=== PATIENT | male | born 1945 | race Caucasian/White ===

== ENCOUNTER 2021-03-04 11:53 | Observation (INO) | payer MEDICARE, SELFPAY ==
[2021-03-04 12:36] VITALS: BP 164/78; PULSE 101; RESP 18; TEMP 36.7; O2SAT 98; BMI 24.8
[2021-03-04 15:24] LABS: Basophils # 0.1 10^3/uL (0.0-0.1); Basophils % 0.7 %; Eosinophils % 0.3 %; Hematocrit 27.5 % (42.0-52.0); Hemoglobin 8.5 g/dL (11.7-16.6); Lymphocytes % 13.2 %; Mean Corpuscular HGB Conc 30.9 g/dL (30.0-36.0); Mean Corpuscular Hemoglobin 36.2 pg (28.0-34.0); Mean Platelet Volume 10.3 fL (7.4-10.4); Monocytes # 0.4 10^3/uL (0.2-0.9); Monocytes % 5.8 %; Neutrophils # 6.04 10^3/uL (1.8-7.7); Neutrophils % 79.5 %; Nucleated Red Blood Cells % 0 %; Platelet Count 168 10^3/cmm (130-400); Red Blood Count 2.35 10^6/uL (4.1-5.3); Red Cell Distribution Width 18.5 % (12.1-15.1); White Blood Count 7.6 10^3/uL (4.0-10.0)
[2021-03-04 15:39] LABS: INR 1.08 (0.8-1.2)
[2021-03-04 15:40] LABS: Partial Thromboplastin Time 33.9 SECONDS (23.9-36.7)
[2021-03-04 15:56] LABS: Troponin T (5th) Once 93 ng/L (0-15)
[2021-03-04 16:00] LABS: Alanine Aminotransferase 14 U/L (0-41); Albumin Level 3.2 g/dL (3.5-5.2); Alkaline Phosphatase 271 IU/L (40-130); Aspartate Amino Transferase 90 U/L (0-40); Blood Urea Nitrogen 17 mg/dL (8-23); Calcium 7.9 mg/dL (8.5-10.5); Carbon Dioxide 20 mmol/L (22-29); Chloride 103 mmol/L (98-107); Globulin 2.8 g/dL (1.3-4.6); Glucose 78 mg/dL (65-115); NT Pro B Type Natriuretic Pept 2152 pg/mL (0-125); Osmolality Calculated 298 mOsm/kg (285-295); Sodium 144 mmol/L (136-145); Total Bilirubin 0.6 mg/dL (0.15-1.2)
--- NOTE | 2021-03-04 18:09 | ECG_ITS ---
[facility] ED Test Date: 2021-03-04 Pat Name: Kyler Boyce Department: Room: Gender: Male Process Specialist: : 1945 Requested By: Manuel Bansal Order Number: [id number] Laguerre MD: Jasmina Holley M.D. Measurements Intervals [place] Rate: 101 P: 63 [place]: 152 QRS: 8 QRSD: 137 T: 26 QT: 420 QTc: 546 Interpretive Statements SINUS TACHYCARDIA INDETERMINATE AXIS RIGHT BUNDLE BRANCH BLOCK [120+ ms QRS DURATION, UPRIGHT V1, 40+ ms S IN I/aVL/V4/V5/V6] Compared to ECG 05/17/2019 21:31:57 Indeterminate axis now present Sinus rhythm no longer present Electronically Signed On 03-11-2021 0:36:13 CDT by Jasmina Holley M.D. [id number]
[2021-03-04 18:18] VITALS: BP 202/81; PULSE 92; RESP 16; O2SAT 93
--- NOTE | 2021-03-04 18:23 | ED_ITS ---
HPI - Weakness General: Chief complaint: ER Hold Stated complaint: WEAKNESS Time Seen by Provider: 03/04/21 17:53 History of Present Illness: HPI Narrative: 75-year-old male brought to the ER by EMS. His main complaint is generalized weakness last 4 to 5 weeks. His blood pressure is elevated. He denies any chest pain no vomiting or diarrhea no shortness of breath he does a history of COPD. MD Complaint: generalized weakness Onset (ago): hour(s) Duration: constant Location: generalized Migration: none Severity: mild Quality: tingling Exacerbating factors: none Associated symptoms: Denies chest pain, chills, melena, dysuria, fever(s), nausea or vomiting Review of Systems Const: Denies: fever(s), chills, body aches, change in appetite, fatigue or malaise ENMT: Denies: throat pain, ear or mastoid pain, nasal discharge or nasal congestion Card: Denies: chest pain, edema, dyspnea on exertion or orthopnea Resp: Denies: dyspnea, productive cough or non-productive cough GI: Denies: abdominal pain, nausea, vomiting, hematemesis, coffee ground emesis, diarrhea, constipation, bloating, hematochezia or melena : Denies: flank pain, dysuria, urinary frequency or urinary urgency Skin/Breast: Denies: rash or pruritus PFSH ED PFSH: Medical History CAD (coronary artery disease) COPD (chronic obstructive pulmonary disease) Heart failure Hypertension Nicotine dependence Physical Exam Const: COMMON NORMALS: no acute distress GENERAL APPEARANCE: cooperative an d comfortable ORIENTATION/CONSCIOUSNESS: Yes awake, Yes oriented to person, Yes oriented to place and Yes oriented to time HENMT: COMMON NORMALS: normocephalic, atraumatic and hearing grossly normal bilaterally HEAD & SCALP: normocephalic and atraumatic Eye: COMMON NORMALS: Equal, round and reactive pupils present, EOMs intact bilaterally, conjunctivae normal and no scleral icterus CONJUNCTIVA: Yes conjunctivae normal PUPIL: Yes Equal, round and reactive pupils present Neck/C-Spine: COMMON NORMALS: no JVD Resp: COMMON NORMALS: normal respiratory effort, No retractions, No use of accessory muscles and clear to auscultation bilaterally AUSCULTATION: clear to auscultation bilaterally Cardio: COMMON NORMALS: no JVD, regular rate, regular rhythm and No murmurs present (Cardio) RATE: regular rate RHYTHM: regular rhythm GI: COMMON NORMALS: Soft to palpation and No hepatosplenomegaly present AUSCULTATION: Yes normoactive bowel sounds PALPATION: Yes Soft to palpation, No Tenderness to palpation present (GI), No Guarding due to palpation present (GI) and Yes No hepatosplenomegaly present Extremity: COMMON NORMALS: normal to inspection, capillary refill normal, no clubbing, cyanosis or edema, no calf tenderness and no pedal edema Neuro: SENSORIUM/ORIENTATION: Yes oriented to person, Yes oriented to place and Yes oriented to time OTHER: Normal neurologic exam with no focal neurologic deficits noted. Skin: COMMON NORMALS: no rashes or lesions noted GENERAL SKIN EXAM: no rashes or lesions noted Course Vital Signs: Vital signs: Vital Signs Temperature 97.7 F 03/09/21 11:45 Pulse Rate 62 03/09/21 11:45 Respiratory Rate 16 03/09/21 11:45 Blood Pressure 119/63 03/09/21 11:45 Pulse Oximetry 97 03/09/21 11:45 MDM - Weakness MDM Narrative: Medical decision making narrative: Anemia, uncontrolled hypertension and generalized weakness. Patient is able to unable to manage daily activities of living. His accelerated hypertension is difficult to control. We will place him in observation for further evaluation. As well as adjustment of Lab Data: Labs: Lab Results 03/04/21 03/04/21 03/04/21 Range/Units 15:14 15:14 15:14 WBC 7.6 (4.0-10.0) 10^3/ uL RBC 2.35 L (4.1-5.3) 10^6/u L Hgb 8.5 L (11.7-16.6) g/dL Hct 27.5 L (42.0-52.0) % MCV 117.0 H (80-94) fL MCH 36.2 H (28.0-34.0) pg MCHC 30.9 (30.0-36.0) g/dL RDW 18.5 H (12.1-15.1) % Plt Count 168 (130-400) 10^3/c mm MPV 10.3 (7.4-10.4) fL Neut % (Auto) 79.5 % Lymph % (Auto) 13.2 % [place] % (Auto) 5.8 % Eos % (Auto) 0.3 % Baso % (Auto) 0.7 % Neut # (Auto) 6.04 (1.8-7.7) 10^3/u L Lymph # (Auto) 1.0 (0.8-4.8) 10^3/u L [place] # (Auto) 0.4 (0.2-0.9) 10^3/u L Eos # (Auto) 0.0 (0.0-0.8) 10^3/u L Baso # (Auto) 0.1 (0.0-0.1) 10^3/u L Nucleated RBC % (a uto) 0 % Nucleated RBCs # 0.0 /100WBC PT 14.30 (12.1-14.9) SECO NDS INR 1.08 (0.8-1.2) APTT 33.9 (23.9-36.7) SECO NDS Sodium 144 (136-145) mmol/L Potassium 4.0 (3.5-5.1) mmol/L Chloride 103 (98-107) mmol/L Carbon Dioxide 20 L (22-29) mmol/L Anion Gap 25.0 H (5-19) BUN 17 (8-23) mg/dL Creatinine 1.0 (0.7-1.2) mg/dL GFR Calculation Not Reportable Glucose 78 (65-115) mg/dL Calculated Osmolal ity 298 H (285-295) mOsm/k g Calcium 7.9 L (8.5-10.5) mg/dL Total Bilirubin 0.6 (0.15-1.2) mg/dL AST 90 H (0-40) U/L ALT 14 (0-41) U/L Alkaline Phosphata se 271 H (40-130) IU/L Troponin T Gen 5 n g/L (0-15) ng/L Troponin T Baselin e (0-15) ng/L Troponin T 120 Min picayune (0-15) ng/L Delta Troponin T (0-10) ABS# Troponin T Hi Sens 6Hr (0-15) ng/L Troponin T Hi Sens 6Hr Delta (0-12) ng/L NT-Pro-B Natriuret Pep 2152 H (0-125) pg/mL Total Protein 6.0 L (6.6-8.7) g/dL Albumin 3.2 L (3.5-5.2) g/dL Globulin 2.8 (1.3-4.6) g/dL Urine Color (Yellow) Urine Appearance (CLEAR) Urine pH (5-7) Ur Specific Gravit y (1.005-1.030) Urine Protein (Negative) Urine Glucose (UA) (Normal) Urine Ketones (Negative) Urine Blood (Negative) Urine Nitrate (Negative) Urine Bilirubin (Negative) Urine Urobilinogen (Negative) mg/dL Ur Leukocyte Brielle ase (Negative) Urine RBC (0-2) /hpf Urine WBC (0-5) /hpf Ur Squamous Epith Cells (0-5) /hpf Amorphous Sediment Urine Bacteria (NONE) /hpf Hyaline Casts /lpf Fine Granular Cast s /lpf Coarse Granular Ca sts /lpf Urine Mucus /hpf Urine Opiates Scre en (Negative) ng/mL Ur Barbiturates Sc reen (Negative) ng/mL Ur Phencyclidine S crn (Negative) ng/mL Ur Amphetamines Sc reen (Negative) ng/mL U Benzodiazepines Scrn (Negative) ng/mL Urine Cocaine Scre en (Negative) ng/mL U Marijuana (THC) Screen (Negative) ng/mL Nasal/Oral COVID-1 9 PCR 03/04/21 03/04/21 03/04/21 Range/Units 15:14 18:30 18:30 WBC (4.0-10.0) 10^3/ uL RBC (4.1-5.3) 10^6/u L Hgb (11.7-16.6) g/dL Hct (42.0-52.0) % MCV (80-94) fL MCH (28.0-34.0) pg MCHC (30.0-36.0) g/dL RDW (12.1-15.1) % Plt Count (130-400) 10^3/c mm MPV (7.4-10.4) fL Neut % (Auto) % Lymph % (Auto) % [place] % (Auto) % Eos % (Auto) % Baso % (Auto) % Neut # (Auto) (1.8-7.7) 10^3/u L Lymph # (Auto) (0.8-4.8) 10^3/u L [place] # (Auto) (0.2-0.9) 10^3/u L Eos # (Auto) (0.0-0.8) 10^3/u L Baso # (Auto) (0.0-0.1) 10^3/u L Nucleated RBC % (a uto) % Nucleated RBCs # /100WBC PT (12.1-14.9) SECO NDS INR (0.8-1.2) APTT (23.9-36.7) SECO NDS Sodium (136-145) mmol/L Potassium (3.5-5.1) mmol/L Chloride (98-107) mmol/L Carbon Dioxide (22-29) mmol/L Anion Gap (5-19) BUN (8-23) mg/dL Creatinine (0.7-1.2) mg/dL GFR Calculation Glucose (65-115) mg/dL Calculated Osmolal ity (285-295) mOsm/k g Calcium (8.5-10.5) mg/dL Total Bilirubin (0.15-1.2) mg/dL AST (0-40) U/L ALT (0-41) U/L Alkaline Phosphata se (40-130) IU/L Troponin T Gen 5 n g/L 93 H (0-15) ng/L Troponin T Baselin e (0-15) ng/L Troponin T 120 Min picayune (0-15) ng/L Delta Troponin T (0-10) ABS# Troponin T Hi Sens 6Hr (0-15) ng/L Troponin T Hi Sens 6Hr Delta (0-12) ng/L NT-Pro-B Natriuret Pep (0-125) pg/mL Total Protein (6.6-8.7) g/dL Albumin (3.5-5.2) g/dL Globulin (1.3-4.6) g/dL Urine Color [place] (Yellow) Urine Appearance Clear (CLEAR) Urine pH 5 (5-7) Ur Specific Gravit y 1.020 (1.005-1.030) Urine Protein 3+ H (Negative) Urine Glucose (UA) Norm (Normal) Urine Ketones 1+ H (Negative) Urine Blood Neg (Negative) Urine Nitrate Negative (Negative) Urine Bilirubin 1+ H (Negative) Urine Urobilinogen 4 H (Negative) mg/dL Ur Leukocyte Brielle ase Negative (Negative) Urine RBC None (0-2) /hpf Urine WBC Rare (0-5) /hpf Ur Squamous Epith Cells None (0-5) /hpf Amorphous Sediment Not Reportable Urine Bacteria Trace (NONE) /hpf Hyaline Casts 15-25 H /lpf Fine Granular Cast s 0-4 H /lpf Coarse Granular Ca sts 0-4 H /lpf Urine Mucus 1+ /hpf Urine Opiates Scre en Negative (Negative) ng/mL Ur Barbiturates Sc reen Negative (Negative) ng/mL Ur Phencyclidine S crn Negative (Negative) ng/mL Ur Amphetamines Sc reen Negative (Negative) ng/mL U Benzodiazepines Scrn Negative (Negative) ng/mL Urine Cocaine Scre en Negative (Negative) ng/mL U Marijuana (THC) Screen Negative (Negative) ng/mL Nasal/Oral COVID-1 9 PCR 03/04/21 03/04/21 03/05/21 Range/Units 19:29 21:50 00:08 WBC (4.0-10.0) 10^3/ uL RBC (4.1-5.3) 10^6/u L Hgb (11.7-16.6) g/dL Hct (42.0-52.0) % MCV (80-94) fL MCH (28.0-34.0) pg MCHC (30.0-36.0) g/dL RDW (12.1-15.1) % Plt Count (130-400) 10^3/c mm MPV (7.4-10.4) fL Neut % (Auto) % Lymph % (Auto) % [place] % (Auto) % Eos % (Auto) % Baso % (Auto) % Neut # (Auto) (1.8-7.7) 10^3/u L Lymph # (Auto) (0.8-4.8) 10^3/u L [place] # (Auto) (0.2-0.9) 10^3/u L Eos # (Auto) (0.0-0.8) 10^3/u L Baso # (Auto) (0.0-0.1) 10^3/u L Nucleated RBC % (a uto) % Nucleated RBCs # /100WBC PT (12.1-14.9) SECO NDS INR (0.8-1.2) APTT (23.9-36.7) SECO NDS Sodium (136-145) mmol/L Potassium (3.5-5.1) mmol/L Chloride (98-107) mmol/L Carbon Dioxide (22-29) mmol/L Anion Gap (5-19) BUN (8-23) mg/dL Creatinine (0.7-1.2) mg/dL GFR Calculation Glucose (65-115) mg/dL Calculated Osmolal ity (285-295) mOsm/k g Calcium (8.5-10.5) mg/dL Total Bilirubin (0.15-1.2) mg/dL AST (0-40) U/L ALT (0-41) U/L Alkaline Phosphata se (40-130) IU/L Troponin T Gen 5 n g/L (0-15) ng/L Troponin T Baselin e 84 H (0-15) ng/L Troponin T 120 Min picayune 89.11 H (0-15) ng/L Delta Troponin T 5.11 (0-10) ABS# Troponin T Hi Sens 6Hr (0-15) ng/L Troponin T Hi Sens 6Hr Delta (0-12) ng/L NT-Pro-B Natriuret Pep (0-125) pg/mL Total Protein (6.6-8.7) g/dL Albumin (3.5-5.2) g/dL Globulin (1.3-4.6) g/dL Urine Color (Yellow) Urine Appearance (CLEAR) Urine pH (5-7) Ur Specific Gravit y (1.005-1.030) Urine Protein (Negative) Urine Glucose (UA) (Normal) Urine Ketones (Negative) Urine Blood (Negative) Urine Nitrate (Negative) Urine Bilirubin (Negative) Urine Urobilinogen (Negative) mg/dL Ur Leukocyte Brielle ase (Negative) Urine RBC (0-2) /hpf Urine WBC (0-5) /hpf Ur Squamous Epith Cells (0-5) /hpf Amorphous Sediment Urine Bacteria (NONE) /hpf Hyaline Casts /lpf Fine Granular Cast s /lpf Coarse Granular Ca sts /lpf Urine Mucus /hpf Urine Opiates Scre en (Negative) ng/mL Ur Barbiturates Sc reen (Negative) ng/mL Ur Phencyclidine S crn (Negative) ng/mL Ur Amphetamines Sc reen (Negative) ng/mL U Benzodiazepines Scrn (Negative) ng/mL Urine Cocaine Scre en (Negative) ng/mL U Marijuana (THC) Screen (Negative) ng/mL Nasal/Oral COVID-1 9 PCR Not detected 03/05/21 Range/Units 01:16 WBC (4.0-10.0) 10^3/ uL RBC (4.1-5.3) 10^6/u L Hgb (11.7-16.6) g/dL Hct (42.0-52.0) % MCV (80-94) fL MCH (28.0-34.0) pg MCHC (30.0-36.0) g/dL RDW (12.1-15.1) % Plt Count (130-400) 10^3/c mm MPV (7.4-10.4) fL Neut % (Auto) % Lymph % (Auto) % [place] % (Auto) % Eos % (Auto) % Baso % (Auto) % Neut # (Auto) (1.8-7.7) 10^3/u L Lymph # (Auto) (0.8-4.8) 10^3/u L [place] # (Auto) (0.2-0.9) 10^3/u L Eos # (Auto) (0.0-0.8) 10^3/u L Baso # (Auto) (0.0-0.1) 10^3/u L Nucleated RBC % (a uto) % Nucleated RBCs # /100WBC PT (12.1-14.9) SECO NDS INR (0.8-1.2) APTT (23.9-36.7) SECO NDS Sodium (136-145) mmol/L Potassium (3.5-5.1) mmol/L Chloride (98-107) mmol/L Carbon Dioxide (22-29) mmol/L Anion Gap (5-19) BUN (8-23) mg/dL Creatinine (0.7-1.2) mg/dL GFR Calculation Glucose (65-115) mg/dL Calculated Osmolal ity (285-295) mOsm/k g Calcium (8.5-10.5) mg/dL Total Bilirubin (0.15-1.2) mg/dL AST (0-40) U/L ALT (0-41) U/L Alkaline Phosphata se (40-130) IU/L Troponin T Gen 5 n g/L (0-15) ng/L Troponin T Baselin e (0-15) ng/L Troponin T 120 Min picayune (0-15) ng/L Delta Troponin T (0-10) ABS# Troponin T Hi Sens 6Hr 88.71 H (0-15) ng/L Troponin T Hi Sens 6Hr Delta 4.71 (0-12) ng/L NT-Pro-B Natriuret Pep (0-125) pg/mL Total Protein (6.6-8.7) g/dL Albumin (3.5-5.2) g/dL Globulin (1.3-4.6) g/dL Urine Color (Yellow) Urine Appearance (CLEAR) Urine pH (5-7) Ur Specific Gravit y (1.005-1.030) Urine Protein (Negative) Urine Glucose (UA) (Normal) Urine Ketones (Negative) Urine Blood (Negative) Urine Nitrate (Negative) Urine Bilirubin (Negative) Urine Urobilinogen (Negative) mg/dL Ur Leukocyte Brielle ase (Negative) Urine RBC (0-2) /hpf Urine WBC (0-5) /hpf Ur Squamous Epith Cells (0-5) /hpf Amorphous Sediment Urine Bacteria (NONE) /hpf Hyaline Casts /lpf Fine Granular Cast s /lpf Coarse Granular Ca sts /lpf Urine Mucus /hpf Urine Opiates Scre en (Negative) ng/mL Ur Barbiturates Sc reen (Negative) ng/mL Ur Phencyclidine S crn (Negative) ng/mL Ur Amphetamines Sc reen (Negative) ng/mL U Benzodiazepines Scrn (Negative) ng/mL Urine Cocaine Scre en (Negative) ng/mL U Marijuana (THC) Screen (Negative) ng/mL Nasal/Oral COVID-1 9 PCR Discharge Plan Discharge Patient Disposition: Placed in Observation Admit Provider: Lakisha Carty Clinical Impression: Hypertension, uncontrolled, CAD (coronary artery disease), Anemia, COPD (chronic obstructive pulmonary disease) Coding Level of Care Code ED Frame Sample And Pattern Supervisor for Chg Fwd
[2021-03-04] MEDS: sodium chloride 0.9% 1,000 ML 999 ML IV (18:36)
--- NOTE | 2021-03-04 19:07 | XRR_ITS ---
PROCEDURE INFORMATION: Exam: XR Chest Exam date and time: 03/04/2021 7:07 PM Age: 75 years old Clinical indication: Cough and dyspnea; Additional info: Dyspnea/cough TECHNIQUE: Imaging protocol: XR of the chest. Views: 1 view. COMPARISON: CR Chest 1 [place] [id number] 05/17/2019 4:30 PM FINDINGS: Lungs: Unremarkable. No consolidation. Pleural spaces: Unremarkable. No pleural effusion. No pneumothorax. Heart/Mediastinum: Unremarkable. No cardiomegaly. Bones/joints: Rightward thoracic curvature. XR/XR chest 1V portable [id number] IMPRESSION: No acute findings.
[2021-03-04 19:13] LABS: Add Urine Microscopic? YES; Amphetamines Screen Urine Negative (Negative); Bacteria Urine TRACE /hpf; Barbiturates Screen Urine Negative (Negative); Benzodiazepines Screen Urine Negative (Negative); Bilirubin Urine 1+ (Negative); Blood Urine Neg (Negative); Cocaine Screen Urine Negative (Negative); Glucose Urine UA Norm (Normal); Ketones Urine 1+ (Negative); Leukocyte Esterase Urine Negative (Negative); Mucus Urine 1+ /hpf; Nitrate Urine Negative (Negative); Opiate Screen Urine Negative (Negative); PCP Screen Urine Negative (Negative); Protein Urine 3+ (Negative); THC Screen Urine Negative (Negative); Urine Appearance Clear (CLEAR); Urine Color Amber (Yellow); Urobilinogen Urine 4 mg/dL (Negative); WBC Urine RARE /hpf (0-5); pH Urine 5 (5-7)
[2021-03-04 19:14] LABS: Add Urine Culture? No; Coarse Granular Casts Urine 0-4 /lpf; Fine Granular Casts Urine 0-4 /lpf; Hyaline Casts Urine 15-25 /lpf
[2021-03-04 20:00] VITALS: BP 209/97; PULSE 67; RESP 16; O2SAT 95
[2021-03-04 20:04] LABS: Troponin(5th) Baseline 84 ng/L (0-15)
--- NOTE | 2021-03-04 20:09 | ECG_ITS ---
[facility] ED Test Date: 2021-03-04 Pat Name: Kyler Boyce Department: Room: Gender: Male Tier And Detonator: : 1945 Requested By: Manuel Bansal Order Number: [id number] Laguerre MD: Jasmina Holley M.D. Measurements Intervals [place] Rate: 106 P: 39 MN: 156 QRS: 23 QRSD: 138 T: 50 QT: 388 QTc: 516 Interpretive Statements SINUS TACHYCARDIA WITH OCCASIONAL SUPRAVENTRICULAR PREMATURE COMPLEXES RIGHT BUNDLE BRANCH BLOCK [120+ ms QRS DURATION, UPRIGHT V1, 40+ ms S IN I/aVL/V4/V5/V6] Compared to ECG 03/04/2021 19:20:30 Indeterminate axis no longer present Electronically Signed On 03-21-2021 10:13:07 CDT by Jasmina Holley M.D. [id number]
[2021-03-04 20:30] VITALS: BP 225/109; RESP 15; O2SAT 96
[2021-03-04] MEDS: hyDRALAzine 20 mg/mL INJ 1 mL 10 MG IVP ×2 (20:35→23:29)
[2021-03-04 22:12] LABS: Troponin 5 2HR 89.11 ng/L (0-15); Troponin 5 2HR Delta 5.11 ABS# (0-10)
--- NOTE | 2021-03-04 23:15 | PC.NURSE ---
Patient unable to sit up or ambulate.
[2021-03-04] MEDS: amlodipine 10 mg Tablet PO (23:27)
[2021-03-04 23:28] VITALS: BP 203/115
[2021-03-04] MEDS: cloNIDine 0.1 mg Tablet PO (23:28)
[2021-03-04] MEDS: isosorbide mononitrate ER 30 mg Tablet PO (23:29)
--- NOTE | 2021-03-04 23:33 | PC.NURSE ---
pt had 300 ml output
[2021-03-05] VITALS (13 sets, daily range): BP systolic 129–175; BP diastolic 66–93; PULSE 77–122; RESP 15–20; TEMP 36.4–37; O2SAT 96–98
--- NOTE | 2021-03-05 00:09 | ECG_ITS ---
[facility] ED Test Date: 2021-03-05 Pat Name: Kyler Boyce Department: Room: Gender: Male Shipping And Receiving: : 1945 Requested By: Manuel Bansal Order Number: [id number] Shade MD: Jasmina Holley M.D. Measurements Intervals [place] Rate: 106 P: 57 LA: 187 QRS: 32 QRSD: 138 T: -26 QT: 388 QTc: 515 Interpretive Statements SINUS TACHYCARDIA WITH OCCASIONAL SUPRAVENTRICULAR PREMATURE COMPLEXES INDETERMINATE AXIS RIGHT BUNDLE BRANCH BLOCK [120+ ms QRS DURATION, UPRIGHT V1, 40+ ms S IN I/aVL/V4/V5/V6] MODERATE T-WAVE ABNORMALITY, CONSIDER INFERIOR ISCHEMIA [-0.1+ mV T WAVE IN II/aVF] Compared to ECG 03/04/2021 22:31:27 Indeterminate axis now present T-wave abnormality now present Possible ischemia now present Electronically Signed On 03-21-2021 10:13:03 CDT by Jasmina Holley M.D. [id number]
[2021-03-05 01:40] LABS: Troponin 5 6HR 88.71 ng/L (0-15); Troponin 5 6HR Delta 4.71 ng/L (0-12)
[2021-03-05 04:00] LABS: Basophils # 0.1 10^3/uL (0.0-0.1); Basophils % 0.6 %; Hematocrit 26.2 % (42.0-52.0); Hemoglobin 7.2 g/dL (11.7-16.6); Lymphocytes # 0.4 10^3/uL (0.8-4.8); Mean Corpuscular HGB Conc 27.5 g/dL (30.0-36.0); Mean Corpuscular Hemoglobin 36.5 pg (28.0-34.0); Mean Platelet Volume 10.8 fL (7.4-10.4); Monocytes # 0.5 10^3/uL (0.2-0.9); Monocytes % 6.8 %; Neutrophils # 6.79 10^3/uL (1.8-7.7); Neutrophils % 87.3 %; Nucleated Red Blood Cells % 0 %; Platelet Count 129 10^3/cmm (130-400); Red Blood Count 1.97 10^6/uL (4.1-5.3); Red Cell Distribution Width 18.6 % (12.1-15.1); White Blood Count 7.8 10^3/uL (4.0-10.0)
[2021-03-05 04:17] LABS: Anion Gap 25.9 (5-19); Blood Urea Nitrogen 16 mg/dL (8-23); Calcium 7.6 mg/dL (8.5-10.5); Carbon Dioxide 16 mmol/L (22-29); Chloride 101 mmol/L (98-107); Glucose 94 mg/dL (65-115); Osmolality Calculated 289 mOsm/kg (285-295); Potassium 3.9 mmol/L (3.5-5.1); Sodium 139 mmol/L (136-145)
[2021-03-05 05:55] LABS: Ferritin 245 ng/mL (30-400); Iron 96 ug/dL (59-158); Vitamin B12 489 pg/mL (232-1245)
--- NOTE | 2021-03-05 06:23 | PM.HP ---
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 Patient states he has been falling more at home, feels fatigued, has had poor appetite and weight loss. Upon presentation to the ER he was found to be in hypertensive urgency with blood pressure 225/109. He has thus far received Norvasc 10 mg, clonidine 0.1 mg, hydralazine 10 mg IV pushes x2, Imdur 30 mg, at time of my assessment his blood pressure was 157/85. No neurological symptoms. Denies weakness in any extremity that is new. With correction of blood pressure he was initially planned to be discharged from the ER, however on attempting to walk patient felt his legs giving in, he was unable to support his weight. Denies any urinary or bowel incontinence. No saddle anethesia. Other diagnostics in the ER notable for anemia of 7.2, primarily macrocytic, hypoproteinemia, normal renal and liver functions.Denies any recent trauma. Review of Systems General: Reports: 10 or more systems reviewed and unremarkable except in HPI and below Const: Reports: fever(s), chills and body aches Eyes: Denies: change in vision, blurry vision or photophobia ENMT: Reports: hoarseness; Denies: throat pain, enlarged tonsils, odynophagia or nasal congestion Card: Denies: chest pain, palpitations, irregular heart rhythm, edema, swelling of feet/ankles, lightheadedness, pre-syncope, dyspnea on exertion or orthopnea Resp: Denies: dyspnea, productive cough, non-productive cough, wheezing, stridor, pain on inspiration, change in phlegm color, hemoptysis or chest congestion GI: Denies: abdominal pain, nausea, vomiting, hematemesis, coffee ground emesis, dysphagia, heartburn, diarrhea, constipation, GI cramping, change in stool character, hematochezia or melena : Denies: flank pain, dysuria, urinary frequency, urinary urgency, urinary hesitancy or hematuria Musc: Denies: neck pain, back pain, extremity pain, joint swelling, joint warmth or deformity Neuro: Denies: headache(s), numbness in extremities, weakness in extremities, sensory changes, difficulty walking, frequent falls, dizziness, vertigo, behavioral changes, Slurred speech present or seizure-like activity Psych: Denies: anxiety, depression, suicidal ideation or homicidal ideation Endo: Denies: polyuria, polydipsia, tired all the time, cold intolerance or hot flashes Feliz/Lymph: Denies: easy bruising or easy bleeding Medications/Allergies Home Medications Medication Instructions Recorded Confirmed Last Taken Type aspirin 81 mg PO DAILY 03/04/21 03/04/21 03/04/21 History atorvastatin [Lipitor] 40 mg PO DAILY 03/04/21 03/04/21 03/03/21 History gabapentin 100 mg PO BEDTIME 03/04/21 03/04/21 03/03/21 History isosorbide mononitrate 30 mg PO DAILY 03/04/21 03/04/21 03/04/21 History lisinopril 40 mg PO DAILY 03/04/21 03/04/21 03/04/21 History metoprolol tartrate 100 mg PO BID 03/04/21 03/04/21 03/04/21 History sod phos di, mono-K phos mono 1 tab PO BID 03/04/21 03/04/21 03/04/21 History [Virt-Phos 250 Neutral] tamsulosin 0.4 mg PO BEDTIME 03/04/21 03/04/21 03/03/21 History Allergies Allergy/AdvReac Type Severity Reaction Status Date / Time No Known Allergies Allergy Unverified 03/04/21 18:17 PFSH Acute PFSH: Medical History CAD (coronary artery disease) COPD (chronic obstructive pulmonary disease) Heart failure Hypertension Nicotine dependence Vitals/I&O/Wt Last Vital Signs Temp 98.1 F 03/04/21 12:36 Pulse 108 H 03/05/21 05:49 Resp 19 H 03/05/21 05:49 BP 157/85 03/05/21 05:49 Pulse Ox 96 03/05/21 05:49 03/04/21 03/04/21 03/05/21 14:59 22:59 06:59 Intake Total 1000 / 1000 Output Total 250 / 250 Balance 1000 / 1000 -250 / 750 Weight last 48 hrs Weight 83.007 kg Physical Exam Narrative: EXAM NARRATIVE: General: No acute distress, AO x3 HEENT: PERRLA, pupils bilaterally equal and reactive, pallors not present Chest: Normal vesicular breath sounds, no added sounds, equal good air entry bilaterally CVS: S1-S2 regular, no murmurs, no tachycardia, no gallops, no rubs Abdomen: Soft, nontender, no organomegaly, bowel sounds present Neuro: No focal deficits, no facial deformity, AO x3, power 5/5 in all limbs Data : 03/05/21 03:55 03/05/21 03:55 Micro: Microbiology 03/05/21 03:23 Occult Blood (FIT) - Final Stool Routine Collection Attestation for Other Data: I personally reviewed and interpreted the following: Other data: Laboratory Results WBC 7.8 10^3/uL (4.0-10.0) 03/05/21 03:55 RBC 1.97 10^6/uL (4.1-5.3) L 03/05/21 03:55 Hgb 7.2 g/dL (11.7-16.6) L 03/05/21 03:55 Hct 26.2 % (42.0-52.0) L 03/05/21 03:55 MCV 133.0 fL (80-94) H D 03/05/21 03:55 MCH 36.5 pg (28.0-34.0) H 03/05/21 03:55 MCHC 27.5 g/dL (30.0-36.0) L D 03/05/21 03:55 RDW 18.6 % (12.1-15.1) H 03/05/21 03:55 Plt Count 129 10^3/cmm (130-400) L 03/05/21 03:55 MPV 10.8 fL (7.4-10.4) H 03/05/21 03:55 Neut % (Auto) 87.3 % 03/05/21 03:55 Lymph % (Auto) 5.0 % 03/05/21 03:55 [place] % (Auto) 6.8 % 03/05/21 03:55 Eos % (Auto) 0.0 % 03/05/21 03:55 Baso % (Auto) 0.6 % 03/05/21 03:55 Neut # (Auto) 6.79 10^3/uL (1.8-7.7) 03/05/21 03:55 Lymph # (Auto) 0.4 10^3/uL (0.8-4.8) L 03/05/21 03:55 [place] # (Auto) 0.5 10^3/uL (0.2-0.9) 03/05/21 03:55 Eos # (Auto) 0.0 10^3/uL (0.0-0.8) 03/05/21 03:55 Baso # (Auto) 0.1 10^3/uL (0.0-0.1) 03/05/21 03:55 Nucleated RBC % (auto) 0 % 03/05/21 03:55 Nucleated RBCs # 0.0 /100WBC 03/05/21 03:55 PT 14.30 SECONDS (12.1-14.9) 03/04/21 15:14 INR 1.08 (0.8-1.2) 03/04/21 15:14 APTT 33.9 SECONDS (23.9-36.7) 03/04/21 15:14 Sodium 139 mmol/L (136-145) 03/05/21 03:55 Potassium 3.9 mmol/L (3.5-5.1) 03/05/21 03:55 Chloride 101 mmol/L (98-107) 03/05/21 03:55 Carbon Dioxide 16 mmol/L (22-29) L 03/05/21 03:55 Anion Gap 25.9 (5-19) H 03/05/21 03:55 BUN 16 mg/dL (8-23) 03/05/21 03:55 Creatinine 1.0 mg/dL (0.7-1.2) 03/05/21 03:55 GFR Calculation Not Reportable 03/05/21 03:55 Glucose 94 mg/dL (65-115) 03/05/21 03:55 Calculated Osmolality 289 mOsm/kg (285-295) 03/05/21 03:55 Calcium 7.6 mg/dL (8.5-10.5) L 03/05/21 03:55 Iron 96 ug/dL (59-158) 03/05/21 03:55 Ferritin 245 ng/mL (30-400) 03/05/21 03:55 Total Bilirubin 0.6 mg/dL (0.15-1.2) 03/04/21 15:14 AST 90 U/L (0-40) H 03/04/21 15:14 ALT 14 U/L (0-41) 03/04/21 15:14 Alkaline Phosphatase 271 IU/L (40-130) H 03/04/21 15:14 Troponin T Gen 5 ng/L 93 ng/L (0-15) H 03/04/21 15:14 Troponin T Baseline 84 ng/L (0-15) H 03/04/21 19:29 Troponin T 120 Minute 89.11 ng/L (0-15) H 03/04/21 21:50 Delta Troponin T 5.11 ABS# (0-10) 03/04/21 21:50 Troponin T Hi Sens 6Hr 88.71 ng/L (0-15) H 03/05/21 01:16 Troponin T Hi Sens 6Hr Delta 4.71 ng/L (0-12) 03/05/21 01:16 NT-Pro-B Natriuret Pep 2152 pg/mL (0-125) H 03/04/21 15:14 Total Protein 6.0 g/dL (6.6-8.7) L 03/04/21 15:14 Albumin 3.2 g/dL (3.5-5.2) L 03/04/21 15:14 Globulin 2.8 g/dL (1.3-4.6) 03/04/21 15:14 Vitamin B12 489 pg/mL (232-1245) 03/05/21 03:55 TSH 2.10 uIU/mL (0.27-4.20) 03/05/21 03:55 Urine Color [place] (Yellow) 03/04/21 18:30 Urine Appearance Clear (CLEAR) 03/04/21 18:30 Urine pH 5 (5-7) 03/04/21 18:30 Ur Specific [place] 1.020 (1.005-1.030) 03/04/21 18:30 Urine Protein 3+ (Negative) H 03/04/21 18:30 Urine Glucose (UA) Norm (Normal) 03/04/21 18:30 Urine Ketones 1+ (Negative) H 03/04/21 18:30 Urine Blood Neg (Negative) 03/04/21 18:30 Urine Nitrate Negative (Negative) 03/04/21 18:30 Urine Bilirubin 1+ (Negative) H 03/04/21 18:30 Urine Urobilinogen 4 mg/dL (Negative) H 03/04/21 18:30 Ur Leukocyte Esterase Negative (Negative) 03/04/21 18:30 Urine RBC None /hpf (0-2) 03/04/21 18:30 Urine WBC Rare /hpf (0-5) 03/04/21 18:30 Ur Squamous Epith Cells None /hpf (0-5) 03/04/21 18:30 Amorphous Sediment Not Reportable 03/04/21 18:30 Urine Bacteria Trace /hpf (NONE) 03/04/21 18:30 Hyaline Casts 15-25 /lpf H 03/04/21 18:30 Fine Granular Casts 0-4 /lpf H 03/04/21 18:30 Coarse Granular Casts 0-4 /lpf H 03/04/21 18:30 Urine Mucus 1+ /hpf 03/04/21 18:30 Urine Opiates Screen Negative ng/mL (Negative) 03/04/21 18:30 Ur Barbiturates Screen Negative ng/mL (Negative) 03/04/21 18:30 Ur Phencyclidine Scrn Negative ng/mL (Negative) 03/04/21 18:30 Ur Amphetamines Screen Negative ng/mL (Negative) 03/04/21 18:30 U Benzodiazepines Scrn Negative ng/mL (Negative) 03/04/21 18:30 Urine Cocaine Screen Negative ng/mL (Negative) 03/04/21 18:30 U Marijuana (THC) Screen Negative ng/mL (Negative) 03/04/21 18:30 Impressions Chest X-Ray 03/04/21 19:07 IMPRESSION: No acute findings. A&P Assessment and plan (1) Hypertensive urgency: Currently BP better controlled Uncertain regarding compliance at home with medications, lives alone , significant deconditioning Resume hoem meds incl lisinopril and metoprolol Add amlodipine if needed Status: Acute (2) COPD (chronic obstructive pulmonary disease): not currently exacerbated duonebs q4h prn Status: Acute (3) Anemia: check b12, folate, fe, ferritin level check TSH FOBT Status: Acute (4) CAD (coronary artery disease): continue ASA, statin, B tiff, imdur No c/o chest pain Troponin series without significant delta Gr 1 diastolic dysfunction on echo from 2017, preserved EF Status: Acute Additional A&P Information DVT ppx: [employer] student services representative consult for safe disposition planning as currently unable to care for self - HH services vs rehab PT/OT assessment Full code Attestations Medical Necessity Statement*: observation stay for above defined care Coding Level of Care Code Acute Window Machine Operator for Chg Fwd Diagnoses Hypertensive urgency I16.0 COPD (chronic obstructive pulmonary disease) J44.9 Anemia D64.9 CAD (coronary artery disease) I25.10
--- NOTE | 2021-03-05 06:28 | XR_ITS ---
WS: [id number] XR pelvis 1-2V* [id number] REASON FOR EXAM: inability to walk x 1 month FINDINGS: The joint spaces are relatively well preserved with minimal subchondral sclerosis and osteophytic spu rring of the acetabulum and femoral neck. No diffuse or focal bony abnormality is identified. Degenerative spondylosis in the lower lumbar spine. XR/XR pelvis 1-2V* [id number] IMPRESSION: Mild degenerative changes with no other significant abnormality.
[2021-03-05 08:02] LABS: Folate Level < 2.0 ng/mL (4.5-32.2)
[2021-03-05] MEDS: enoxaparin 40 mg/0.4 mL Syringe SUBCUT (09:33)
[2021-03-05] MEDS: aspirin 81 mg Chew Tablet PO (09:33)
[2021-03-05] MEDS: metoprolol tartrate 50 mg Tablet 100 MG PO ×2 (09:34→17:04)
[2021-03-05] MEDS: isosorbide mononitrate ER 30 mg Tablet PO (09:34)
[2021-03-05] MEDS: pantoprazole DR 40 mg Tablet PO (09:34)
[2021-03-05] MEDS: lisinopril 20 mg Tablet 40 MG PO (11:18)
[2021-03-05] MEDS: atorvastatin 40 mg Tablet PO (11:18)
[2021-03-05 14:26] LABS: Coronavirus Test Green County Not Detected
[2021-03-05 16:01] LABS: Hematocrit 21.7 % (42.0-52.0); Hemoglobin 6.9 g/dL (11.7-16.6)
--- NOTE | 2021-03-05 18:49 | PM.PN ---
Subjective Subjective: Interval history: Kyler reports he is very weak. He believes he could benefit from being in a nursing facility. He denies seeing any blood in his stool or having any active bleeding. Medications: Reviewed: Yes Vitals/I&O/Wt Last Vital Signs Temp 98.1 F 03/05/21 16:00 Pulse 85 03/05/21 16:00 Resp 16 03/05/21 16:00 BP 137/68 03/05/21 16:00 Pulse Ox 96 03/05/21 16:00 03/05/21 03/05/21 03/05/21 06:59 14:59 22:59 Output Total 250 / 250 100 / 100 Balance -250 / 750 -100 / -100 Weight last 48 hrs Weight 83.007 kg Physical Exam Narrative: EXAM NARRATIVE: General exam is a pale-appearing male in no apparent distress Neck is supple no lymphadenopathy or thyromegaly Cardiovascular regular rate and rhythm without murmur, no S3 or S4 Lungs clear Abdomen is soft with positive bowel sounds Extremities no cyanosis clubbing or edema Data : 03/05/21 15:30 03/05/21 03:55 Micro: Microbiology 03/05/21 03:23 Occult Blood (FIT) - Final Stool Routine Collection A&P Assessment and plan (1) Hypertensive urgency: Blood pressure shows improved control with current regimen of metoprolol, lisinopril, amlodipine Status: Acute (2) COPD (chronic obstructive pulmonary disease): No evidence of current exacerbation Continue pulmonary toilet as needed Status: Acute (3) Anemia: Occult blood negative Folate level low. Initiate treatment folic acid Hemoglobin 6.9 and patient with some dizziness with standing. Transfuse 1 unit. TSH checked and normal Protonix daily Status: Acute (4) CAD (coronary artery disease): continue ASA, statin, B tiff, imdur Troponin with no significant delta 1/4 diastolic dysfunction on echo from 2017, preserved EF Status: Acute Additional A&P Information History of significant alcohol intake. Add thiamine. No evidence of withdrawal. DVT ppx: SCD secondary to severe anemia Discharge planning for possible placement Repeat urinalysis. Significant proteinuria and for sample. Check for lab error. Attestations Medical Necessity Statement*: Possible discharge tomorrow following transfusion is safe placement can be obtained. Coding Level of Care Code Acute Security Solutions Architect for g Fwd Diagnoses Hypertensive urgency I16.0 COPD (chronic obstructive pulmonary disease) J44.9 Anemia D64.9 CAD (coronary artery disease) I25.10
[2021-03-05] MEDS: tamsulosin 0.4 mg Capsule PO (20:57)
[2021-03-05] MEDS: gabapentin 100 mg Capsule PO (20:57)
[2021-03-05] MEDS: folic acid 1 mg Tablet PO (20:57)
[2021-03-06] VITALS (9 sets, daily range): BP systolic 134–164; BP diastolic 63–84; PULSE 18–91; RESP 16–18; TEMP 36.3–37.3; O2SAT 95–98
[2021-03-06] MEDS: sodium chloride 0.9% (100 ml) 100 ML (03:46)
[2021-03-06 07:12] LABS: Basophils % 0.3 %; Eosinophils % 0.6 %; Hematocrit 25.1 % (42.0-52.0); Lymphocytes # 1.1 10^3/uL (0.8-4.8); Lymphocytes % 15.8 %; Mean Corpuscular HGB Conc 31.9 g/dL (30.0-36.0); Mean Corpuscular Hemoglobin 35.4 pg (28.0-34.0); Mean Corpuscular Volume 111.1 fL (80-94); Monocytes # 0.5 10^3/uL (0.2-0.9); Monocytes % 7.5 %; Neutrophils # 5.07 10^3/uL (1.8-7.7); Neutrophils % 75.1 %; Nucleated Red Blood Cells % 0 %; Platelet Count 107 10^3/cmm (130-400); Red Blood Count 2.26 10^6/uL (4.1-5.3); Red Cell Distribution Width 19.8 % (12.1-15.1); White Blood Count 6.8 10^3/uL (4.0-10.0)
[2021-03-06] MEDS: folic acid 1 mg Tablet PO (07:42)
[2021-03-06] MEDS: atorvastatin 40 mg Tablet PO (07:42)
[2021-03-06] MEDS: lisinopril 20 mg Tablet 40 MG PO (07:42)
[2021-03-06] MEDS: aspirin 81 mg Chew Tablet PO (07:42)
[2021-03-06] MEDS: metoprolol tartrate 50 mg Tablet 100 MG PO ×2 (07:42→17:32)
[2021-03-06] MEDS: thiamine 100 mg Tablet PO (07:42)
[2021-03-06] MEDS: pantoprazole DR 40 mg Tablet PO (07:43)
[2021-03-06] MEDS: isosorbide mononitrate ER 30 mg Tablet PO (07:43)
[2021-03-06 08:17] LABS: Alanine Aminotransferase 11 U/L (0-41); Albumin Level 2.6 g/dL (3.5-5.2); Alkaline Phosphatase 207 IU/L (40-130); Anion Gap 14.6 (5-19); Aspartate Amino Transferase 56 U/L (0-40); Blood Urea Nitrogen 17 mg/dL (8-23); Calcium 7.5 mg/dL (8.5-10.5); Carbon Dioxide 25 mmol/L (22-29); Chloride 102 mmol/L (98-107); Globulin 2.5 g/dL (1.3-4.6); Glucose 98 mg/dL (65-115); Osmolality Calculated 288 mOsm/kg (285-295); Potassium 3.6 mmol/L (3.5-5.1); Sodium 138 mmol/L (136-145); Total Bilirubin 1.1 mg/dL (0.15-1.2); Total Protein 5.1 g/dL (6.6-8.7)
--- NOTE | 2021-03-06 09:48 | PC.CHAP ---
Pastoral Care Encounter/Spiritual Assessment Type of Contact [] Declined research greenhouse supervisor visit [] Patient/Family/Request visit [] Outpatient visit [] Follow-up visit [] Physician referral [] Code/Alert [x] Routine visit [] Staff referral [] Actively dying [] Patient sleeping [] Family support [] [] Out of room [] Palliative care [] [] Receiving care in room [] Pre-surgical visit [] Trauma [] Long length of stay [] ICU visit [] Other: Relational/Emotional Strength []x Patient feels connected with others/family/visitors/staff [] Distress [] Loneliness/isolation [] Abandonment Spirituality of Patient [x] Person of Rita [] Attends Sabianist of their Rita [x] Believes in Prayer [] Reads Bible or Orthodoxy materials [] There are Spiritual issues to be addressed Ceramic Plater Interventions [x] Prayer [x] Active listening [x] Non-anxious presence [] Spiritual/emotional support [] Crisis/trauma care [] Spiritual counseling [] Bereavement support [] Provided bereavement packet [] Provided Bible/devotional materials [] Provided toy/stuffed animal, coloring book to patient or family member [] Provided Communion [] Anointing/[place] [] Salvation [x] Completed spiritual assessment [] Other: Impact on Illness or Injury [] Angry [] Fearful [] Anxious [] Often cries [] Exhaustion [] Unable to work [] Unable to attend latter day [] Unable to walk/stand [] Unable to read [] Unable to drive [] Unable to eat/drink [] Unable to sleep [] Unable to be with family [] Patient intubated [] Other: Summary Time spent with patient 10 min
[2021-03-06 10:52] LABS: Urine Appearance Clear (CLEAR); Urine Color Yellow (Yellow)
[2021-03-06 10:53] LABS: pH Urine 8 (5-7)
[2021-03-06 10:54] LABS: Bilirubin Urine 1+ (Negative); Blood Urine 3+ (Negative); Glucose Urine UA Norm (Normal); Ketones Urine Negative (Negative); Leukocyte Esterase Urine Negative (Negative); Nitrate Urine Negative (Negative); Protein Urine 1+ (Negative); Urobilinogen Urine 8 mg/dL (Negative)
[2021-03-06 10:55] LABS: Add Urine Culture? No; Bacteria Urine TRACE /hpf; Squamous Epithelial Cell Urine 0-4 /hpf (0-5); Sulfosalicylic Acid Urine Negative (Negative); WBC Urine 0-4 /hpf (0-5)
--- NOTE | 2021-03-06 13:35 | P.PN_ITS ---
Subjective Subjective: Interval history: Patient reports no concerns. He is still very weak. He would like longterm placement. He did receive 1 unit of packed red blood cells last night secondary to my order. He denies any blood in stool overnight. Medications: Reviewed: Yes Vitals/I&O/Wt Last Vital Signs Temp 98.7 F 03/06/21 13:02 Pulse 65 03/06/21 13:02 Resp 18 03/06/21 13:02 BP 135/74 03/06/21 13:02 Pulse Ox 95 03/06/21 13:02 03/05/21 03/06/21 03/06/21 22:59 06:59 14:59 Intake Total 350 / 350 595 / 595 Output Total 250 / 350 150 / 150 Balance -250 / -350 350 / 0 445 / 445 Physical Exam Narrative: EXAM NARRATIVE: General exam is a pale-appearing male in no apparent distress Neck is supple no lymphadenopathy or thyromegaly Cardiovascular regular rate and rhythm without murmur, no S3 or S4 Lungs clear Abdomen is soft with positive bowel sounds Extremities no cyanosis clubbing or edema Data : 03/06/21 05:58 03/06/21 05:58 A&P Assessment and plan (1) Hypertensive urgency: Blood pressure shows improved control with current regimen of metoprolol, lisinopril, amlodipine Status: Acute (2) COPD (chronic obstructive pulmonary disease): No evidence of current exacerbation Continue pulmonary toilet as needed Status: Acute (3) Anemia: Occult blood negative Folate level low. Initiate treatment folic acid Hemoglobin 6.9 and patient with some dizziness with standing. Transfused 1 unit 03/05 and hemoglobin 8.0 today, appropriate increase. TSH checked and normal Protonix daily Status: Acute (4) CAD (coronary artery disease): continue ASA, statin, B tiff, imdur Troponin with no significant delta 1/4 diastolic dysfunction on echo from 2017, preserved EF Status: Acute Additional A&P Information History of significant alcohol intake. Add thiamine. No evidence of withdrawal. DVT ppx: SCD secondary to severe anemia Discharge planning for possible placement Repeat urinalysis. Significant proteinuria and for sample. Check for lab error. This was rechecked and only had 1+ protein. Attestations Medical Necessity Statement*: Needs continued hospitalization for significant anemia and weakness, pending placement. Unsafe for discharge home. Increased risk for decompensation, fall and fracture. Coding Level of Care Code Acute Building Trades Instructor for Chg Fwd Diagnoses Hypertensive urgency I16.0 COPD (chronic obstructive pulmonary disease) J44.9 Anemia D64.9 CAD (coronary artery disease) I25.10
[2021-03-06] MEDS: potassium chloride ER 20 mEq Tablet 40 MEQ PO (15:23)
--- NOTE | 2021-03-06 18:15 | PC.NURSE ---
SHIFT SUMMARY PATIENT HAS DONE WELL TODAY. STILL QUITE WEAK. ENCOURAGING PO INTAKE. NO COMPLAINTS OF PAIN. CURRENTLY RESTING IN BED EATING SUPPER.
[2021-03-06] MEDS: tamsulosin 0.4 mg Capsule PO (21:18)
[2021-03-06] MEDS: gabapentin 100 mg Capsule PO (21:18)
[2021-03-07] VITALS (7 sets, daily range): BP systolic 109–159; BP diastolic 61–78; PULSE 71–87; RESP 17–18; TEMP 36.4–36.9; O2SAT 95–98
--- NOTE | 2021-03-07 05:42 | PC.NURSE ---
shift summary Patient was restless off and on throughout this shift. Patient denied any complaint of pain. Patient currently resting comfortably in bed watching television.
[2021-03-07 05:51] LABS: Basophils % 0.4 %; Eosinophils # 0.1 10^3/uL (0.0-0.8); Hematocrit 23.8 % (42.0-52.0); Hemoglobin 7.5 g/dL (11.7-16.6); Lymphocytes # 0.8 10^3/uL (0.8-4.8); Lymphocytes % 15.6 %; Mean Corpuscular HGB Conc 31.5 g/dL (30.0-36.0); Mean Corpuscular Volume 111.2 fL (80-94); Mean Platelet Volume 10.9 fL (7.4-10.4); Monocytes # 0.4 10^3/uL (0.2-0.9); Monocytes % 7.7 %; Neutrophils # 3.78 10^3/uL (1.8-7.7); Neutrophils % 74.5 %; Nucleated Red Blood Cells % 0 %; Platelet Count 107 10^3/cmm (130-400); Red Blood Count 2.14 10^6/uL (4.1-5.3); Red Cell Distribution Width 21.4 % (12.1-15.1); White Blood Count 5.1 10^3/uL (4.0-10.0)
[2021-03-07 06:10] LABS: Alanine Aminotransferase 11 U/L (0-41); Albumin Level 2.4 g/dL (3.5-5.2); Alkaline Phosphatase 186 IU/L (40-130); Anion Gap 12.7 (5-19); Aspartate Amino Transferase 64 U/L (0-40); Blood Urea Nitrogen 17 mg/dL (8-23); Calcium 7.3 mg/dL (8.5-10.5); Carbon Dioxide 26 mmol/L (22-29); Chloride 103 mmol/L (98-107); Globulin 2.4 g/dL (1.3-4.6); Glucose 94 mg/dL (65-115); Osmolality Calculated 287 mOsm/kg (285-295); Potassium 3.7 mmol/L (3.5-5.1); Sodium 138 mmol/L (136-145); Total Bilirubin 0.8 mg/dL (0.15-1.2); Total Protein 4.8 g/dL (6.6-8.7)
[2021-03-07] MEDS: lisinopril 20 mg Tablet 40 MG PO (08:56)
[2021-03-07] MEDS: aspirin 81 mg Chew Tablet PO (08:56)
[2021-03-07] MEDS: pantoprazole DR 40 mg Tablet PO ×2 (08:56→17:20)
[2021-03-07] MEDS: folic acid 1 mg Tablet PO (08:57)
[2021-03-07] MEDS: metoprolol tartrate 50 mg Tablet 100 MG PO ×2 (08:57→17:20)
[2021-03-07] MEDS: thiamine 100 mg Tablet PO (08:57)
[2021-03-07] MEDS: atorvastatin 40 mg Tablet PO (08:57)
[2021-03-07] MEDS: isosorbide mononitrate ER 30 mg Tablet PO (08:57)
[2021-03-07 10:26] LABS: Ferritin 241 ng/mL (30-400); Iron 34 ug/dL (59-158); Percent Saturation 20.4 % (20-50); Total Iron Binding Capacity 166 mcg/dl; Unsaturated Iron Binding 132 ug/dL (112-347)
--- NOTE | 2021-03-07 14:15 | P.PN_ITS ---
Subjective Subjective: Interval history: Kyler reports he is doing okay. Still weak. Medications: Reviewed: Yes Vitals/I&O/Wt Last Vital Signs Temp 98.0 F 03/07/21 11:11 Pulse 71 03/07/21 11:11 Resp 17 03/07/21 11:11 BP 117/64 03/07/21 11:11 Pulse Ox 98 03/07/21 11:11 03/06/21 03/07/21 03/07/21 22:59 06:59 14:59 Intake Total 240 / 835 240 / 1075 600 / 600 Output Total 200 / 350 200 / 550 150 / 150 Balance 40 / 485 40 / 525 450 / 450 Physical Exam Narrative: EXAM NARRATIVE: General exam no distress Neck is supple no lymphadenopathy or thyromegaly Cardiovascular regular rate and rhythm without murmur, no S3 or S4 Lungs clear Abdomen is soft with positive bowel sounds Extremities no cyanosis clubbing or edema Data : 03/07/21 04:56 03/07/21 04:56 A&P Assessment and plan (1) Hypertensive urgency: Blood pressure shows improved control with current regimen of metoprolol, lisinopril, amlodipine Status: Acute (2) COPD (chronic obstructive pulmonary disease): No evidence of current exacerbation Continue pulmonary toilet as needed Status: Acute (3) Anemia: Occult blood negative Folate level low. Initiate treatment folic acid Hemoglobin 6.9 and patient with some dizziness with standing. Transfused 1 unit 03/05 and hemoglobin 8.0 today 03/06. 7.5 today. No evidence of active bleeding. Will repeat tomorrow. Still awaiting placement. TSH checked and normal Protonix daily Status: Acute (4) CAD (coronary artery disease): continue ASA, statin, B tiff, imdur Troponin with no significant delta 1/4 diastolic dysfunction on echo from 2017, preserved EF Status: Acute Additional A&P Information History of significant alcohol intake. Add thiamine. No evidence of withdrawal. DVT ppx: SCD secondary to severe anemia Discharge planning for possible placement Repeat urinalysis. Significant proteinuria and for sample. Check for lab error. This was rechecked and only had 1+ protein. Attestations Medical Necessity Statement*: Needs continued hospitalization secondary to weakness pending placement. Coding Level of Care Code Acute Technical Recruiter for [facility] Diagnoses Hypertensive urgency I16.0 COPD (chronic obstructive pulmonary disease) J44.9 Anemia D64.9 CAD (coronary artery disease) I25.10
[2021-03-07] MEDS: tamsulosin 0.4 mg Capsule PO (22:15)
[2021-03-07] MEDS: gabapentin 100 mg Capsule PO (22:15)
[2021-03-08] VITALS (7 sets, daily range): BP systolic 128–164; BP diastolic 72–84; PULSE 69–77; RESP 16–20; TEMP 36.6–37.1; O2SAT 93–98
[2021-03-08 03:34] LABS: Basophils % 0.6 %; Eosinophils # 0.1 10^3/uL (0.0-0.8); Eosinophils % 1.1 %; Hemoglobin 7.8 g/dL (11.7-16.6); Lymphocytes # 0.7 10^3/uL (0.8-4.8); Lymphocytes % 13.5 %; Mean Corpuscular HGB Conc 31.2 g/dL (30.0-36.0); Mean Corpuscular Hemoglobin 35.6 pg (28.0-34.0); Mean Corpuscular Volume 114.2 fL (80-94); Monocytes # 0.4 10^3/uL (0.2-0.9); Monocytes % 8.2 %; Neutrophils # 3.99 10^3/uL (1.8-7.7); Neutrophils % 75.8 %; Nucleated Red Blood Cells % 0 %; Platelet Count 101 10^3/cmm (130-400); Red Blood Count 2.19 10^6/uL (4.1-5.3); Red Cell Distribution Width 20.7 % (12.1-15.1); White Blood Count 5.3 10^3/uL (4.0-10.0)
[2021-03-08 03:55] LABS: Alanine Aminotransferase 13 U/L (0-41); Albumin Level 2.4 g/dL (3.5-5.2); Alkaline Phosphatase 205 IU/L (40-130); Anion Gap 12.9 (5-19); Aspartate Amino Transferase 83 U/L (0-40); Blood Urea Nitrogen 18 mg/dL (8-23); Calcium 7.3 mg/dL (8.5-10.5); Carbon Dioxide 22 mmol/L (22-29); Chloride 104 mmol/L (98-107); Globulin 2.4 g/dL (1.3-4.6); Glucose 105 mg/dL (65-115); Osmolality Calculated 282 mOsm/kg (285-295); Potassium 3.9 mmol/L (3.5-5.1); Sodium 135 mmol/L (136-145); Total Bilirubin 0.6 mg/dL (0.15-1.2); Total Protein 4.8 g/dL (6.6-8.7)
[2021-03-08] MEDS: atorvastatin 40 mg Tablet PO (09:04)
[2021-03-08] MEDS: lisinopril 20 mg Tablet 40 MG PO (09:04)
[2021-03-08] MEDS: isosorbide mononitrate ER 30 mg Tablet PO (09:04)
[2021-03-08] MEDS: metoprolol tartrate 50 mg Tablet 100 MG PO ×2 (09:04→17:30)
[2021-03-08] MEDS: pantoprazole DR 40 mg Tablet PO ×2 (09:04→17:30)
[2021-03-08] MEDS: folic acid 1 mg Tablet PO (09:04)
[2021-03-08] MEDS: aspirin 81 mg Chew Tablet PO (09:05)
[2021-03-08] MEDS: thiamine 100 mg Tablet PO (09:05)
--- NOTE | 2021-03-08 14:28 | PM.PN ---
Subjective Subjective: Interval history: No new concerns. Denies any difficulties. Still feels weak. Medications: Reviewed: Yes Vitals/I&O/Wt Last Vital Signs Temp 97.8 F 03/08/21 12:00 Pulse 77 03/08/21 12:00 Resp 20 H 03/08/21 12:00 BP 131/74 03/08/21 12:00 Pulse Ox 98 03/08/21 12:00 03/07/21 03/08/21 03/08/21 22:59 06:59 14:59 Intake Total 480 / 1080 650 / 650 Output Total 625 / 625 Balance 480 / 930 Physical Exam Narrative: EXAM NARRATIVE: General exam no distress Neck is supple no lymphadenopathy or thyromegaly Cardiovascular regular rate and rhythm without murmur, no S3 or S4 Lungs clear Abdomen is soft with positive bowel sounds Extremities no cyanosis clubbing or edema Data : 03/08/21 03:00 03/08/21 03:00 A&P Assessment and plan (1) Hypertensive urgency: Blood pressure shows improved control with current regimen of metoprolol, lisinopril, amlodipine Status: Acute (2) COPD (chronic obstructive pulmonary disease): No evidence of current exacerbation Continue pulmonary toilet as needed Status: Acute (3) Anemia: Occult blood negative Folate level low. Initiate treatment folic acid Hemoglobin 6.9 and patient with some dizziness with standing. Transfused 1 unit 03/05 Hemoglobin 7.8 today. No evidence of active bleeding. TSH checked and normal Protonix daily Status: Acute (4) CAD (coronary artery disease): continue ASA, statin, B tiff, imdur Troponin with no significant delta 1/4 diastolic dysfunction on echo from 2017, preserved EF Status: Acute Additional A&P Information History of significant alcohol intake. Add thiamine. No evidence of withdrawal. DVT ppx: SCD secondary to severe anemia Awaiting placement Repeat urinalysis. Significant proteinuria and for sample. Check for lab error. This was rechecked and only had 1+ protein. Attestations Medical Necessity Statement*: Needs continued hospitalization pending placement. Coding Level of Care Code Acute Staff Antisubmarine Officer for g Fwd Diagnoses Hypertensive urgency I16.0 COPD (chronic obstructive pulmonary disease) J44.9 Anemia D64.9 CAD (coronary artery disease) I25.10
[2021-03-08] MEDS: gabapentin 100 mg Capsule PO (21:12)
[2021-03-08] MEDS: tamsulosin 0.4 mg Capsule PO (21:12)
[2021-03-09 00:10] VITALS: BP 158/85; PULSE 70; RESP 18; TEMP 37.1; O2SAT 97
[2021-03-09 03:40] VITALS: BP 166/80; PULSE 69; RESP 18; TEMP 36.6; O2SAT 98
[2021-03-09 07:33] VITALS: BP 158/80; PULSE 67; RESP 18; TEMP 36.5; O2SAT 98
[2021-03-09] MEDS: isosorbide mononitrate ER 30 mg Tablet PO (08:17)
[2021-03-09] MEDS: folic acid 1 mg Tablet PO (08:17)
[2021-03-09] MEDS: thiamine 100 mg Tablet PO (08:17)
[2021-03-09] MEDS: pantoprazole DR 40 mg Tablet PO ×2 (08:17→18:07)
[2021-03-09] MEDS: lisinopril 20 mg Tablet 40 MG PO (08:17)
[2021-03-09] MEDS: metoprolol tartrate 50 mg Tablet 100 MG PO ×2 (08:17→18:07)
[2021-03-09] MEDS: aspirin 81 mg Chew Tablet PO (08:17)
[2021-03-09] MEDS: atorvastatin 40 mg Tablet PO (08:17)
--- NOTE | 2021-03-09 09:25 | PM.PN ---
Subjective Subjective: Interval history: no acute interim events , hemodynamic stable, no new complaints Medications: Reviewed: Yes Vitals/I&O/Wt Last Vital Signs Temp 97.7 F 03/09/21 07:33 Pulse 67 03/09/21 07:33 Resp 18 03/09/21 07:33 BP 158/80 03/09/21 07:33 Pulse Ox 98 03/09/21 07:33 03/08/21 03/09/21 03/09/21 22:59 06:59 14:59 Intake Total 250 / 900 360 / 1260 Output Total 120 / 745 225 / 970 Balance 130 / 155 135 / 290 Physical Exam Narrative: EXAM NARRATIVE: General: No acute distress, AO x3 HEENT: PERRLA, pupils bilaterally equal and reactive, pallors not present Chest: Normal vesicular breath sounds, no added sounds, equal good air entry bilaterally CVS: S1-S2 regular, no murmurs, no tachycardia, no gallops, no rubs Abdomen: Soft, nontender, no organomegaly, bowel sounds present Neuro: No focal deficits, no facial deformity, AO x3, power 5/5 in all limbs Data : 03/08/21 03:00 03/08/21 03:00 A&P Assessment and plan (1) Hypertensive urgency: Currently BP better controlled Uncertain regarding compliance at home with medications, lives alone , significant deconditioning continue lisinopril and metoprolol + amlodipine Status: Acute (2) COPD (chronic obstructive pulmonary disease): not currently exacerbated duonebs q4h prn Status: Acute (3) Anemia: Occult blood negative Folate level low. initiated replacement Transfused 1 unit 03/05 No evidence of active bleeding. TSH checked and normal Protonix daily Status: Acute (4) CAD (coronary artery disease): continue ASA, statin, B tiff, imdur No c/o chest pain Troponin series without significant delta Gr 1 diastolic dysfunction on echo from 2017, preserved EF Status: Acute Additional A&P Information DVT ppx: lovenox Disposition: awaiting placement as unable to care for self at home Attestations Medical Necessity Statement*: Needs continued hospitalization pending placement. Coding Level of Care Code Acute Asl Interpreter for [facility] Fwd Diagnoses Hypertensive urgency I16.0 COPD (chronic obstructive pulmonary disease) J44.9 Anemia D64.9 CAD (coronary artery disease) I25.10
[2021-03-09 11:45] VITALS: BP 119/63; PULSE 62; RESP 16; TEMP 36.5; O2SAT 97
[2021-03-09 15:50] VITALS: BP 149/77; PULSE 73; RESP 16; TEMP 36.8; O2SAT 96
[2021-03-09 20:00] VITALS: BP 150/79; PULSE 75; RESP 16; TEMP 36.8; O2SAT 97
[2021-03-09] MEDS: tamsulosin 0.4 mg Capsule PO (20:32)
[2021-03-09] MEDS: gabapentin 100 mg Capsule PO (20:32)
[2021-03-10] VITALS (7 sets, daily range): BP systolic 131–177; BP diastolic 62–86; PULSE 65–80; RESP 14–17; TEMP 36.4–36.9; O2SAT 95–97
[2021-03-10] MEDS: pantoprazole DR 40 mg Tablet PO ×2 (08:06→17:01)
[2021-03-10] MEDS: aspirin 81 mg Chew Tablet PO (08:06)
[2021-03-10] MEDS: atorvastatin 40 mg Tablet PO (08:06)
[2021-03-10] MEDS: lisinopril 20 mg Tablet 40 MG PO (08:06)
[2021-03-10] MEDS: folic acid 1 mg Tablet PO (08:06)
[2021-03-10] MEDS: metoprolol tartrate 50 mg Tablet 100 MG PO ×2 (08:06→17:00)
[2021-03-10] MEDS: isosorbide mononitrate ER 30 mg Tablet PO (08:06)
[2021-03-10] MEDS: thiamine 100 mg Tablet PO (08:06)
--- NOTE | 2021-03-10 10:25 | PC.SOCIAL ---
Pg 2 IMM Explained to pt Pg 2 IMM. No questions voiced. Provided pt a copy. Initialed, dated, & timed a copy & placed in chart.
[2021-03-10] MEDS: amlodipine 10 mg Tablet PO (12:49)
[2021-03-10] MEDS: predniSONE 20 mg Tablet 40 MG PO (12:49)
[2021-03-10] MEDS: doxycycline 100 mg Tablet PO ×2 (12:50→17:00)
--- NOTE | 2021-03-10 16:30 | PM.PN ---
Subjective Subjective: Interval history: Patient was seen this morning, is ambulating the hallways with physical therapy, he is only complaint is he continues to have some weakness, and overnight he had some cough, some chest congestion, has some shortness of breath with exertion, admits to smoking, last smoke was over 3 weeks ago Vitals/I&O/Wt Last Vital Signs Temp 98.4 F 03/10/21 12:00 Pulse 65 03/10/21 12:00 Resp 16 03/10/21 12:00 BP 131/75 03/10/21 12:00 Pulse Ox 96 03/10/21 12:00 03/10/21 03/10/21 03/10/21 06:59 14:59 22:59 Intake Total 200 / 1160 480 / 480 Output Total 470 / 470 Balance 200 / 885 Physical Exam Const: COMMON NORMALS: no acute distress and patient oriented x3 HENMT: COMMON NORMALS: normocephalic HEAD & SCALP: normocephalic Resp: COMMON NORMALS: normal respiratory effort, No retractions, No use of accessory muscles and clear to auscultation bilaterally AUSCULTATION: clear to auscultation bilaterally OTHER: Mild and expiratory wheezing Cardio: COMMON NORMALS: regular rate, regular rhythm, S1 normal heart sound present and S2 normal heart sound present RATE: regular rate RHYTHM: regular rhythm HEART SOUNDS: S1 normal heart sound present and S2 normal heart sound present GI: COMMON NORMALS: Normal to inspection, nondistended, normoactive bowel sounds present, Soft to palpation, non-tender, No hepatosplenomegaly present and no masses PALPATION: Yes Soft to palpation and Yes No hepatosplenomegaly present Extremity: COMMON NORMALS: no pedal edema Neuro: COMMON NORMALS: patient oriented x3 Psych: COMMON NORMALS: mental status grossly normal Data : 03/08/21 03:00 03/08/21 03:00 A&P Assessment and plan (1) Hypertensive urgency: Currently BP better controlled Uncertain regarding compliance at home with medications, lives alone , significant deconditioning continue lisinopril and metoprolol and amlodipine Status: Acute (2) COPD (chronic obstructive pulmonary disease): Slight COPD exacerbation, start prednisone 40 mg daily doxycycline duonebs q4h prn Status: Acute (3) Anemia: Occult blood negative Macrocytosis Folate level low. initiated replacement History of alcohol consumption We will obtain a peripheral smear, will need to follow-up with hematology as outpatient for consideration of bone marrow biopsy Transfused 1 unit 03/05 No evidence of active bleeding. TSH checked and normal Protonix daily Status: Acute (4) CAD (coronary artery disease): continue ASA, statin, B tiff, imdur No c/o chest pain Troponin series without significant delta Gr 1 diastolic dysfunction on echo from 2017, preserved EF Status: Acute Additional A&P Information CVA, with residual left-sided numbness and weakness Alcohol consumption, currently out of withdrawal window, on thiamine Diastolic CHF DVT ppx: SCDs due to anemia Disposition: awaiting placement as unable to care for self at home Attestations Medical Necessity Statement*: Patient requires hospitalization for hypertensive urgency, anemia, Coding Level of Care Code 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
[2021-03-10 18:12] LABS: LAB Peripheral Smear Sent for Review
[2021-03-10] MEDS: gabapentin 100 mg Capsule PO (21:27)
[2021-03-10] MEDS: tamsulosin 0.4 mg Capsule PO (21:27)
[2021-03-11] VITALS: BP 157/73; PULSE 73; RESP 17; TEMP 36.3; O2SAT 98
[2021-03-11 04:00] VITALS: BP 166/77; PULSE 66; RESP 17; TEMP 36.6; O2SAT 99
[2021-03-11 05:37] LABS: Basophils % 0.2 %; Hematocrit 25.8 % (42.0-52.0); Hemoglobin 8.2 g/dL (11.7-16.6); Lymphocytes # 0.6 10^3/uL (0.8-4.8); Lymphocytes % 10.6 %; Mean Corpuscular HGB Conc 31.8 g/dL (30.0-36.0); Mean Corpuscular Hemoglobin 35.3 pg (28.0-34.0); Mean Corpuscular Volume 111.2 fL (80-94); Mean Platelet Volume 11.6 fL (7.4-10.4); Monocytes # 0.6 10^3/uL (0.2-0.9); Monocytes % 9.9 %; Neutrophils # 4.56 10^3/uL (1.8-7.7); Neutrophils % 78.8 %; Nucleated Red Blood Cells % 0 %; Platelet Count 132 10^3/cmm (130-400); Red Blood Count 2.32 10^6/uL (4.1-5.3); Red Cell Distribution Width 18.1 % (12.1-15.1); White Blood Count 5.8 10^3/uL (4.0-10.0)
[2021-03-11 06:03] LABS: Alanine Aminotransferase 17 U/L (0-41); Albumin Level 2.6 g/dL (3.5-5.2); Alkaline Phosphatase 179 IU/L (40-130); Aspartate Amino Transferase 68 U/L (0-40); Blood Urea Nitrogen 27 mg/dL (8-23); Calcium 7.6 mg/dL (8.5-10.5); Carbon Dioxide 21 mmol/L (22-29); Chloride 104 mmol/L (98-107); Globulin 2.6 g/dL (1.3-4.6); Glucose 151 mg/dL (65-115); Osmolality Calculated 286 mOsm/kg (285-295); Sodium 134 mmol/L (136-145); Total Bilirubin 0.4 mg/dL (0.15-1.2); Total Protein 5.2 g/dL (6.6-8.7)
[2021-03-11 08:00] VITALS: BP 162/55; PULSE 66; RESP 18; TEMP 36.7; O2SAT 94
[2021-03-11] MEDS: metoprolol tartrate 50 mg Tablet 100 MG PO (08:46)
[2021-03-11] MEDS: thiamine 100 mg Tablet PO (08:46)
[2021-03-11] MEDS: folic acid 1 mg Tablet PO (08:46)
[2021-03-11] MEDS: amlodipine 10 mg Tablet PO (08:46)
[2021-03-11] MEDS: aspirin 81 mg Chew Tablet PO (08:46)
[2021-03-11] MEDS: pantoprazole DR 40 mg Tablet PO (08:46)
[2021-03-11] MEDS: doxycycline 100 mg Tablet PO (08:46)
[2021-03-11] MEDS: predniSONE 20 mg Tablet 40 MG PO (08:46)
[2021-03-11] MEDS: isosorbide mononitrate ER 30 mg Tablet PO (08:46)
[2021-03-11] MEDS: atorvastatin 40 mg Tablet PO (08:47)
[2021-03-11] MEDS: lisinopril 20 mg Tablet 40 MG PO (08:47)
[2021-03-11] MEDS: benzonatate 100 mg Capsule PO (10:09)
--- NOTE | 2021-03-11 11:17 | P.DS_ITS ---
Discharge Providers Date of Admission: 03/05/21 03:34 Date of Discharge: March 11, 2021 Attending Provider at Admission: Lakisha Carty MD Attending Provider at Discharge: Ovidio Kimbrough MD Primary Care Provider: Tri Robles MD Diagnoses at Discharge Discharge Diagnosis (1) Hypertensive urgency: Status: Acute (2) COPD (chronic obstructive pulmonary disease): Status: Acute (3) Anemia: Status: Acute (4) CAD (coronary artery disease): Status: Acute Reason for Visit Reason for Visit: WEAKNESS Hospital Course Hospital Course This is a 75-year-old male with a past medical history of COPD, CVA with left- sided residual numbness and weakness, CAD, hypertension, current smoker, history of alcohol abuse, diastolic dysfunction who presents to [facility] due to progressive weakness Patient was admitted to [facility] for hypertensive urgency, treated with inpatient blood pressure medications, discharged on Norvasc 10 mg daily, lisinopril 40 mg daily, metoprolol 100 mg twice daily, Imdur 30 mg daily, follow-up with primary care provider in 1 week Patient was also found to be anemic during his hospitalization, Hemoccult was negative, no hemodynamic compromise, macrocytic anemia, with low folate acid levels, likely related to alcohol abuse, discharged on folic acid therapy, B12, thiamine. However multiple myeloma, and other bone marrow disorders are a possibility, he will follow-up with hematology oncology in 1 week for consideration of bone marrow biopsy. His peripheral smear and immunofixation are pending on discharge, he will follow-up with hematology oncology in 1 week Patient also developed a slight COPD exacerbation during his hospitalization, discharged on prednisone, doxycycline, Tessalon Perles For his generalized weakness, likely related to alcohol consumption, deconditioning, prior CVA, he will be discharged [facility]. Physical Exam Const: COMMON NORMALS: no acute distress and patient oriented x3 Resp: COMMON NORMALS: normal respiratory effort, No retractions, No use of accessory muscles and clear to auscultation bilaterally AUSCULTATION: clear to auscultation bilaterally Cardio: COMMON NORMALS: regular rate, regular rhythm, S1 normal heart sound present, S2 normal heart sound present, No gallops present (Cardio), No clicks present (Cardio) and No murmurs present (Cardio) RATE: regular rate RHYTHM: regular rhythm HEART SOUNDS: S1 normal heart sound present and S2 normal heart sound present GI: COMMON NORMALS: Normal to inspection, nondistended, normoactive bowel sounds present and Soft to palpation PALPATION: Yes Soft to palpation Extremity: COMMON NORMALS: no pedal edema Neuro: COMMON NORMALS: patient oriented x3 Discharge Data Data Completed and Pending: Completed Studies During Hospitalization Category Date Time Status XR chest 1V sonia ble [id number] Stat Exams 03/04/21 19:07 Completed XR pelvis 1-2V* 7 2170 Routine Exams 03/05/21 06:28 Completed Pending at discharge Category Date Time Status Complete Blood Co unt w/Auto AM LABS Lab 03/12/21 04:00 Ordered Complete Blood Co unt w/Auto AM LABS Lab 03/13/21 04:00 Ordered Comprehensive Met abolic Panel AM LA BS Lab 03/12/21 04:00 Ordered Comprehensive Met abolic Panel AM LA BS Lab 03/13/21 04:00 Ordered Immunofixation Se rum Stat Lab 03/10/21 17:05 Received Labs from last 24 hours 03/11/21 03/11/21 03/10/21 05:04 05:04 17:05 WBC 5.8 RBC 2.32 L Hgb 8.2 L Hct 25.8 L MCV 111.2 H MCH 35.3 H MCHC 31.8 RDW 18.1 H Plt Count 132 MPV 11.6 H Neut % (Auto) 78.8 Lymph % (Auto) 10.6 [place] % (Auto) 9.9 Eos % (Auto) 0.0 Baso % (Auto) 0.2 Neut # (Auto) 4.56 Lymph # (Auto) 0.6 L [place] # (Auto) 0.6 Eos # (Auto) 0.0 Baso # (Auto) 0.0 Nucleated RBC % (a uto) 0 Nucleated RBCs # 0.0 Sodium 134 L Potassium 4.0 Chloride 104 Carbon Dioxide 21 L Anion Gap 13.0 BUN 27 H Creatinine 1.1 GFR Calculation Not Reportable Glucose 151 H Calculated Osmolal ity 286 Calcium 7.6 L Total Bilirubin 0.4 AST 68 H ALT 17 Alkaline Phosphata se 179 H Total Protein 5.2 L Albumin 2.6 L Globulin 2.6 Serum Immunofixati on Pending Vitals: Last Vital Signs Temp 98.0 F 03/11/21 08:00 Pulse 66 03/11/21 08:00 Resp 18 03/11/21 08:00 BP 162/55 03/11/21 08:00 Pulse Ox 94 03/11/21 08:00 Discharge Plan Discharge Patient Disposition: Xfer SNF Condition: Stable Prescriptions: New amlodipine 10 mg Tablet 10 mg PO DAILY 30 Days Qty: 30 RF: 0 benzonatate 100 mg Capsule 100 mg PO TID PRN (Reason: Cough) 15 Days Qty: 45 RF: 0 doxycycline monohydrate 100 mg Tablet 100 mg PO BID 6 Days Qty: 12 RF: 0 folic acid 1 mg Tablet 1 mg PO DAILY 30 Days Qty: 30 RF: 0 prednisone 20 mg Tablet 40 mg PO DAILY 4 Days Qty: 8 RF: 0 pantoprazole 40 mg Tablet,Delayed Release (Dr/Ec) 40 mg PO BID 30 Days Qty: 60 RF: 0 Vitamin B-1 (mononitrate) 100 mg Tablet 100 mg PO DAILY 30 Days Qty: 30 RF: 0 cyanocobalamin (vitamin B-12) 1,000 mcg capsule 1,000 mcg PO DAILY 30 Days Qty: 30 RF: 0 Continued Lipitor 40 mg Tablet 40 mg PO DAILY RF: 0 metoprolol tartrate 100 mg Tablet 100 mg PO BID RF: 0 isosorbide mononitrate 30 mg Tablet Extended Release 24 Hr 30 mg PO DAILY RF: 0 tamsulosin 0.4 mg capsule 0.4 mg PO BEDTIME RF: 0 aspirin 81 mg Tablet,Chewable 81 mg PO DAILY RF: 0 Virt-Phos 250 Neutral 250 mg Tablet 1 tab PO BID RF: 0 gabapentin 100 mg capsule 100 mg PO BEDTIME RF: 0 lisinopril 40 mg Tablet 40 mg PO DAILY RF: 0 Discharge Orders: Discharge Order (Routine); Ordered 03/11/21 Ordered By: Ovidio Kimbrough Referrals: Tri oRbles MD [Primary Care Provider] - 1 week Kana Marsh MD [Physician] - 1 month (egd for anemia) Aaron Aguilera MD [Hospitalist] - 7-10 days (anemia) Discharge Diet: Cardiac Discharge Activity: Resume usual activity Patient Instructions: Opioid Safety Activity Restrictions/Additional Instructions: -Recheck hemoglobin in 1 week -If you develop bloody or black stools please go to the emergency room -Follow-up with hematology in 1 week Discharge Attestations Time Spent in Discharge Care*: less than 30 min Quality Metrics Clinical Quality Measures During this hospital stay, did patient experience: None Coding Level of Care Code Acute [facility] [place] note Diagnoses Hypertensive urgency I16.0 COPD (chronic obstructive pulmonary disease) J44.9 Anemia D64.9 CAD (coronary artery disease) I25.10
[2021-03-11 11:45] VITALS: BP 141/72; PULSE 67; RESP 17; TEMP 36.6; O2SAT 97
--- NOTE | 2021-03-11 12:02 | PC.NURSE ---
Called report to [facility].
[2021-03-11 13:13] VITALS: BP 141/72; PULSE 67; RESP 17; TEMP 36.6; O2SAT 97
[2021-03-25 10:29] LABS: Miscellaneous Test See Scanned Lab Rpt
== END 2021-03-11 13:14 | disposition skilled nursing facility (03) ==
LOC: ER 18:22 → ER IP 03-05 06:25 → MEDSURG 03-05 12:39
PROVIDERS: Emergency Medicine; Family Medicine; Internal Medicine; Admitting Provider Student in an Organized Health Care Education/Training Program; Emergency Provider Family Medicine; PCP Family Medicine; Visit Provider Family Medicine
DX: I16.0 Hypertensive urgency (principal); J44.9 Chronic obstructive pulmonary disease, unspecified; D64.9 Anemia, unspecified; I25.10 Atherosclerotic heart disease of native coronary artery without angina pectoris; I69.852 Hemiplegia and hemiparesis following other cerebrovascular disease affecting left dominant side; I50.9 Heart failure, unspecified
CPT/HCPCS: 36415; 36430; 71045; 72170; 80048; 80053; 80306; 80500; 81001; 82274; 82607; 82728; 82746; 83540; 83550; 83880; 84260; 84443; 84484; 85014; 85018; 85025; 85610; 85730; 86850; 86900; 86920; 87635; 88184; 88185; 93005; 96361; 96372; 96374; 96376; 97110; 97116; 97162; 97167; 97530; 97535; 99291; G0378; J0360; J1650; J7030; J7512; P9040

== ENCOUNTER 2021-03-18 12:01 | Emergency (ER) | payer MEDICARE, SELFPAY ==
--- NOTE | 2021-03-18 12:04 | ECG_ITS ---
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 Measurements Intervals [place] Rate: 75 P: 81 ME: 178 QRS: -28 QRSD: 142 T: 21 QT: 456 QTc: 513 Interpretive Statements SINUS RHYTHM WITH FREQUENT SUPRAVENTRICULAR PREMATURE COMPLEXES INTRAVENTRICULAR CONDUCTION DELAY [130+ ms QRS DURATION] INFERIOR MYOCARDIAL INFARCTION [40+ ms Q WAVE AND/OR ST/T ABNORMALITY IN II/aVF], PROBABLY OLD Compared to ECG 03/05/2021 00:21:08 Intraventricular conduction delay now present Myocardial infarct finding now present Sinus tachycardia no longer present Indeterminate axis no longer present Right bundle-branch block no longer present T-wave abnormality no longer present Possible ischemia no longer present Electronically Signed On 03-18-2021 17:26:49 CDT by Chris Marin M.D. [email or web address]
[2021-03-18 12:29] VITALS: BP 119/45; PULSE 73; RESP 18; TEMP 37.8; O2SAT 94; BMI 25.0
[2021-03-18 12:54] LABS: Basophils % 0.3 %; Hematocrit 25.6 % (42.0-52.0); Hemoglobin 8.1 g/dL (11.7-16.6); Lymphocytes # 0.5 10^3/uL (0.8-4.8); Lymphocytes % 8.9 %; Mean Corpuscular HGB Conc 31.6 g/dL (30.0-36.0); Mean Corpuscular Hemoglobin 34.3 pg (28.0-34.0); Mean Corpuscular Volume 108.5 fL (80-94); Mean Platelet Volume 12.6 fL (7.4-10.4); Monocytes # 0.5 10^3/uL (0.2-0.9); Monocytes % 8.9 %; Neutrophils # 4.66 10^3/uL (1.8-7.7); Neutrophils % 81.4 %; Nucleated Red Blood Cells % 0 %; Platelet Count 131 10^3/cmm (130-400); Red Blood Count 2.36 10^6/uL (4.1-5.3); Red Cell Distribution Width 17.6 % (12.1-15.1); White Blood Count 5.7 10^3/uL (4.0-10.0)
--- NOTE | 2021-03-18 13:00 | ED_ITS ---
HPI - Fever General: Chief Complaint: Fever Stated Complaint: PALE/ FEVER/ DIAPHORETIC Time Seen by Provider: 03/18/21 12:59 History of Present Illness: HPI Narrative: Mr. Boyce is a 75-year-old gentleman with a significant past medical history of hypertension, previous stroke, COPD, known anemia who presents to the emergency department with a chief complaint of fever. Symptom onset was approximately 3 days and described as sudden in onset. The patient reports associated generalized malaise but cannot identify any other specific focal infectious symptoms. They rate the intensity of their symptoms as moderate and recurrent and describe the character as drenching sweats. Overall the course of symptoms has been persisted. The patient has not had similar episodes in the past but was recently hospitalized with hypertensive emergency. The patient has tried Tylenol at home which has provided mild relief. There are no other specific exacerbating or alleviating factors reported. Review of Systems General: Reports: 10 or more systems reviewed and unremarkable except in HPI and below Narrative: CONSTITUTIONAL: Fevers and sweats as well as malaise as identified in HPI EYES - denies pain, denies loss of vision EARS - denies ear issues. NOSE - denies congestion or rhinorrhea. THROAT - denies sore throat or difficulty swallowing. CARDIOVASCULAR - denies chest pain and palpitations RESPIRATORY - denies shortness of breath and cough GASTROINTESTINAL - denies abdominal pain, no nausea vomiting, no changes in bowel habits GENITOURINARY - denies dysuria or urinary frequency MUSCULOSKELETAL- denies deformity or pain SKIN - denies rashes or new changed skin lesions NEUROLOGIC - denies focal weakness or sensory changes HEMATOLOGIC/LYMPHATIC - denies easy bruising or lymphadenopathy. [facility] ED PFSH: Medical History CAD (coronary artery disease) COPD (chronic obstructive pulmonary disease) Heart failure Hypertension Nicotine dependence Physical Exam Narrative: EXAM NARRATIVE: GENERAL/CONSTITUTIONAL -mildly ill-appearing. No acute distress. Eyes - PERRL, no conjunctival injection ENMT - Atraumatic external nose and ears. Moist mucous membranes NECK - supple. trachea midline CARDIOVASCULAR - regular rate and rhythm. RESPIRATORY - coarse breath sounds throughout.. No retractions or accessory muscle use. ABDOMEN/GI - Nontender/Nondistended. No tenderness to percussion or evidence of peritonitis MSK - Extremities without obvious deformity or tenderness to palpation SKIN - Warm, Dry NEURO - alert and appropriately oriented. strength and sensation intact. Moves all extremities equally. PSYCH - Appropriate mood and affect Course ED course: - Patient was seen and evaluated by me at bedside - Patient placed on cardiac monitors, IV access obtained - Initial evaluation notable for somewhat ill appearance, exam as noted above - Labs and imaging obtained and reviewed - Labs notable for no leukocytosis, Covid positive.Delta troponin negative. - Imaging notable for ED read of chest x-ray with no lobar consolidation - Upon serial reexamination after treatment the patient was mildly improved. - Based on patient history, evaluation, labs, and imaging as interpreted the most likely cause of the patient's condition is COVID-19 - The results of ED evaluation were discussed with the patient including prescriptions and/or symptomatic cares including appropriate and responsible use, followup plan, and return precautions. The patient verbalized understanding and felt safe for discharge. - Patient discharged in satisfactory condition. Patient taken for MAB therapy after explanation of risks and benefits and appropriate consent was obtained. All questions regarding this therapy were answered satisfactorily for the patient. Vital Signs: Vital signs: Vital Signs Temperature 98.8 F 03/18/21 16:24 Pulse Rate 84 03/18/21 16:37 Respiratory Rate 18 03/18/21 16:37 Blood Pressure 138/81 03/18/21 16:37 Pulse Oximetry 96 03/18/21 16:37 MDM - Fever Medical Records: Attestation: I reviewed the patient's medical records. Lab Data: Attestation: I reviewed the patient's lab results. Labs: Lab Results 03/18/21 03/18/21 03/18/21 Range/Units 12:38 12:38 12:38 WBC 5.7 (4.0-10.0) 10^3/ uL RBC 2.36 L (4.1-5.3) 10^6/u L Hgb 8.1 L (11.7-16.6) g/dL Hct 25.6 L (42.0-52.0) % MCV 108.5 H (80-94) fL MCH 34.3 H (28.0-34.0) pg MCHC 31.6 (30.0-36.0) g/dL RDW 17.6 H (12.1-15.1) % Plt Count 131 (130-400) 10^3/c mm MPV 12.6 H (7.4-10.4) fL Neut % (Auto) 81.4 % Lymph % (Auto) 8.9 % [place] % (Auto) 8.9 % Eos % (Auto) 0.0 % Baso % (Auto) 0.3 % Neut # (Auto) 4.66 (1.8-7.7) 10^3/u L Lymph # (Auto) 0.5 L (0.8-4.8) 10^3/u L [place] # (Auto) 0.5 (0.2-0.9) 10^3/u L Eos # (Auto) 0.0 (0.0-0.8) 10^3/u L Baso # (Auto) 0.0 (0.0-0.1) 10^3/u L Nucleated RBC % (a uto) 0 % Nucleated RBCs # 0.0 /100WBC Sodium 142 (136-145) mmol/L Potassium 3.6 (3.5-5.1) mmol/L Chloride 108 H (98-107) mmol/L Carbon Dioxide 20 L (22-29) mmol/L Anion Gap 17.6 (5-19) BUN 33 H (8-23) mg/dL Creatinine 1.3 H (0.7-1.2) mg/dL GFR Calculation Not Reportable Glucose 88 (65-115) mg/dL POC Glucose (70-110) mg/dL Calculated Osmolal ity 301 H (285-295) mOsm/k g Calcium 7.2 L (8.5-10.5) mg/dL Total Bilirubin 0.4 (0.15-1.2) mg/dL AST 123 H (0-40) U/L ALT 40 (0-41) U/L Alkaline Phosphata se 163 H (40-130) IU/L Troponin T Baselin e 74 H (0-15) ng/L Troponin T 120 Min [place] (0-15) ng/L Delta Troponin T Total Protein 4.4 L (6.6-8.7) g/dL Albumin 2.4 L (3.5-5.2) g/dL Globulin 2.0 (1.3-4.6) g/dL SARS-CoV-2 Ag (Rap id) (Negative) 03/18/21 03/18/21 03/18/21 Range/Units 13:37 13:40 16:42 WBC (4.0-10.0) 10^3/ uL RBC (4.1-5.3) 10^6/u L Hgb (11.7-16.6) g/dL Hct (42.0-52.0) % MCV (80-94) fL MCH (28.0-34.0) pg MCHC (30.0-36.0) g/dL RDW (12.1-15.1) % Plt Count (130-400) 10^3/c mm MPV (7.4-10.4) fL Neut % (Auto) % Lymph % (Auto) % [place] % (Auto) % Eos % (Auto) % Baso % (Auto) % Neut # (Auto) (1.8-7.7) 10^3/u L Lymph # (Auto) (0.8-4.8) 10^3/u L [place] # (Auto) (0.2-0.9) 10^3/u L Eos # (Auto) (0.0-0.8) 10^3/u L Baso # (Auto) (0.0-0.1) 10^3/u L Nucleated RBC % (a uto) % Nucleated RBCs # /100WBC Sodium (136-145) mmol/L Potassium (3.5-5.1) mmol/L Chloride (98-107) mmol/L Carbon Dioxide (22-29) mmol/L Anion Gap (5-19) BUN (8-23) mg/dL Creatinine (0.7-1.2) mg/dL GFR Calculation Glucose (65-115) mg/dL POC Glucose 102 (70-110) mg/dL Calculated Osmolal ity (285-295) mOsm/k g Calcium (8.5-10.5) mg/dL Total Bilirubin (0.15-1.2) mg/dL AST (0-40) U/L ALT (0-41) U/L Alkaline Phosphata se (40-130) IU/L Troponin T Baselin e (0-15) ng/L Troponin T 120 Min [place] 75.74 H (0-15) ng/L Delta Troponin T TNP Total Protein (6.6-8.7) g/dL Albumin (3.5-5.2) g/dL Globulin (1.3-4.6) g/dL SARS-CoV-2 Ag (Rap id) Positive H (Negative) EKG Data^: EKG 1: Attestation: I personally reviewed and interpreted this EKG as follows: EKG interpretation date: 03/18/21 EKG interpretation time: 16:16 Prior EKG tracings: available for review Interpretation: Twelve-lead EKG shows a regular sinus rhythm at a rate of 75. PA interval [address] segment abnormalities and interventricular conduction delay pre sent Interpretation: Sinus rhythm. Interventricular conduction delay Discharge Plan Discharge Patient Disposition: Home Clinical Impression: COVID-19, Fever Condition: Stable Prescriptions: No Action atorvastatin [Lipitor] 40 mg Tablet 40 mg PO DAILY@20 RF: 0 metoprolol tartrate 100 mg Tablet 100 mg PO DAILY@08 RF: 0 isosorbide mononitrate 30 mg Tablet Extended Release 24 Hr 30 mg PO DAILY@08 RF: 0 tamsulosin 0.4 mg capsule 0.4 mg PO DAILY@20 RF: 0 aspirin 81 mg Tablet,Chewable 81 mg PO DAILY@08 RF: 0 Virt-Phos 250 Neutral 250 mg Tablet 1 tab PO BID@08,20 RF: 0 gabapentin 100 mg capsule 100 mg PO DAILY@20 RF: 0 lisinopril 40 mg Tablet 40 mg PO DAILY@08 RF: 0 benzonatate 100 mg Capsule 100 mg PO TID PRN (Reason: Cough) 15 Days Qty: 45 RF: 0 acetaminophen 325 mg Tablet 650 mg PO Q4H PRN (Reason: Pain) RF: 0 doxycycline monohydrate 100 mg Tablet 100 mg PO BID RF: 0 amlodipine 10 mg tablet 10 mg PO DAILY@08 RF: 0 pantoprazole 40 mg tablet,delayed release (DR/EC) 40 mg PO BID@06,16 RF: 0 folic acid 1 mg tablet 1 mg PO DAILY@08 RF: 0 Vitamin B-1 (mononitrate) 100 mg tablet 100 mg PO DAILY@08 RF: 0 cyanocobalamin (vitamin B-12) 1,000 mcg capsule 1,000 mcg PO DAILY@08 RF: 0 Discharge Orders: Discharge ED (Routine); Ordered 03/18/21 Ordered By: Prabhakar Gerardo Referrals: Tri Robles MD [Primary Care Provider] - Discharge Diet: Usual diet Discharge Activity: Resume usual activity Patient Instructions: Fever - Adult, Viral Syndrome (ED) Activity Restrictions/Additional Instructions: Thank you for visiting the emergency department. You were seen and evaluated for fever and malaise. You were found to be positive for COVID-19. Please follow all precautions recommended by the CDC. Please go to the infusion clinic. Please follow-up with your primary care provider. Please return to emergency department if you experience worsening of current symptoms, shortness of breath, chest pain, or anything else that you are concerned about and feel needs emergency department evaluation. 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
[2021-03-18 13:02] VITALS: BP 118/69; PULSE 69; O2SAT 95
--- NOTE | 2021-03-18 13:09 | XRR_ITS ---
PROCEDURE INFORMATION: Exam: XR Chest Exam date and time: 03/18/2021 1:09 PM Age: 75 years old Clinical indication: Fever; Additional info: Course breath sounds, fever TECHNIQUE: Imaging protocol: XR of the chest. Views: 1 view. COMPARISON: CR (CHEST, ) 03/04/2021 7:25 PM FINDINGS: Lungs: Unremarkable. No consolidation. Pleural spaces: Unremarkable. No pleural effusion. No pneumothorax. Heart/Mediastinum: Unremarkable. No cardiomegaly. Bones/joints: Unremarkable. XR/XR chest 1V portable [id number] IMPRESSION: No acute findings.
[2021-03-18 13:18] LABS: Alanine Aminotransferase 40 U/L (0-41); Albumin Level 2.4 g/dL (3.5-5.2); Alkaline Phosphatase 163 IU/L (40-130); Anion Gap 17.6 (5-19); Aspartate Amino Transferase 123 U/L (0-40); Blood Urea Nitrogen 33 mg/dL (8-23); Calcium 7.2 mg/dL (8.5-10.5); Carbon Dioxide 20 mmol/L (22-29); Chloride 108 mmol/L (98-107); Glucose 88 mg/dL (65-115); Osmolality Calculated 301 mOsm/kg (285-295); Potassium 3.6 mmol/L (3.5-5.1); Sodium 142 mmol/L (136-145); Total Bilirubin 0.4 mg/dL (0.15-1.2); Total Protein 4.4 g/dL (6.6-8.7)
[2021-03-18 13:22] LABS: Troponin(5th) Baseline 74 ng/L (0-15)
[2021-03-18] MEDS: acetaminophen 325 mg Tablet 650 MG PO (13:30)
[2021-03-18 13:32] VITALS: BP 118/69; PULSE 81; O2SAT 96
[2021-03-18 13:42] LABS: Glucose Point of Care 102 mg/dL (70-110)
[2021-03-18] MEDS: lactated ringers 500 ML 999 ML IV (13:53)
[2021-03-18 14:20] LABS: SARS Covid-2 Antigen Positive (Negative)
--- NOTE | 2021-03-18 14:23 | PC.PHAR ---
PT IS FROM [facility] [phone] FROM [facility] STATES THE PT FINISHED THE DOXYCYCLINE MONO 100MG BID ON 03/17/21
[2021-03-18 16:24] VITALS: BP 138/81; PULSE 76; RESP 18; TEMP 37.1
[2021-03-18 16:37] VITALS: BP 138/81; PULSE 84; RESP 18; O2SAT 96
[2021-03-18 17:22] LABS: Troponin 5 2HR 75.74 ng/L (0-15)
--- NOTE | 2021-03-28 13:26 | DCPLANNER ---
pit manager had message that patient received the monoclonal antibody infusion. Patient was admitted to the hospital.
== END 2021-03-18 17:08 | disposition home or self-care (01) ==
PROVIDERS: Physician Assistant; Emergency Provider Emergency Medicine; PCP Family Medicine
DX: U07.1 COVID-19 (principal); Z79.82 Long term (current) use of aspirin; I25.10 Atherosclerotic heart disease of native coronary artery without angina pectoris; J44.9 Chronic obstructive pulmonary disease, unspecified; I10 Essential (primary) hypertension
CPT/HCPCS: 36416; 71045; 80053; 82962; 84484; 85025; 87426; 93005; 99283; 99291

== ENCOUNTER 2021-03-18 16:45 | Outpatient (CLI) | payer MEDICARE, SELFPAY ==
[2021-03-18 17:00] VITALS: BP 126/65; PULSE 64; RESP 16; TEMP 36.9; O2SAT 92
[2021-03-18 18:18] VITALS: BP 129/62; PULSE 58; RESP 16; O2SAT 92
== END 2021-03-18 16:46 | disposition home or self-care (01) ==
LOC: OPS 12-16 14:39
PROVIDERS: PCP Family Medicine; Visit Provider Emergency Medicine
DX: U07.1 COVID-19 (principal)
CPT/HCPCS: 96365

== ENCOUNTER 2021-03-27 01:16 | Inpatient (IN) | payer MEDICARE, SELFPAY ==
[2021-03-27] VITALS (19 sets, daily range): BP systolic 91–132; BP diastolic 45–82; PULSE 68–108; RESP 18–42; TEMP 36.6–36.9; O2SAT 88–98; BMI 28.7
--- NOTE | 2021-03-27 01:20 | XRR_ITS ---
PROCEDURE INFORMATION: Exam: XR Chest Exam date and time: 03/27/2021 1:20 AM Age: 75 years old Clinical indication: Shortness of breath; Patient HX: Sob/hypoxia. Covid + TECHNIQUE: Imaging protocol: XR of the chest. Views: 1 view. COMPARISON: CR XR chest 1V portable [id number] 03/18/2021 1:52 PM FINDINGS: Lungs: Low lung volumes. Mildly increased lung markings. There is a patchy airspace opacity in the left lung base, in association with indistinctness of the hemidiaphragm, highly concerning for pneumonia. No large pleural effusion or pneumothorax. Pleural spaces: See Lungs finding. Heart/Mediastinum: Stable cardiomediastinal silhouette. Bones/joints: Degenerative changes of the spine seen. XR/XR chest 1V portable [id number] IMPRESSION: Imaging findings concerning for left lower lobe pneumonia.
--- NOTE | 2021-03-27 01:20 | ECG_ITS ---
[facility] Test Date: 2021-03-27 Pat Name: Kyler Boyce Department: Room: Gender: Male Rn On Site: : 1945 Requested By: Yoli Ca Order Number: [id number] Shade MD: Maeve Andre M.D. Measurements Intervals [place] Rate: 101 P: 60 [place]: 177 QRS: -11 QRSD: 128 T: -17 QT: 383 QTc: 498 Interpretive Statements SINUS TACHYCARDIA WITH OCCASIONAL SUPRAVENTRICULAR PREMATURE COMPLEXES RIGHT BUNDLE BRANCH BLOCK [120+ ms QRS DURATION, UPRIGHT V1, 40+ ms S IN I/aVL/V4/V5/V6] SEPTAL MYOCARDIAL INFARCTION , OF INDETERMINATE AGE [40+ ms Q WAVE IN V1/V2] Compared to ECG 03/18/2021 16:07:18 Right bundle-branch block now present Sinus rhythm no longer present Intraventricular conduction delay no longer present Myocardial infarct finding still present Electronically Signed On 03-29-2021 19:25:22 CDT by Maeve Andre M.D. [id number]
--- NOTE | 2021-03-27 01:28 | ED_ITS ---
HPI - COVID General: Chief Complaint: COVID symptoms Stated Complaint: COVID Time Seen by Provider: 03/27/21 01:17 Source: patient and EMS Mode of arrival: EMS Limitations: no limitations Triage information: Has fever, cough or shortness of breath . Exposure to COVID + person last 14 days History of Present Illness: HPI Narrative: 75-year-old male who presents here by EMS with increasing shortness of breath. Patient tested positive for Covid 9 days ago. He had been on 2 L started desaturating tonight was in the low 80s on that 2 L. Patient is currently on 6 L. Denies any vomiting or diarrhea. Patient is in moderate distress and able to only speak in 2-4 word sentences. He was given 6 mg of Decadron in route by EMS. COVID 19 common symptoms: positive productive cough and dyspnea; negative fever(s), chills, body aches, headache(s), throat pain, nausea, vomiting or diarrhea COVID 19 other sytmptoms: negative chest pain COVID Results: SARS-CoV-2 Antigen (Rapid) Positive (Negative) H 03/18/21 13:40 03/18/21 Nasal/Oral Coronavirus 2019 PCR Not detected 03/05/21 00:08 03/05/21 Review of Systems Const: Denies: fever(s), chills, body aches or change in appetite Eyes: Denies: blurry vision or eye discomfort ENMT: Denies: throat pain or dental pain Card: Denies: chest pain Resp: Reports: dyspnea and productive cough GI: Denies: abdominal pain, nausea, vomiting or diarrhea : Denies: dysuria Musc: Denies: neck pain or back pain Skin/Breast: Denies: rash Neuro: Denies: headache(s) Psych: Denies: depression Feliz/Lymph: Denies: easy bruising All/Imm: Denies: urticaria PFS ED PFSH: Medical History CAD (coronary artery disease) COPD (chronic obstructive pulmonary disease) Heart failure Hypertension Nicotine dependence Physical Exam Const: COMMON NORMALS: patient oriented x3 GENERAL APPEARANCE: in distress and ill appearing HENMT: COMMON NORMALS: normocephalic and atraumatic HEAD & SCALP: normocephalic and atraumatic Eye: COMMON NORMALS: Equal, round and reactive pupils present and EOMs intact bilaterally PUPIL: Yes Equal, round and reactive pupils present Neck/C-Spine: COMMON NORMALS: full ROM and supple Chest: COMMONS NORMALS: normal inspection of the chest and normal palpation of entire chest wall Resp: EFFORT & INSPECTION: Yes tachypneic, Yes respiratory distress and Yes labored AUSCULTATION: rales Cardio: COMMON NORMALS: regular rate, regular rhythm and No murmurs present (Cardio) RATE: regular rate RHYTHM: regular rhythm GI: COMMON NORMALS: Normal to inspection, nondistended, normoactive bowel sounds present, Soft to palpation, non-tender and no masses PALPATION: Yes Soft to palpation Extremity: COMMON NORMALS: normal to inspection and full ROM Neuro: COMMON NORMALS: patient oriented x3, moves all extremities and no focal motor deficits Psych: COMMON NORMALS: mental status grossly normal, Normal thought process present and cooperative THOUGHT PROCESS: Normal thought process present Skin: COMMON NORMALS: no rashes or lesions noted and no wounds GENERAL SKIN EXAM: no rashes or lesions noted Course Vital Signs: Vital signs: Vital Signs Temperature 98.1 F 03/27/21 03:39 Pulse Rate 108 H 03/27/21 04:39 Respiratory Rate 34 H 03/27/21 04:39 Blood Pressure 113/60 03/27/21 04:39 Pulse Oximetry 98 03/27/21 04:39 MDM - COVID MDM Narrative: Medical decision making narrative: Kyler presents here with Covid pneumonia requiring more oxygen currently is on 6 L and doing well. CT shows finding consistent with Covid pneumonia. Patient's inflammatory markers are elevated as well. His blood pressure here has been normal. I spoke to hospitalist and will admit. Lab Data: Labs: Lab Results 03/27/21 03/27/21 03/27/21 Range/Units 00:50 00:50 01:31 WBC 6.3 (4.0-10.0) 10^3/ uL RBC 3.03 L (4.1-5.3) 10^6/u L Hgb 10.1 L (11.7-16.6) g/dL Hct 32.3 L (42.0-52.0) % MCV 106.6 H (80-94) fl MCH 33.3 (28.0-34.0) pg MCHC 31.3 (30.0-36.0) g/dL RDW 17.2 H (12.1-15.1) % Plt Count 218 (130-400) 10^3/c mm MPV 12.3 H (7.4-10.4) fL Neut % (Auto) 74.1 % Lymph % (Auto) 13.0 % Alexander % (Auto) 11.3 % Eos % (Auto) 0.8 % Baso % (Auto) 0.5 % Neut # (Auto) 4.66 (1.8-7.7) 10^3/u L Lymph # (Auto) 0.8 (0.8-4.8) 10^3/u L Alexander # (Auto) 0.7 (0.2-0.9) 10^3/u L Eos # (Auto) 0.1 (0.0-0.8) 10^3/u L Baso # (Auto) 0.0 (0.0-0.1) 10^3/u L Nucleated RBC % (a uto) 0 % Nucleated RBCs # 0.0 /100WBC D-Dimer (0-0.59) ug/mIFE U Specimen Type Arterial Sample Site Radial, right ABG pH 7.46 H (7.35-7.45) ABG pCO2 27.9 L (35-45) mmHg ABG pO2 57.9 L (80.0-100.0) mmH g ABG HCO3 20.0 L (22-26) mmol/L ABG Base Excess -2.9 L (-2.0-2.0) mmol/ L Lance Test Pos Hematocrit 29.7 L (42-52) % O2 Delivery Device Nc O2 Liters/Min 6.0 % FiO2 44.0 % Electronics Department Manager ID [place]ro Sodium 143 (136-145) mmol/L Potassium 3.3 L (3.5-5.1) mmol/L Chloride 107 (98-107) mmol/L Carbon Dioxide 22 (22-29) mmol/L Anion Gap 17.3 (5-19) BUN 27 H (8-23) mg/dL Creatinine 1.3 H (0.7-1.2) mg/dL GFR Calculation Not Reportable Glucose 95 (65-115) mg/dL Calculated Osmolal ity 301 H (285-295) mOsm/k g Lactic Acid (0.5-2.2) mmol/L Calcium 7.9 L (8.5-10.5) mg/dL Total Bilirubin 0.7 (0.15-1.2) mg/dL AST 36 (0-40) U/L ALT 14 (0-41) U/L Alkaline Phosphata se 206 H (40-130) IU/L C-Reactive Protein 123.7 H (0.0-4.9) mg/L NT-Pro-B Natriuret Pep 4836 H (0-125) pg/mL Total Protein 6.1 L (6.6-8.7) g/dL Albumin 2.7 L (3.5-5.2) g/dL Globulin 3.4 (1.3-4.6) g/dL 03/27/21 03/27/21 Range/Units 01:36 01:36 WBC (4.0-10.0) 10^3/ uL RBC (4.1-5.3) 10^6/u L Hgb (11.7-16.6) g/dL Hct (42.0-52.0) % MCV (80-94) fl MCH (28.0-34.0) pg MCHC (30.0-36.0) g/dL RDW (12.1-15.1) % Plt Count (130-400) 10^3/c mm MPV (7.4-10.4) fL Neut % (Auto) % Lymph % (Auto) % Alexander % (Auto) % Eos % (Auto) % Baso % (Auto) % Neut # (Auto) (1.8-7.7) 10^3/u L Lymph # (Auto) (0.8-4.8) 10^3/u L Alexander # (Auto) (0.2-0.9) 10^3/u L Eos # (Auto) (0.0-0.8) 10^3/u L Baso # (Auto) (0.0-0.1) 10^3/u L Nucleated RBC % (a uto) % Nucleated RBCs # /100WBC D-Dimer 5.59 H (0-0.59) ug/mIFE U Specimen Type Sample Site ABG pH (7.35-7.45) ABG pCO2 (35-45) mmHg ABG pO2 (80.0-100.0) mmH g ABG HCO3 (22-26) mmol/L ABG Base Excess (-2.0-2.0) mmol/ L Lance Test Hematocrit (42-52) % O2 Delivery Device O2 Liters/Min % FiO2 % Electronics Department Manager ID Sodium (136-145) mmol/L Potassium (3.5-5.1) mmol/L Chloride (98-107) mmol/L Carbon Dioxide (22-29) mmol/L Anion Gap (5-19) BUN (8-23) mg/dL Creatinine (0.7-1.2) mg/dL GFR Calculation Glucose (65-115) mg/dL Calculated Osmolal ity (285-295) mOsm/k g Lactic Acid 1.6 (0.5-2.2) mmol/L Calcium (8.5-10.5) mg/dL Total Bilirubin (0.15-1.2) mg/dL AST (0-40) U/L ALT (0-41) U/L Alkaline Phosphata se (40-130) IU/L C-Reactive Protein (0.0-4.9) mg/L NT-Pro-B Natriuret Pep (0-125) pg/mL Total Protein (6.6-8.7) g/dL Albumin (3.5-5.2) g/dL Globulin (1.3-4.6) g/dL Imaging Data: CXR: Radiologist's impression: [address] [address] XRay Report Signed Patient: Kyler Boyce Unit #: [id number] : 1945 Age/Sex: 75 / M ADM Date: 03/27/21 Loc: ER Room/Bed: Attending Dr: Ordering Provider/Ordering MD: Yoli Ca MD Date of Service: 03/27/21 Procedure(s): XR chest 1V portable [id number] Accession Number(s): [id number] Report Number: [id number] PROCEDURE INFORMATION: Exam: XR Chest Exam date and time: 03/27/2021 1:20 AM Age: 75 years old Clinical indication: Shortness of breath; Patient HX: Sob/hypoxia. Covid + TECHNIQUE: Imaging protocol: XR of the chest. Views: 1 view. COMPARISON: CR XR chest 1V portable [id number] 03/18/2021 1:52 PM FINDINGS: Lungs: Low lung volumes. Mildly increased lung markings. There is a patchy airspace opacity in the left lung base, in association with indistinctness of the hemidiaphragm, highly concerning for pneumonia. No large pleural effusion or pneumothorax. Pleural spaces: See Lungs finding. Heart/Mediastinum: Stable cardiomediastinal silhouette. Bones/joints: Degenerative changes of the spine seen. XR/XR chest 1V portable [id number] IMPRESSION: Imaging findings concerning for left lower lobe pneumonia. Dictated By: Joel Laurent Signed By: Joel Laurent Signed Date/Time: 03/27/21315 DD/ 4 CT Chest: Attestation: I personally reviewed and interpreted this imaging study as follows: Radiologist's impression: [facility] [address] [address] Scan Report Signed Patient: Kyler Boyce Unit #: [id number] : 1945 Age/Sex: 75 / M ADM Date: 03/27/21 Loc: ER Room/Bed: Attending Dr: Ordering Provider/Ordering MD: Yoli Ca MD Date of Service: 03/27/21 Procedure(s): CT angio chest PE prot [id number] Accession Number(s): [id number] Report Number: [id number] PROCEDURE INFORMATION: Exam: CTA Chest With Contrast Exam date and time: 03/27/2021 2:22 AM Age: 75 years old Clinical indication: Cough and shortness of breath; Prior surgery; Surgery type: Coronary stents. ; Patient HX: Cough with SOB. Hypoxia. Covid + TECHNIQUE: Imaging protocol: Computed tomographic angiography of the chest with contrast. 3D rendering (Not supervised by radiologist): MIP and/or 3D reconstructed images were created by the technologist. Radiation optimization: All CT scans at this facility use at least one of these dose optimization techniques: automated exposure control; mA and/or kV adjustment per patient size (includes targeted exams where dose is matched to clinical indication); or iterative reconstruction. Contrast material: VISI 320; Contrast volume: 63 ml; Contrast route: INTRAVENOUS (IV); COMPARISON: CT Chest/Abdomen/Pelvis w IV* 05/11/2019 2:40 PM RADIATION DOSE METRICS: Total DLP (mGy-cm): 575.98 FINDINGS: Pulmonary arteries: No large central pulmonary embolus identified. Evaluation for smaller segmental/subsegmental pulmonary emboli is limited by motion artifact. Aorta: Moderate diffuse atherosclerotic disease is present. Ectatic ascending aorta measuring 4.1 cm in diameter. Lungs: There is patchy ground-glass opacities scattered in both lungs, and areas of consolidation along the dependent aspect of the lower lobes. Pleural spaces: Trace bilateral pleural effusions noted. No pneumothorax. Heart: Unremarkable. No cardiomegaly. No pericardial effusion. Lymph nodes: Unremarkable. No enlarged lymph nodes. Liver: The liver demonstrates volume redistribution and nodular contour, consistent with cirrhosis. No discrete mass lesion seen. Stomach and bowel: There is diffuse thickening of the gastric wall, which may be secondary to underdistention. Intraperitoneal space: A small amount of ascites is present. Bones/joints: Mild dextrocurvature of the lumbar spine and multilevel degenerative changes seen. Soft tissues: Unremarkable. CT/CT angio chest PE protcl [id number] IMPRESSION: 1. No large central pulmonary embolus. Evaluation for smaller segmental/subsegmental pulmonary emboli is limited by motion artifact. 2. Commonly reported imaging features of (COVID-19) pneumonia are present. Other processes such as influenza pneumonia and organizing pneumonia, as can be seen with drug toxicity and connective tissue disease, can cause a similar imaging pattern. 3. Trace bilateral pleural effusions. 4. 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 Radiation Dose CTDIVOL = (mGy): DLP = 575.98 (mGy-cm) Dictated By: Joel Laurent Signed By: Joel Laurent Signed Date/Time: 03/27/21323 DD/ 1 CT Abd/Pel: Radiologist's impression: [address] [address] [address] Scan Report Signed Patient: Kyler Boyce Unit #: [id number] : 1945 Age/Sex: 75 / M ADM Date: 03/27/21 Loc: ER Room/Bed: Attending Dr: Ordering Provider/Ordering MD: Yoli Ca MD Date of Service: 03/27/21 Procedure(s): CT abdomen pelvis wo con [id number] Accession Number(s): [id number] Report Number: [id number] PROCEDURE INFORMATION: Exam: CT Abdomen And Pelvis Without Contrast Exam date and time: 03/27/2021 2:49 AM Age: 75 years old Clinical indication: Bloating; Abdominal pain; Generalized; Patient HX: Abd distention. ; Additional info: Abd pain TECHNIQUE: Imaging protocol: Computed tomography of the abdomen and pelvis without contrast. Radiation optimization: All CT scans at this facility use at least one of these dose optimization techniques: automated exposure control; mA and/or kV adjustment per patient size (includes targeted exams where dose is matched to clinical indication); or iterative reconstruction. COMPARISON: CT Abdomen/P[place]vis w IV* [id number] 05/17/2019 4:59 PM RADIATION DOSE METRICS: Total DLP (mGy-cm): 1030.43 FINDINGS: Liver: The liver demonstrates volume redistribution and nodular contour, consistent with cirrhosis. No discrete mass lesion seen. Gallbladder and bile ducts: Normal. No calcified stones. No ductal dilation. Pancreas: Normal. No ductal dilation. Spleen: There is tiny calcific densities scattered throughout the spleen, likely sequela of previous granulomatous disease. The spleen is otherwise unremarkable. Adrenal glands: Normal. No mass. Kidneys and ureters: Normal. No hydronephrosis. Stomach and bowel: There is diverticulosis without evidence of diverticulitis. Appendix: No evidence of appendicitis. Intraperitoneal space: A small amount of ascites is present. Vasculature: Moderate diffuse atherosclerotic disease is present. Lymph nodes: Unremarkable. No enlarged lymph nodes. Urinary bladder: Unremarkable as visualized. Reproductive: Unremarkable as visualized. Bones/joints: Degenerative changes of the spine seen. Soft tissues: Unremarkable. CT/CT abdomen pelvis wo con [id number] IMPRESSION: 1. No acute intra-abdominal or intrapelvic pathology. 2. 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 Radiation Dose CTDIVOL = (mGy): DLP = 1030.43 (mGy-cm) Dictated By: Joel Laurent Signed By: Joel Laurent Signed Date/Time: 03/27/21 033 DD/ 0329 EKG Data: EKG 1: Attestation: I personally reviewed and interpreted this EKG as follows: EKG interpretation date: 03/27/21 Interpretation: sinus tach hr [address] or t wave abonrmalities qrs 119 qtc 408 EKG 2: Attestation: I personally reviewed and interpreted this EKG as follows: EKG interpretation date: 03/27/21 EKG interpretation time: 04:03 Interpretation: sinus tach hr [address] or twave abnormalities qrs 177 qtc 441 COVID Results: SARS-CoV-2 Antigen (Rapid) Positive (Negative) H 03/18/21 13:40 03/18/21 Nasal/Oral Coronavirus 2019 PCR Not detected 03/05/21 00:08 03/05/21 Discharge Plan Discharge Patient Disposition: Admitted As Inpatient Clinical Impression: COVID-19 Condition: Stable Coding Level of Care Code ED [employer]atsw[employer] Mate for Chg Fwd Exam Comprehensive
[2021-03-27 01:36] LABS: Basophils % 0.5 %; Eosinophils # 0.1 10^3/uL (0.0-0.8); Eosinophils % 0.8 %; Hematocrit 32.3 % (42.0-52.0); Hemoglobin 10.1 g/dL (11.7-16.6); Lymphocytes # 0.8 10^3/uL (0.8-4.8); Mean Corpuscular HGB Conc 31.3 g/dL (30.0-36.0); Mean Corpuscular Hemoglobin 33.3 pg (28.0-34.0); Mean Corpuscular Volume 106.6 fl (80-94); Mean Platelet Volume 12.3 fL (7.4-10.4); Monocytes # 0.7 10^3/uL (0.2-0.9); Monocytes % 11.3 %; Neutrophils # 4.66 10^3/uL (1.8-7.7); Neutrophils % 74.1 %; Nucleated Red Blood Cells % 0 %; Platelet Count 218 10^3/cmm (130-400); Red Blood Count 3.03 10^6/uL (4.1-5.3); Red Cell Distribution Width 17.2 % (12.1-15.1); White Blood Count 6.3 10^3/uL (4.0-10.0)
[2021-03-27] MEDS: albuterol 8 gm MDI 2 PUFF INHALATION (01:37)
[2021-03-27 01:43] LABS: ABG PCO2 27.9 mmHg (35-45); ABG PH Result 7.46 (7.35-7.45); Arterial Blood Gas Hematocrit 29.7 % (42-52); Base Excess ABG -2.9 mmol/L (-2.0-2.0); Blood Gas Allen Test Pos; Blood Gas Operator Identificat MONRO; Blood Gas Sample Site Radial, right; Blood Gas Sample Type Arterial; PO2 ABG 57.9 mmHg (80.0-100.0)
[2021-03-27 01:44] LABS: Oxygen Device NC
[2021-03-27 01:57] LABS: Lactic Sepsis W/Reflex 1.6 mmol/L (0.5-2.2)
[2021-03-27 02:01] LABS: Alanine Aminotransferase 14 U/L (0-41); Albumin Level 2.7 g/dL (3.5-5.2); Alkaline Phosphatase 206 IU/L (40-130); Anion Gap 17.3 (5-19); Aspartate Amino Transferase 36 U/L (0-40); Blood Urea Nitrogen 27 mg/dL (8-23); C Reactive Protein 123.7 mg/L (0.0-4.9); Calcium 7.9 mg/dL (8.5-10.5); Carbon Dioxide 22 mmol/L (22-29); Chloride 107 mmol/L (98-107); Globulin 3.4 g/dL (1.3-4.6); Glucose 95 mg/dL (65-115); NT Pro B Type Natriuretic Pept 4836 pg/mL (0-125); Osmolality Calculated 301 mOsm/kg (285-295); Potassium 3.3 mmol/L (3.5-5.1); Sodium 143 mmol/L (136-145); Total Bilirubin 0.7 mg/dL (0.15-1.2); Total Protein 6.1 g/dL (6.6-8.7)
[2021-03-27 02:04] LABS: Creatinine Clr Calc Pharmacy 60.8618
[2021-03-27 02:19] LABS: D Dimer 5.59 ug/mIFEU (0-0.59)
--- NOTE | 2021-03-27 02:22 | CTR_ITS ---
PROCEDURE INFORMATION: Exam: CTA Chest With Contrast Exam date and time: 03/27/2021 2:22 AM Age: 75 years old Clinical indication: Cough and shortness of breath; Prior surgery; Surgery type: Coronary stents. ; Patient HX: Cough with SOB. Hypoxia. Covid + TECHNIQUE: Imaging protocol: Computed tomographic angiography of the chest with contrast. 3D rendering (Not supervised by radiologist): MIP and/or 3D reconstructed images were created by the technologist. Radiation optimization: All CT scans at this facility use at least one of these dose optimization techniques: automated exposure control; mA and/or kV adjustment per patient size (includes targeted exams where dose is matched to clinical indication); or iterative reconstruction. Contrast material: VISI 320; Contrast volume: 63 ml; Contrast route: INTRAVENOUS (IV); COMPARISON: CT Chest/Abdomen/Pelvis w IV* 05/11/2019 2:40 PM RADIATION DOSE METRICS: Total DLP (mGy-cm): 575.98 FINDINGS: Pulmonary arteries: No large central pulmonary embolus identified. Evaluation for smaller segmental/subsegmental pulmonary emboli is limited by motion artifact. Aorta: Moderate diffuse atherosclerotic disease is present. Ectatic ascending aorta measuring 4.1 cm in diameter. Lungs: There is patchy ground-glass opacities scattered in both lungs, and areas of consolidation along the dependent aspect of the lower lobes. Pleural spaces: Trace bilateral pleural effusions noted. No pneumothorax. Heart: Unremarkable. No cardiomegaly. No pericardial effusion. Lymph nodes: Unremarkable. No enlarged lymph nodes. Liver: The liver demonstrates volume redistribution and nodular contour, consistent with cirrhosis. No discrete mass lesion seen. Stomach and bowel: There is diffuse thickening of the gastric wall, which may be secondary to underdistention. Intraperitoneal space: A small amount of ascites is present. Bones/joints: Mild dextrocurvature of the lumbar spine and multilevel degenerative changes seen. Soft tissues: Unremarkable. CT/CT angio chest PE protcl [id number] IMPRESSION: 1. No large central pulmonary embolus. Evaluation for smaller segmental/subsegmental pulmonary emboli is limited by motion artifact. 2. Commonly reported imaging features of (COVID-19) pneumonia are present. Other processes such as influenza pneumonia and organizing pneumonia, as can be seen with drug toxicity and connective tissue disease, can cause a similar imaging pattern. 3. Trace bilateral pleural effusions. 4. 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 Radiation Dose CTDIVOL = (mGy): DLP = 575.98 (mGy-cm)
--- NOTE | 2021-03-27 02:49 | CTR_ITS ---
PROCEDURE INFORMATION: Exam: CT Abdomen And Pelvis Without Contrast Exam date and time: 03/27/2021 2:49 AM Age: 75 years old Clinical indication: Bloating; Abdominal pain; Generalized; Patient HX: Abd distention. ; Additional info: Abd pain TECHNIQUE: Imaging protocol: Computed tomography of the abdomen and pelvis without contrast. Radiation optimization: All CT scans at this facility use at least one of these dose optimization techniques: automated exposure control; mA and/or kV adjustment per patient size (includes targeted exams where dose is matched to clinical indication); or iterative reconstruction. COMPARISON: CT Abdomen/Pelvis w IV* [id number] 05/17/2019 4:59 PM RADIATION DOSE METRICS: Total DLP (mGy-cm): 1030.43 FINDINGS: Liver: The liver demonstrates volume redistribution and nodular contour, consistent with cirrhosis. No discrete mass lesion seen. Gallbladder and bile ducts: Normal. No calcified stones. No ductal dilation. Pancreas: Normal. No ductal dilation. Spleen: There is tiny calcific densities scattered throughout the spleen, likely sequela of previous granulomatous disease. The spleen is otherwise unremarkable. Adrenal glands: Normal. No mass. Kidneys and ureters: Normal. No hydronephrosis. Stomach and bowel: There is diverticulosis without evidence of diverticulitis. Appendix: No evidence of appendicitis. Intraperitoneal space: A small amount of ascites is present. Vasculature: Moderate diffuse atherosclerotic disease is present. Lymph nodes: Unremarkable. No enlarged lymph nodes. Urinary bladder: Unremarkable as visualized. Reproductive: Unremarkable as visualized. Bones/joints: Degenerative changes of the spine seen. Soft tissues: Unremarkable. CT/CT abdomen pelvis wo con [id number] IMPRESSION: 1. No acute intra-abdominal or intrapelvic pathology. 2. 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 Radiation Dose CTDIVOL = (mGy): DLP = 1030.43 (mGy-cm)
[2021-03-27] MEDS: iodixanol 320 mg/mL 100mL Btl IV (02:51)
--- NOTE | 2021-03-27 06:20 | P.HP_ITS ---
Providers/Chief Complaint Admitting Physician: Shamika Noyola MD Primary Care Provider: Tri Robles MD Chief Complaint: COVID History of Present Illness Kyler Boyce is a 75 year old male who presented to the emergency room from [facility] after worsening hypoxemia and increasing difficulty breathing. He was diagnosed with Covid on March 18. He received monoclonal antibody treatment the same day. At some point he was placed on 2 L of oxygen by nasal cannula. This evening he had saturations into the low 80s and required increased amount of oxygen. He was brought in by EMS with some distress. They had given him some Decadron. He admits that his cough has been worse. Shortness of breath has been worse. He has not had any vomiting or diarrhea. Denies loss of taste or smell. Has not felt well. Has not had recent fevers. He was hospitalized here before his Covid diagnosis with anemia for which she received blood transfusion on March 06. D-dimer was 5.9 however CTA of the chest did not show any evidence of PE. CRP was at 123. Given clinical worsening, patient is being admitted for further evaluation is indicated and initiation of additional treatment. Mr. Boyce did receive [employer] Covid vaccination at some point. Review of Systems Const: Reports: fever(s), chills, body aches, fatigue and malaise Eyes: Denies: blurry vision ENMT: Reports: throat pain, hoarseness and nasal congestion; Denies: other (loss of taste and smell) Card: Reports: lightheadedness and dyspnea on exertion; Denies: chest pain, palpitations, edema, syncope, orthopnea or acrocyanosis Resp: Reports: dyspnea, productive cough, non-productive cough, wheezing and chest congestion; Denies: pain on inspiration or hemoptysis GI: Denies: abdominal pain, nausea, vomiting, hematemesis, diarrhea, constip ation, hematochezia or melena : Denies: urinary frequency Musc: Reports: back pain, extremity pain, muscle cramps and muscle weakness; Denies: neck pain, joint redness or joint warmth Skin/Breast: Denies: rash, pruritus or sores Neuro: Reports: headache(s), weakness in extremities (general rather than focal) and dizziness; Denies: numbness in extremities, difficulty walking, difficulty communicating thoughts or involuntary movements Psych: Reports: anxiety Feliz/Lymph: Denies: easy bruising or easy bleeding Medications/Allergies Home Medications Medication Instructions Recorded Confirmed Last Taken Type Virt-Phos 250 Neutral 1 tab PO BID@03/04/21 03/18/21 03/18/21 08:00 History aspirin 81 mg PO DAILY@03/04/21 03/18/21 03/18/21 History atorvastatin [Lipitor] 40 mg PO DAILY@03/04/21 03/18/21 03/17/21 History gabapentin 100 mg PO DAILY@03/04/21 03/18/21 03/17/21 History isosorbide mononitrate 30 mg PO DAILY@03/04/21 03/18/21 03/18/21 History lisinopril 40 mg PO DAILY@03/04/21 03/18/21 03/18/21 History metoprolol tartrate 100 mg PO DAILY@03/04/21 03/18/21 03/18/21 History tamsulosin 0.4 mg PO DAILY@03/04/21 03/18/21 03/17/21 History acetaminophen 650 mg PO Q4H PRN 03/18/21 03/18/21 Unknown History amlodipine 10 mg PO DAILY@03/18/21 03/18/21 03/18/21 History cyanocobalamin (vitamin B-12) 1,000 mcg PO DAILY@03/18/21 03/18/21 03/18/21 History doxycycline monohydrate 100 mg PO BID 03/18/21 03/18/21 03/17/21 History FINISHED 03/17/21 folic acid 1 mg PO DAILY@03/18/21 03/18/21 03/18/21 History pantoprazole 40 mg PO BID@06,16 03/18/21 03/18/21 03/18/21 06:00 History thiamine mononitrate (vit B1) 100 mg PO DAILY@03/18/21 03/18/21 03/18/21 History [Vitamin B-1 (mononitrate)] Allergies Allergy/AdvReac Type Severity Reaction Status Date / Time Sulfa (Sulfonamide Allergy Unknown Verified 03/27/21 01:27 Antibiotics) PFSH Acute PFSH: Medical History (Updated 03/27/21 @ 08:20 by Shamika Noyola MD) CAD (coronary artery disease) COPD (chronic obstructive pulmonary disease) COVID-19 vaccine administered J&J CVA (cerebral vascular accident) Right MCA, left weakness Heart failure EF 65% last echo Hyperlipidemia Hypertension Nicotine dependence Surgical History (Updated 03/27/21 @ 08:00 by Shamika Noyola MD) History of coronary artery stent placement History of nasal surgery Family History (Updated 03/27/21 @ 08:01 by Shamika Noyola MD) Other Stroke Social History (Updated 03/27/21 @ 08:03 by Shamika Noyola MD) Additional social history: History of tobacco use, alcohol use, no drugs. Recently DC to [facility] and unclear if continues to drink and smoke regularly. Vitals/I&O/Wt Last Vital Signs Temp 97.8 F 03/27/21 05:36 Pulse 98 03/27/21 05:36 Resp 19 H 03/27/21 05:36 BP 108/65 03/27/21 05:36 Pulse Ox 90 03/27/21 05:36 Weight last 48 hrs Weight 96.162 kg Physical Exam Narrative: EXAM NARRATIVE: Constitutional: alert, ill appearing HEENT: normocephalic, conjunctiva injected, dry membranes Neck: supple Respiratory: scattered wheezes, crackles and rales throughout, tachypnea, no retractions Cardiovascular: regular, no murmurs Abdomen: soft, non tender, positive bowel sounds Extremities: no edema, no cyanosis Skin: dry, some bruising noted Neuro: face symmetric, speech clear, moves extremities though weaker on left side, no tremors Psych: required reminding to keep oxygen on Data : 03/27/21 00:50 03/27/21 00:50 Other data: Laboratory Results WBC 6.3 10^3/uL (4.0-10.0) 03/27/21 00:50 RBC 3.03 10^6/uL (4.1-5.3) L 03/27/21 00:50 Hgb 10.1 g/dL (11.7-16.6) L 03/27/21 00:50 Hct 32.3 % (42.0-52.0) L 03/27/21 00:50 MCV 106.6 fl (80-94) H 03/27/21 00:50 MCH 33.3 pg (28.0-34.0) 03/27/21 00:50 MCHC 31.3 g/dL (30.0-36.0) 03/27/21 00:50 RDW 17.2 % (12.1-15.1) H 03/27/21 00:50 Plt Count 218 10^3/cmm (130-400) 03/27/21 00:50 MPV 12.3 fL (7.4-10.4) H 03/27/21 00:50 Neut % (Auto) 74.1 % 03/27/21 00:50 Lymph % (Auto) 13.0 % 03/27/21 00:50 [place] % (Auto) 11.3 % 03/27/21 00:50 Eos % (Auto) 0.8 % 03/27/21 00:50 Baso % (Auto) 0.5 % 03/27/21 00:50 Neut # (Auto) 4.66 10^3/uL (1.8-7.7) 03/27/21 00:50 Lymph # (Auto) 0.8 10^3/uL (0.8-4.8) 03/27/21 00:50 [place] # (Auto) 0.7 10^3/uL (0.2-0.9) 03/27/21 00:50 Eos # (Auto) 0.1 10^3/uL (0.0-0.8) 03/27/21 00:50 Baso # (Auto) 0.0 10^3/uL (0.0-0.1) 03/27/21 00:50 Nucleated RBC % (auto) 0 % 03/27/21 00:50 Nucleated RBCs # 0.0 /100WBC 03/27/21 00:50 D-Dimer 5.59 ug/mIFEU (0-0.59) H 03/27/21 01:36 Specimen Type Arterial 03/27/21 01:31 Sample Site Radial, right 03/27/21 01:31 ABG pH 7.46 (7.35-7.45) H 03/27/21 01:31 ABG pCO2 27.9 mmHg (35-45) L 03/27/21 01:31 ABG pO2 57.9 mmHg (80.0-100.0) L 03/27/21 01:31 ABG HCO3 20.0 mmol/L (22-26) L 03/27/21 01:31 ABG Base Excess -2.9 mmol/L (-2.0-2.0) L 03/27/21 01:31 Lance Test Pos 03/27/21 01:31 Hematocrit 29.7 % (42-52) L 03/27/21 01:31 O2 Delivery Device Nc 03/27/21 01:31 O2 Liters/Min 6.0 % 03/27/21 01:31 FiO2 44.0 % 03/27/21 01:31 Checkout Operator ID [place] 03/27/21 01:31 Sodium 143 mmol/L (136-145) 03/27/21 00:50 Potassium 3.3 mmol/L (3.5-5.1) L 03/27/21 00:50 Chloride 107 mmol/L (98-107) 03/27/21 00:50 Carbon Dioxide 22 mmol/L (22-29) 03/27/21 00:50 Anion Gap 17.3 (5-19) 03/27/21 00:50 BUN 27 mg/dL (8-23) H 03/27/21 00:50 Creatinine 1.3 mg/dL (0.7-1.2) H 03/27/21 00:50 GFR Calculation Not Reportable 03/27/21 00:50 Glucose 95 mg/dL (65-115) 03/27/21 00:50 Calculated Osmolality 301 mOsm/kg (285-295) H 03/27/21 00:50 Lactic Acid 1.6 mmol/L (0.5-2.2) 03/27/21 01:36 Calcium 7.9 mg/dL (8.5-10.5) L 03/27/21 00:50 Total Bilirubin 0.7 mg/dL (0.15-1.2) 03/27/21 00:50 AST 36 U/L (0-40) 03/27/21 00:50 ALT 14 U/L (0-41) 03/27/21 00:50 Alkaline Phosphatase 206 IU/L (40-130) H 03/27/21 00:50 C-Reactive Protein 123.7 mg/L (0.0-4.9) H 03/27/21 00:50 NT-Pro-B Natriuret Pep 4836 pg/mL (0-125) H 03/27/21 00:50 Total Protein 6.1 g/dL (6.6-8.7) L 03/27/21 00:50 Albumin 2.7 g/dL (3.5-5.2) L 03/27/21 00:50 Globulin 3.4 g/dL (1.3-4.6) 03/27/21 00:50 Impressions Chest X-Ray 03/27/21 01:20 IMPRESSION: Imaging findings concerning for left lower lobe pneumonia. Chest CTA 03/27/21 02:22 IMPRESSION: 1. No large central pulmonary embolus. Evaluation for smaller segmental/subsegmental pulmonary emboli is limited by motion artifact. 2. Commonly reported imaging features of (COVID-19) pneumonia are present. Other processes such as influenza pneumonia and organizing pneumonia, as can be seen with drug toxicity and connective tissue disease, can cause a similar imaging pattern. 3. Trace bilateral pleural effusions. 4. 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 Radiation Dose CTDIVOL = (mGy): DLP = 575.98 (mGy-cm) Abdomen/Pelvis CT 03/27/21 02:49 IMPRESSION: 1. No acute intra-abdominal or intrapelvic pathology. 2. 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 Radiation Dose CTDIVOL = (mGy): DLP = 1030.43 (mGy-cm) A&P Assessment and plan (1) Pneumonia due to COVID-19 virus: Received monoclonal antibodies 03/18/2021 Status: Acute (2) COVID-19 vaccine administered: [employer] Status: Chronic (3) COPD (chronic obstructive pulmonary disease): Not chonrically on oxygen Status: Chronic Qualifiers: COPD type: unspecified COPD Qualified Code(s): J44.9 - Chronic obstructive pulmonary disease, unspecified (4) CAD (coronary artery disease): History of stent Status: Chronic Qualifiers: Coronary Disease-Associated Artery/Lesion type: [place] artery [place] vs. transplanted heart: [place] heart Associated angina: without angina Qualified Code(s): I25.10 - Atherosclerotic heart disease of [place] coronary artery without angina pectoris (5) Anemia: Recently received blood transfusion for what was felt possible GI blood losses Status: Acute Qualifiers: Anemia type: unspecified type Qualified Code(s): D64.9 - Anemia, unspecified (6) Hypertension: Chronically with hypertensoion but currently with low normal blood pressures Status: Chronic Qualifiers: Hypertension type: unspecified Qualified Code(s): I10 - Essential (primary) hypertension Additional A&P Information Inpatient admission Initiate dexamethasone and remdesivir Oxygen therapy as needed to maintain saturations Monitor volume status closely Blood pressures are soft presently but may benefit from some diuresis Respiratory therapy to follow Inhalers Pro calcitonin pending Blood cultures were collected D Dimer 5.59 CTA negative for PE CRP 123 Vitamin C, vitamin D, zinc Serial cardiac enzymes BNP 4836 Lovenox/scds for DVT prophylaxis Monitor HH for drop CIWA protocol given history of etoh use Address home medications when list is more clarified PPI ordered Supportive care otherwise Currently anticipate discharge back to SNF with oxygen therapy, however it will ultimately depend on clinical course Findings, concerns and plans, including treatment with Remdesivir were discussed, given an opportunity to ask questions Full code Attestations Medical Necessity Statement*: Anticipate stay greater than 2 midnights in patient with covid, requiring oxygen and other care as noted above. At high risk of rapid clinical decline for reasons noted above. Coding Level of Care Code Acute Entry Level Assistant Manager for g Fwd Diagnoses Pneumonia due to COVID-19 virus U07.1; J12.82 COVID-19 vaccine administered Z23 COPD (chronic obstructive pulmonary disease) J44.9 COPD type: unspecified COPD CAD (coronary artery disease) I25.10 Coronary Disease-Associated Artery/Lesion type: [place] artery [place] vs. transplanted heart: [place] heart Associated angina: without angina Anemia D64.9 Anemia type: unspecified type Hypertension I10 Hypertension type: unspecified
--- NOTE | 2021-03-27 06:28 | ECG_ITS ---
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 Measurements Intervals [place] Rate: 112 P: 43 RI: 162 QRS: 28 QRSD: 119 T: -10 QT: 342 QTc: 468 Interpretive Statements SINUS TACHYCARDIA WITH OCCASIONAL VENTRICULAR PREMATURE COMPLEXES WITH FREQUENT SUPRAVENTRICULAR PREMATURE COMPLEXES LOW QRS VOLTAGE [QRS DEFLECTION < 0.5/1.0 mV IN LIMB/CHEST LEADS] INCOMPLETE RIGHT BUNDLE BRANCH BLOCK SEPTAL MYOCARDIAL INFARCTION , OF INDETERMINATE AGE INFERIOR MYOCARDIAL INFARCTION , OF INDETERMINATE AGE Compared to ECG 03/18/2021 16:07:18 Ventricular premature complex(es) now present Low QRS voltage now present.Incomplete right bundle-branch block now present Sinus rhythm no longer present. Intraventricular conduction delay no longer present.Myocardial infarct finding still present Electronically Signed On 03-29-2021 19:17:46 CDT by Maeve Andre M.D. [email or web address] [email or web address] [email or web address]/store/[id number]
[2021-03-27 08:27] LABS: INR 1.11 (0.8-1.2)
[2021-03-27 08:28] LABS: Fibrinogen 507 mg/dL (174-498); Partial Thromboplastin Time 38.3 SECONDS (23.9-36.7)
--- NOTE | 2021-03-27 08:28 | ECG_ITS ---
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 Measurements Intervals [place] Rate: 100 P: 10 DC: 184 QRS: -19 QRSD: 128 T: -18 QT: 421 QTc: 543 Interpretive Statements SINUS TACHYCARDIA WITH FREQUENT SUPRAVENTRICULAR PREMATURE COMPLEXES RIGHT BUNDLE BRANCH BLOCK [120+ ms QRS DURATION, UPRIGHT V1, 40+ ms S IN I/aVL/V4/V5/V6] ANTEROSEPTAL MYOCARDIAL INFARCTION [40+ ms Q WAVE IN V1-V4], OF INDETERMINATE AGE Compared to ECG 03/27/2021 04:03:21 No significant changes Electronically Signed On 03-29-2021 19:37:45 CDT by Maeve Andre M.D. [id number]
[2021-03-27 08:37] LABS: Troponin(5th) Baseline 70 ng/L (0-15)
[2021-03-27 09:30] LABS: Ferritin 245 ng/mL (30-400)
[2021-03-27] MEDS: remdesivir 200 MG in sodium chloride 0.9% (100 ml) 100 ML 100 MG IV (09:32)
[2021-03-27] MEDS: multivitamin therapeutic Tablet 1 TAB PO (09:33)
[2021-03-27] MEDS: cholecalciferol (vitamin D3) 1,000 unit Tablet 2000 UNIT PO (09:33)
[2021-03-27] MEDS: pantoprazole DR 40 mg Tablet PO (09:33)
[2021-03-27] MEDS: folic acid 1 mg Tablet PO (09:34)
[2021-03-27] MEDS: ascorbic acid 500 mg Tablet 1000 MG PO ×2 (09:34→17:18)
[2021-03-27] MEDS: zinc gluconate 50 mg Tablet PO (09:34)
[2021-03-27 09:35] LABS: Procalcitonin 1.07 ng/mL (0-0.5)
[2021-03-27] MEDS: dexamethasone 4 mg/mL INJ 6 MG IVP (09:37)
[2021-03-27] MEDS: enoxaparin 40 mg/0.4 mL Syringe SUBCUT (09:38)
--- NOTE | 2021-03-27 09:42 | PC.CHAP ---
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 [] Patient/Family/Request visit [] Outpatient visit [] Follow-up visit [] Physician referral [] Code/Alert [x] Routine visit [] Staff referral [] Actively dying [] Patient sleeping [] Family support [] [] Out of room [] Palliative care [] [x] Receiving care in room [] Pre-surgical visit [] Trauma [] Long length of stay [] ICU visit [] Other: Relational/Emotional Strength [] Patient feels connected with others/family/visitors/staff [] Distress [] Loneliness/isolation [] Abandonment Spirituality of Patient [] Person of Rita [] Attends Yazidi of their Rita [] Believes in Prayer [] Reads Bible or Anglican materials [] There are Spiritual issues to be addressed Director Operations Broadcast Interventions [] Prayer [] Active listening [] Non-anxious presence [] Spiritual/emotional support [] Crisis/trauma care [] Spiritual counseling [] Bereavement support [] Provided bereavement packet [] Provided Bible/devotional materials [] Provided toy/stuffed animal, coloring book to patient or family member [] Provided Communion [] Anointing/[place] [] Salvation [] Completed spiritual assessment [] Other: Impact on Illness or Injury [] Angry [] Fearful [] Anxious [] Often cries [] Exhaustion [] Unable to work [] Unable to attend pentecostal [] Unable to walk/stand [] Unable to read [] Unable to drive [] Unable to eat/drink [] Unable to sleep [] Unable to be with family [] Patient intubated [] Other: Summary Time spent with patient
[2021-03-27 09:47] LABS: Troponin 5 2HR 68.29 ng/L (0-15)
[2021-03-27 10:03] LABS: Troponin 5 2HR Delta -1.71 ABS# (0-10)
--- NOTE | 2021-03-27 12:28 | ECG_ITS ---
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 Measurements Intervals [place] Rate: 71 P: 41 MT: 186 QRS: -28 QRSD: 150 T: 30 QT: 509 QTc: 555 Interpretive Statements SINUS RHYTHM WITH OCCASIONAL SUPRAVENTRICULAR PREMATURE COMPLEXES RIGHT BUNDLE BRANCH BLOCK [120+ ms QRS DURATION, UPRIGHT V1, 40+ ms S IN I/aVL/V4/V5/V6] SEPTAL MYOCARDIAL INFARCTION [40+ ms Q WAVE IN V1/V2], OF INDETERMINATE AGE Compared to ECG 03/27/2021 08:40:39 Sinus tachycardia no longer present Myocardial infarct finding still present Electronically Signed On 03-29-2021 18:29:58 CDT by Jasmina Holley M.D. [id number]
--- NOTE | 2021-03-27 12:57 | PC.NURSE ---
PT SEEMS TO BE ASPIRATING WHEN GIVEN ANYTHING BY MOUTH, HE TOLERATED PART OF HIS AM MEDS AND THEN WAS UNABLE TO TOLERATE ANY OTHERS.
--- NOTE | 2021-03-27 13:21 | P.PN_ITS ---
Subjective Subjective: Interval history: H&P reviewed, labs and imaging reviewed, Patient is stating that he is not sure why he was sent to the hospital however when I told him that he was requiring oxygen he was desaturating he seemed receptive afterwards. He is awake alert and oriented Was eating breakfast this morning Saturating well on 4 L nasal cannula Patient is stating that he did receive vaccine but not sure exactly when Vitals/I&O/Wt Last Vital Signs Temp 98.5 F 03/27/21 08:00 Pulse 100 03/27/21 08:08 Resp 18 03/27/21 08:08 BP 91/45 03/27/21 08:00 Pulse Ox 94 03/27/21 08:08 03/26/21 03/27/21 03/27/21 22:59 06:59 14:59 Intake Total 100 / 100 Balance 100 / 100 Weight last 48 hrs Weight 96.162 kg Physical Exam Narrative: EXAM NARRATIVE: elderly male was sitting comfortably in his bed saturating well 4 L nasal cannula S1, S2 with signs of congestive heart failure Mild rhonchi bilaterally with crepitations noted at the bases Soft abdomen Lower extremity edema No active signs of acute respiratory distress Awake alert Oriented x3 No neurological deficits Data : 03/27/21 00:50 03/27/21 00:50 A&P Assessment and plan (1) Pneumonia due to COVID-19 virus: Status: Acute (2) COVID-19: Status: Acute (3) Nicotine dependence: Status: Chronic (4) Acute respiratory failure with hypoxia: Status: Acute Additional A&P Information Acute hypoxia secondary to COVID-19 pneumonia Diagnosed on March 18 Did receive monoclonal antibody Currently requiring 4 L nasal cannula, he did require 2 L at the skilled nursing Continue remdesivir and Decadron Continue multivitamins I would add ceftriaxone considering history of liver cirrhosis and procalcitonin 1.07 He is not septic, hold off on blood cultures for now Macrocytic anemia no acute worsening hemoglobin stable at 10 Portal hypertension with stigmata of chronic liver disease Ascites however no active signs of hepatic encephalopathy I will keep him on lactulose Rifaximin Start ceftriaxone Ascites without abdominal tenderness JIHAN Patient blood pressure has been on the softer side Mentation stable with memory impairment Low albumin Monitor blood pressure for now We will give him 1 dose of albumin before giving diuretics Monitor urine output and correlate with creatinine and fluid status Alcohol induced liver cirrhosis Continue CIWA protocol Patient will be discharged back to [facility] once clinically stable Cardiac diet Full code DVT prophylaxis Lovenox Attestations Medical Necessity Statement*: Medical management for hypoxia related to COVID- 19 Time Spent in Patient Care: less than 15 minutes Coding Level of Care Code Acute Sales Representative for g Fwd Diagnoses Pneumonia due to COVID-19 virus U07.1; J12.82 COVID-19 U07.1 Nicotine dependence F17.200 Acute respiratory failure with hypoxia J96.01
--- NOTE | 2021-03-27 13:32 | USR_ITS ---
PROCEDURE INFORMATION: Exam: US Duplex Lower Extremity Veins, Bilateral Exam date and time: 03/27/2021 1:32 PM Age: 75 years old Clinical indication: Bilateral lower leg pain. TECHNIQUE: Imaging protocol: Real-time duplex ultrasound of the extremities with 2-D short scale, color Doppler flow and spectral waveform analysis with image documentation. Complete exam focused on the bilateral lower extremity veins. COMPARISON: CT abdomen pelvis wo con [id number] 03/27/2021 2:49 AM FINDINGS: The common femoral, femoral, popliteal and posterior tibial veins are patent. There is appropriate compression and augmentation. Doppler interogation reveals venous blood flow. US/CV venous duplex [facility] [id number] IMPRESSION: No evidence of deep venous thrombosis.
[2021-03-27 13:54] LABS: Troponin 5 6HR 63.39 ng/L (0-15)
[2021-03-27 13:56] LABS: Troponin 5 6HR Delta -6.61 ng/L (0-12)
[2021-03-27] MEDS: albumin 12.5 GM/250 ML VIAL IV (14:38)
[2021-03-27] MEDS: cefTRIAXone 2,000 MG in sodium chloride 0.9% (plus) 100 ML 200 MG IV (15:55)
[2021-03-27] MEDS: magnesium oxide 400 mg tablet PO (17:20)
[2021-03-28] VITALS (9 sets, daily range): BP systolic 126–148; BP diastolic 56–90; PULSE 78–962; RESP 12–22; TEMP 36.3–36.8; O2SAT 91–95
[2021-03-28 05:16] LABS: Basophils % 0.2 %; Hematocrit 28.9 % (42.0-52.0); Lymphocytes # 0.4 10^3/uL (0.8-4.8); Lymphocytes % 5.5 %; Mean Corpuscular HGB Conc 31.1 g/dL (30.0-36.0); Mean Corpuscular Hemoglobin 32.6 pg (28.0-34.0); Mean Corpuscular Volume 104.7 fl (80-94); Mean Platelet Volume 11.8 fL (7.4-10.4); Monocytes # 0.6 10^3/uL (0.2-0.9); Monocytes % 9.5 %; Neutrophils # 5.43 10^3/uL (1.8-7.7); Neutrophils % 84.5 %; Nucleated Red Blood Cells % 0 %; Platelet Count 204 10^3/cmm (130-400); Red Blood Count 2.76 10^6/uL (4.1-5.3); Red Cell Distribution Width 17.2 % (12.1-15.1); White Blood Count 6.4 10^3/uL (4.0-10.0)
[2021-03-28 05:36] LABS: Alanine Aminotransferase 12 U/L (0-41); Albumin Level 2.5 g/dL (3.5-5.2); Alkaline Phosphatase 163 IU/L (40-130); Anion Gap 19.3 (5-19); Aspartate Amino Transferase 26 U/L (0-40); Blood Urea Nitrogen 33 mg/dL (8-23); Calcium 8.3 mg/dL (8.5-10.5); Carbon Dioxide 21 mmol/L (22-29); Chloride 106 mmol/L (98-107); Creatine Phosphokinase 25 U/L (39-308); Globulin 3.3 g/dL (1.3-4.6); Glucose 141 mg/dL (65-115); Magnesium 1.6 mg/dL (1.7-2.3); Osmolality Calculated 306 mOsm/kg (285-295); Phosphorus 4.8 mg/dL (2.5-4.5); Potassium 3.3 mmol/L (3.5-5.1); Sodium 143 mmol/L (136-145); Total Bilirubin 0.4 mg/dL (0.15-1.2); Total Protein 5.8 g/dL (6.6-8.7)
[2021-03-28] MEDS: dexamethasone 4 mg/mL INJ 6 MG IVP (06:24)
[2021-03-28] MEDS: remdesivir 100 MG in sodium chloride 0.9% (100 ml) 100 ML IV (06:29)
--- NOTE | 2021-03-28 07:00 | NM_ITS ---
WS: [id number] NUCLEAR MEDICINE PERFUSION LUNG SCAN HISTORY: Hypoxia, Covid positive. COMPARISON: None available. TECHNIQUE: Perfusion: 3.8 mCi of technetium 99m MAA IV. Very good perfusion noted throughout both lungs. There are no wedge-shaped segmental or subsegmental filling defects. Heart is enlarged. NM/NM pul perfusion [id number] IMPRESSION: Normal perfusion evaluation of the lungs.
--- NOTE | 2021-03-28 07:50 | PC.NURSE ---
Shift Note Frequent safety and comfort rounds continue. Orders and/or nursing care completed as indicated. Patient monitored for response to intervention and treatment(s). Education provided includes using call light. Patient verbalized understanding but had to be reminded several times during shift. Patient is currently resting comfortably in bed watching tv. Will continue to monitor.
[2021-03-28] MEDS: enoxaparin 40 mg/0.4 mL Syringe SUBCUT (08:14)
[2021-03-28] MEDS: zinc gluconate 50 mg Tablet PO (08:14)
[2021-03-28] MEDS: magnesium oxide 400 mg tablet PO ×2 (08:14→17:19)
[2021-03-28] MEDS: thiamine 100 mg Tablet PO (08:14)
[2021-03-28] MEDS: ascorbic acid 500 mg Tablet 1000 MG PO ×2 (08:14→17:19)
[2021-03-28] MEDS: multivitamin therapeutic Tablet 1 TAB PO (08:14)
[2021-03-28] MEDS: cholecalciferol (vitamin D3) 1,000 unit Tablet 2000 UNIT PO (08:15)
[2021-03-28] MEDS: pantoprazole DR 40 mg Tablet PO (08:15)
[2021-03-28] MEDS: folic acid 1 mg Tablet PO ×2 (08:18→08:50)
[2021-03-28] MEDS: potassium chloride ER 20 mEq Tablet 40 MEQ PO (08:50)
--- NOTE | 2021-03-28 14:33 | P.PN_ITS ---
Subjective Subjective: Interval history: Patient was seen this morning, he is a bit frustrated about how is not allowed to eat anything, he denies any fevers, no cough, no shortness of breath, he tells that he hasremained in bed Vitals/I&O/Wt Last Vital Signs Temp 98.2 F 03/28/21 12:00 Pulse 962 H 03/28/21 12:00 Resp 20 H 03/28/21 12:00 BP 141/77 03/28/21 12:00 Pulse Ox 92 03/28/21 12:00 03/27/21 03/28/21 03/28/21 22:59 06:59 14:59 Intake Total 590 / 690 220 / 220 Output Total 100 / 100 100 / 200 Balance 490 / 590 -100 / 490 220 / 220 Weight last 48 hrs Weight 78.471 kg Weight 96.162 kg Physical Exam Const: COMMON NORMALS: no acute distress ORIENTATION/CONSCIOUSNESS: Yes aw jordan, Yes oriented to person, Yes oriented to place and Yes oriented to time Resp: COMMON NORMALS: normal respiratory effort, No retractions, No use of accessory muscles and clear to auscultation bilaterally AUSCULTATION: clear to auscultation bilaterally Cardio: COMMON NORMALS: regular rate, regular rhythm, S1 normal heart sound present, S2 normal heart sound present and No gallops present (Cardio) RATE: regular rate RHYTHM: regular rhythm HEART SOUNDS: S1 normal heart sound present and S2 normal heart sound present GI: COMMON NORMALS: Normal to inspection, nondistended, normoactive bowel sounds present, Soft to palpation and non-tender PALPATION: Yes Soft to palpation : COMMON NORMALS: Yes no CVA tenderness BLADDER/KIDNEY EXAM: Yes no CVA tenderness Back/Pelvis: COMMON NORMALS: no CVA tenderness Extremity: COMMON NORMALS: no pedal edema Neuro: SENSORIUM/ORIENTATION: Yes oriented to person, Yes oriented to place and Yes oriented to time Data : 03/28/21 05:04 03/28/21 05:04 A&P Assessment and plan (1) Pneumonia due to COVID-19 virus: Received monoclonal antibodies 03/18/2021 Status: Acute (2) COVID-19: Status: Acute (3) Nicotine dependence: Status: Chronic (4) Acute respiratory failure with hypoxia: Status: Acute Additional A&P Information Acute hypoxia secondary to COVID-19 pneumonia Diagnosed on March 18 Did receive monoclonal antibody Currently requiring 4 L nasal cannula, now down to room air in the afternoon Continue remdesivir and Decadron Continue multivitamins Continue Rocephin considering history of liver cirrhosis and procalcitonin 1.07 He is not septic, hold off on blood cultures for now Anticipate discharge the next 24 hours Macrocytic anemia no acute worsening hemoglobin stable at 10, Hemoccult negative, needs to follow-up with hematology as outpatient Portal hypertension with stigmata of chronic liver disease Ascites however no active signs of hepatic encephalopathy Will monitor ammonia levels Lactulose 20 g twice daily Spironolactone 25 mg with Lasix 20 mg daily Hold off on rifaximin On ceftriaxone Ascites without abdominal tenderness JIHAN Creatinine 1.3 Patient blood pressure has been on the softer side Mentation stable with memory impairment Low albumin Monitor blood pressure for now Monitor urine output and correlate with creatinine and fluid status Alcohol induced liver cirrhosis No evidence of recent alcohol use, hold off on CIWA We will start the process for discharge back to [facility] Cardiac diet Full code DVT prophylaxis SCDs, Lovenox contraindicated given anemia, liver cirrhosis Plan for today, oxygen evaluation, monitor on room air, continue Decadron continue remdesivir, add spironolactone, Lasix, monitor ascites, monitor fevers, hopefully can discharge the next 24 hours Attestations Medical Necessity Statement*: Patient requires hospitalization due to pneumonia secondary COVID-19 Coding Level of Care Code Acute Quality Compliance Consultant for [facility] Jason Diagnoses Pneumonia due to COVID-19 virus U07.1; J12.82 COVID-19 U07.1 Nicotine dependence F17.200 Acute respiratory failure with hypoxia J96.01
[2021-03-28] MEDS: FUROsemide 20 mg Tablet PO (15:11)
[2021-03-28] MEDS: spironolactone 25 mg Tablet PO (15:11)
[2021-03-28] MEDS: lactulose oral liq 20 gm/30 mL UDC PO (15:11)
[2021-03-28] MEDS: amlodipine 10 mg Tablet PO (15:11)
[2021-03-28] MEDS: cefTRIAXone 2,000 MG in sodium chloride 0.9% (plus) 100 ML 200 MG IV (15:11)
[2021-03-28] MEDS: gabapentin 100 mg Capsule PO (20:32)
[2021-03-28] MEDS: atorvastatin 40 mg Tablet PO (20:32)
[2021-03-28] MEDS: tamsulosin 0.4 mg Capsule PO (20:32)
[2021-03-29 04:00] VITALS: BP 122/73; PULSE 79; RESP 18; TEMP 36.7; O2SAT 93
[2021-03-29] MEDS: lactulose oral liq 20 gm/30 mL UDC PO (04:28)
[2021-03-29] MEDS: dexamethasone 4 mg/mL INJ 6 MG IVP (05:09)
[2021-03-29] MEDS: remdesivir 100 MG in sodium chloride 0.9% (100 ml) 100 ML IV (05:12)
[2021-03-29 05:34] LABS: Basophils % 0.1 %; Hematocrit 28.3 % (42.0-52.0); Hemoglobin 8.9 g/dL (11.7-16.6); Lymphocytes # 0.5 10^3/uL (0.8-4.8); Lymphocytes % 5.9 %; Mean Corpuscular HGB Conc 31.4 g/dL (30.0-36.0); Mean Corpuscular Hemoglobin 32.7 pg (28.0-34.0); Mean Platelet Volume 12.1 fL (7.4-10.4); Monocytes # 0.6 10^3/uL (0.2-0.9); Monocytes % 7.6 %; Neutrophils # 6.91 10^3/uL (1.8-7.7); Nucleated Red Blood Cells % 0 %; Platelet Count 217 10^3/cmm (130-400); Red Blood Count 2.72 10^6/uL (4.1-5.3); Red Cell Distribution Width 17.6 % (12.1-15.1)
[2021-03-29 05:46] LABS: Ammonia 24 umol/L (16-60)
[2021-03-29 05:59] LABS: Alanine Aminotransferase 13 U/L (0-41); Albumin Level 2.4 g/dL (3.5-5.2); Alkaline Phosphatase 171 IU/L (40-130); Anion Gap 16.4 (5-19); Aspartate Amino Transferase 32 U/L (0-40); Blood Urea Nitrogen 40 mg/dL (8-23); C Reactive Protein 51.4 mg/L (0.0-4.9); Calcium 8.2 mg/dL (8.5-10.5); Carbon Dioxide 20 mmol/L (22-29); Chloride 109 mmol/L (98-107); Globulin 3.1 g/dL (1.3-4.6); Glucose 132 mg/dL (65-115); Magnesium 1.5 mg/dL (1.7-2.3); Osmolality Calculated 306 mOsm/kg (285-295); Phosphorus 4.1 mg/dL (2.5-4.5); Potassium 3.4 mmol/L (3.5-5.1); Sodium 142 mmol/L (136-145); Total Bilirubin 0.4 mg/dL (0.15-1.2); Total Protein 5.5 g/dL (6.6-8.7)
[2021-03-29 06:05] LABS: NT Pro B Type Natriuretic Pept 3450 pg/mL (0-125); Procalcitonin 0.83 ng/mL (0-0.5)
[2021-03-29 06:16] LABS: Creatine Phosphokinase 23 U/L (39-308)
[2021-03-29 06:40] LABS: INR 1.67 (0.8-1.2)
[2021-03-29] MEDS: aspirin 81 mg Chew Tablet PO (07:38)
[2021-03-29] MEDS: magnesium oxide 400 mg tablet PO (07:38)
[2021-03-29] MEDS: zinc gluconate 50 mg Tablet PO (07:38)
[2021-03-29] MEDS: ascorbic acid 500 mg Tablet 1000 MG PO (07:39)
[2021-03-29] MEDS: spironolactone 25 mg Tablet PO (07:40)
[2021-03-29] MEDS: thiamine 100 mg Tablet PO (07:40)
[2021-03-29] MEDS: pantoprazole DR 40 mg Tablet PO (07:40)
[2021-03-29] MEDS: enoxaparin 40 mg/0.4 mL Syringe SUBCUT (07:40)
[2021-03-29] MEDS: multivitamin therapeutic Tablet 1 TAB PO (07:40)
[2021-03-29] MEDS: cholecalciferol (vitamin D3) 1,000 unit Tablet 2000 UNIT PO (07:40)
[2021-03-29 08:00] VITALS: BP 147/81; PULSE 121; RESP 13; TEMP 36.3; O2SAT 90
[2021-03-29 08:58] VITALS: PULSE 101; RESP 22; O2SAT 93
[2021-03-29 09:01] VITALS: PULSE 104
[2021-03-29] MEDS: potassium chloride ER 20 mEq Tablet 40 MEQ PO (09:47)
[2021-03-29 12:00] VITALS: BP 128/76; PULSE 102; RESP 25; TEMP 36.4; O2SAT 91
--- NOTE | 2021-03-29 13:59 | PM.DCS ---
Discharge Providers Date of Admission: 03/27/21 04:46 Date of Discharge: March 29, 2021 Attending Provider at Admission: Shamika Noyola MD Attending Provider at Discharge: Ovidio Kimbrough MD Primary Care Provider: Tri Robles MD Diagnoses at Discharge Discharge Diagnosis (1) Pneumonia due to COVID-19 virus: Status: Acute (2) COVID-19: Status: Acute (3) Nicotine dependence: Status: Chronic (4) Acute respiratory failure with hypoxia: Status: Acute Reason for Visit Reason for Visit: [facility] Hospital Course Hospital Course This is a 75-year-old male with a past medical history of COPD, 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 Patient clinically improved, weaned down to room air, ambulating without significant symptomatology, remained afebrile, he was discharged to [facility] after receiving 3 days of treatment. Discharged on albuterol, Advair, vitamin C, zinc, vitamin D, no oxygen therapy required, should follow with primary care provider as outpatient. In terms of hypercoagulability prophylaxis, no recent surgery, no history of DVT PE in the past, he is working with physical therapy at [facility]. Nonetheless he does have a small but measurable risk hypercoagulability associate with his COVID-19 infection. Nonetheless I have discharged him on his home aspirin, and instructions to continue to be mobile with physical therapy staff. Given his underlying liver cirrhosis, acute on chronic anemia, his risk of falls, currently his risk of adverse side effects from anticoagulation outweighs the risks of hypercoagulability. I advised patient of this, he voiced recently, all questions answered, agreed with holding anticoagulation for now. Patient was advised to monitor for signs of DVT or PE if so go to emergency room Patient was also found to have evidence of liver cirrhosis on CT imaging, normal ammonia levels, does have ascites, does have anemia, does have an elevated INR, elevated creatinine, low albumin levels. I will have patient follow-up with GI as outpatient. Given his ascites on exam, no abdominal complaints, no fevers, but did have an elevated pro-Charly, he was treated for possible SBP although unlikely. I have discharged him on ciprofloxacin for 7 remaining days. alf was advised that if he were to have any worsening abdominal distention bring him back to emergency room for diagnostic and therapeutic paracentesis. Monitor for signs for SBP if so bring back to emergency room. Have discharged him on low-dose spironolactone and Lasix for ascites. Lactulose for hepatic encephalopathy. In terms of his hypertension, metoprolol, lisinopril, Imdur have been held as patient has been fairly normotensive throughout his hospital admission. These can be reinstituted as needed based upon his outpatient blood pressures For his anemia, patient should follow with hematology as outpatient Discharge Data Data Completed and Pending: Completed Studies During Hospitalization Category Date Time Status CT abdomen pelvis wo con [id number] Urge nt Cat Scan 03/27/21 02:[address] angio chest PE protcl [id number] Urge nt Cat Scan 03/27/21 02:22 Completed XR chest 1V sonia ble [id number] Stat Exams 03/27/21 01:20 Completed [place] pul perfusion [id number] Routine Nuc Med 03/28/21 07:00 [place] [id number] Routin e Ultrasound 03/27/21 13:32 Completed Pending at discharge Category Date Time Status Ammonia AM LABS Lab 03/30/21 04:00 Ordered Ammonia AM LABS Lab 03/31/21 04:00 Ordered C Reactive Protei n AM LABS Lab 03/30/21 04:00 Ordered C Reactive Protei n AM LABS Lab 03/31/21 04:00 Ordered Complete Blood Co unt w/Auto AM LABS Lab 03/30/21 04:00 Ordered Complete Blood Co unt w/Auto AM LABS Lab 03/31/21 04:00 Ordered Comprehensive Met abolic Panel AM LA BS Lab 03/30/21 04:00 Ordered Comprehensive Met abolic Panel AM LA BS Lab 03/31/21 04:00 Ordered Creatine Phosphok inase AM LABS Lab 03/30/21 04:00 Ordered Creatine Phosphok inase AM LABS Lab 03/31/21 04:00 Ordered Magnesium AM LABS Lab 03/30/21 04:00 Ordered Magnesium AM LABS Lab 03/31/21 04:00 Ordered NT Pro B Type Lotus riuretic Pept QAM Lab 03/30/21 06:00 Ordered NT Pro B Type Lotus riuretic Pept QAM Lab 03/31/21 06:00 Ordered Phosphorus AM LAB S Lab 03/30/21 04:00 Ordered Phosphorus AM LAB S Lab 03/31/21 04:00 Ordered Procalcitonin AM LABS Lab 03/30/21 04:00 Ordered Procalcitonin AM LABS Lab 03/31/21 04:00 Ordered Prothrombin Time INR AM LABS Lab 03/30/21 04:00 Ordered Prothrombin Time INR AM LABS Lab 03/31/21 04:00 Ordered Labs from last 24 hours 03/29/21 03/29/21 03/29/21 05:20 05:20 05:20 WBC RBC Hgb Hct MCV MCH MCHC RDW Plt Count MPV Neut % (Auto) Lymph % (Auto) [place] % (Auto) Eos % (Auto) Baso % (Auto) Neut # (Auto) Lymph # (Auto) [place] # (Auto) Eos # (Auto) Baso # (Auto) Nucleated RBC % (a uto) Nucleated RBCs # PT 20.10 H INR 1.67 H Sodium 142 Potassium 3.4 L Chloride 109 H Carbon Dioxide 20 L Anion Gap 16.4 BUN 40 H Creatinine 1.3 H GFR Calculation Not Reportable Glucose 132 H Calculated Osmolal ity 306 H Calcium 8.2 L Phosphorus 4.1 Magnesium 1.5 L Total Bilirubin 0.4 AST 32 ALT 13 Alkaline Phosphata se 171 H Ammonia Creatine Kinase 23 L C-Reactive Protein 51.4 H NT-Pro-B Natriuret Pep 3450 H Total Protein 5.5 L Albumin 2.4 L Globulin 3.1 Procalcitonin 0.83 H 03/29/21 03/29/21 05:20 05:20 WBC 8.0 RBC 2.72 L Hgb 8.9 L Hct 28.3 L MCV 104.0 H MCH 32.7 MCHC 31.4 RDW 17.6 H Plt Count 217 MPV 12.1 H Neut % (Auto) 86.0 Lymph % (Auto) 5.9 [place] % (Auto) 7.6 Eos % (Auto) 0.0 Baso % (Auto) 0.1 Neut # (Auto) 6.91 Lymph # (Auto) 0.5 L [place] # (Auto) 0.6 Eos # (Auto) 0.0 Baso # (Auto) 0.0 Nucleated RBC % (a uto) 0 Nucleated RBCs # 0.0 PT INR Sodium Potassium Chloride Carbon Dioxide Anion Gap BUN Creatinine GFR Calculation Glucose Calculated Osmolal ity Calcium Phosphorus Magnesium Total Bilirubin AST ALT Alkaline Phosphata se Ammonia 24 Creatine Kinase C-Reactive Protein NT-Pro-B Natriuret Pep Total Protein Albumin Globulin Procalcitonin Vitals: Last Vital Signs Temp 97.5 F L 03/29/21 12:00 Pulse 102 H 03/29/21 12:00 Resp 25 H 03/29/21 12:00 BP 128/76 03/29/21 12:00 Pulse Ox 91 03/29/21 12:00 Discharge Plan Discharge Patient Disposition: Home Condition: Stable Prescriptions: New albuterol sulfate [Ventolin HFA] 90 mcg/actuation Hfa Aerosol Inhaler 2 puff inhalation Q4H.RESPIRATORY PRN (Reason: Shortness Of Breath) Qty: 8.5 RF: 0 cholecalciferol (vitamin D3) 25 mcg (1,000 unit) Tablet 2,000 unit PO DAILY 30 Days Qty: 30 RF: 0 zinc gluconate 50 mg Tablet 50 mg PO DAILY 30 Days Qty: 30 RF: 0 spironolactone 25 mg Tablet 25 mg PO DAILY 30 Days Qty: 30 RF: 0 ascorbic acid (vitamin C) [Vitamin C] 500 mg Tablet 500 mg PO BID 30 Days Qty: 60 RF: 0 fluticasone propion-salmeterol [Advair Diskus] 250-50 mcg/dose Blister With Device 2 ea inhalation BID.RESPIRATORY 30 Days Qty: 60 RF: 0 furosemide 20 mg Tablet 20 mg PO Q24H 30 Days Qty: 30 RF: 0 lactulose 20 gram/30 mL Solution 20 g PO Q12H 30 Days Qty: 1800 RF: 0 ciprofloxacin HCl [Cipro] 500 mg tablet 500 mg PO DAILY 7 Days Qty: 7 RF: 0 Continued atorvastatin [Lipitor] 40 mg Tablet 40 mg PO DAILY@20 RF: 0 tamsulosin 0.4 mg capsule 0.4 mg PO DAILY@20 RF: 0 aspirin 81 mg Tablet,Chewable 81 mg PO DAILY@08 RF: 0 Virt-Phos 250 Neutral 250 mg Tablet 1 tab PO BID@08,20 RF: 0 gabapentin 100 mg capsule 100 mg PO DAILY@20 RF: 0 acetaminophen 325 mg Tablet 650 mg PO Q4H PRN (Reason: Pain) RF: 0 amlodipine 10 mg tablet 10 mg PO DAILY@08 RF: 0 pantoprazole 40 mg tablet,delayed release (DR/EC) 40 mg PO BID@06,16 RF: 0 folic acid 1 mg tablet 1 mg PO DAILY@08 RF: 0 thiamine mononitrate (vit B1) [Vitamin B-1 (mononitrate)] 100 mg tablet 100 mg PO DAILY@08 RF: 0 cyanocobalamin (vitamin B-12) 1,000 mcg capsule 1,000 mcg PO DAILY@08 RF: 0 benzonatate 100 mg Capsule 100 mg PO TID PRN (Reason: Cough) RF: 0 Discontinued metoprolol tartrate 100 mg Tablet 100 mg PO DAILY@08 RF: 0 isosorbide mononitrate 30 mg Tablet Extended Release 24 Hr 30 mg PO DAILY@08 RF: 0 lisinopril 40 mg Tablet 40 mg PO DAILY@08 RF: 0 Discharge Orders: Discharge Order (Routine); Ordered 03/29/21 Ordered By: Ovidio Kimbrough Referrals: [facility] [Outside] Tri Robles MD [Primary Care Provider] - Logan Burrows DO [Referring] - (refferal for liver cirhosis) Discharge Diet: Cardiac Discharge Activity: Resume usual activity Patient Instructions: Opioid Safety Activity Restrictions/Additional Instructions: -Continue to self isolate, socially distance, facemask, hand wash -Monitor for signs of a DVT and pulmonary emboli if so go to emergency room -Please follow-up with referral for GI for liver cirrhosis -If any signs of confusion, abdominal distention, fevers go to the emergency room -Blood pressures medications have been held, can slowly reinstitute based upon outpatient blood pressure monitoring Discharge Attestations Time Spent in Discharge Care*: less than 30 min Quality Metrics Clinical Quality Measures During this hospital stay, did patient experience: None Coding Level of Care Code Acute Chg FW DC note Diagnoses Pneumonia due to COVID-19 virus U07.1; J12.82 COVID-19 U07.1 Nicotine dependence F17.200 Acute respiratory failure with hypoxia J96.01
== END 2021-03-29 16:00 | disposition skilled nursing facility (03) | DRG 177 ==
LOC: ER 03:56 → MEDSURG 04:46 → MS 2A 13:59
PROVIDERS: Admitting Provider Hospitalist; Emergency Provider Emergency Medicine; PCP Family Medicine; Visit Provider Family Medicine
DX: U07.1 COVID-19 (principal); J12.82 Pneumonia due to coronavirus disease 2019; J96.01 Acute respiratory failure with hypoxia; K76.6 Portal hypertension; N17.9 Acute kidney failure, unspecified; I69.854 Hemiplegia and hemiparesis following other cerebrovascular disease affecting left non-dominant side; I50.30 Unspecified diastolic (congestive) heart failure; I25.10 Atherosclerotic heart disease of native coronary artery without angina pectoris; J44.9 Chronic obstructive pulmonary disease, unspecified; I11.0 Hypertensive heart disease with heart failure; E78.5 Hyperlipidemia, unspecified; F17.200 Nicotine dependence, unspecified, uncomplicated; D53.9 Nutritional anemia, unspecified; K70.31 Alcoholic cirrhosis of liver with ascites; K72.90 Hepatic failure, unspecified without coma; Z98.890 Other specified postprocedural states; Z95.5 Presence of coronary angioplasty implant and graft; Z88.2 Allergy status to sulfonamides
CPT/HCPCS: 36415; 36600; 71045; 71275; 74176; 78580; 80053; 82140; 82550; 82728; 82803; 83605; 83735; 83880; 84100; 84145; 84484; 85025; 85378; 85384; 85610; 85730; 86140; 92610; 93005; 93970; 94640; 96372; 97161; 97166; 99285; A9540; J0696; J1100; J1650; J3411; J3535; P9041; Q9967

== ENCOUNTER 2021-04-12 09:07 | Outpatient (CLI) | payer MEDICARE, SELFPAY ==
[2021-04-12 09:35] VITALS: BP 136/75; PULSE 100; RESP 18; TEMP 36.4; O2SAT 98
--- NOTE | 2021-04-12 10:03 | US_ITS ---
WS: [id number] ULTRASOUND-GUIDED THERAPEUTIC PARACENTESIS Procedure, risks, and complications have been explained to the patient. Consent is obtained. Utilizing aseptic technique and 1% buffered lidocaine, a small dermatome was made through which a 5 F rench Yueh catheter was inserted. Approximately 7000 ml of clear peritoneal fluid was obtained witho ut difficulty. No complications encountered. US/US paracentesis abd w [id number] IMPRESSION: Uncomplicated paracentesis yielding 7000 ml of peritoneal fluid.
[2021-04-12 10:06] LABS: INR 1.19 (0.8-1.2)
== END 2021-04-12 09:08 | disposition home or self-care (01) ==
LOC: RAD 09:14 → GILAB 09:31
PROVIDERS: Radiology Diagnostic Radiology; PCP Family Medicine; Visit Provider Nurse Practitioner Family
DX: K70.31 Alcoholic cirrhosis of liver with ascites (principal)
CPT/HCPCS: 36415; 49083; 85610

== ENCOUNTER → 2021-05-01 11:09 | Day surgery (SDC) | payer MEDICARE, SELFPAY ==
[2021-05-01 11:35] VITALS: BMI 24.8
[2021-05-01 11:38] VITALS: BP 163/91; PULSE 101; RESP 20; TEMP 36.1; O2SAT 98
--- NOTE | 2021-05-01 11:44 | US_ITS ---
WS: [id number] ULTRASOUND-GUIDED PARACENTESIS CLINICAL INFORMATION: ASCITES COMPARISON: None. Procedure Informed consent: The risks, benefits, and alternatives of the procedure were discussed with the aayush ent. Verbal and written consent was obtained. Timeout: A timeout was performed to confirm the correct patient, procedure, and site. Preparation: A suitable skin site was identified. The patient was prepped and draped in usual sterile fashion. Lidocaine 1% was used for local anesthesia. Catheter: 4 [place] One-step Yueh catheter. Side: Left Lower quadrant. Fluid Volume: 9500 ml Color: Clear yellow DISPOSITION: Discarded safely. Complications: None. Patient disposition: Discharged from the department in stable condition. US/US paracentesis abd w [id number] IMPRESSION: 1. Uncomplicated ultrasound-guided paracentesis. 2. Removal of 9500 cc
[2021-05-01 13:10] VITALS: BP 144/79; PULSE 89; RESP 20; O2SAT 95
== END ==
PROVIDERS: PCP Family Medicine; Visit Provider Nurse Practitioner Family
DX: R18.8 Other ascites (principal)
CPT/HCPCS: 49083

== ENCOUNTER → 2021-05-23 09:55 | Day surgery (SDC) | payer MEDICARE, SELFPAY ==
[2021-05-23 10:10] VITALS: BP 148/83; PULSE 101; RESP 20; TEMP 36.7; O2SAT 98
[2021-05-23 10:28] VITALS: BMI 25.0
--- NOTE | 2021-05-23 11:00 | US_ITS ---
WS: [id number] ULTRASOUND-GUIDED THERAPEUTIC AND DIAGNOSTIC PARACENTESIS Procedure, risks, and complications have been explained to the patient. Consent is obtained. Utilizing aseptic technique and 1% buffered lidocaine, a small dermatome was made through which a 5 F rench Yueh catheter was inserted. Approximately ml of clear peritoneal fluid was obtained without di fficulty. No complications encountered. US/US paracentesis abd w [id number] IMPRESSION: Uncomplicated paracentesis yielding 4800 ml of peritoneal fluid.
[2021-05-23 12:32] VITALS: BP 134/76; PULSE 96; RESP 18; TEMP 36.9; O2SAT 96
[2021-05-23 13:10] LABS: Albumin Peritoneal Fluid 1.5 g/dL; Appearance, Peritoneal Fluid Cloudy (Clear); Color, Peritoneal Fluid Pale Yellow (Pale Yellow); Total Protein Peritoneal Fluid 2.6 g/dL; WBC Peritoneal Fluid 161 /uL
[2021-05-23 13:11] LABS: Mononuclear #, Pertinoneal Fl 0.144 10^3/uL; Pathology Referral Yes; Polynuclear # Cells, Perit 0.017 10^3/uL; RBC Pertioneal Fluid 0 10^3/uL
== END ==
LOC: RAD 09:58 → OPS 10:00
PROVIDERS: PCP Family Medicine; Visit Provider Nurse Practitioner Family
DX: K70.31 Alcoholic cirrhosis of liver with ascites (principal)
CPT/HCPCS: 49083; 80500; 82042; 84157; 87070; 87075; 87205; 88112; 88305; 89050

== ENCOUNTER 2021-07-03 11:45 | Outpatient (RCR) | payer MEDICARE, SELFPAY ==
[2021-06-12 10:23] VITALS: BMI 23.7
--- NOTE | 2021-06-12 10:23 | US_ITS ---
WS: [id number] ULTRASOUND-GUIDED PARACENTESIS CLINICAL INFORMATION: ascites COMPARISON: None. Procedure Informed consent: The risks, benefits, and alternatives of the procedure were discussed with the aayush ent. Verbal and written consent was obtained. Timeout: A timeout was performed to confirm the correct patient, procedure, and site. Preparation: A suitable skin site was identified. The patient was prepped and draped in usual sterile fashion. Lidocaine 1% was used for local anesthesia. Catheter: 4 [place] One-step Yueh catheter. Side: Left Lower quadrant. Fluid Volume: 3000 ml Color: Clear yellow DISPOSITION: Discarded safely. Complications: None. Patient disposition: Discharged from the department in stable condition. US/US paracentesis abd w [id number] IMPRESSION: Uncomplicated ultrasound-guided paracentesis. Removal of 3000 cc
[2021-06-12 10:52] VITALS: BP 145/85; PULSE 98; RESP 18; TEMP 36.3; O2SAT 98
[2021-06-12 11:38] VITALS: BP 164/81; PULSE 87; RESP 18; O2SAT 99
== END 2021-07-09 23:59 | disposition home or self-care (01) ==
LOC: RAD 11:45
PROVIDERS: PCP Family Medicine; Visit Provider Internal Medicine
DX: R18.8 Other ascites (principal)
CPT/HCPCS: 49083

== ENCOUNTER 2021-12-29 12:15 | Observation (INO) | payer MEDICARE, SELFPAY ==
[2021-12-29 12:29] VITALS: BP 182/85; PULSE 95; RESP 18; TEMP 36.6; O2SAT 97; BMI 25.0
--- NOTE | 2021-12-29 12:48 | CTR_ITS ---
PROCEDURE INFORMATION: Exam: CT Abdomen And Pelvis Without Contrast Exam date and time: 12/29/2021 1:14 PM Age: 76 years old Clinical indication: Abdominal pain; Localized; Left; Additional info: Distention and left lower quad pain, constipation TECHNIQUE: Imaging protocol: Computed tomography of the abdomen and pelvis without contrast. Radiation optimization: All CT scans at this facility use at least one of these dose optimization techniques: automated exposure control; mA and/or kV adjustment per patient size (includes targeted exams where dose is matched to clinical indication); or iterative reconstruction. COMPARISON: CT abdomen pelvis wo con [id number] 03/27/2021 2:49 AM RADIATION DOSE METRICS: Total DLP (mGy-cm): 1577.43 FINDINGS: Liver: nodularity of the liver is present. Correlate regarding risk factors for hepatocellular disease. Fatty infiltration of the liver. Gallbladder and bile ducts: Small gallstone. Impression Pancreas: See Kidneys and ureters finding. Spleen: Splenic granulomas are present. Adrenal glands: Nodularity of the right adrenal gland of approximately 2 cm. Benign. Hounsfield units of -4. Nodularity of the body of the left 1.5 cm. Benign. Kidneys and ureters: Inflammatory changes within the anterior pararenal space about the pancreas. No pseudocyst formation. Pancreatitis. Stomach and bowel: Unremarkable. No obstruction. No mucosal thickening. Appendix: Appendix normal. Intraperitoneal space: Unremarkable. No free air. No significant fluid collection. Vasculature: Calcification of the aorta. 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 2.7 cm. Lymph nodes: Unremarkable. No enlarged lymph nodes. Urinary bladder: Unremarkable as visualized. Reproductive: The prostate gland is rather prominent and enlarged. Please correlate in regards to hyperplasia versus carcinoma. Bones/joints: Unremarkable. No acute fracture. Soft tissues: Unremarkable. CT/CT abdomen pelvis wo con [id number] IMPRESSION: 1. Inflammatory changes within the anterior pararenal space about the pancreas. No pseudocyst formation. Pancreatitis. 2. Nodularity of the liver is present. Correlate regarding risk factors for hepatocellular disease. 3. The prostate gland is rather prominent and enlarged. Please correlate in regards to hyperplasia versus carcinoma. 4. Appendix normal. COMMENTS: Consistent with the [place] [employer]'s Incidental Findings Committee white paper (J Am Va[employer]hav Radiol 2017): For any incidental adrenal lesion greater than 1 cm but less than 4 cm classified in this report as benign, likely benign, or containing fat (including classification as an adenoma or myelolipoma), no follow-up imaging is recommended per consensus recommendations based on imaging criteria. Further lab evaluation could be pursued if warranted based on clinical findings.
--- NOTE | 2021-12-29 12:56 | ECG_ITS ---
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 Measurements Intervals [place] Rate: 88 P: 70 MD: 225 QRS: -3 QRSD: 137 T: -4 QT: 397 QTc: 482 Interpretive Statements SINUS RHYTHM WITH FIRST DEGREE AV BLOCK WITH OCCASIONAL VENTRICULAR PREMATURE COMPLEXES INTRAVENTRICULAR CONDUCTION DELAY [130+ ms QRS DURATION] INFERIOR MYOCARDIAL INFARCTION , OF INDETERMINATE AGE [40+ ms Q WAVE AND/OR ST/T ABNORMALITY IN II/aVF] ANTEROSEPTAL MYOCARDIAL INFARCTION , OF INDETERMINATE AGE [40+ ms Q WAVE IN V1-V4] Compared to ECG 03/27/2021 12:02:37 Ventricular premature complex(es) now present First degree AV block now present Intraventricular conduction delay now present Right bundle-branch block no longer present Myocardial infarct finding still present Electronically Signed On 12-30-2021 8:06:40 CDT by Chris Marin M.D. [email or web address]
--- NOTE | 2021-12-29 12:56 | ED_ITS ---
HPI - Abdominal Pain General: Chief Complaint: Abdominal Pain Stated Complaint: swelling in feet and severe abd pain Time Seen by Provider: 12/29/21 12:34 Source: patient and family (Sister) Mode of arrival: ambulatory Limitations: no limitations History of Present Illness: This patient presents to the emergency department today accompanied by his sister. He is here primarily because he is noted more abdominal distention and abdominal pain. He is sister relates that she saw him approximately 3 weeks ago and she thinks she is has more abdominal distention. He relates that he is having pain predominantly in his left abdomen for the last couple days. He states he is not had a normal bowel movement for the last 3 days despite taking [id number] laxatives. He states he does not normally have any issues with constipation. He states he has been eating and drinking normally. He has had decreased urine output as well. He stated that his urine output has not been affected by his Lasix. He states that his blood pressures also been out of control. His last primary care appointment is in September and his blood pressure was elevated at that time. He did states has been faithful to his medication and has not had any changes in his medication. He denies chest pain or shortness of breath. He states he has a mild cough but is still smoking tobacco. He states he previously was getting paracentesis is not had that procedure performed for some time due to what he calls alcoholic liver disease. He states he still drinking alcohol. Denies any fevers or chills. He has been immunized against COVID-19 and did have COVID-19 last year requiring hospitalization and rehab. He states he had some mild lower extremity swelling but that is some better today. No history of blood in the stools, melena, emesis etc. MD elicited complaint: abdominal pain Location: LLQ Severity: moderate Quality: aching and dull Radiation: none Associated Symptoms: Reports chills and constipation; Denies dysuria, fever(s), hematochezia, melena, syncope and vomiting Review of Systems 2 Const: Reports: chills; Denies: fever(s), body aches or change in appetite Eyes: Denies: change in vision ENMT: Denies: throat pain or odynophagia Card: Reports: swelling of feet/ankles; Denies: chest pain, palpitations, irregular heart rhythm, lightheadedness or syncope Resp: Reports: non-productive cough; Denies: dyspnea, productive cough or wheezing GI: Reports: abdominal pain and constipation; Denies: vomiting, hematochezia or melena : Reports: oliguria; Denies: flank pain, difficulty urinating, dysuria or urinary frequency Musc: Reports: extremity swelling; Denies: neck pain, back pain, extremity pain or joint swelling Skin/Breast: Denies: rash or pruritus Neuro: Denies: headache(s), numbness in extremities or weakness in extremities Feliz/Lymph: Reports: easy bruising PFSH ED PFSH: Medical History CAD (coronary artery disease) COPD (chronic obstructive pulmonary disease) COVID-19 vaccine administered J&J CVA (cerebral vascular accident) Right MCA, left weakness Heart failure EF 65% last echo Hyperlipidemia Hypertension Nicotine dependence Surgical History History of coronary artery stent placement History of nasal surgery Family History Other Stroke Social History Additional social history: History of tobacco use, alcohol use, no drugs. Recently DC to [facility] and unclear if continues to drink and smoke regularly. Physical Exam Narrative: EXAM NARRATIVE: Patient makes good eye contact. Speech is fluent and generally goal-directed. Const: COMMON NORMALS: no acute distress and patient oriented x3 GENERAL APPEARANCE: cooperative and comfortable HENMT: COMMON NORMALS: normocephalic, atraumatic, Normal nasal mucous membranes and turbinates present and moist oral mucous membranes HEAD & SCALP: normocephalic and atraumatic NOSE: Normal nasal mucous membranes and turbinates present Eye: COMMON NORMALS: Equal, round and reactive pupils present, EOMs intact bilaterally, conjunctivae normal and no scleral icterus CONJUNCTIVA: Yes conjunctivae normal PUPIL: Yes Equal, round and reactive pupils present Neck/C-Spine: COMMON NORMALS: full ROM, supple, no JVD and No carotid bruits Chest: COMMONS NORMALS: normal inspection of the chest Resp: COMMON NORMALS: normal respiratory effort, No use of accessory muscles and clear to auscultation bilaterally AUSCULTATION: clear to auscultation bilaterally Cardio: COMMON NORMALS: no JVD, regular rate, regular rhythm, No murmurs present (Cardio) and Peripheral pulses 2+ throughout RATE: regular rate RHYTHM: regular rhythm PERIPHERAL PULSES: Peripheral pulses 2+ throughout GI: COMMON NORMALS: Soft to palpation INSPECTION: Yes abdominal distension (Some areas of hyperresonance and tympany. Not firm) and Yes central obesity PALPATION: Yes Soft to palpation and Yes Tenderness to palpation present (GI) (No rebound. No guarding. No masses.) Details: LLQ : COMMON NORMALS: Yes no CVA tenderness BLADDER/KIDNEY EXAM: Yes no CVA tenderness Back/Pelvis: COMMON NORMALS: no CVA tenderness, thoracic and lumbar spine normal to inspection, no thoracic nor lumbar tenderness, thoraco-lumbar ROM normal and straight leg raise negative bilaterally Extremity: COMMON NORMALS: normal to inspection, capillary refill normal and no calf tenderness NARRATIVE EXTREMITY EXAM: He has minimal pretibial edema at the distal lower extremities bilaterally. No calf tenderness. No erythema. Good capillary refill. Equal pulses b ilaterally. Neuro: COMMON NORMALS: patient oriented x3 Course Reevaluation(s): Reevaluation #1: Patient is clinically stable. He does have evidence of pancreatitis biochemically with a depressed CO2. His imaging is reassuring and that there is no evidence of pseudocyst, pancreatic mass, gallbladder disease or stones at thi s time. I think the patient probably would benefit from placement observation keep n.p.o. and follow his symptoms. He denies everyday use of alcohol. His sister states that she does not feel that he is drinking daily or heavily at this time. He came out of the assisted after a 4-month episode of COVID. Will discuss with hospitalist. Time: 17:02 Consultations: Consultation #1: Discussed with attending hospitalist Dr. Huddleston who agrees to obs Time: 17:15 Vital Signs: Vital signs: Vital Signs Temperature 97.9 F 12/29/21 12:29 Pulse Rate 90 12/29/21 13:33 Respiratory Rate 18 12/29/21 12:29 Blood Pressure 183/80 12/29/21 13:33 Pulse Oximetry 96 12/29/21 13:33 MDM - Abdominal Pain Medical Decision Making Patient presents with a history of alcoholic liver disease that has required paracentesis in the past but has been having abdominal pains constipation and early satiety. No recent history of health heavy alcohol intake according to both patient and his sister. Work-up today reveals acute pancreatitis with some biochemical disease derangements but clinically stable hemodynamically. Imaging studies are reassuring and that there is no evidence of pseudocyst, gallbladder contribution to his current presentation, etc. He will be placed in observation and trend his laboratories and continue with hydration. Lab Data I reviewed the patient's lab results. : 12/29/21 13:03 12/29/21 13:03 Labs/Radiology: Radiology Impressions Abdomen/Pelvis CT 12/29/21 12:48 IMPRESSION: 1. Inflammatory changes within the anterior pararenal space about the pancreas. No pseudocyst formation. Pancreatitis. 2. Nodularity of the liver is present. Correlate regarding risk factors for hepatocellular disease. 3. The prostate gland is rather prominent and enlarged. Please correlate in regards to hyperplasia versus carcinoma. 4. Appendix normal. COMMENTS: Consistent with the [employer]'s Incidental Findings Committee white paper (J Am Vaibhav Radiol 2017): For any incidental adrenal lesion greater than 1 cm but less than 4 cm classified in this report as benign, likely benign, or containing fat (including classification as an adenoma or myelolipoma), no follow-up imaging is recommended per consensus recommendations based on imaging criteria. Further lab evaluation could be pursued if warranted based on clinical findings. Chest X-Ray 12/29/21 12:56 IMPRESSION: No acute findings. Gallbladder Ultrasound 12/29/21 14:59 IMPRESSION: 1. Hepatic steatosis. 2. Otherwise negative sonogram of the abdomen Laboratory Results WBC 5.8 10^3/uL (4.0-10.0) 12/29/21 13:03 RBC 4.78 10^6/uL (4.1-5.3) 12/29/21 13:03 Hgb 14.9 g/dL (11.7-16.6) 12/29/21 13:03 Hct 45.7 % (42.0-52.0) 12/29/21 13:03 MCV 95.6 fl (80-94) H 12/29/21 13:03 MCH 31.2 pg (28.0-34.0) 12/29/21 13:03 MCHC 32.6 g/dL (30.0-36.0) 12/29/21 13:03 RDW 15.8 % (12.1-15.1) H 12/29/21 13:03 Plt Count 185 10^3/cmm (130-400) 12/29/21 13:03 MPV 10.7 fL (7.4-10.4) H 12/29/21 13:03 Neut % (Auto) 66.1 % 12/29/21 13:03 Lymph % (Auto) 21.3 % 12/29/21 13:03 Floyd % (Auto) 10.7 % 12/29/21 13:03 Eos % (Auto) 0.5 % 12/29/21 13:03 Baso % (Auto) 0.7 % 12/29/21 13:03 Neut # (Auto) 3.82 10^3/uL (1.8-7.7) 12/29/21 13:03 Lymph # (Auto) 1.2 10^3/uL (0.8-4.8) 12/29/21 13:03 Floyd # (Auto) 0.6 10^3/uL (0.2-0.9) 12/29/21 13:03 Eos # (Auto) 0.0 10^3/uL (0.0-0.8) 12/29/21 13:03 Baso # (Auto) 0.0 10^3/uL (0.0-0.1) 12/29/21 13:03 Nucleated RBC % (auto) 0 % 12/29/21 13:03 Nucleated RBCs # 0.0 /100WBC 12/29/21 13:03 Sodium 138 mmol/L (136-145) 12/29/21 13:03 Potassium 4.2 mmol/L (3.5-5.1) 12/29/21 13:03 Chloride 102 mmol/L (98-107) 12/29/21 13:03 Carbon Dioxide 15 mmol/L (22-29) L 12/29/21 13:03 Anion Gap 25.2 (5-19) H 12/29/21 13:03 BUN 28 mg/dL (8-23) H 12/29/21 13:03 Creatinine 1.5 mg/dL (0.7-1.2) H 12/29/21 13:03 GFR Calculation Not Reportable 12/29/21 13:03 Glucose 85 mg/dL (65-115) 12/29/21 13:03 Calculated Osmolality 291 mOsm/kg (285-295) 12/29/21 13:03 Calcium 8.7 mg/dL (8.5-10.5) 12/29/21 13:03 Total Bilirubin 0.6 mg/dL (0.15-1.2) 12/29/21 13:03 AST 83 U/L (0-40) H 12/29/21 13:03 ALT 50 U/L (0-41) H 12/29/21 13:03 Alkaline Phosphatase 254 IU/L (40-130) H 12/29/21 13:03 NT-Pro-B Natriuret Pep 808 pg/mL (0-125) H 12/29/21 13:03 Total Protein 7.4 g/dL (6.6-8.7) 12/29/21 13:03 Albumin 4.2 g/dL (3.5-5.2) 12/29/21 13:03 Globulin 3.2 g/dL (1.3-4.6) 12/29/21 13:03 Lipase 2246 U/L (13-60) H 12/29/21 13:03 EKG Data EKG 1: I personally reviewed and interpreted this EKG as follows: EKG interpretation time: 13:36 Interpretation: Resting EKG shows ventricular rate of 88 bpm. He has a VA interval of 225 ms consistent with a first-degree AV block. He has Q waves present inferiorly in 3 and aVF suggestive of a remote inferior wall PR. He also has poor R wave progression in the anterior precordial leads suggestive of possible prior anterior wall PR. No acute ST-T wave changes noted. Compared with most recent tracings of the first-degree AV block appears to be new Discharge Plan Discharge Clinical Impression: Pancreatitis Condition: Stable Prescriptions: No Action atorvastatin [Lipitor] 40 mg Tablet 40 mg PO DAILY@20 0RF amlodipine 10 mg tablet 10 mg PO DAILY@08 0RF pantoprazole 40 mg tablet,delayed release (DR/EC) 40 mg PO BID@06,16 0RF folic acid 1 mg tablet 1 mg PO DAILY@08 0RF cyanocobalamin (vitamin B-12) 1,000 mcg capsule 1,000 mcg PO DAILY@08 0RF furosemide 40 mg tablet 40 mg PO DAILY 0RF Zofran 4 mg Tablet 4 mg PO Q6H PRN (Reason: nausea) 0RF MagOx 400 mg (241.3 mg magnesium) Tablet 400 mg PO DAILY 0RF Referrals: Tri Robles MD [Primary Care Provider] - Coding Level of Care Code ED Data Integrity Specialist for Chg Fwd Exam Comprehensive
--- NOTE | 2021-12-29 12:56 | XRR_ITS ---
PROCEDURE INFORMATION: Exam: XR Chest Exam date and time: 12/29/2021 1:04 PM Age: 76 years old Clinical indication: Other: Pedal edema; Prior surgery; Surgery type: Stents TECHNIQUE: Imaging protocol: XR of the chest. Views: 1 view. COMPARISON: CR (CHEST, ) 03/27/2021 1:36 AM FINDINGS: Lungs: Unremarkable. No consolidation. Pleural spaces: Unremarkable. No pleural effusion. No pneumothorax. Heart/Mediastinum: Unremarkable. No cardiomegaly. Bones/joints: Unremarkable. XR/XR chest 1V portable [id number] IMPRESSION: No acute findings.
[2021-12-29 13:23] LABS: Basophils % 0.7 %; Eosinophils % 0.5 %; Hematocrit 45.7 % (42.0-52.0); Hemoglobin 14.9 g/dL (11.7-16.6); Lymphocytes # 1.2 10^3/uL (0.8-4.8); Lymphocytes % 21.3 %; Mean Corpuscular HGB Conc 32.6 g/dL (30.0-36.0); Mean Corpuscular Hemoglobin 31.2 pg (28.0-34.0); Mean Corpuscular Volume 95.6 fl (80-94); Mean Platelet Volume 10.7 fL (7.4-10.4); Monocytes # 0.6 10^3/uL (0.2-0.9); Monocytes % 10.7 %; Neutrophils # 3.82 10^3/uL (1.8-7.7); Neutrophils % 66.1 %; Nucleated Red Blood Cells % 0 %; Platelet Count 185 10^3/cmm (130-400); Red Blood Count 4.78 10^6/uL (4.1-5.3); Red Cell Distribution Width 15.8 % (12.1-15.1); White Blood Count 5.8 10^3/uL (4.0-10.0)
[2021-12-29 13:33] VITALS: BP 183/80; PULSE 90; O2SAT 96
[2021-12-29 13:52] LABS: Alanine Aminotransferase 50 U/L (0-41); Albumin Level 4.2 g/dL (3.5-5.2); Alkaline Phosphatase 254 IU/L (40-130); Anion Gap 25.2 (5-19); Aspartate Amino Transferase 83 U/L (0-40); Blood Urea Nitrogen 28 mg/dL (8-23); Calcium 8.7 mg/dL (8.5-10.5); Carbon Dioxide 15 mmol/L (22-29); Chloride 102 mmol/L (98-107); Globulin 3.2 g/dL (1.3-4.6); Glucose 85 mg/dL (65-115); NT Pro B Type Natriuretic Pept 808 pg/mL (0-125); Osmolality Calculated 291 mOsm/kg (285-295); Potassium 4.2 mmol/L (3.5-5.1); Sodium 138 mmol/L (136-145); Total Bilirubin 0.6 mg/dL (0.15-1.2); Total Protein 7.4 g/dL (6.6-8.7)
[2021-12-29 14:10] LABS: Lipase 2246 U/L (13-60)
--- NOTE | 2021-12-29 14:59 | USR_ITS ---
PROCEDURE INFORMATION: Exam: US Abdomen, Limited; Right Upper Quadrant Exam date and time: 12/29/2021 3:42 PM Age: 76 years old Clinical indication: Abdominal pain; Acute; Additional info: Liver disease, pancreatitis TECHNIQUE: Imaging protocol: US abdomen. Real time ultrasound with image documentation. Limited exam focused on the right upper quadrant. COMPARISON: US paracentesis abd w [id number] 06/12/2021 10:57 AM FINDINGS: Liver: There is diffuse increased echogenicity consistent with steatosis. No masses. Liver span is 16 cm. Gallbladder: Normal. No gallstones. There is no gallbladder wall thickening. Biliary ducts: Normal. No stones. No dilation. CBD 4.2 mm Pancreas: Visualized pancreas is unremarkable. Right kidney: Normal. No mass. No hydronephrosis 10.9 cm x 5 cm x 5.7 cm. US/US gall bladder [id number] IMPRESSION: 1. Hepatic steatosis. 2. Otherwise negative sonogram of the abdomen
[2021-12-29] MEDS: sodium chloride 0.9% 1,000 ML 150 ML IV (16:40)
--- NOTE | 2021-12-29 18:06 | P.HP_ITS ---
Providers/Chief Complaint Admitting Physician: Mohinder Huddleston MD Primary Care Provider: Tri Robles MD Chief Complaint: swelling in feet and severe abd pain History of Present Illness Kyler Boyce is a 76 year old male who presented today with chief complaint of worsening left-sided abdominal pain. Patient is stating that he drinks alcohol almost on daily basis. He takes 1 shot of scotch. He does smoke 1 pack/day. For last 1 week he has been noticing abdominal bloating and distention, his bowel movement was reduced in quantity, he has been able to pass gas, struggling to start voiding urine as well, he lives alone and tries to manage his daily activities. He has only experienced 1 episode of emesis. He has been having dry heaves. Today he decided to come to the hospital for worsening of abdominal pain. In the ER he was diagnosed with pancreatitis, I have noticed high anion gap and acidosis, requested lactic acid, alcohol level, will give him 1 amp of bicarb, start fluids, n.p.o., gallbladder did not show gallstones, CT abdomen pelvis consistent with pancreatitis fatty liver Review of Systems 2 Const: Denies: chills Eyes: Denies: change in vision ENMT: Denies: throat pain Card: Denies: chest pain Resp: Denies: dyspnea GI: Reports: abdominal pain, nausea and vomiting : Reports: difficulty urinating and urinary hesitancy; Denies: flank pain Musc: Denies: neck pain Skin/Breast: Denies: rash Neuro: Denies: headache(s) Psych: Denies: anxiety Endo: Denies: polyuria Feliz/Lymph: Denies: easy bruising All/Imm: Denies: urticaria Medications/Allergies Home Medications Medication Instructions Recorded Confirmed Last Taken Type atorvastatin 40 mg tablet (Lipitor) 40 mg PO DAILY@03/04/21 12/29/21 12/28/21 History amlodipine 10 mg tablet 10 mg PO DAILY@03/18/21 12/29/21 12/28/21 History cyanocobalamin (vitamin B-12) 1,000 mcg PO DAILY@03/18/21 12/29/21 12/28/21 History 1,000 mcg capsule folic acid 1 mg tablet 1 mg PO DAILY@03/18/21 12/29/21 12/28/21 History pantoprazole 40 mg tablet,delayed 40 mg PO BID@06,16 03/18/21 12/29/21 12/28/21 History release furosemide 40 mg tablet 40 mg PO DAILY 05/23/21 12/29/21 12/28/21 History magnesium oxide 400 mg (241.3 mg 400 mg PO DAILY 12/29/21 12/29/21 12/28/21 History magnesium) tablet (MagOx) ondansetron HCl 4 mg tablet 4 mg PO Q6H PRN 12/29/21 12/29/21 Unknown History Allergies Allergy/AdvReac Type Severity Reaction Status Date / Time Sulfa (Sulfonamide Allergy Unknown Verified 04/12/21 10:08 Antibiotics) PFSH Acute PFSH: Medical History CAD (coronary artery disease) COPD (chronic obstructive pulmonary disease) COVID-19 vaccine administered J&J CVA (cerebral vascular accident) Right MCA, left weakness Heart failure EF 65% last echo Hyperlipidemia Hypertension Nicotine dependence Surgical History History of coronary artery stent placement History of nasal surgery Family History Other Stroke Social History Additional social history: History of tobacco use, alcohol use, no drugs. Recently DC to [facility] and unclear if continues to drink and smoke regularly. Vitals/I&O/Wt Last Vital Signs Temp 97.9 F 12/29/21 12:29 Pulse 90 12/29/21 13:33 Resp 18 12/29/21 12:29 BP 183/80 12/29/21 13:33 Pulse Ox 96 12/29/21 13:33 Weight last 48 hrs Weight 83.915 kg Physical Exam Narrative: Pleasant cooperative male Morbidly obese Awake and alert Nonfocal neuro exam Abdomen soft Nontender to deep palpation Left lower quadrant is distended Bowel sounds sluggish No signs of edema Awake and alert Saturating well on room air S1, S2 Hypertensive Nonicteric Pleasant and cooperative during my evaluation No signs of cellulitis Data : 12/29/21 13:03 12/29/21 13:03 A&P Assessment and plan (1) Pancreatitis: Status: Acute (2) Nicotine dependence: Status: Chronic (3) COPD (chronic obstructive pulmonary disease): Status: Chronic Qualifiers: COPD type: unspecified COPD Qualified Code(s): J44.9 - Chronic obstructive pulmonary disease, unspecified Plan Acute pancreatitis Likely related to alcohol use and smoking No gallstones evident No recent use of antibiotics No episodes of recurrent pancreatitis We will keep him n.p.o. Start D5 LR Noticed low blood sugar He is not diabetic Check hemoglobin A1c and triglyceride level Metabolic acidosis with high anion gap Check lactic acid and alcohol level JIHAN related to dehydration anticipate improvement with IV fluids Coronary disease no active chest pain History of stents Patient is full code Sister was present at the bedside Patient lives alone He was released from [facility] in June last year EKG showing PVCs with sinus rhythm Check mag level DVT prophylaxis Heparin N.p.o. for now No signs of necrotic pancreas, he is not septic Attestations Medical Necessity Statement*: Anticipating more than 2 midnights for manage ment of pancreatitis Time Spent in Patient Care: 40mins Coding Level of Care Code Acute Fabric Stretcher for [facility] Fwd Diagnoses Pancreatitis K85.90 Nicotine dependence F17.200 COPD (chronic obstructive pulmonary disease) J44.9 COPD type: unspecified COPD
[2021-12-29 18:33] VITALS: BP 186/85; PULSE 70; RESP 20; O2SAT 96
[2021-12-29 19:17] LABS: Alcohol Level 136 mg/dL (0-10)
[2021-12-29 19:18] LABS: Lactate (Lactic Acid level) 3.4 mmol/L (0.5-2.2)
[2021-12-29] MEDS: heparin 5,000 unit/mL INJ 1 mL 5000 UNIT SUBCUT (19:56)
[2021-12-29] MEDS: dextrose 5%-lactated ringers 1,000 ML 100 ML IV (19:56)
[2021-12-29 20:00] LABS: Triglycerides 143 mg/dL (0-150)
[2021-12-29 20:07] LABS: Estmated Average Glucose 105; Hemoglobin A1C 5.3 % (4.0-6.0)
[2021-12-29 20:42] VITALS: BMI 25.0
[2021-12-29] MEDS: sodium bicarbonate 8.4% 1 mEq/mL 50mL Syr 50 MEQ IVP (20:46)
[2021-12-30] MEDS: heparin 5,000 unit/mL INJ 1 mL 5000 UNIT SUBCUT (04:15)
[2021-12-30 04:56] LABS: Basophils % 0.4 %; Eosinophils % 0.6 %; Hematocrit 39.4 % (42.0-52.0); Hemoglobin 13.1 g/dL (11.7-16.6); Lymphocytes # 0.9 10^3/uL (0.8-4.8); Lymphocytes % 15.7 %; Mean Corpuscular HGB Conc 33.2 g/dL (30.0-36.0); Mean Corpuscular Hemoglobin 31.4 pg (28.0-34.0); Mean Corpuscular Volume 94.5 fl (80-94); Mean Platelet Volume 10.4 fL (7.4-10.4); Monocytes # 0.8 10^3/uL (0.2-0.9); Monocytes % 15.2 %; Neutrophils # 3.63 10^3/uL (1.8-7.7); Neutrophils % 67.2 %; Nucleated Red Blood Cells % 0 %; Platelet Count 134 10^3/cmm (130-400); Red Blood Count 4.17 10^6/uL (4.1-5.3); Red Cell Distribution Width 15.8 % (12.1-15.1); White Blood Count 5.4 10^3/uL (4.0-10.0)
[2021-12-30 05:02] VITALS: BP 190/92; PULSE 84; RESP 17; TEMP 36.3; O2SAT 97
[2021-12-30 05:13] LABS: Alanine Aminotransferase 38 U/L (0-41); Albumin Level 3.3 g/dL (3.5-5.2); Alkaline Phosphatase 231 IU/L (40-130); Aspartate Amino Transferase 78 U/L (0-40); Blood Urea Nitrogen 23 mg/dL (8-23); Calcium 8.1 mg/dL (8.5-10.5); Carbon Dioxide 21 mmol/L (22-29); Chloride 105 mmol/L (98-107); Globulin 2.6 g/dL (1.3-4.6); Glucose 130 mg/dL (65-115); Magnesium 1.6 mg/dL (1.7-2.3); Osmolality Calculated 293 mOsm/kg (285-295); Sodium 139 mmol/L (136-145); Total Bilirubin 0.8 mg/dL (0.15-1.2); Total Protein 5.9 g/dL (6.6-8.7)
[2021-12-30 05:21] LABS: Lipase 873 U/L (13-60)
[2021-12-30] MEDS: dextrose 5%-lactated ringers 1,000 ML 100 ML IV (05:21)
[2021-12-30] MEDS: hyDRALAzine 20 mg/mL INJ 1 mL 10 MG IVP (05:21)
[2021-12-30 06:51] VITALS: RESP 20
[2021-12-30] MEDS: morphine IR 15 mg Tablet PO (06:51)
[2021-12-30 07:43] VITALS: BP 172/84; PULSE 100; RESP 17; TEMP 36.9; O2SAT 92
[2021-12-30] MEDS: pantoprazole 40 mg SDV IVP (08:02)
--- NOTE | 2021-12-30 10:31 | PC.CHAP ---
Pastoral Care Encounter/Spiritual Assessment Type of Contact [] Declined glass vial bending conveyor feeder visit [] Patient/Family/Request visit [] Outpatient visit [] Follow-up visit [] Physician referral [] Code/Alert [x] Routine visit [] Staff referral [] Actively dying [] Patient sleeping [] Family support [] [] Out of room [] Palliative care [] [] Receiving care in room [] Pre-surgical visit [] Trauma [] Long length of stay [] ICU visit [] Other: Relational/Emotional Strength [x] Patient feels connected with others/family/visitors/staff [] Distress [] Loneliness/isolation [] Abandonment Spirituality of Patient x] Person of Rita [] Attends Yarsanism of their Rita [x] Believes in Prayer [] Reads Bible or Adventism materials [] There are Spiritual issues to be addressed Candy Attendant Interventions [x] Prayer [x] Active listening [] Non-anxious presence [] Spiritual/emotional support [] Crisis/trauma care [] Spiritual counseling [] Bereavement support [] Provided bereavement packet [] Provided Bible/devotional materials [] Provided toy/stuffed animal, coloring book to patient or family member [] Provided Communion [] Anointing/[place] [] Salvation [x] Completed spiritual assessment [] Other: Impact on Illness or Injury [] Angry [] Fearful [] Anxious [] Often cries [] Exhaustion [] Unable to work [] Unable to attend religion [] Unable to walk/stand [] Unable to read [] Unable to drive [] Unable to eat/drink [] Unable to sleep [] Unable to be with family [] Patient intubated [] Other: Summary Time spent with patient
[2021-12-30 11:22] VITALS: BP 155/79; PULSE 94; RESP 17; TEMP 36.7; O2SAT 92
--- NOTE | 2021-12-30 12:43 | PM.DCS ---
Discharge Providers Date of Admission: 12/29/21 17:11 Date of Discharge: December 30, 2021 Attending Provider at Admission: Mohinder Huddleston MD Attending Provider at Discharge: Hadley Marroquin MD Primary Care Provider: Tri Robles MD Diagnoses at Discharge Discharge Diagnosis (1) Pancreatitis: Status: Acute (2) Nicotine dependence: Status: Chronic (3) COPD (chronic obstructive pulmonary disease): Status: Chronic Qualifiers: COPD type: unspecified COPD Qualified Code(s): J44.9 - Chronic obstructive pulmonary disease, unspecified Reason for Visit Reason for Visit: swelling in feet and severe abd pain Hospital Course Hospital Course HPI: Mohinder Huddleston MD 76 year old male who presented today with chief complaint of worsening left-sided abdominal pain.? Patient is stating that he drinks alcohol almost on daily basis.? He takes 1 shot of scotch.? He does smoke 1 pack/day.? For last 1 week he has been noticing abdominal bloating and distention, his bowel movement was reduced in quantity, he has been able to pass gas, struggling to start voiding urine as well, he lives alone and tries to manage his daily activities.? He has only experienced 1 episode of emesis.? He has been having dry heaves.? Today he decided to come to the hospital for worsening of abdominal pain. In the ER he was diagnosed with pancreatitis, I have noticed high anion gap and acidosis, requested lactic acid, alcohol level, will give him 1 amp of bicarb, start fluids, n.p.o., gallbladder did not show gallstones, CT abdomen pelvis consistent with pancreatitis fatty liver. Hospital course: Patient was admitted for the management of acute pancreatitis likely secondary to alcohol use, patient was managed conservatively and was kept n.p.o. IV hydration pain control, later when his abdominal pain improved, he was started on full liquid diet, which he tolerated well, was also managed for prerenal JIHAN likely secondary dehydration, responded well to IV hydration, serum creatinine was improving at the time of discharge, on discharge his Lasix has been held for about a week, as the patient is currently dry. Overall patient responded well to above medical management and is being discharged in stable condition to home. He will follow-up with his primary care physician in 1 week time. Physical Exam Const: COMMON NORMALS: patient oriented x3 HENMT: COMMON NORMALS: normocephalic and atraumatic HEAD & SCALP: normocephalic and atraumatic Eye: COMMON NORMALS: no scleral icterus GENERAL EYE: appearance normal, both eyes and all related structures Chest: COMMONS NORMALS: normal inspection of the chest and normal palpation of entire chest wall CHEST: Yes Symmetrical chest wall rise Resp: COMMON NORMALS: normal respiratory effort, No retractions, No use of accessory muscles and clear to auscultation bilaterally EFFORT & INSPECTION: Yes symmetric chest movement AUSCULTATION: clear to auscultation bilaterally Cardio: COMMON NORMALS: regular rate, regular rhythm, S1 normal heart sound present, S2 normal heart sound present, No gallops present (Cardio), No murmurs present (Cardio), No rub (Cardio) and Peripheral pulses 2+ throughout RATE: regular rate RHYTHM: regular rhythm HEART SOUNDS: S1 normal heart sound present and S2 normal heart sound present PERIPHERAL PULSES: Peripheral pulses 2+ throughout GI: COMMON NORMALS: Normal to inspection, nondistended, normoactive bowel sounds present, Soft to palpation, non-tender, No hepatosplenomegaly present and no masses AUSCULTATION: Yes normoactive bowel sounds PALPATION: Yes Soft to palpation and Yes No hepatosplenomegaly present RECTAL EXAM: Yes deferred Extremity: COMMON NORMALS: no clubbing, cyanosis or edema and no pedal edema Neuro: COMMON NORMALS: patient oriented x3 Discharge Data Studies Completed and Pending Completed Studies During Hospitalization Category Date Time Status CT abdomen pelvis wo con [id number] Urgent Cat Scan 12/29/21 12:48 Completed XR chest 1V portable [id number] Urgent Exams 12/29/21 12:56 Completed US gall bladder [id number] Urgent Ultrasound 12/29/21 14:59 Completed Pending at discharge Category Date Time Status Drug Screen, Urine Routine Lab 12/29/21 18:08 Uncollected Lipase AM LABS Lab 12/31/21 04:00 Ordered Lipase AM LABS Lab 01/01/22 04:00 Ordered Urinalysis Stat Lab 12/29/21 18:33 Ordered Radiology Impressions Abdomen/Pelvis CT 12/29/21 12:48 IMPRESSION: 1. Inflammatory changes within the anterior pararenal space about the pancreas. No pseudocyst formation. Pancreatitis. 2. Nodularity of the liver is present. Correlate regarding risk factors for hepatocellular disease. 3. The prostate gland is rather prominent and enlarged. Please correlate in regards to hyperplasia versus carcinoma. 4. Appendix normal. COMMENTS: Consistent with the [place] [employer]'s Incidental Findings Committee white paper (J Am Vaibhav Radiol 2017): For any incidental adrenal lesion greater than 1 cm but less than 4 cm classified in this report as benign, likely benign, or containing fat (including classification as an adenoma or myelolipoma), no follow-up imaging is recommended per consensus recommendations based on imaging criteria. Further lab evaluation could be pursued if warranted based on clinical findings. Chest X-Ray 12/29/21 12:56 IMPRESSION: No acute findings. Gallbladder Ultrasound 12/29/21 14:59 IMPRESSION: 1. Hepatic steatosis. 2. Otherwise negative sonogram of the abdomen Laboratory Results WBC 5.4 10^3/uL (4.0-10.0) 12/30/21 04:47 RBC 4.17 10^6/uL (4.1-5.3) 12/30/21 04:47 Hgb 13.1 g/dL (11.7-16.6) 12/30/21 04:47 Hct 39.4 % (42.0-52.0) L 12/30/21 04:47 MCV 94.5 fl (80-94) H 12/30/21 04:47 MCH 31.4 pg (28.0-34.0) 12/30/21 04:47 MCHC 33.2 g/dL (30.0-36.0) 12/30/21 04:47 RDW 15.8 % (12.1-15.1) H 12/30/21 04:47 Plt Count 134 10^3/cmm (130-400) 12/30/21 04:47 MPV 10.4 fL (7.4-10.4) 12/30/21 04:47 Neut % (Auto) 67.2 % 12/30/21 04:47 Lymph % (Auto) 15.7 % 12/30/21 04:47 [place] % (Auto) 15.2 % 12/30/21 04:47 Eos % (Auto) 0.6 % 12/30/21 04:47 Baso % (Auto) 0.4 % 12/30/21 04:47 Neut # (Auto) 3.63 10^3/uL (1.8-7.7) 12/30/21 04:47 Lymph # (Auto) 0.9 10^3/uL (0.8-4.8) 12/30/21 04:47 [place] # (Auto) 0.8 10^3/uL (0.2-0.9) 12/30/21 04:47 Eos # (Auto) 0.0 10^3/uL (0.0-0.8) 12/30/21 04:47 Baso # (Auto) 0.0 10^3/uL (0.0-0.1) 12/30/21 04:47 Nucleated RBC % (auto) 0 % 12/30/21 04:47 Nucleated RBCs # 0.0 /100WBC 12/30/21 04:47 Sodium 139 mmol/L (136-145) 12/30/21 04:47 Potassium 4.0 mmol/L (3.5-5.1) 12/30/21 04:47 Chloride 105 mmol/L (98-107) 12/30/21 04:47 Carbon Dioxide 21 mmol/L (22-29) L 12/30/21 04:47 Anion Gap 17.0 (5-19) 12/30/21 04:47 BUN 23 mg/dL (8-23) 12/30/21 04:47 Creatinine 1.2 mg/dL (0.7-1.2) 12/30/21 04:47 GFR Calculation Not Reportable 12/30/21 04:47 Glucose 130 mg/dL (65-115) H 12/30/21 04:47 Estimat Average Glucose 105 12/29/21 13:03 Hemoglobin A1c 5.3 % (4.0-6.0) 12/29/21 13:03 Calculated Osmolality 293 mOsm/kg (285-295) 12/30/21 04:47 Lactate 3.4 mmol/L (0.5-2.2) H 12/29/21 13:03 Calcium 8.1 mg/dL (8.5-10.5) L 12/30/21 04:47 Magnesium 1.6 mg/dL (1.7-2.3) L 12/30/21 04:47 Total Bilirubin 0.8 mg/dL (0.15-1.2) 12/30/21 04:47 AST 78 U/L (0-40) H 12/30/21 04:47 ALT 38 U/L (0-41) 12/30/21 04:47 Alkaline Phosphatase 231 IU/L (40-130) H 12/30/21 04:47 NT-Pro-B Natriuret Pep 808 pg/mL (0-125) H 12/29/21 13:03 Total Protein 5.9 g/dL (6.6-8.7) L D 12/30/21 04:47 Albumin 3.3 g/dL (3.5-5.2) L 12/30/21 04:47 Globulin 2.6 g/dL (1.3-4.6) 12/30/21 04:47 Triglycerides 143 mg/dL (0-150) 12/29/21 13:03 Lipase 873 U/L (13-60) H 12/30/21 04:47 Ethyl Alcohol 136 mg/dL (0-10) H 12/29/21 13:03 Vitals Last Vital Signs Temp 98.0 F 12/30/21 11:22 Pulse 94 12/30/21 11:22 Resp 17 12/30/21 11:22 BP 155/79 12/30/21 11:22 Pulse Ox 92 12/30/21 11:22 Discharge Plan Discharge Patient Disposition: Home Condition: Stable Prescriptions: Continued atorvastatin [Lipitor] 40 mg Tablet 40 mg PO DAILY@20 0RF amlodipine 10 mg tablet 10 mg PO DAILY@08 0RF pantoprazole 40 mg tablet,delayed release (DR/EC) 40 mg PO BID@06,16 0RF folic acid 1 mg tablet 1 mg PO DAILY@08 0RF cyanocobalamin (vitamin B-12) 1,000 mcg capsule 1,000 mcg PO DAILY@08 0RF ondansetron HCl 4 mg Tablet 4 mg PO Q6H PRN (Reason: nausea) 0RF MagOx 400 mg (241.3 mg magnesium) Tablet 400 mg PO DAILY 0RF Held furosemide 40 mg tablet 40 mg PO DAILY 0RF Hold Instructions: Resume on 01/06/22. Discharge Orders: Discharge Order (Routine); Ordered 12/30/21 Ordered By: Hadley Marroquin Referrals: Tri Robles MD [Primary Care Provider] - 01/03/22 9:30 am Discharge Diet: Regular Discharge Activity: Increase activity as tolerated Patient Instructions: Nicotine (By breathing), Pancreatitis (GEN), Opioid Safety Discharge Attestations Time Spent in Discharge Care*: less than 30 min Quality Metrics Clinical Quality Measures [ No reported AMI, CVA or VTE this stay] Coding Level of Care Code Acute Chg [facility] note Diagnoses Pancreatitis K85.90 Nicotine dependence F17.200 COPD (chronic obstructive pulmonary disease) J44.9 COPD type: unspecified COPD
--- NOTE | 2021-12-30 13:48 | PC.NURSE ---
patient verbalized understanding of discharge instructions, home medications, and follow up appointments.
[2021-12-30 13:49] VITALS: BP 155/79; PULSE 94; RESP 17; TEMP 36.7; O2SAT 92
== END 2021-12-30 13:49 | disposition home or self-care (01) ==
LOC: ER 17:31 → MEDSURG 19:28
PROVIDERS: Admitting Provider Internal Medicine; Emergency Provider Emergency Medicine; PCP Family Medicine; Visit Provider Internal Medicine
DX: K85.90 Acute pancreatitis without necrosis or infection, unspecified (principal); F17.200 Nicotine dependence, unspecified, uncomplicated; J44.9 Chronic obstructive pulmonary disease, unspecified; I25.10 Atherosclerotic heart disease of native coronary artery without angina pectoris; Z86.16 Personal history of COVID-19; I11.0 Hypertensive heart disease with heart failure; I50.9 Heart failure, unspecified; E78.5 Hyperlipidemia, unspecified; Z95.5 Presence of coronary angioplasty implant and graft
CPT/HCPCS: 36415; 71045; 74176; 76705; 80053; 80307; 83036; 83605; 83690; 83735; 83880; 84478; 85025; 93005; 96360; 96361; 96372; 99285; C9113; G0378; J0360; J1644; J7030

== ENCOUNTER 2022-01-18 12:55 | Emergency (ER) | payer MEDICARE, SELFPAY ==
[2022-01-18 13:08] VITALS: BP 182/84; PULSE 106; RESP 16; TEMP 37.3; O2SAT 95; BMI 23.0
--- NOTE | 2022-01-18 14:04 | ECG_ITS ---
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 Measurements Intervals [place] Rate: 106 P: 118 MA: 269 QRS: 10 QRSD: 143 T: -15 QT: 375 QTc: 499 Interpretive Statements SINUS TACHYCARDIA WITH FIRST DEGREE AV BLOCK INTRAVENTRICULAR CONDUCTION DELAY [130+ ms QRS DURATION] INFERIOR MYOCARDIAL INFARCTION , OF INDETERMINATE AGE [40+ ms Q WAVE AND/OR ST/T ABNORMALITY IN II/aVF] Compared to ECG 12/29/2021 13:30:29 Sinus rhythm no longer present Myocardial infarct finding still present Electronically Signed On 01-18-2022 19:04:10 CDT by Maeve Andre M.D. [email or web address], [id number] f
--- NOTE | 2022-01-18 14:05 | W.ED.CHESTPA ---
HPI - Chest Pain General: Chief Complaint: Chest Pain Stated Complaint: SOB/chest pain/dizziness/vomiting/diarrhea Time Seen by Provider: 01/18/22 13:47 History of Present Illness: Patient comes in with chest pain, vomiting, diarrhea. States that he woke up this morning and developed midsternal dull chest pressure no radiation, lasted about 20 minutes until he took a nitroglycerin which resolved the chest pain. States he then developed some nausea and vomiting and diarrhea which has persisted throughout the day. Denies fever, cough, congestion. Associated symptoms: Reports nausea and vomiting; Deny abdominal pain, dyspnea, fever(s) or palpitations Review of Systems Const: Denies: fever(s) or body aches Eyes: Denies: change in vision or blurry vision ENMT: Denies: throat pain or odynophagia Card: Reports: chest pain; Denies: palpitations Resp: Denies: dyspnea or productive cough GI: Reports: nausea, vomiting and diarrhea; Denies: abdominal pain : Denies: flank pain or dysuria Musc: Denies: neck pain or back pain Skin/Breast: Denies: rash or pruritus Neuro: Denies: headache(s) or numbness in extremities Psych: Denies: anxiety or change in appetite Endo: Denies: polyuria or excessive sweating PFSH ED PFSH: Medical History (Updated 01/18/22 @ 17:43 by Jose Barrios MD) CAD (coronary artery disease) COPD (chronic obstructive pulmonary disease) COVID-19 vaccine administered J&J CVA (cerebral vascular accident) Right MCA, left weakness Heart failure EF 65% last echo Hyperlipidemia Hypertension Nicotine dependence Pancreatitis Surgical History History of coronary artery stent placement History of nasal surgery Family History Other Stroke Social History Additional social history: History of tobacco use, alcohol use, no drugs. Recently DC to [facility] and unclear if continues to drink and smoke regularly. Physical Exam Const: COMMON NORMALS: no acute distress, patient oriented x3, healthy appearing and alert HENMT: COMMON NORMALS: normocephalic and atraumatic HEAD & SCALP: normocephalic and atraumatic Eye: COMMON NORMALS: Equal, round and reactive pupils present and EOMs intact bilaterally PUPIL: Yes Equal, round and reactive pupils present Neck/C-Spine: COMMON NORMALS: full ROM and supple Resp: COMMON NORMALS: normal respiratory effort, No retractions and No use of accessory muscles Cardio: COMMON NORMALS: regular rate and regular rhythm RATE: regular rate RHYTHM: regular rhythm GI: COMMON NORMALS: Normal to inspection, nondistended, normoactive bowel sounds present, Soft to palpation and non-tender PALPATION: Yes Soft to palpation Back/Pelvis: COMMON NORMALS: thoracic and lumbar spine normal to inspection and no thoracic nor lumbar tenderness Extremity: COMMON NORMALS: normal to inspection and full ROM Neuro: COMMON NORMALS: patient oriented x3 SENSORIUM/ORIENTATION: Yes alert Psych: COMMON NORMALS: mental status grossly normal and cooperative Skin: COMMON NORMALS: no rashes or lesions noted and no wounds GENERAL SKIN EXAM: no rashes or lesions noted Course Vital Signs: Vital signs: Vital Signs Temperature 99.2 F 01/18/22 13:08 Pulse Rate 91 01/18/22 15:53 Respiratory Rate 17 01/18/22 15:53 Blood Pressure 194/92 01/18/22 15:53 Pulse Oximetry 94 01/18/22 15:53 MDM - Chest Pain Medical Decision Making Patient comes in with chest pain, vomiting, diarrhea. States that he woke up this morning and developed midsternal dull chest pressure no radiation, lasted about 20 minutes until he took a nitroglycerin which resolved the chest pain. States he then developed some nausea and vomiting and diarrhea which has persisted throughout the day. Denies fever, cough, congestion. Physical exam is unremarkable. Will check labs, EKG, and reassess. On reassessment I talked to the patient about the test results. Will discharge home at this time with precautions to return for worsening or changing symptoms. Lab Data : 01/18/22 14:18 01/18/22 14:48 Laboratory Results WBC 5.8 10^3/uL (4.0-10.0) 01/18/22 14:18 RBC 4.15 10^6/uL (4.1-5.3) 01/18/22 14:18 Hgb 13.3 g/dL (11.7-16.6) 01/18/22 14:18 Hct 38.8 % (42.0-52.0) L 01/18/22 14:18 MCV 93.5 fl (80-94) 01/18/22 14:18 MCH 32.0 pg (28.0-34.0) 01/18/22 14:18 MCHC 34.3 g/dL (30.0-36.0) 01/18/22 14:18 RDW 15.7 % (12.1-15.1) H 01/18/22 14:18 Plt Count 104 10^3/cmm (130-400) L 01/18/22 14:18 MPV 11.7 fL (7.4-10.4) H 01/18/22 14:18 Neut % (Auto) 75.3 % 01/18/22 14:18 Lymph % (Auto) 8.9 % 01/18/22 14:18 [place] % (Auto) 11.3 % 01/18/22 14:18 Eos % (Auto) 3.1 % 01/18/22 14:18 Baso % (Auto) 0.5 % 01/18/22 14:18 Neut # (Auto) 4.39 10^3/uL (1.8-7.7) 01/18/22 14:18 Lymph # (Auto) 0.5 10^3/uL (0.8-4.8) L 01/18/22 14:18 [place] # (Auto) 0.7 10^3/uL (0.2-0.9) 01/18/22 14:18 Eos # (Auto) 0.2 10^3/uL (0.0-0.8) 01/18/22 14:18 Baso # (Auto) 0.0 10^3/uL (0.0-0.1) 01/18/22 14:18 Nucleated RBC % (auto) 0 % 01/18/22 14:18 Nucleated RBCs # 0.0 /100WBC 01/18/22 14:18 Sodium 135 mmol/L (136-145) L 01/18/22 14:48 Potassium 4.6 mmol/L (3.5-5.1) 01/18/22 14:48 Chloride 97 mmol/L (98-107) L 01/18/22 14:48 Carbon Dioxide 20 mmol/L (22-29) L 01/18/22 14:48 Anion Gap 22.6 (5-19) H 01/18/22 14:48 BUN 30 mg/dL (8-23) H 01/18/22 14:48 Creatinine 1.6 mg/dL (0.7-1.2) H 01/18/22 14:48 GFR Calculation Not Reportable 01/18/22 14:48 Glucose 155 mg/dL (65-115) H 01/18/22 14:48 Calculated Osmolality 289 mOsm/kg (285-295) 01/18/22 14:48 Calcium 8.7 mg/dL (8.5-10.5) 01/18/22 14:48 Total Bilirubin 1.0 mg/dL (0.15-1.2) 01/18/22 14:48 AST 130 U/L (0-40) H 01/18/22 14:48 ALT 71 U/L (0-41) H 01/18/22 14:48 Alkaline Phosphatase 254 IU/L (40-130) H 01/18/22 14:48 Troponin T Baseline 88 ng/L (0-15) H 01/18/22 14:48 Troponin T 120 Minute 90.32 ng/L (0-15) H 01/18/22 16:43 Delta Troponin T 2.32 ABS# (0-10) 01/18/22 16:43 Total Protein 6.9 g/dL (6.6-8.7) 01/18/22 14:48 Albumin 3.9 g/dL (3.5-5.2) 01/18/22 14:48 Globulin 3.0 g/dL (1.3-4.6) 01/18/22 14:48 Discharge Plan Discharge Patient Disposition: Home Clinical Impression: Diarrhea Condition: Stable Prescriptions: No Action atorvastatin [Lipitor] 40 mg Tablet 40 mg PO BEDTIME 0RF amlodipine 10 mg tablet 10 mg PO QAM 0RF pantoprazole 40 mg tablet,delayed release (DR/EC) 40 mg PO BEDTIME 0RF folic acid 1 mg tablet 1 mg PO DAILY@08 0RF cyanocobalamin (vitamin B-12) 1,000 mcg capsule 1,000 mcg PO DAILY@08 0RF furosemide 40 mg tablet 40 mg PO DAILY 0RF Hold Instructions: Resume on 01/06/22. ondansetron HCl 4 mg Tablet 4 mg PO Q6H PRN (Reason: nausea) 0RF magnesium oxide [MagOx] 400 mg (241.3 mg magnesium) Tablet 400 mg PO DAILY 0RF Advair Diskus 250-50 mcg/dose Blister With Device 1 inh INHALATION BID 0RF Vitamin B-1 100 mg Tablet 100 mg PO DAILY 0RF triamcinolone acetonide 0.1 % cream 1 applic TOPICAL BID PRN (Reason: Rash) 0RF spironolactone 25 mg Tablet 25 mg PO DAILY 0RF Vitamin C 500 mg Tablet 500 mg PO BID 0RF Flomax 0.4 mg Capsule 0.4 mg PO BEDTIME 0RF iron 325 mg (65 mg iron) Tablet 325 mg PO DAILY 0RF Nitrostat 0.4 mg Tablet, Sublingual 0.4 mg SUBLINGUAL Q5M PRN (Reason: Chest Pain) 0RF Rx Instructions: do not exceed 3 doses per episode zinc 50 mg Tablet 50 mg PO DAILY 0RF albuterol sulfate 90 mcg/actuation Hfa Aerosol Inhaler 2 puff INHALATION Q4H PRN (Reason: Shortness Of Breath) 0RF Vitamin D3 25 mcg (1,000 unit) Capsule 25 mcg PO DAILY 0RF Discharge Orders: Discharge ED (Routine); Ordered 01/18/22 Ordered By: Jose Barrios Referrals: Tri Robles MD [Primary Care Provider] - Coding Level of Care Code ED Geospatial Information Technologist for Chg Fwd Exam Comprehensive
[2022-01-18 14:27] LABS: Basophils % 0.5 %; Eosinophils # 0.2 10^3/uL (0.0-0.8); Eosinophils % 3.1 %; Hematocrit 38.8 % (42.0-52.0); Hemoglobin 13.3 g/dL (11.7-16.6); Lymphocytes # 0.5 10^3/uL (0.8-4.8); Lymphocytes % 8.9 %; Mean Corpuscular HGB Conc 34.3 g/dL (30.0-36.0); Mean Corpuscular Volume 93.5 fl (80-94); Mean Platelet Volume 11.7 fL (7.4-10.4); Monocytes # 0.7 10^3/uL (0.2-0.9); Monocytes % 11.3 %; Neutrophils # 4.39 10^3/uL (1.8-7.7); Neutrophils % 75.3 %; Nucleated Red Blood Cells % 0 %; Platelet Count 104 10^3/cmm (130-400); Red Blood Count 4.15 10^6/uL (4.1-5.3); Red Cell Distribution Width 15.7 % (12.1-15.1); White Blood Count 5.8 10^3/uL (4.0-10.0)
--- NOTE | 2022-01-18 14:59 | PC.PHAR ---
pt and pts family verified pts medications
[2022-01-18 15:12] LABS: Alanine Aminotransferase 71 U/L (0-41); Albumin Level 3.9 g/dL (3.5-5.2); Alkaline Phosphatase 254 IU/L (40-130); Anion Gap 22.6 (5-19); Aspartate Amino Transferase 130 U/L (0-40); Blood Urea Nitrogen 30 mg/dL (8-23); Calcium 8.7 mg/dL (8.5-10.5); Carbon Dioxide 20 mmol/L (22-29); Chloride 97 mmol/L (98-107); Glucose 155 mg/dL (65-115); Osmolality Calculated 289 mOsm/kg (285-295); Potassium 4.6 mmol/L (3.5-5.1); Sodium 135 mmol/L (136-145); Total Protein 6.9 g/dL (6.6-8.7)
[2022-01-18 15:35] LABS: Troponin(5th) Baseline 88 ng/L (0-15)
--- NOTE | 2022-01-18 15:52 | PC.NURSE ---
Pt placed on continuous cardiac, BP, and SpO2 monitoring upon arrival into room.
[2022-01-18 15:53] VITALS: BP 194/92; PULSE 91; RESP 17; O2SAT 94
[2022-01-18 17:02] LABS: Troponin 5 2HR 90.32 ng/L (0-15)
[2022-01-18 17:18] LABS: Troponin 5 2HR Delta 2.32 ABS# (0-10)
[2022-01-18 18:26] VITALS: BP 197/91; PULSE 99; RESP 28; O2SAT 96
== END 2022-01-18 18:23 | disposition home or self-care (01) ==
PROVIDERS: Emergency Provider Emergency Medicine; PCP Family Medicine
DX: R07.9 Chest pain, unspecified (principal); R19.7 Diarrhea, unspecified; R11.2 Nausea with vomiting, unspecified; I25.10 Atherosclerotic heart disease of native coronary artery without angina pectoris; I10 Essential (primary) hypertension; Z87.891 Personal history of nicotine dependence
CPT/HCPCS: 80053; 84484; 85025; 93005; 99284

== ENCOUNTER 2022-06-23 16:51 | Outpatient (CLI) | payer MEDICARE, SELFPAY ==
[2022-06-23 18:07] LABS: Add Urine Microscopic? YES; Bacteria Urine TRACE /hpf; Bilirubin Urine 2+ (Negative); Blood Urine Neg (Negative); Glucose Urine UA Norm (Normal); Ketones Urine 1+ (Negative); Leukocyte Esterase Urine Negative (Negative); Nitrate Urine Negative (Negative); Protein Urine 3+ (Negative); Urine Appearance Clear (CLEAR); Urine Color Dark Yellow (Yellow); Urobilinogen Urine 8 mg/dL (Negative); pH Urine 5 (5-7)
[2022-06-23 18:08] LABS: Add Urine Culture? No
== END 2022-06-23 16:52 | disposition home or self-care (01) ==
PROVIDERS: PCP Family Medicine; Visit Provider Family Medicine
DX: N40.1 Benign prostatic hyperplasia with lower urinary tract symptoms (principal)
CPT/HCPCS: 81001; 87086

== ENCOUNTER 2022-06-25 02:21 | Inpatient (IN) | payer MEDICARE, SELFPAY ==
[2022-06-25] VITALS (27 sets, daily range): BP systolic 100–158; BP diastolic 54–75; PULSE 84–106; RESP 15–25; TEMP 36.3–37.1; O2SAT 87–99; BMI 22.6
--- NOTE | 2022-06-25 02:22 | ECG_ITS ---
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 Measurements Intervals [place] Rate: 102 P: 120 TN: 280 QRS: 2 QRSD: 141 T: 10 QT: 394 QTc: 515 Interpretive Statements ECTOPIC ATRIAL TACHYCARDIA WITH FIRST DEGREE AV BLOCK INTRAVENTRICULAR CONDUCTION DELAY [130+ ms QRS DURATION] POSSIBLE INFERIOR MYOCARDIAL INFARCTION , OF INDETERMINATE AGE [30 ms Q WAVE IN II/aVF] Compared to ECG 01/18/2022 13:06:06 Sinus tachycardia no longer present Myocardial infarct finding still present Electronically Signed On 06-27-2022 6:30:09 TREASURY MANAGER by Chris Marin M.D. [id number]
--- NOTE | 2022-06-25 02:22 | XRR_ITS ---
PROCEDURE INFORMATION: Exam: XR Chest Exam date and time: 06/25/2022 3:25 AM Age: 76 years old Clinical indication: Chest pressure; Prior surgery; Surgery type: Cardiac stents; Patient HX: C/O chest pain; Additional info: Cp TECHNIQUE: Imaging protocol: Radiologic exam of the chest. Views: 1 view. COMPARISON: CR (CHEST, ) 12/29/2021 1:04 PM FINDINGS: Tubes, catheters and devices: A couple monitor leads project over the chest. Lungs: Minimal left basilar atelectasis. No lobar consolidation. Pleural spaces: No significant costophrenic angle blunting. No pneumothorax. Heart/Mediastinum: Heart size within normal limits. Vasculature: Atherosclerotic tortuosity and calcification of the thoracic aorta. Bones/joints: No acute osseous abnormality. XR/XR chest 1V portable [id number] IMPRESSION: Minimal left basilar atelectasis.
--- NOTE | 2022-06-25 02:26 | CTR_ITS ---
PROCEDURE INFORMATION: Exam: CT Abdomen And Pelvis Without Contrast Exam date and time: 06/25/2022 2:38 AM Age: 76 years old Clinical indication: Bloating; Prior surgery; Surgery type: Cardiac stents; Patient HX: Visibally jaundiced with distention. ; Additional info: Jaundice TECHNIQUE: Imaging protocol: Computed tomography of the abdomen and pelvis without contrast. Radiation optimization: All CT scans at this facility use at least one of these dose optimization techniques: automated exposure control; mA and/or kV adjustment per patient size (includes targeted exams where dose is matched to clinical indication); or iterative reconstruction. COMPARISON: 1. CT abdomen pelvis wo con [id number] 12/29/2021 1:[address] abdomen pelvis wo con [id number] 03/27/2021 2:49 AM RADIATION DOSE METRICS: Total DLP (mGy-cm): 559.69 FINDINGS: Lungs: Minimal left basilar atelectasis and small calcified granulomas. Heart: Coronary artery calcifications. Liver: Diffusely nodular hepatic appearance and contour consistent with cirrhosis. Diffuse fatty infiltration of the liver. Gallbladder and bile ducts: Tiny dependent calcified gallstones within nondistended gallbladder. No significant biliary ductal dilatation. Pancreas: Subtle peripancreatic fat stranding suggesting possible mild pancreatitis. No peripancreatic fluid collection or pseudocyst. Spleen: Punctate splenic calcified granulomas. Adrenal glands: Redemonstrated incidental tiny bilateral adrenal adenomas. Kidneys and ureters: Redemonstrated incidental 1.7 cm simple appearing left renal lower pole cyst and tiny 7 mm hyperdense cyst. No renal or ureteral calculi. No hydronephrosis or hydroureter. Stomach and bowel: No significant large or small bowel distention. Colonic diverticulosis without CT evidence of diverticulitis. Appendix: Grossly normal nondilated visualized appendix. Intraperitoneal space: No significant fluid collection. No free air. Vasculature: Diffuse atherosclerotic vascular calcification. 3.1 cm AP diameter distal abdominal aortic aneurysm. Lymph nodes: Small nonspecific periportal and retroperitoneal lymph nodes. Urinary bladder: Mildly thickened but incompletely distended urinary bladder. No bladder calculi. Reproductive: Mildly prominent prostate. Bones/joints: Multilevel spondylosis and lower lumbar degenerative changes. Soft tissues: No significant soft tissue abnormalities. CT/CT abdomen pelvis wo con [id number] IMPRESSION: 1. Hepatic cirrhosis and diffuse fatty infiltration of the liver. 2. Cholelithiasis. 3. Subtle peripancreatic fat stranding suggesting possible mild pancreatitis. 4. Colonic diverticulosis without CT evidence of diverticulitis. 5. Mildly thickened urinary bladder which may be secondary to incomplete distention versus cystitis/UTI. 6. Atherosclerotic vascular disease including coronary artery disease. 7. 3.1 cm AP diameter distal abdominal aortic aneurysm. COMMENTS: Consistent with the [place] [employer]'s Incidental Findings Committee white paper (J Am Vaibhav Radiol 2018): Any incidental renal lesion less than 1 cm or classified as too small to characterize, or any incidental cystic renal lesion characterized as simple-appearing, is likely benign. No follow-up imaging is recommended for these lesions per consensus recommendations based on imaging criteria.
--- NOTE | 2022-06-25 02:29 | ED_ITS ---
HPI - Abdominal Pain General: Chief Complaint: Abdominal Pain Stated Complaint: abdominal distention Time Seen by Provider: 06/25/22 02:22 Source: patient and EMS Mode of arrival: EMS Limitations: no limitations History of Present Illness: 76-year-old male who has a history of alcoholism states that over the last 3 to 4 days he has had some abdominal distention states he has not had a bowel movement he states he also has had fatigue and weakness had difficulty walking he states he does live home alone he does appear jaundiced here with some scleral icterus he denies any vomiting or diarrhea denies any fevers. Associated Symptoms: Denies dysuria Review of Systems Const: Reports: fatigue and malaise Eyes: Denies: blurry vision or eye discomfort ENMT: Denies: throat pain or dental pain Card: Denies: chest pain Resp: Denies: dyspnea GI: Reports: abdominal pain : Denies: dysuria Musc: Denies: neck pain or back pain Skin/Breast: Denies: rash Neuro: Denies: headache(s) Psych: Denies: depression Feliz/Lymph: Denies: easy bruising All/Imm: Denies: urticaria PFSH ED PFSH: Medical History CAD (coronary artery disease) COPD (chronic obstructive pulmonary disease) COVID-19 vaccine administered J&J CVA (cerebral vascular accident) Right MCA, left weakness Heart failure EF 65% last echo Hyperlipidemia Hypertension Nicotine dependence Pancreatitis Surgical History History of coronary artery stent placement History of nasal surgery Family History Other Stroke Social History Additional social history: History of tobacco use, alcohol use, no drugs. Recently DC to [facility] and unclear if continues to drink and smoke regularly. Physical Exam Const: COMMON NORMALS: patient oriented x3 HENMT: COMMON NORMALS: normocephalic and atraumatic HEAD & SCALP: normoce phalic and atraumatic Eye: COMMON NORMALS: Equal, round and reactive pupils present and EOMs intact bilaterally PUPIL: Yes Equal, round and reactive pupils present Neck/C-Spine: COMMON NORMALS: full ROM and supple Chest: COMMONS NORMALS: normal inspection of the chest and normal palpation of entire chest wall Resp: COMMON NORMALS: normal respiratory effort, No retractions, No use of accessory muscles and clear to auscultation bilaterally AUSCULTATION: clear to auscultation bilaterally Cardio: COMMON NORMALS: regular rate, regular rhythm and No murmurs present (Cardio) RATE: regular rate RHYTHM: regular rhythm GI: COMMON NORMALS: Normal to inspection, nondistended, normoactive bowel sounds present, Soft to palpation, non-tender and no masses PALPATION: Yes Soft to palpation Extremity: COMMON NORMALS: normal to inspection and full ROM Neuro: COMMON NORMALS: patient oriented x3, moves all extremities and no focal motor deficits Psych: COMMON NORMALS: mental status grossly normal, Normal thought process present and cooperative THOUGHT PROCESS: Normal thought process present Skin: COMMON NORMALS: no rashes or lesions noted and no wounds NARRATIVE SKIN EXAM: Jaundiced GENERAL SKIN EXAM: no rashes or lesions noted Course Vital Signs: Vital signs: Vital Signs Temperature 97.6 F 06/25/22 03:41 Pulse Rate 101 H 06/25/22 03:41 Respiratory Rate 17 06/25/22 03:41 Blood Pressure 107/59 06/25/22 03:41 Pulse Oximetry 98 06/25/22 03:41 Oxygen Delivery Me thod 06/25/22 02:22 MDM - Abdominal Pain Medical Decision Making Patient presents here with generalized weakness states he has not been able to get a bed he is anemic here could be causing his weakness rectal exam showed brown stool but was Hemoccult positive he does have a history of cirrhosis CT scan showed mild pancreatitis he does have a mildly elevated lipase his exam here is benign, but his abdomen we will transfuse and admit. Lab Data 06/25/22 02:29 06/25/22 02:29 Labs/Radiology: Radiology Impressions Chest X-Ray 06/25/22 02:22 IMPRESSION: Minimal left basilar atelectasis. Abdomen/Pelvis CT 06/25/22 02:26 IMPRESSION: 1. Hepatic cirrhosis and diffuse fatty infiltration of the liver. 2. Cholelithiasis. 3. Subtle peripancreatic fat stranding suggesting possible mild pancreatitis. 4. Colonic diverticulosis without CT evidence of diverticulitis. 5. Mildly thickened urinary bladder which may be secondary to incomplete distention versus cystitis/UTI. 6. Atherosclerotic vascular disease including coronary artery disease. 7. 3.1 cm AP diameter distal abdominal aortic aneurysm. COMMENTS: Consistent with the [employer]'s Incidental Findings Committee white paper (J Am Vaibhav Radiol 2018): Any incidental renal lesion less than 1 cm or classified as too small to characterize, or any incidental cystic renal lesion characterized as simple-appearing, is likely benign. No follow-up imaging is recommended for these lesions per consensus recommendations based on imaging criteria. Laboratory Results WBC 7.6 10^3/uL (4.0-10.0) 06/25/22 02:29 RBC 1.30 10^6/uL (4.1-5.3) L 06/25/22 02:29 Hgb 5.1 g/dL (11.7-16.6) L* 06/25/22 02:29 Hct 16.0 % (42.0-52.0) L* 06/25/22 02:29 MCV 123.1 fl (80-94) H 06/25/22 02:29 MCH 39.2 pg (28.0-34.0) H 06/25/22 02:29 MCHC 31.9 g/dL (30.0-36.0) 06/25/22 02:29 RDW 20.4 % (12.1-15.1) H 06/25/22 02:29 Plt Count 163 10^3/cmm (130-400) 06/25/22 02:29 MPV 10.2 fL (7.4-10.4) 06/25/22 02:29 Neut % (Auto) 76.1 % 06/25/22 02:29 Lymph % (Auto) 8.7 % 06/25/22 02:29 [place] % (Auto) 11.3 % 06/25/22 02:29 Eos % (Auto) 0.3 % 06/25/22 02:29 Baso % (Auto) 0.3 % 06/25/22 02:29 Neut # (Auto) 5.82 10^3/uL (1.8-7.7) 06/25/22 02:29 Lymph # (Auto) 0.7 10^3/uL (0.8-4.8) L 06/25/22 02:29 [place] # (Auto) 0.9 10^3/uL (0.2-0.9) 06/25/22 02:29 Eos # (Auto) 0.0 10^3/uL (0.0-0.8) 06/25/22 02:29 Baso # (Auto) 0.0 10^3/uL (0.0-0.1) 06/25/22 02:29 Nucleated RBC % (auto) 1.0 % 06/25/22 02: Nucleated RBCs # 0.1 /100WBC 06/25/22 02:29 PT 15.90 SECONDS (12.1-14.9) H 06/25/22 02:29 INR 1.24 (0.8-1.2) H 06/25/22 02:29 Sodium 136 mmol/L (136-145) 06/25/22 02:29 Potassium 4.7 mmol/L (3.5-5.1) 06/25/22 02:29 Chloride 96 mmol/L (98-107) L 06/25/22 02:29 Carbon Dioxide 18 mmol/L (22-29) L 06/25/22 02:29 Anion Gap 26.7 (5-19) H 06/25/22 02:29 BUN 48 mg/dL (8-23) H 06/25/22 02:29 Creatinine 1.7 mg/dL (0.7-1.2) H 06/25/22 02:29 GFR Calculation Not Reportable 06/25/22 02:29 Glucose 138 mg/dL (65-115) H 06/25/22 02:29 Calculated Osmolality 297 mOsm/kg (285-295) H 06/25/22 02:29 Calcium 9.1 mg/dL (8.5-10.5) 06/25/22 02:29 Total Bilirubin 2.7 mg/dL (0.15-1.2) H 06/25/22 02:29 AST 98 U/L (0-40) H 06/25/22 02:29 ALT 36 U/L (0-41) 06/25/22 02:29 Alkaline Phosphatase 280 U/L (40-130) H 06/25/22 02:29 Ammonia 28 umol/L (16-60) 06/25/22 02:29 Total Protein 6.5 g/dL (6.6-8.7) L 06/25/22 02:29 Albumin 3.4 g/dL (3.5-5.2) L 06/25/22 02:29 Globulin 3.1 g/dL (1.3-4.6) 06/25/22 02:29 Lipase 1384 U/L (13-60) H 06/25/22 02:29 Blood Type O Positive 06/25/22 03:00 Rho(D) Type Positive 06/25/22 03:00 Antibody Screen Negative 06/25/22 03:00 Crossmatch See Detail 06/25/22 03:00 Critical Care Time Critical Care Time: Critical Care Time: Yes Total Critical Care Time: 40 Attestation: The high probability of a clinically significant, sudden or life threatening deterioration of the patient's gi system(s) required my full and direct attention, intervention and personal management. The critical care time is as shown. This time is in addition to time spent performing any reported procedures but includes the following: [x] Data and vital sign review and interpretation [x] Patient assessment, examination and intervention [x] Documentation [x] Medication orders and management Discharge Plan Discharge Patient Disposition: Admitted As Inpatient Clinical Impression: Anemia, Pancreatitis, Cirrhosis Condition: Stable Prescriptions: No Action atorvastatin [Lipitor] 40 mg Tablet 40 mg PO BEDTIME amlodipine 10 mg tablet 10 mg PO QAM pantoprazole 40 mg tablet,delayed release (DR/EC) 40 mg PO BEDTIME folic acid 1 mg tablet 1 mg PO DAILY@08 cyanocobalamin (vitamin B-12) 1,000 mcg capsule 1,000 mcg PO DAILY@08 furosemide 40 mg tablet 40 mg PO DAILY Hold Instructions: Resume on 01/06/22. ondansetron HCl 4 mg Tablet 4 mg PO Q6H PRN (Reason: nausea) magnesium oxide [MagOx] 400 mg (241.3 mg magnesium) Tablet 400 mg PO DAILY Advair Diskus 250-50 mcg/dose Blister With Device 1 inh INHALATION BID Vitamin B-1 100 mg Tablet 100 mg PO DAILY triamcinolone acetonide 0.1 % cream 1 applic TOPICAL BID PRN (Reason: Rash) spironolactone 25 mg Tablet 25 mg PO DAILY Vitamin C 500 mg Tablet 500 mg PO BID Flomax 0.4 mg Capsule 0.4 mg PO BEDTIME iron 325 mg (65 mg iron) Tablet 325 mg PO DAILY Nitrostat 0.4 mg Tablet, Sublingual 0.4 mg SUBLINGUAL Q5M PRN (Reason: Chest Pain) Rx Instructions: do not exceed 3 doses per episode zinc 50 mg Tablet 50 mg PO DAILY albuterol sulfate 90 mcg/actuation Hfa Aerosol Inhaler 2 puff INHALATION Q4H PRN (Reason: Shortness Of Breath) Vitamin D3 25 mcg (1,000 unit) Capsule 25 mcg PO DAILY Referrals: Tri Robles MD [Primary Care Provider] - Coding Level of Care Code ED Senior Director [employer] Services for Chg Fwd Exam Comprehensive
[2022-06-25 02:33] LABS: Basophils % 0.3 %; Eosinophils % 0.3 %; Lymphocytes # 0.7 10^3/uL (0.8-4.8); Lymphocytes % 8.7 %; Mean Corpuscular HGB Conc 31.9 g/dL (30.0-36.0); Mean Corpuscular Hemoglobin 39.2 pg (28.0-34.0); Mean Corpuscular Volume 123.1 fl (80-94); Mean Platelet Volume 10.2 fL (7.4-10.4); Monocytes # 0.9 10^3/uL (0.2-0.9); Monocytes % 11.3 %; Neutrophils # 5.82 10^3/uL (1.8-7.7); Neutrophils % 76.1 %; Nucleated Red Blood Cells # 0.1 /100WBC; Platelet Count 163 10^3/cmm (130-400); Red Cell Distribution Width 20.4 % (12.1-15.1); White Blood Count 7.6 10^3/uL (4.0-10.0)
[2022-06-25 02:39] LABS: Hemoglobin 5.1 g/dL (11.7-16.6)
[2022-06-25 02:48] LABS: INR 1.24 (0.8-1.2)
[2022-06-25 02:55] LABS: Alanine Aminotransferase 36 U/L (0-41); Albumin Level 3.4 g/dL (3.5-5.2); Alkaline Phosphatase 280 U/L (40-130); Anion Gap 26.7 (5-19); Aspartate Amino Transferase 98 U/L (0-40); Blood Urea Nitrogen 48 mg/dL (8-23); Calcium 9.1 mg/dL (8.5-10.5); Carbon Dioxide 18 mmol/L (22-29); Chloride 96 mmol/L (98-107); Globulin 3.1 g/dL (1.3-4.6); Glucose 138 mg/dL (65-115); Osmolality Calculated 297 mOsm/kg (285-295); Potassium 4.7 mmol/L (3.5-5.1); Sodium 136 mmol/L (136-145); Total Bilirubin 2.7 mg/dL (0.15-1.2); Total Protein 6.5 g/dL (6.6-8.7)
[2022-06-25 02:56] LABS: Ammonia 28 umol/L (16-60)
[2022-06-25 03:07] LABS: Lipase 1384 U/L (13-60)
[2022-06-25] MEDS: sodium chloride 0.9% 100 mL Bag XX (03:31)
--- NOTE | 2022-06-25 03:48 | PC.NURSE ---
PRBC TRANSFUSION @ 0341- verified first prbc unit # [id number] with Uzma Sheth RN prior to start.
[2022-06-25 04:09] LABS: Alcohol Level < 10 mg/dL (0-10)
--- NOTE | 2022-06-25 05:20 | PM.HP ---
Providers/Chief Complaint Admitting Physician: Lakisha Carty MD Primary Care Provider: Tri Robles MD Chief Complaint: abdominal distention History of Present Illness Kyler Boyce is a 76 year old male presenting to the emergency room with 4 to 5 days of abdominal bloating, feeling generalized weakness, states that he is too weak to move around the home. He has a history of alcohol induced chronic pancreatitis. He has known liver cirrhosis on his CT today. It appears he gets paracentesis from time to time as well. On evaluation in the ER today he was noted to have abdominal discomfort, clinical suspicion for pancreatitis but also hemoglobin of 5 which is new. Patient denies any overt hematemesis or melena. He had brown stool in the ER, FOBT was positive. He denies any past history of GI bleeding. States he had an endoscopy upper GI and colonoscopy several years ago, as far as he knows these investigations were normal. No history of bleeding requiring acute GI intervention in the past. CT of his abdomen and pelvis today shows liver cirrhosis, possible mild pancreatitis, distal abdominal aortic aneurysm 3.1 cm. No evidence of rupture. He drinks every day, estimates 2-3 drinks on a daily basis, last at 9 PM 1115. Review of Systems General: Reports: 10 or more systems reviewed and unremarkable except in HPI and below Const: Denies: fever(s), chills or body aches Eyes: Denies: change in vision, blurry vision or photophobia ENMT: Reports: hoarseness; Denies: throat pain, enlarged tonsils, odynophagia or nasal congestion Card: Denies: chest pain, palpitations, irregular heart rhythm, edema, swelling of feet/ankles, lightheadedness, pre-syncope, dyspnea on exertion or orthopnea Resp: Denies: dyspnea, productive cough, non-productive cough, wheezing, stridor, pain on inspiration, change in phlegm color, hemoptysis or chest congestion GI: Denies: abdominal pain, nausea, vomiting, hematemesis, coffee ground emesis, dysphagia, heartburn, diarrhea, constipation, GI cramping, change in stool character, hematochezia or melena : Denies: flank pain, dysuria, urinary frequency, urinary urgency, urinary hesitancy or hematuria Musc: Denies: neck pain, back pain, extremity pain, joint swelling, joint warmth or deformity Neuro: Denies: headache(s), numbness in extremities, weakness in extremities, sensory changes, difficulty walking, frequent falls, dizziness, vertigo, behavioral changes, Slurred speech present or seizure-like activity Psych: Denies: anxiety, depression, suicidal ideation or homicidal ideation Endo: Denies: polyuria, polydipsia, tired all the time, cold intolerance or hot flashes Feliz/Lymph: Denies: easy bruising or easy bleeding Medications/Allergies Home Medications Medication Instructions Recorded Confirmed Last Taken Type atorvastatin 40 mg tablet (Lipitor) 40 mg PO BEDTIME 03/04/21 01/18/22 12/28/21 History amlodipine 10 mg tablet 10 mg PO QAM 03/18/21 01/18/22 01/18/22 History cyanocobalamin (vitamin B-12) 1,000 mcg PO DAILY@03/18/21 01/18/22 12/28/21 History 1,000 mcg capsule folic acid 1 mg tablet 1 mg PO DAILY@03/18/21 01/18/22 12/28/21 History pantoprazole 40 mg tablet,delayed 40 mg PO BEDTIME 03/18/21 01/18/22 12/28/21 History release furosemide 40 mg tablet 40 mg PO DAILY 05/23/21 01/18/22 12/28/21 History magnesium oxide 400 mg (241.3 mg 400 mg PO DAILY 12/29/21 01/18/22 12/28/21 History magnesium) tablet (MagOx) ondansetron HCl 4 mg tablet 4 mg PO Q6H PRN nausea 12/29/21 01/18/22 Unknown History albuterol sulfate 90 mcg/actuation 2 puff inhalation Q4H PRN 01/18/22 01/18/22 Unknown History aerosol inhaler Shortness Of Breath ascorbic acid (vitamin C) 500 mg 500 mg PO BID 01/18/22 01/18/22 Unknown History tablet (Vitamin C) cholecalciferol (vitamin D3) 25 25 mcg PO DAILY 01/18/22 01/18/22 Unknown History mcg (1,000 unit) capsule (Vitamin D3) ferrous sulfate 325 mg (65 mg 325 mg PO DAILY 01/18/22 01/18/22 Unknown History iron) tablet (iron) fluticasone 250 mcg-salmeterol 50 1 inh inhalation BID 01/18/22 01/18/22 Unknown History mcg/dose blistr powdr for inhalation (Advair Diskus) nitroglycerin 0.4 mg sublingual 0.4 mg sublingual Q5M PRN Chest 01/18/22 01/18/22 01/18/22 10:30 History tablet (Nitrostat) Pain spironolactone 25 mg tablet 25 mg PO DAILY 01/18/22 01/18/22 Unknown History tamsulosin 0.4 mg capsule (Flomax) 0.4 mg PO BEDTIME 01/18/22 01/18/22 Unknown History thiamine HCl (vitamin B1) 100 mg 100 mg PO DAILY 01/18/22 01/18/22 Unknown History tablet (Vitamin B-1) triamcinolone acetonide 0.1 % 1 applic topical BID PRN Rash 01/18/22 01/18/22 Unknown History topical cream zinc 50 mg tablet 50 mg PO DAILY 01/18/22 01/18/22 Unknown History Allergies Allergy/AdvReac Type Severity Reaction Status Date / Time Sulfa (Sulfonamide Allergy Unknown Verified 01/18/22 14:53 Antibiotics) PFSH Acute PFSH: Medical History CAD (coronary artery disease) COPD (chronic obstructive pulmonary disease) COVID-19 vaccine administered J&J CVA (cerebral vascular accident) Right MCA, left weakness Heart failure EF 65% last echo Hyperlipidemia Hypertension Nicotine dependence Pancreatitis Surgical History History of coronary artery stent placement History of nasal surgery Family History Other Stroke Social History Additional social history: History of tobacco use, alcohol use, no drugs. Recently DC to [facility] and unclear if continues to drink and smoke regularly. Vitals/I&O/Wt Last Vital Signs Temp 97.4 F L 06/25/22 06:09 Pulse 96 06/25/22 06:09 Resp 18 06/25/22 06:09 BP 102/64 06/25/22 06:09 Pulse Ox 97 06/25/22 06:09 O2 Del Method 06/25/22 04:47 06/24/22 06/25/22 06/25/22 22:59 06:59 14:59 Intake Total 470 / 470 Balance 470 / 470 Weight last 48 hrs Weight 75.75 kg Physical Exam Narrative: General: No acute distress, AO x3 HEENT: PERRLA, pupils bilaterally equal and reactive, pallors + Chest: Normal vesicular breath sounds, no added sounds, equal good air entry bilaterally CVS: S1-S2 regular, no murmurs, no tachycardia, no gallops, no rubs Abdomen: Soft, nontender, no organomegaly, bowel sounds present Neuro: No focal deficits, no facial deformity, AO x3, power 5/5 in all limbs Data 06/25/22 02:29 06/25/22 02:29 A&P Assessment and plan (1) Pancreatitis: (2) Cirrhosis: (3) GI bleeding: (4) Anemia: Plan 76-year-old male with hepatic cirrhosis presenting today with anemia, hemoglobin 5.1, FOBT positive. Brown stool noted in the ER. Also reports abdominal distention and pain, consistent with clinical impression of mild pancreatitis. 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 2 PRBC ordered trend H&H every 6 hrs no intraabdominal bleed protonix 8mg/hr infusion Gen surg consult CIWa protocol for alcohol withdrawal prn morphine for pain control NPO for pancreatitis and GI bleed Holding antihypertensives for now Attestations Medical Necessity Statement*: anticipate >2midnight admission for gi bleeding, blood transfusion, possible UGIE and colonoscopy, pancreatitis Coding Level of Care Code Acute [place] [employer] for [facility] Fw Diagnoses Pancreatitis K85.90 Cirrhosis K74.60 GI bleeding K92.2 Anemia D64.9
[2022-06-25 07:46] LABS: Urine Appearance Clear (CLEAR); Urine Color Amber (Yellow)
[2022-06-25 07:47] LABS: Bilirubin Urine 1+ (Negative); Blood Urine Neg (Negative); Glucose Urine UA Norm (Normal); Ketones Urine 1+ (Negative); Leukocyte Esterase Urine Negative (Negative); Nitrate Urine Negative (Negative); Protein Urine 2+ (Negative); Urobilinogen Urine 4 mg/dL (Negative); pH Urine 5 (5-7)
[2022-06-25] MEDS: budesonide 0.5 mg/2 mL Neb INHALATION ×2 (07:49→20:42)
[2022-06-25] MEDS: ipratropium-albuterol 3 mL Neb INHALATION ×3 (07:49→20:42)
[2022-06-25 07:59] LABS: Add Urine Culture? No
[2022-06-25] MEDS: pantoprazole 40 mg SDV 80 MG IVP (08:08)
[2022-06-25] MEDS: multivitamin therapeutic Tablet 1 TAB PO (08:09)
[2022-06-25] MEDS: folic acid 1 mg Tablet PO (08:09)
[2022-06-25] MEDS: thiamine 100 mg Tablet PO (08:10)
[2022-06-25] MEDS: sodium chloride 0.9% 1,000 ML 75 ML IV (09:21)
[2022-06-25] MEDS: pantoprazole 40 MG in sodium chloride 0.9% (plus) 100 ML 20 MG IV ×3 (09:22→19:54)
[2022-06-25 10:06] LABS: Hematocrit 22.1 % (42.0-52.0); Hemoglobin 7.1 g/dL (11.7-16.6)
[2022-06-25] MEDS: sucralfate 1 gm Tablet PO ×3 (10:48→19:54)
[2022-06-25] MEDS: sodium chloride 0.9% (100 ml) 100 ML 150 ML (13:41)
--- NOTE | 2022-06-25 16:18 | P.PN_ITS ---
Subjective Subjective: Patient was seen this morning, denies any bloody or black stools, no lightheadedness, dizziness, no nausea, vomiting Vitals/I&O/Wt Last Vital Signs Temp 98.4 F 06/25/22 13:45 Pulse 91 06/25/22 14:34 Resp 18 06/25/22 14:30 BP 102/62 06/25/22 13:45 Pulse Ox 96 06/25/22 14:30 O2 Del Method 06/25/22 14:30 06/25/22 06/25/22 06/25/22 06:59 14:59 22:59 Intake Total 470 / 470 550 / 550 Balance 470 / 470 550 / 550 Weight last 48 hrs Weight 75.75 kg Weight 75.75 kg Physical Exam Const: COMMON NORMALS: no acute distress and patient oriented x3 Resp: COMMON NORMALS: normal respiratory effort, No retractions, No use of accessory muscles and clear to auscultation bilaterally AUSCULTATION: clear to auscultation bilaterally Cardio: COMMON NORMALS: regular rate, regular rhythm, S1 normal heart sound present and S2 normal heart sound present RATE: regular rate RHYTHM: regular rhythm HEART SOUNDS: S1 normal heart sound present and S2 normal heart sound present GI: COMMON NORMALS: Normal to inspection, nondistended, normoactive bowel sounds present and non-tender Extremity: COMMON NORMALS: no pedal edema Neuro: COMMON NORMALS: patient oriented x3 Psych: COMMON NORMALS: mental status grossly normal Data 06/25/22 09:52 06/25/22 02:29 A&P Assessment and plan (1) Pancreatitis: (2) Cirrhosis: (3) GI bleeding: (4) Anemia: Plan 76-year-old male with hepatic cirrhosis presenting today with anemia, hemoglobin 5.1, FOBT positive. Brown stool noted in the ER. Also reports abdominal distention and pain, consistent with clinical impression of mild pancreatitis. 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 Status post 3 units PRBC, monitor hemoglobin trend H&H every 6 hrs no intraabdominal bleed protonix 8mg/hr infusion, Carafate Gen surg consult [place] protocol for alcohol withdrawal prn morphine for pain control IV fluids for JIHAN Monitor LFTs, monitor bili Monitor hemodynamics NPO for pancreatitis and GI bleed Holding antihypertensives for now Attestations Medical Necessity Statement*: Patient requires hospitalization for pancreatitis, cirrhosis, GI bleed Coding Level of Care Code Acute [employer] Database Architect for Chg Fwd Diagnoses Pancreatitis K85.90 Cirrhosis K74.60 GI bleeding K92.2 Anemia D64.9
--- NOTE | 2022-06-25 17:29 | PM.CONSULT ---
Providers/Reason For Consult Consulting Physician/Specialty*: Rodrigo Cardona MD Reason for Consult*: GI bleed Requesting Physician: Attending Physician: Ovidio Kimbrough MD Primary Care Provider: Tri Robles MD History of Present Illness History of Present Illness Mr. Kyler Boyce is a 76 year old male was admitted to the hospitalist service with history of few days of abdominal bloating. Patient came to the ER yesterday with history of chronic alcoholism and pancreatitis. Also gets intermittent paracentesis. Further work-up in the ER showed a hemoglobin of 5. Patient today mentions to me that he had hematemesis last Thursday that was unwitnessed except by himself and had occult blood positive in stool per hospitalist service. Patient had previous endoscopies before but no details available. Except that he mentioned that they were normal. Serum lipase 1384. CT of the abdomen pelvis was done and showed 1. Hepatic cirrhosis and diffuse fatty infiltration of the liver. 2. Cholelithiasis. 3. Subtle peripancreatic fat stranding suggesting possible mild pancreatitis. 4. Colonic diverticulosis without CT evidence of diverticulitis. 5. Mildly thickened urinary bladder which may be secondary to incomplete distention versus cystitis/UTI. 6. Atherosclerotic vascular disease including coronary artery disease. 7. 3.1 cm AP diameter distal abdominal aortic aneurysm. General surgery was consulted for further evaluation. Patient reports further to me that he has black stool. Calculated MELD score: 19 points with estimated 3-month mortality 6.0% Review of Systems General: Reports: 10 or more systems reviewed and unremarkable except in HPI and below Medications/Allergies Home Medications Medication Instructions Recorded Confirmed Last Taken Type atorvastatin 40 mg tablet (Lipitor) 40 mg PO BEDTIME 03/04/21 06/25/22 12/28/21 History amlodipine 10 mg tablet 10 mg PO QAM 03/18/21 06/25/22 01/18/22 History cyanocobalamin (vitamin B-12) 1,000 mcg PO DAILY@03/18/21 06/25/22 12/28/21 History 1,000 mcg capsule folic acid 1 mg tablet 1 mg PO DAILY@03/18/21 06/25/22 12/28/21 History pantoprazole 40 mg tablet,delayed 40 mg PO BEDTIME 03/18/21 06/25/22 12/28/21 History release furosemide 40 mg tablet 40 mg PO DAILY 05/23/21 06/25/22 12/28/21 History magnesium oxide 400 mg (241.3 mg 400 mg PO DAILY 12/29/21 06/25/22 12/28/21 History magnesium) tablet (MagOx) albuterol sulfate 90 mcg/actuation 2 puff inhalation Q4H PRN 01/18/22 06/25/22 Unknown History aerosol inhaler Shortness Of Breath ascorbic acid (vitamin C) 500 mg 500 mg PO BID 01/18/22 06/25/22 Unknown History tablet (Vitamin C) cholecalciferol (vitamin D3) 25 25 mcg PO DAILY 01/18/22 06/25/22 Unknown History mcg (1,000 unit) capsule (Vitamin D3) nitroglycerin 0.4 mg sublingual 0.4 mg sublingual Q5M PRN Chest 01/18/22 06/25/22 01/18/22 10:30 History tablet (Nitrostat) Pain spironolactone 25 mg tablet 25 mg PO DAILY 01/18/22 06/25/22 Unknown History tamsulosin 0.4 mg capsule (Flomax) 0.4 mg PO BEDTIME 01/18/22 06/25/22 Unknown History thiamine HCl (vitamin B1) 100 mg 100 mg PO DAILY 01/18/22 06/25/22 Unknown History tablet (Vitamin B-1) aspirin 81 mg tablet,delayed 81 mg PO DAILY 06/25/22 06/25/22 Unknown History release zinc acetate 50 mg (zinc) capsule 50 mg PO DAILY 06/25/22 06/25/22 Unknown History Allergies Allergy/AdvReac Type Severity Reaction Status Date / Time Sulfa (Sulfonamide Allergy Unknown Verified 06/25/22 17:32 Antibiotics) Current Medications Generic Name Dose Route Start Last Admin Trade Name Freq PRN Reason Stop Dose Admin Albuterol/Ipratropium 3 ml 06/25/22 07:30 06/25/22 14:30 Ipratropium-Albuterol 3 Ml Neb INHALATION 3 ml Q6H JOSÉ MIGUEL Administration Budesonide 0.5 mg 06/25/22 08:00 06/25/22 07:49 Budesonide 0.5 Mg/2 Ml Neb INHALATION 0.5 mg BID.RESPIRATORY JOSÉ MIGUEL Administration Folic Acid 1 mg 06/25/22 09:00 06/25/22 08:09 Folic Acid 1 Mg Tablet PO 1 mg DAILY JOSÉ MIGUEL Administration Pantoprazole Sodium 40 mg/ 100 mls @ 20 mls/hr 06/25/22 07:15 06/25/22 14:56 Sodium Chloride IV 8 mg/hr .Q5H JOSÉ MIGUEL 20 mls/hr Administration 8 MG/HR Sodium Chloride 1,000 mls @ 75 mls/hr 06/25/22 09:15 06/25/22 09:21 Sodium Chloride 0.9% IV 75 mls/hr .[id number] JOSÉ MIGUEL Administration Multivitamins Therapeutic 1 tab 06/25/22 09:00 06/25/22 08:09 Multivitamin Therapeutic Tablet PO 1 tab DAILY JOSÉ MIGUEL Administration Sucralfate 1 gm 06/25/22 11:00 06/25/22 10:48 Sucralfate 1 Gm Tablet PO 1 gm AC&BEDTIME JOSÉ MIGUEL Administration Thiamine Mononitrate 100 mg 06/25/22 09:00 06/25/22 08:10 Thiamine 100 Mg Tablet PO 100 mg DAILY JOSÉ MIGUEL Administration PFSH Acute PFSH: Medical History CAD (coronary artery disease) COPD (chronic obstructive pulmonary disease) COVID-19 vaccine administered J&J CVA (cerebral vascular accident) Right MCA, left weakness Heart failure EF 65% last echo Hyperlipidemia Hypertension Nicotine dependence Pancreatitis Surgical History History of coronary artery stent placement History of nasal surgery Family History Other Stroke Social History Additional social history: History of tobacco use, alcohol use, no drugs. Recently DC to [facility] and unclear if continues to drink and smoke regularly. Vitals/I&O/Wt Last Vital Signs Temp 98.2 F 06/25/22 16:00 Pulse 84 06/25/22 16:00 Resp 16 06/25/22 16:00 BP 107/72 06/25/22 16:00 Pulse Ox 97 06/25/22 16:00 O2 Del Method 06/25/22 16:00 06/25/22 06/25/22 06/25/22 06:59 14:59 22:59 Intake Total 470 / 470 550 / 550 Balance 470 / 470 550 / 550 Weight last 48 hrs Weight 167 lb Weight 167 lb Physical Exam Const: COMMON NORMALS: no acute distress and patient oriented x3 GENERAL APPEARANCE: cooperative ORIENTATION/CONSCIOUSNESS: Yes awake, Yes oriented to person, Yes oriented to place and Yes oriented to time HENMT: COMMON NORMALS: normocephalic HEAD & SCALP: normocephalic Eye: COMMON NORMALS: Equal, round and reactive pupils present, negative for conjunctivae normal (Jaundiced) and negative for no scleral icterus CONJUNCTIVA: No conjunctivae normal (Jaundiced) PUPIL: Yes Equal, round and reactive pupils present Lymph: LYMPHATIC: no lymphadenopathy noted Chest: COMMONS NORMALS: normal inspection of the chest Resp: COMMON NORMALS: normal respiratory effort and clear to auscultation bilaterally AUSCULTATION: clear to auscultation bilaterally Cardio: COMMON NORMALS: S1 normal heart sound present and S2 normal heart sound present; negative for No murmurs present (Cardio) HEART SOUNDS: S1 normal heart sound present and S2 normal heart sound present GI: COMMON NORMALS: Soft to palpation; negative for No hepatosplenomegaly present INSPECTION: Yes normal to inspection PALPATION: Yes Soft to palpation, No Firmness to palpation present (GI), Yes Tenderness to palpation present (GI) (Mild tenderness in epigastric area.), No Guarding due to palpation present (GI), No Rigid due to palpation, No No hepatosplenomegaly present, Yes Hepatomegaly present and Yes Splenomegaly present Neuro: COMMON NORMALS: patient oriented x3 SENSORIUM/ORIENTATION: Yes oriented to person, Yes oriented to place and Yes oriented to time Psych: COMMON NORMALS: mental status grossly normal Skin: COMMON NORMALS: no rashes or lesions noted GENERAL SKIN EXAM: no rashes or lesions noted Data 06/25/22 09:52 06/25/22 02:29 A&P Assessment and plan (1) GI bleeding: Plan of care; After thorough history and physical examination and reviewing the chart and images with my personal interpretation showing liver cirrhosis and splenomegaly, plan to perform a diagnostic esophagogastroduodenoscopy with possible biopsy in the GI lab at some point when medicall appropriate. All questions have been answered and all concerns have been addressed to patient's satisfaction. We will follow on normalization of lipase prior to any invasive procedure Patient can have clear liquid diet for now keep him n.p.o. 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
[2022-06-25 18:31] LABS: Hematocrit 26.1 % (42.0-52.0); Hemoglobin 8.7 g/dL (11.7-16.6)
[2022-06-26] VITALS (13 sets, daily range): BP systolic 120–156; BP diastolic 66–97; PULSE 84–104; RESP 15–18; TEMP 36.4–37.1; O2SAT 90–97
[2022-06-26 00:10] LABS: Hemoglobin 8.3 g/dL (11.7-16.6)
[2022-06-26] MEDS: pantoprazole 40 MG in sodium chloride 0.9% (plus) 100 ML 20 MG IV ×2 (01:05→05:55)
[2022-06-26] MEDS: sodium chloride 0.9% 1,000 ML 75 ML IV (01:06)
[2022-06-26] MEDS: ipratropium-albuterol 3 mL Neb INHALATION ×3 (02:49→13:48)
[2022-06-26 05:01] LABS: Basophils % 0.2 %; Eosinophils # 0.1 10^3/uL (0.0-0.8); Eosinophils % 1.2 %; Hematocrit 26.1 % (42.0-52.0); Hemoglobin 8.5 g/dL (11.7-16.6); Lymphocytes # 0.6 10^3/uL (0.8-4.8); Lymphocytes % 9.3 %; Mean Corpuscular HGB Conc 32.6 g/dL (30.0-36.0); Mean Corpuscular Hemoglobin 33.5 pg (28.0-34.0); Mean Corpuscular Volume 102.8 fl (80-94); Mean Platelet Volume 10.2 fL (7.4-10.4); Monocytes # 0.7 10^3/uL (0.2-0.9); Monocytes % 11.8 %; Neutrophils # 4.48 10^3/uL (1.8-7.7); Neutrophils % 75.6 %; Nucleated Red Blood Cells # 0.1 /100WBC; Nucleated Red Blood Cells % 0.8 %; Platelet Count 179 10^3/cmm (130-400); Red Blood Count 2.54 10^6/uL (4.1-5.3); Red Cell Distribution Width 26.6 % (12.1-15.1); White Blood Count 5.9 10^3/uL (4.0-10.0)
[2022-06-26 05:12] LABS: INR 1.18 (0.8-1.2)
[2022-06-26 05:28] LABS: Alanine Aminotransferase 25 U/L (0-41); Albumin Level 2.8 g/dL (3.5-5.2); Alkaline Phosphatase 236 U/L (40-130); Anion Gap 17.3 (5-19); Aspartate Amino Transferase 76 U/L (0-40); Blood Urea Nitrogen 39 mg/dL (8-23); C Reactive Protein 74.7 mg/L (0.0-4.9); Calcium 8.3 mg/dL (8.5-10.5); Carbon Dioxide 21 mmol/L (22-29); Chloride 105 mmol/L (98-107); Globulin 2.8 g/dL (1.3-4.6); Glucose 112 mg/dL (65-115); Magnesium 1.3 mg/dL (1.7-2.3); NT Pro B Type Natriuretic Pept 5088 pg/mL (0-125); Osmolality Calculated 298 mOsm/kg (285-295); Potassium 4.3 mmol/L (3.5-5.1); Sodium 139 mmol/L (136-145); Total Bilirubin 3.1 mg/dL (0.15-1.2); Total Protein 5.6 g/dL (6.6-8.7)
[2022-06-26 07:06] LABS: Lipase 599 U/L (13-60)
--- NOTE | 2022-06-26 08:14 | XR_ITS ---
WS: [id number] Exam: XR chest 1V portable [id number] Date/Time of Exam: 06/26/2022 8:42 AM Reason For Exam: sob Comparison 06/25/2022. The lungs are clear and fully inflated. Unremarkable cardiomediastinal silhouette. Bony structures ar e intact. No pleural effusions. Monitoring leads superimpose the chest. XR/XR chest 1V portable [id number] IMPRESSION: 1. No acute cardiac pulmonary finding. No change.
--- NOTE | 2022-06-26 08:19 | ECG_ITS ---
[facility] Test Date: 2022-06-26 Pat Name: Kyler Boyce Department: Room: 251 Gender: Male Material Analyst: : 1945 Requested By: Ovidio Kimbrough Order Number: [id number] Shade MD: Crhis Marin M.D. Measurements Intervals [place] Rate: 95 P: 86 IN: 204 QRS: -2 QRSD: 117 T: 17 QT: 382 QTc: 481 Interpretive Statements SINUS RHYTHM WITH MARKED SINUS ARRHYTHMIA INCOMPLETE RIGHT BUNDLE BRANCH BLOCK [90+ ms QRS DURATION, TERMINAL R IN V1/V2, 40+ ms S IN I/aVL/V4/V5/V6] SEPTAL MYOCARDIAL INFARCTION , OF INDETERMINATE AGE [40+ ms Q WAVE IN V1/V2] INFERIOR MYOCARDIAL INFARCTION , OF INDETERMINATE AGE [40+ ms Q WAVE AND/OR ST/T ABNORMALITY IN II/aVF] Compared to ECG 06/25/2022 02:51:03 Incomplete right bundle-branch block now present First degree AV block no longer present Intraventricular conduction delay no longer present Myocardial infarct finding still present Electronically Signed On 06-27-2022 6:27:04 LASTER HAND by Chris Marin M.D. [id number]
[2022-06-26] MEDS: budesonide 0.5 mg/2 mL Neb INHALATION (08:25)
--- NOTE | 2022-06-26 09:13 | USCV_ITS ---
Kyler Boyce Age: 76 Gender: M : 1945 Exam Date: 06/26/2022 13:24 Ordering Phys: Ovidio Kimbrough MD Technologist: Giorgi Orr [place] [facility] [place]: shord of breath BP: 132 / 70 HR: 99 Rhythm: Sinus Technical Quality: Adequate MEASUREMENTS (Male / Female) Normal Values 2D ECHO LV Diastolic Diameter PLAX 4.1 cm 4.2 - 5.9 / 3.9 - 5.3 cm LV Systolic Diameter PLAX 2.5 cm IVS Diastolic Thickness 1.5 cm 0.6 - 1.0 / 0.6 - 0.9 cm IVS Systolic Thickness 1.8 cm LVPW Diastolic Thickness 1.1 cm 0.6 - 1.0 / 0.6 - 0.9 cm LVPW Systolic Thickness 1.5 cm LVOT Diameter 2.1 cm LV Ejection Fraction 2D Teich 68.6 % LV Ejection Fraction MOD 2C 68.4 % LV Ejection Fraction 2C AL 69.1 % LA Diameter 4.1 cm M-MODE Aortic Annulus Diameter 4.3 cm LA Ao Ratio MM 1.1 MV E Point Septal Separation 0.8 cm DOPPLER AV Peak Velocity 224.3 cm/s LVOT Peak Velocity 134.0 cm/s AV Area Cont Eq vti 2.7 cm squared AV Area Cont Eq pk 2.0 cm squared MV Area PHT 5.0 cm squared Mitral E to A Ratio 0.6 MV E' Velocity 46.5 cm/s Mitral E to MV E' Ratio 9.3 Mitral E to LV E' Lateral Ratio 8.0 Mitral E to LV E' Septal Ratio 11.3 TR Peak Velocity 292.0 cm/s TR Peak Gradient 34.1 mmHg RV Acceleration Time 0.2 s FINDINGS Left Ventricle Normal left ventricular size and systolic function, EF 62 %. No regional wall motion abnormalities. Mild left ventricular hypertrophy. Grade I/IV diastolic dysfunction (abnormal relaxation filling pattern), normal to mildly elevated filling pressures. Right Ventricle The right ventricle is normal in size and function. Right Atrium The right atrium is normal in size. Left Atrium The left atrium is normal in size. Mitral Valve Thickened mitral valve. Moderate mitral annular calcification. Aortic Valve Thickened aortic valve. Mild aortic valve regurgitation. Tricuspid Valve Trace tricuspid valve regurgitation. Pulmonic Valve Pulmonic valve not well visualized. Pericardium Normal pericardium without effusion. Aorta Normal aortic annulus size. IVC Normal inferior vena cava. CONCLUSIONS Normal left ventricular size and systolic function, EF 62 %. No regional wall motion abnormalities. Mild left ventricular hypertrophy. Grade I/IV diastolic dysfunction (abnormal relaxation filling pattern), normal to mildly elevated filling pressures. Thickened mitral valve. Moderate mitral annular calcification. Thickened aortic valve. Mild aortic valve regurgitation. Trace tricuspid valve regurgitation. There is no pericardial effusion. There are no intracardiac masses. Compared to the study from 02/23/2017, there may not be a significant change Dr Maeve Andre MD FACC (Electronically Signed) Final Date: 26 June 2022 21:23 S
[2022-06-26] MEDS: FUROsemide 10 mg/mL SDV 4mL 40 MG IVP (09:32)
[2022-06-26 09:34] LABS: Troponin(5th) Baseline 67 ng/L (0-15)
[2022-06-26] MEDS: magnesium sulfate premix 4 GM/100 ML PREMIX IV (09:41)
[2022-06-26] MEDS: thiamine 100 mg Tablet PO (09:57)
[2022-06-26] MEDS: folic acid 1 mg Tablet PO (09:57)
[2022-06-26] MEDS: multivitamin therapeutic Tablet 1 TAB PO (09:57)
--- NOTE | 2022-06-26 10:09 | P.PN_ITS ---
Subjective Subjective: Patient was seen this morning, denies any chest pain, no shortness of breath, is on 2 L, his abdominal pain is significantly improved, no nausea, no vomiting, no lightheadedness, dizziness, no bloody or black stools, no bloody vomit Vitals/I&O/Wt Last Vital Signs Temp 97.8 F 06/26/22 07:54 Pulse 90 06/26/22 08:00 Resp 16 06/26/22 08:00 BP 120/68 06/26/22 07:54 Pulse Ox 96 06/26/22 08:00 O2 Del Method 06/26/22 08:00 06/25/22 06/26/22 06/26/22 22:59 06:59 14:59 Intake Total 1689.333 / 2239.333 196.667 / 2436.000 Balance 1689.333 / 2239.333 196.667 / 2436.000 Weight last 48 hrs Weight 75.75 kg Weight 75.75 kg Physical Exam Const: COMMON NORMALS: no acute distress and patient oriented x3 Resp: COMMON NORMALS: normal respiratory effort, No retractions, No use of accessory muscles and clear to auscultation bilaterally AUSCULTATION: clear to auscultation bilaterally Cardio: COMMON NORMALS: regular rate, regular rhythm, S1 normal heart sound present and S2 normal heart sound present RATE: regular rate RHYTHM: regular rhythm HEART SOUNDS: S1 normal heart sound present and S2 normal heart sound present GI: COMMON NORMALS: Normal to inspection, nondistended, normoactive bowel sounds present OTHER: Has some epigastric tenderness Extremity: COMMON NORMALS: no pedal edema Neuro: COMMON NORMALS: patient oriented x3 Psych: COMMON NORMALS: mental status grossly normal Data 06/26/22 04:32 06/26/22 04:32 A&P Assessment and plan (1) Pancreatitis: (2) Cirrhosis: (3) GI bleeding: (4) Anemia: (5) Hypomagnesemia: (6) NSTEMI (non-ST elevated myocardial infarction): (7) CAD (coronary artery disease): Qualifiers: Associated angina: without angina Coronary Disease-Associated Artery/Lesion type: [place] artery [place] vs. transplanted heart: [place] heart Qualified Code(s): I25.10 - Atherosclerotic heart disease of [place] coronary artery without angina pectoris Plan 76-year-old male with hepatic cirrhosis presenting today with anemia, hemoglobin 5.1, FOBT positive. Brown stool noted in the ER. Also reports abdominal distention and pain, consistent with clinical impression of mild pancreatitis. 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 Status post 3 units PRBC, monitor hemoglobin, 8.5 trend H&H every 6 hrs no intraabdominal bleed Stop Protonix drip, due to concerns for fluid overload, switch to IV push Protonix, with p.o. Carafate Gen surg consult [facility] protocol for alcohol withdrawal prn morphine for pain control Hold off on IV fluids, monitor creatinine Monitor LFTs, monitor bili Monitor hemodynamics NPO for pancreatitis and GI bleed, possible EGD tomorrow morning Holding antihypertensives for now NSTEMI -Serial EKGs serial troponins, telemetry monitoring -Hold off on aspirin -EKG shows right bundle branch block, sinus arrhythmia -Status post history of stenting -No chest pain, no palpitations, no shortness of breath -We will order echo gram Hypomagnesemia, replace magnesium level Check phosphorus levels JIHAN, monitor creatinine with Lasix Elevated BNP, chest x-ray no pneumonia, no fluid overload, but as he is received fluids and Protonix drip we will give him a dose of Lasix Anemia studies Attestations Medical Necessity Statement*: Patient requires hospitalization for pancreatitis, GI bleed Coding Level of Care Code Acute Data Sme for [facility] Fwd Diagnoses Pancreatitis K85.90 Cirrhosis K74.60 GI bleeding K92.2 Anemia D64.9 Hypomagnesemia E83.42 NSTEMI (non-ST elevated myocardial infarction) I21.4 CAD (coronary artery disease) I25.10 Associated angina: without angina Coronary Disease-Associated Artery/Lesion type: [place] artery [place] vs. transplanted heart: [place] heart
--- NOTE | 2022-06-26 10:42 | ECG_ITS ---
[facility] Test Date: 2022-06-26 Pat Name: Kyler Boyce Department: Room: 251 Gender: Male Fashion Journalist: : 1945 Requested By: Ovidio Kimbrough Order Number: [id number] Shade MD: Chris Marin M.D. Measurements Intervals [place] Rate: 99 P: 91 ME: 195 QRS: -9 QRSD: 126 T: 22 QT: 378 QTc: 486 Interpretive Statements SINUS RHYTHM WITH OCCASIONAL SUPRAVENTRICULAR PREMATURE COMPLEXES POSSIBLE RIGHT VENTRICULAR CONDUCTION DELAY [RSR (QR) IN V1/V2] INFERIOR MYOCARDIAL INFARCTION , PROBABLY OLD [40+ ms Q WAVE AND/OR ST/T ABNORMALITY IN II/aVF] ANTEROSEPTAL MYOCARDIAL INFARCTION , OF INDETERMINATE AGE [40+ ms Q WAVE IN V1-V4] Compared to ECG 06/26/2022 08:24:55 Sinus arrhythmia no longer present Incomplete right bundle-branch block no longer present Myocardial infarct finding still present Electronically Signed On 06-27-2022 6:33:00 SMT TECHNICIAN by Chris Marin M.D. [id number]
[2022-06-26 12:10] LABS: Troponin 5 2HR 68.06 ng/L (0-15); Troponin 5 2HR Delta 1.06 ABS# (0-10)
[2022-06-26] MEDS: sucralfate 1 gm Tablet PO ×3 (12:17→20:40)
[2022-06-26 12:19] LABS: Phosphorus 1.6 mg/dL (2.5-4.5)
[2022-06-26 12:29] LABS: Ferritin 964 ng/mL (30-400); Iron 29 ug/dL (59-158); Percent Saturation 18.5 % (20-50); Total Iron Binding Capacity 156 mcg/dl; Unsaturated Iron Binding 127 ug/dL (112-347)
[2022-06-26 12:52] LABS: Folate Level > 20.0 ng/mL (4.5-32.2)
[2022-06-26 13:00] LABS: Vitamin B12 > 2000 pg/mL (232-1245)
[2022-06-26 13:07] LABS: LAB Peripheral Smear Sent for Review
--- NOTE | 2022-06-26 14:19 | ECG_ITS ---
[facility] Test Date: 2022-06-26 Pat Name: Kyler Boyce Department: Room: 251 Gender: Male Legislative Correspondent: : 1945 Requested By: Ovidio Kimbrough Order Number: [id number] Shade MD: Chris Marin M.D. Measurements Intervals [place] Rate: 101 P: 8 DE: 196 QRS: -16 QRSD: 142 T: -4 QT: 389 QTc: 506 Interpretive Statements SINUS TACHYCARDIA RIGHT BUNDLE BRANCH BLOCK [120+ ms QRS DURATION, UPRIGHT V1, 40+ ms S IN I/aVL/V4/V5/V6] ANTERIOR MYOCARDIAL INFARCTION , OF INDETERMINATE AGE [40+ ms Q WAVE AND/OR ST/T ABNORMALITY IN V3/V4] Compared to ECG 06/26/2022 10:42:51 Right bundle-branch block now present Sinus rhythm no longer present Myocardial infarct finding still present Electronically Signed On 06-27-2022 6:32:27 PEDIATRIC PHYSIATRIST by Chris Marin M.D. [id number]
[2022-06-26] MEDS: pantoprazole 40 mg SDV IVP (17:37)
[2022-06-26 18:08] LABS: Hematocrit 27.3 % (42.0-52.0); Hemoglobin 9.2 g/dL (11.7-16.6)
[2022-06-27] VITALS (9 sets, daily range): BP systolic 122–159; BP diastolic 66–77; PULSE 78–99; RESP 14–18; TEMP 36.5–36.7; O2SAT 96–98
[2022-06-27] MEDS: pantoprazole 40 mg SDV IVP ×2 (05:17→17:13)
[2022-06-27 05:25] LABS: Basophils % 0.5 %; Eosinophils # 0.1 10^3/uL (0.0-0.8); Eosinophils % 1.5 %; Hematocrit 25.5 % (42.0-52.0); Hemoglobin 8.4 g/dL (11.7-16.6); Lymphocytes # 0.6 10^3/uL (0.8-4.8); Mean Corpuscular HGB Conc 32.9 g/dL (30.0-36.0); Mean Corpuscular Hemoglobin 33.7 pg (28.0-34.0); Mean Corpuscular Volume 102.4 fl (80-94); Mean Platelet Volume 10.2 fL (7.4-10.4); Monocytes # 0.8 10^3/uL (0.2-0.9); Monocytes % 12.4 %; Neutrophils # 4.47 10^3/uL (1.8-7.7); Neutrophils % 73.6 %; Nucleated Red Blood Cells % 0.3 %; Platelet Count 184 10^3/cmm (130-400); Red Blood Count 2.49 10^6/uL (4.1-5.3); Red Cell Distribution Width 26.3 % (12.1-15.1); White Blood Count 6.1 10^3/uL (4.0-10.0)
[2022-06-27 05:42] LABS: INR 1.16 (0.8-1.2)
[2022-06-27 06:06] LABS: Alanine Aminotransferase 24 U/L (0-41); Albumin Level 2.4 g/dL (3.5-5.2); Alkaline Phosphatase 240 U/L (40-130); Anion Gap 14.6 (5-19); Aspartate Amino Transferase 85 U/L (0-40); Blood Urea Nitrogen 31 mg/dL (8-23); C Reactive Protein 61.8 mg/L (0.0-4.9); Calcium 8.2 mg/dL (8.5-10.5); Carbon Dioxide 22 mmol/L (22-29); Chloride 105 mmol/L (98-107); Glucose 102 mg/dL (65-115); Magnesium 1.8 mg/dL (1.7-2.3); NT Pro B Type Natriuretic Pept 3550 pg/mL (0-125); Osmolality Calculated 293 mOsm/kg (285-295); Phosphorus 1.3 mg/dL (2.5-4.5); Potassium 3.6 mmol/L (3.5-5.1); Sodium 138 mmol/L (136-145); Total Bilirubin 2.4 mg/dL (0.15-1.2); Total Protein 5.4 g/dL (6.6-8.7)
[2022-06-27] MEDS: thiamine 100 mg Tablet PO (08:48)
[2022-06-27] MEDS: FUROsemide 10 mg/mL SDV 4mL 40 MG IVP (08:48)
[2022-06-27] MEDS: folic acid 1 mg Tablet PO (08:48)
[2022-06-27] MEDS: multivitamin therapeutic Tablet 1 TAB PO (08:48)
[2022-06-27] MEDS: sucralfate 1 gm Tablet PO ×4 (08:48→20:48)
[2022-06-27 09:10] LABS: Lipase 494 U/L (13-60)
--- NOTE | 2022-06-27 14:44 | PM.PN ---
Subjective Subjective: Patient was seen this morning, he tells me that he does not have any chest pain, no shortness of breath, no lightheadedness, dizziness, no bloody or black stools Vitals/I&O/Wt Last Vital Signs Temp 97.7 F 06/27/22 11:31 Pulse 92 06/27/22 11:31 Resp 14 06/27/22 11:31 BP 133/76 06/27/22 11:31 Pulse Ox 98 06/27/22 11:31 O2 Del Method 06/27/22 11:31 06/26/22 06/27/22 06/27/22 22:59 06:59 14:59 Intake Total 600 / 1937.5 Output Total 250 / 250 300 / 550 150 / 150 Balance 350 / 1687.5 -300 / 1387.5 -150 / -150 Physical Exam Const: COMMON NORMALS: no acute distress and patient oriented x3 Resp: COMMON NORMALS: normal respiratory effort, No retractions, No use of accessory muscles and clear to auscultation bilaterally AUSCULTATION: clear to auscultation bilaterally Cardio: COMMON NORMALS: regular rate, regular rhythm, S1 normal heart sound present and S2 normal heart sound present RATE: regular rate RHYTHM: regular rhythm HEART SOUNDS: S1 normal heart sound present and S2 normal heart sound present GI: COMMON NORMALS: Normal to inspection, nondistended, normoactive bowel sounds present and non-tender Extremity: COMMON NORMALS: no pedal edema Neuro: COMMON NORMALS: patient oriented x3 Psych: COMMON NORMALS: mental status grossly normal Data 06/27/22 04:22 06/27/22 04:22 A&P Assessment and plan (1) Pancreatitis: (2) Cirrhosis: (3) GI bleeding: (4) Anemia: (5) Hypomagnesemia: (6) NSTEMI (non-ST elevated myocardial infarction): (7) CAD (coronary artery disease): Qualifiers: Associated angina: without angina Coronary Disease-Associated Artery/Lesion type: [place] artery [place] vs. transplanted heart: [place] heart Qualified Code(s): I25.10 - Atherosclerotic heart disease of [place] coronary artery without angina pectoris (8) Fluid overload: Plan 76-year-old male with hepatic cirrhosis presenting today with anemia, hemoglobin 5.1, FOBT positive. Brown stool noted in the ER. Also reports abdominal distention and pain, consistent with clinical impression of mild pancreatitis. 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 Status post 3 units PRBC, monitor hemoglobin, 8.4 Monitor hemoglobin no intraabdominal bleed Continue Protonix, Carafate General surgery hold off on EGD for now [facility] protocol for alcohol withdrawal prn morphine for pain control Hold off on IV fluids, monitor creatinine Monitor LFTs, monitor bili Monitor hemodynamics NPO for pancreatitis and GI bleed, possible EGD tomorrow morning Holding antihypertensives for now NSTEMI -Serial EKGs serial troponins, telemetry monitoring -Hold off on aspirin -EKG shows right bundle branch block, sinus arrhythmia -Status post history of stenting -No chest pain, no palpitations, no shortness of breath -We will order echo gram Hypomagnesemia, replace magnesium level Ferritin levels 964, iron 29, TIBC 56, percent saturation 18.5, JIHAN, monitor creatinine with Lasix Elevated BNP, chest x-ray no pneumonia, no fluid overload, but as he is received fluids and Protonix drip we will give him a dose of Lasix Anemia studies normal B12, normal folate, likely elevated ferritin as an acute phase reactant, will give IV Venofer 1 dose Attestations Medical Necessity Statement*: Patient requires hospitalization for pancreatitis, anemia, NSTEMI, fluid overload Coding Level of Care Code Acute Conservation Biology Professor for g Fwd Diagnoses Pancreatitis K85.90 Cirrhosis K74.60 GI bleeding K92.2 Anemia D64.9 Hypomagnesemia E83.42 NSTEMI (non-ST elevated myocardial infarction) I21.4 CAD (coronary artery disease) I25.10 Associated angina: without angina Coronary Disease-Associated Artery/Lesion type: [place] artery [place] vs. transplanted heart: [place] heart Fluid overload E87.70
[2022-06-27] MEDS: iron sucrose 200 MG in sodium chloride 0.9% (100 ml) 100 ML 220 MG IV (15:04)
--- NOTE | 2022-06-27 17:14 | P.PN_ITS ---
Subjective Subjective: Patient was seen and examined today. Overall seems to be clinically improving and no signs of bleeding. Per nursing staff patient had 2 bowel movements nonbloody nonmelanotic and being brown in color. Stable H&H. Trending slowly of lipase. Tolerating p.o. intake. Medications: Reviewed: Yes Vitals/I&O/Wt Last Vital Signs Temp 97.7 F 06/27/22 15:10 Pulse 99 06/27/22 15:10 Resp 14 06/27/22 15:10 BP 123/76 06/27/22 15:10 Pulse Ox 98 06/27/22 15:10 O2 Del Method 06/27/22 15:10 06/27/22 06/27/22 06/27/22 06:59 14:59 22:59 Intake Total 110 / 110 Output Total 300 / 550 150 / 150 Balance -300 / 1387.5 -150 / -150 110 / -40 Physical Exam Narrative: Patient is conscious alert oriented X3 No apparent distress BMI 23 Head and neck examination PERRLA no masses no cervical lymphadenopathy no j aundice Abdomen nontender nondistended soft no organomegaly guarding or rigidity/no signs of peritonitis Data 06/27/22 04:22 06/27/22 04:22 A&P Assessment and plan (1) Cirrhosis: Based on history taking, physical examination and patient's clinical progress. I do believe that the patient will benefit from hepatology consultation as an outpatient. And perhaps an EGD will be done at the same time to evaluate for potential underlying esophageal varices and management accordingly. There is no acute indication at this point for intervention. I Did discuss in length and in depth with the patient the plan of care and he agrees on the above. With emphasis on abstinence from alcohol ingestion. Particularly that his lipase still elevated and any invasive procedure at this point in the form of EGD may aggravate his pancreatitis. Assurance and education All questions have been answered and all concerns have been addressed to patient's satisfaction. Attestations Medical Necessity Statement*: Per admitting service per admitting service Coding Level of Care Code Acute Director Of Anesthesia Services for [facility] Fwd Diagnoses Cirrhosis K74.60
[2022-06-28] VITALS (10 sets, daily range): BP systolic 107–150; BP diastolic 64–77; PULSE 84–99; RESP 15–20; TEMP 36.5–36.8; O2SAT 96–99
[2022-06-28 05:27] LABS: Basophils % 0.7 %; Eosinophils # 0.1 10^3/uL (0.0-0.8); Eosinophils % 1.2 %; Hemoglobin 9.3 g/dL (11.7-16.6); Lymphocytes # 0.6 10^3/uL (0.8-4.8); Lymphocytes % 10.2 %; Mean Corpuscular HGB Conc 32.1 g/dL (30.0-36.0); Mean Corpuscular Hemoglobin 33.2 pg (28.0-34.0); Mean Corpuscular Volume 103.6 fl (80-94); Mean Platelet Volume 10.4 fL (7.4-10.4); Monocytes # 0.9 10^3/uL (0.2-0.9); Neutrophils # 4.15 10^3/uL (1.8-7.7); Neutrophils % 71.4 %; Nucleated Red Blood Cells % 0 %; Platelet Count 177 10^3/cmm (130-400); Red Cell Distribution Width 26.2 % (12.1-15.1); White Blood Count 5.8 10^3/uL (4.0-10.0)
[2022-06-28 05:36] LABS: INR 1.22 (0.8-1.2)
[2022-06-28 05:54] LABS: Alanine Aminotransferase 23 U/L (0-41); Albumin Level 2.6 g/dL (3.5-5.2); Alkaline Phosphatase 254 U/L (40-130); Anion Gap 16.5 (5-19); Aspartate Amino Transferase 85 U/L (0-40); Blood Urea Nitrogen 28 mg/dL (8-23); C Reactive Protein 54.2 mg/L (0.0-4.9); Calcium 8.3 mg/dL (8.5-10.5); Carbon Dioxide 21 mmol/L (22-29); Chloride 105 mmol/L (98-107); Globulin 2.9 g/dL (1.3-4.6); Glucose 100 mg/dL (65-115); Magnesium 1.7 mg/dL (1.7-2.3); NT Pro B Type Natriuretic Pept 3646 pg/mL (0-125); Osmolality Calculated 294 mOsm/kg (285-295); Phosphorus 1.9 mg/dL (2.5-4.5); Potassium 3.5 mmol/L (3.5-5.1); Sodium 139 mmol/L (136-145); Total Bilirubin 2.4 mg/dL (0.15-1.2); Total Protein 5.5 g/dL (6.6-8.7)
[2022-06-28] MEDS: sucralfate 1 gm Tablet PO ×4 (06:02→21:07)
[2022-06-28] MEDS: pantoprazole 40 mg SDV IVP ×2 (06:04→17:07)
[2022-06-28] MEDS: thiamine 100 mg Tablet PO (07:59)
[2022-06-28] MEDS: multivitamin therapeutic Tablet 1 TAB PO (07:59)
[2022-06-28] MEDS: folic acid 1 mg Tablet PO (07:59)
--- NOTE | 2022-06-28 10:15 | PC.SOCIAL ---
Pg 2 IMM Explained to pt Pg 2 IMM. No questions voiced. Provided pt a copy. Initialed, dated, & timed a copy & placed in chart.
[2022-06-28] MEDS: FUROsemide 40 mg Tablet PO (10:57)
[2022-06-28] MEDS: magnesium sulfate premix 2 GM/50 ML PIGGYBACK IV (10:57)
--- NOTE | 2022-06-28 13:09 | P.PN_ITS ---
Subjective Subjective: Patient was seen this morning, wants to be transitioned to the broad-spectrum diet, abdominal pain is minimal, no bloody or black stools Vitals/I&O/Wt Last Vital Signs Temp 98.3 F 06/28/22 12:00 Pulse 96 06/28/22 12:00 Resp 16 06/28/22 12:00 BP 136/75 06/28/22 12:00 Pulse Ox 97 06/28/22 12:00 O2 Del Method 06/28/22 12:00 06/27/22 06/28/22 06/28/22 22:59 06:59 14:59 Intake Total 230 / 230 480 / 710 360 / 360 Output Total 300 / 450 201 / 651 150 / 150 Balance -70 / -220 279 / 59 210 / 210 Physical Exam Const: COMMON NORMALS: no acute distress and patient oriented x3 Resp: COMMON NORMALS: normal respiratory effort, No retractions, No use of accessory muscles and clear to auscultation bilaterally AUSCULTATION: clear to auscultation bilaterally Cardio: COMMON NORMALS: regular rate, regular rhythm, S1 normal heart sound present and S2 normal heart sound present RATE: regular rate RHYTHM: regular rhythm HEART SOUNDS: S1 normal heart sound present and S2 normal heart sound present GI: COMMON NORMALS: Normal to inspection, nondistended, normoactive bowel sounds present and non-tender Extremity: COMMON NORMALS: no pedal edema Neuro: COMMON NORMALS: patient oriented x3 Psych: COMMON NORMALS: mental status grossly normal Data 06/28/22 04:24 06/28/22 04:24 A&P Assessment and plan (1) Pancreatitis: (2) Cirrhosis: (3) GI bleeding: (4) Anemia: (5) Hypomagnesemia: (6) NSTEMI (non-ST elevated myocardial infarction): (7) CAD (coronary artery disease): Qualifiers: Associated angina: without angina Coronary Disease-Associated Artery/Lesion type: [place] artery [place] vs. 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 Brown stool noted in the ER. Also reports abdominal distention and pain, consistent with clinical impression of mild pancreatitis. 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 Status post 3 units PRBC, monitor hemoglobin, 9.3 Monitor hemoglobin no intraabdominal bleed Continue Protonix, Carafate General surgery hold off on EGD for now [facility] protocol for alcohol withdrawal prn morphine for pain control Hold off on IV fluids, monitor creatinine Monitor LFTs, monitor bili Monitor hemodynamics Transition to GI soft diet for pancreatitis, abdominal pain minimal Holding antihypertensives for now NSTEMI -Serial EKGs serial troponins, telemetry monitoring -Hold off on aspirin -EKG shows right bundle branch block, sinus arrhythmia -Status post history of stenting -No chest pain, no palpitations, no shortness of breath -Cardiac echocardiogram -Normal left ventricular size and systolic function, EF 62 %. No ?regional wall motion abnormalities. Mild left ventricular ?hypertrophy. Grade I/IV diastolic dysfunction (abnormal ?relaxation filling pattern), normal to mildly elevated filling ?pressures. ?Thickened mitral valve. Moderate mitral annular calcification. ?Thickened aortic valve. Mild aortic valve regurgitation. ?Trace tricuspid valve regurgitation. ?There is no pericardial effusion. ?There are no intracardiac masses. ?Compared to the study from 02/23/2017, there may not be a ?significant change Hypomagnesemia, replace magnesium level Ferritin levels 964, iron 29, TIBC 56, percent saturation 18.5, status post 1 unit of Venofer JIHAN, monitor creatinine with Lasix Elevated BNP, chest x-ray no pneumonia, no fluid overload, continue Lasix 40 twice daily Anemia studies normal B12, normal folate, likely elevated ferritin as an acute phase reactant, status post 1 dose of Venofer. Attestations Medical Necessity Statement*: Patient requires hospitalization for fluid overload, GI bleed, pancreatitis Coding Level of Care Code Acute Trimmer And Reinforcer for [facility] Fwd Diagnoses Pancreatitis K85.90 Cirrhosis K74.60 GI bleeding K92.2 Anemia D64.9 Hypomagnesemia E83.42 NSTEMI (non-ST elevated myocardial infarction) I21.4 CAD (coronary artery disease) I25.10 Associated angina: without angina Coronary Disease-Associated Artery/Lesion type: [place] artery [place] vs. transplanted heart: [place] heart Fluid overload E87.70
[2022-06-29] VITALS (8 sets, daily range): BP systolic 132–152; BP diastolic 67–82; PULSE 80–114; RESP 16–20; TEMP 36.6–37.2; O2SAT 95–97
[2022-06-29] MEDS: pantoprazole 40 mg SDV IVP ×2 (06:04→17:36)
[2022-06-29] MEDS: sucralfate 1 gm Tablet PO ×4 (06:04→20:00)
[2022-06-29 06:24] LABS: Basophils % 0.3 %; Eosinophils # 0.1 10^3/uL (0.0-0.8); Hematocrit 29.5 % (42.0-52.0); Lymphocytes # 0.5 10^3/uL (0.8-4.8); Lymphocytes % 8.7 %; Mean Corpuscular HGB Conc 30.5 g/dL (30.0-36.0); Mean Corpuscular Hemoglobin 33.2 pg (28.0-34.0); Mean Corpuscular Volume 108.9 fl (80-94); Monocytes % 15.8 %; Neutrophils # 4.45 10^3/uL (1.8-7.7); Neutrophils % 73.1 %; Nucleated Red Blood Cells % 0 %; Platelet Count 156 10^3/cmm (130-400); Red Blood Count 2.71 10^6/uL (4.1-5.3); Red Cell Distribution Width 25.8 % (12.1-15.1); White Blood Count 6.1 10^3/uL (4.0-10.0)
[2022-06-29 06:53] LABS: Alanine Aminotransferase 23 U/L (0-41); Albumin Level 2.5 g/dL (3.5-5.2); Alkaline Phosphatase 263 U/L (40-130); Anion Gap 15.5 (5-19); Aspartate Amino Transferase 88 U/L (0-40); Blood Urea Nitrogen 27 mg/dL (8-23); Calcium 8.1 mg/dL (8.5-10.5); Carbon Dioxide 20 mmol/L (22-29); Chloride 106 mmol/L (98-107); Globulin 2.8 g/dL (1.3-4.6); Glucose 111 mg/dL (65-115); Magnesium 1.8 mg/dL (1.7-2.3); NT Pro B Type Natriuretic Pept 3693 pg/mL (0-125); Osmolality Calculated 292 mOsm/kg (285-295); Phosphorus 1.7 mg/dL (2.5-4.5); Potassium 3.5 mmol/L (3.5-5.1); Sodium 138 mmol/L (136-145); Total Protein 5.3 g/dL (6.6-8.7)
[2022-06-29 07:08] LABS: Lipase 614 U/L (13-60)
[2022-06-29] MEDS: folic acid 1 mg Tablet PO (09:26)
[2022-06-29] MEDS: FUROsemide 40 mg Tablet PO (09:26)
[2022-06-29] MEDS: multivitamin therapeutic Tablet 1 TAB PO (09:26)
[2022-06-29] MEDS: magnesium sulfate premix 2 GM/50 ML PIGGYBACK IV (09:27)
[2022-06-29] MEDS: thiamine 100 mg Tablet PO (09:27)
--- NOTE | 2022-06-29 16:13 | PM.PN ---
Subjective Subjective: Patient was seen this morning, he denies any abdominal pain, he is tolerating diet well, he is lipase is up to 614, no nausea, no vomiting, the plan is to try to get him over to a swing bed for rehab Vitals/I&O/Wt Last Vital Signs Temp 98.0 F 06/29/22 11:47 Pulse 80 06/29/22 11:47 Resp 16 06/29/22 11:47 BP 133/67 06/29/22 11:47 Pulse Ox 97 06/29/22 11:47 O2 Del Method 06/29/22 11:47 06/29/22 06/29/22 06/29/22 06:59 14:59 22:59 Intake Total 120 / 1200 480 / 480 Output Total 200 / 500 Balance -80 / 700 480 / 480 Physical Exam Const: COMMON NORMALS: no acute distress and patient oriented x3 Resp: COMMON NORMALS: normal respiratory effort, No retractions, No use of accessory muscles and clear to auscultation bilaterally AUSCULTATION: clear to auscultation bilaterally Cardio: COMMON NORMALS: regular rate, regular rhythm, S1 normal heart sound present and S2 normal heart sound present RATE: regular rate RHYTHM: regular rhythm HEART SOUNDS: S1 normal heart sound present and S2 normal heart sound present GI: COMMON NORMALS: Normal to inspection, nondistended, normoactive bowel sounds present and non-tender Extremity: COMMON NORMALS: no pedal edema Neuro: COMMON NORMALS: patient oriented x3 Psych: COMMON NORMALS: mental status grossly normal Data 06/29/22 04:50 06/29/22 04:50 A&P Assessment and plan (1) Pancreatitis: (2) Cirrhosis: (3) GI bleeding: (4) Anemia: (5) Hypomagnesemia: (6) NSTEMI (non-ST elevated myocardial infarction): (7) CAD (coronary artery disease): Qualifiers: Associated angina: without angina Coronary Disease-Associated Artery/Lesion type: [place] artery [place] vs. transplanted heart: [place] heart Qualified Code(s): I25.10 - Atherosclerotic heart disease of [place] coronary artery without angina pectoris (8) Fluid overload: Plan 76-year-old male with hepatic cirrhosis presenting today with anemia, hemoglobin 5.1, FOBT positive. Brown stool noted in the ER. Also reports abdominal distention and pain, consistent with clinical impression of mild pancreatitis. 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 Status post 3 units PRBC, monitor hemoglobin, 9.0 Monitor hemoglobin no intraabdominal bleed Continue Protonix, Carafate General surgery hold off on EGD for now [facility] protocol for alcohol withdrawal prn morphine for pain control Hold off on IV fluids, monitor creatinine Monitor LFTs, monitor bili Monitor hemodynamics Transition to GI soft diet for pancreatitis, abdominal pain minimal Holding antihypertensives for now NSTEMI -Serial EKGs serial troponins, telemetry monitoring -Hold off on aspirin -EKG shows right bundle branch block, sinus arrhythmia -Status post history of stenting -No chest pain, no palpitations, no shortness of breath -Cardiac echocardiogram -Normal left ventricular size and systolic function, EF 62 %. No ?regional wall motion abnormalities. Mild left ventricular ?hypertrophy. Grade I/IV diastolic dysfunction (abnormal ?relaxation filling pattern), normal to mildly elevated filling ?pressures. ?Thickened mitral valve. Moderate mitral annular calcification. ?Thickened aortic valve. Mild aortic valve regurgitation. ?Trace tricuspid valve regurgitation. ?There is no pericardial effusion. ?There are no intracardiac masses. ?Compared to the study from 02/23/2017, there may not be a ?significant change Hypomagnesemia, replace magnesium level Ferritin levels 964, iron 29, TIBC 56, percent saturation 18.5, status post 1 unit of Venofer JIHAN, monitor creatinine with Lasix Elevated BNP, chest x-ray no pneumonia, no fluid overload, continue Lasix 40 twice daily Anemia studies normal B12, normal folate, likely elevated ferritin as an acute phase reactant, status post 1 dose of Venofer. Attestations Medical Necessity Statement*: Patient requires hospitalization for anemia, pancreatitis Coding Level of Care Code Acute Regulatory Affairs Assistant for [facility] Fwd Diagnoses Pancreatitis K85.90 Cirrhosis K74.60 GI bleeding K92.2 Anemia D64.9 Hypomagnesemia E83.42 NSTEMI (non-ST elevated myocardial infarction) I21.4 CAD (coronary artery disease) I25.10 Associated angina: without angina Coronary Disease-Associated Artery/Lesion type: [place] artery [place] vs. transplanted heart: [place] heart Fluid overload E87.70
[2022-06-30] VITALS (8 sets, daily range): BP systolic 118–171; BP diastolic 67–84; PULSE 81–95; RESP 16–18; TEMP 36.6–37.3; O2SAT 93–100
[2022-06-30 05:10] LABS: Basophils % 0.4 %; Eosinophils # 0.1 10^3/uL (0.0-0.8); Eosinophils % 0.7 %; Hematocrit 28.6 % (42.0-52.0); Hemoglobin 9.1 g/dL (11.7-16.6); Lymphocytes # 0.6 10^3/uL (0.8-4.8); Lymphocytes % 8.8 %; Mean Corpuscular HGB Conc 31.8 g/dL (30.0-36.0); Mean Corpuscular Hemoglobin 33.3 pg (28.0-34.0); Mean Corpuscular Volume 104.8 fl (80-94); Mean Platelet Volume 10.9 fL (7.4-10.4); Monocytes # 0.9 10^3/uL (0.2-0.9); Monocytes % 13.3 %; Neutrophils # 5.19 10^3/uL (1.8-7.7); Neutrophils % 75.9 %; Nucleated Red Blood Cells % 0 %; Platelet Count 149 10^3/cmm (130-400); Red Blood Count 2.73 10^6/uL (4.1-5.3); Red Cell Distribution Width 24.8 % (12.1-15.1); White Blood Count 6.8 10^3/uL (4.0-10.0)
[2022-06-30 05:34] LABS: Alanine Aminotransferase 22 U/L (0-41); Albumin Level 2.4 g/dL (3.5-5.2); Alkaline Phosphatase 255 U/L (40-130); Anion Gap 14.6 (5-19); Aspartate Amino Transferase 77 U/L (0-40); Blood Urea Nitrogen 27 mg/dL (8-23); Calcium 8.2 mg/dL (8.5-10.5); Carbon Dioxide 21 mmol/L (22-29); Chloride 106 mmol/L (98-107); Globulin 2.9 g/dL (1.3-4.6); Glucose 100 mg/dL (65-115); Magnesium 1.9 mg/dL (1.7-2.3); Osmolality Calculated 291 mOsm/kg (285-295); Phosphorus 2.6 mg/dL (2.5-4.5); Potassium 3.6 mmol/L (3.5-5.1); Sodium 138 mmol/L (136-145); Total Bilirubin 2.2 mg/dL (0.15-1.2); Total Protein 5.3 g/dL (6.6-8.7)
[2022-06-30 05:43] LABS: Lipase 542 U/L (13-60)
[2022-06-30] MEDS: pantoprazole 40 mg SDV IVP ×2 (06:17→17:29)
[2022-06-30] MEDS: sucralfate 1 gm Tablet PO ×4 (06:17→20:01)
[2022-06-30] MEDS: thiamine 100 mg Tablet PO (08:16)
[2022-06-30] MEDS: FUROsemide 40 mg Tablet PO (08:17)
[2022-06-30] MEDS: multivitamin therapeutic Tablet 1 TAB PO (08:17)
[2022-06-30] MEDS: folic acid 1 mg Tablet PO (08:17)
[2022-06-30] MEDS: metoprolol tartrate 25 mg Tablet PO ×2 (08:47→20:00)
--- NOTE | 2022-06-30 10:27 | PC.SOCIAL ---
IMM Updated Updated pt on IMM. No questions voiced. Provided pt a copy. Initialed, dated, & timed copy in chart.
--- NOTE | 2022-06-30 12:47 | PM.PN ---
Subjective Subjective: Patient was seen this morning, he is sitting up to side of the bed in a chair, he has no complaints this morning, no abdominal pain, no nausea, no vomiting Vitals/I&O/Wt Last Vital Signs Temp 98.2 F 06/30/22 11:50 Pulse 88 06/30/22 11:50 Resp 18 06/30/22 11:50 BP 125/67 06/30/22 11:50 Pulse Ox 96 06/30/22 11:50 O2 Del Method 06/30/22 11:50 06/29/22 06/30/22 06/30/22 22:59 06:59 14:59 Intake Total 240 / 879.0909 240 / 1119.0909 360 / 360 Output Total 150 / 150 200 / 350 Balance 90 / 729.0909 40 / 769.0909 360 / 360 Physical Exam Const: COMMON NORMALS: no acute distress and patient oriented x3 Resp: COMMON NORMALS: normal respiratory effort, No retractions, No use of accessory muscles and clear to auscultation bilaterally AUSCULTATION: clear to auscultation bilaterally Cardio: COMMON NORMALS: regular rate, regular rhythm, S1 normal heart sound present and S2 normal heart sound present RATE: regular rate RHYTHM: regular rhythm HEART SOUNDS: S1 normal heart sound present and S2 normal heart sound present GI: COMMON NORMALS: Normal to inspection, nondistended, normoactive bowel sounds present and non-tender Extremity: COMMON NORMALS: no pedal edema Neuro: COMMON NORMALS: patient oriented x3 Psych: COMMON NORMALS: mental status grossly normal Data 06/30/22 04:17 06/30/22 04:17 A&P Assessment and plan (1) Pancreatitis: (2) Cirrhosis: (3) GI bleeding: (4) Anemia: (5) Hypomagnesemia: (6) NSTEMI (non-ST elevated myocardial infarction): (7) CAD (coronary artery disease): Qualifiers: Associated angina: without angina Coronary Disease-Associated Artery/Lesion type: [place] artery [place] vs. transplanted heart: [place] heart Qualified Code(s): I25.10 - Atherosclerotic heart disease of [place] coronary artery without angina pectoris (8) Fluid overload: Plan 76-year-old male with hepatic cirrhosis presenting today with anemia, hemoglobin 5.1, FOBT positive. Brown stool noted in the ER. Also reports abdominal distention and pain, consistent with clinical impression of mild pancreatitis. 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 Status post 3 units PRBC, monitor hemoglobin, 9.1 Monitor hemoglobin no intraabdominal bleed Continue Protonix, Carafate General surgery hold off on EGD for now [facility] protocol for alcohol withdrawal prn morphine for pain control Hold off on IV fluids, monitor creatinine Monitor LFTs, monitor bili Monitor hemodynamics Transition to GI soft diet for pancreatitis, abdominal pain minimal Holding antihypertensives for now NSTEMI -Serial EKGs serial troponins, telemetry monitoring -Hold off on aspirin -EKG shows right bundle branch block, sinus arrhythmia -Status post history of stenting -No chest pain, no palpitations, no shortness of breath -Cardiac echocardiogram -Normal left ventricular size and systolic function, EF 62 %. No ?regional wall motion abnormalities. Mild left ventricular ?hypertrophy. Grade I/IV diastolic dysfunction (abnormal ?relaxation filling pattern), normal to mildly elevated filling ?pressures. ?Thickened mitral valve. Moderate mitral annular calcification. ?Thickened aortic valve. Mild aortic valve regurgitation. ?Trace tricuspid valve regurgitation. ?There is no pericardial effusion. ?There are no intracardiac masses. ?Compared to the study from 02/23/2017, there may not be a ?significant change Hypomagnesemia, replace magnesium level Ferritin levels 964, iron 29, TIBC 56, percent saturation 18.5, status post 1 unit of Venofer JIHAN, monitor creatinine with Lasix Elevated BNP, chest x-ray no pneumonia, no fluid overload, continue Lasix 40 twice daily Anemia studies normal B12, normal folate, likely elevated ferritin as an acute phase reactant, status post 1 dose of Venofer. Attestations Medical Necessity Statement*: Patient requires hospitalization for pancreatitis, GI bleed Coding Level of Care Code Acute Cook [place] for [facility] Fwd Diagnoses Pancreatitis K85.90 Cirrhosis K74.60 GI bleeding K92.2 Anemia D64.9 Hypomagnesemia E83.42 NSTEMI (non-ST elevated myocardial infarction) I21.4 CAD (coronary artery disease) I25.10 Associated angina: without angina Coronary Disease-Associated Artery/Lesion type: [place] artery [place] vs. transplanted heart: [place] heart Fluid overload E87.70
[2022-07-01] VITALS (8 sets, daily range): BP systolic 110–143; BP diastolic 58–78; PULSE 65–97; RESP 15–20; TEMP 36.6–37.6; O2SAT 94–98
[2022-07-01 05:30] LABS: Basophils % 0.4 %; Eosinophils # 0.1 10^3/uL (0.0-0.8); Eosinophils % 0.7 %; Hematocrit 27.1 % (42.0-52.0); Hemoglobin 8.7 g/dL (11.7-16.6); Lymphocytes # 0.6 10^3/uL (0.8-4.8); Lymphocytes % 6.9 %; Mean Corpuscular HGB Conc 32.1 g/dL (30.0-36.0); Mean Corpuscular Hemoglobin 33.2 pg (28.0-34.0); Mean Corpuscular Volume 103.4 fl (80-94); Mean Platelet Volume 10.9 fL (7.4-10.4); Monocytes % 11.7 %; Neutrophils # 6.56 10^3/uL (1.8-7.7); Neutrophils % 79.7 %; Nucleated Red Blood Cells % 0 %; Platelet Count 160 10^3/cmm (130-400); Red Blood Count 2.62 10^6/uL (4.1-5.3); Red Cell Distribution Width 23.9 % (12.1-15.1); White Blood Count 8.2 10^3/uL (4.0-10.0)
[2022-07-01 05:53] LABS: Alanine Aminotransferase 23 U/L (0-41); Albumin Level 2.4 g/dL (3.5-5.2); Alkaline Phosphatase 260 U/L (40-130); Anion Gap 13.6 (5-19); Aspartate Amino Transferase 75 U/L (0-40); Blood Urea Nitrogen 32 mg/dL (8-23); Calcium 8.1 mg/dL (8.5-10.5); Carbon Dioxide 21 mmol/L (22-29); Chloride 108 mmol/L (98-107); Globulin 2.8 g/dL (1.3-4.6); Glucose 101 mg/dL (65-115); Magnesium 1.7 mg/dL (1.7-2.3); Osmolality Calculated 295 mOsm/kg (285-295); Phosphorus 2.5 mg/dL (2.5-4.5); Potassium 3.6 mmol/L (3.5-5.1); Sodium 139 mmol/L (136-145); Total Bilirubin 2.2 mg/dL (0.15-1.2); Total Protein 5.2 g/dL (6.6-8.7)
[2022-07-01] MEDS: sucralfate 1 gm Tablet PO ×4 (06:06→20:12)
[2022-07-01] MEDS: pantoprazole 40 mg SDV IVP ×2 (06:06→17:09)
[2022-07-01 06:08] LABS: Lipase 560 U/L (13-60)
[2022-07-01] MEDS: thiamine 100 mg Tablet PO (08:34)
[2022-07-01] MEDS: multivitamin therapeutic Tablet 1 TAB PO (08:34)
[2022-07-01] MEDS: folic acid 1 mg Tablet PO (08:34)
[2022-07-01] MEDS: FUROsemide 40 mg Tablet PO (08:38)
[2022-07-01] MEDS: metoprolol tartrate 25 mg Tablet PO ×2 (08:38→20:12)
--- NOTE | 2022-07-01 13:30 | PM.PN ---
Subjective Subjective: Patient was seen this morning, he has no complaints, no abdominal pain, no nausea, no vomiting, no lightheadedness, dizziness Vitals/I&O/Wt Last Vital Signs Temp 98.7 F 07/01/22 12:00 Pulse 81 07/01/22 12:00 Resp 18 07/01/22 12:00 BP 110/58 07/01/22 12:00 Pulse Ox 98 07/01/22 12:00 O2 Del Method 07/01/22 12:00 06/30/22 07/01/22 07/01/22 22:59 06:59 14:59 Intake Total 240 / 960 Output Total 400 / 400 300 / 300 Balance 240 / 960 -400 / 560 -300 / -300 Physical Exam Const: COMMON NORMALS: no acute distress and patient oriented x3 Resp: COMMON NORMALS: normal respiratory effort, No retractions, No use of accessory muscles and clear to auscultation bilaterally AUSCULTATION: clear to auscultation bilaterally Cardio: COMMON NORMALS: regular rate, regular rhythm, S1 normal heart sound present and S2 normal heart sound present RATE: regular rate RHYTHM: regular rhythm HEART SOUNDS: S1 normal heart sound present and S2 normal heart sound present GI: COMMON NORMALS: Normal to inspection, nondistended, normoactive bowel sounds present and non-tender Extremity: COMMON NORMALS: no pedal edema Neuro: COMMON NORMALS: patient oriented x3 Psych: COMMON NORMALS: mental status grossly normal Data 07/01/22 04:28 07/01/22 04:28 A&P Assessment and plan (1) Pancreatitis: (2) Cirrhosis: (3) GI bleeding: (4) Anemia: (5) Hypomagnesemia: (6) NSTEMI (non-ST elevated myocardial infarction): (7) CAD (coronary artery disease): Qualifiers: Associated angina: without angina Coronary Disease-Associated Artery/Lesion type: [place] artery [place] vs. transplanted heart: [place] heart Qualified Code(s): I25.10 - Atherosclerotic heart disease of [place] coronary artery without angina pectoris (8) Fluid overload: Plan 76-year-old male with hepatic cirrhosis presenting today with anemia, hemoglobin 5.1, FOBT positive. Brown stool noted in the ER. Also reports abdominal distention and pain, consistent with clinical impression of mild pancreatitis. 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 Status post 3 units PRBC, monitor hemoglobin, 8.7 Monitor hemoglobin no intraabdominal bleed Continue Protonix, Carafate General surgery hold off on EGD for now [facility] protocol for alcohol withdrawal prn morphine for pain control Hold off on IV fluids, monitor creatinine Monitor LFTs, monitor bili Monitor hemodynamics Transition to GI soft diet for pancreatitis, abdominal pain minimal Holding antihypertensives for now NSTEMI -Serial EKGs serial troponins, telemetry monitoring -Hold off on aspirin -EKG shows right bundle branch block, sinus arrhythmia -Status post history of stenting -No chest pain, no palpitations, no shortness of breath -Cardiac echocardiogram -Normal left ventricular size and systolic function, EF 62 %. No ?regional wall motion abnormalities. Mild left ventricular ?hypertrophy. Grade I/IV diastolic dysfunction (abnormal ?relaxation filling pattern), normal to mildly elevated filling ?pressures. ?Thickened mitral valve. Moderate mitral annular calcification. ?Thickened aortic valve. Mild aortic valve regurgitation. ?Trace tricuspid valve regurgitation. ?There is no pericardial effusion. ?There are no intracardiac masses. ?Compared to the study from 02/23/2017, there may not be a ?significant change Hypomagnesemia, replace magnesium level Ferritin levels 964, iron 29, TIBC 56, percent saturation 18.5, status post 1 unit of Venofer JIHAN, monitor creatinine with Lasix Elevated BNP, chest x-ray no pneumonia, no fluid overload, continue Lasix 40 twice daily Anemia studies normal B12, normal folate, likely elevated ferritin as an acute phase reactant, status post 1 dose of Venofer. Attestations Medical Necessity Statement*: Patient requires hospitalization for pancreatitis, GI bleed Coding Level of Care Code Acute Drafter Seismograph for [facility] Fwd Diagnoses Pancreatitis K85.90 Cirrhosis K74.60 GI bleeding K92.2 Anemia D64.9 Hypomagnesemia E83.42 NSTEMI (non-ST elevated myocardial infarction) I21.4 CAD (coronary artery disease) I25.10 Associated angina: without angina Coronary Disease-Associated Artery/Lesion type: [place] artery [place] vs. transplanted heart: [place] heart Fluid overload E87.70
[2022-07-02 03:16] VITALS: BP 136/65; PULSE 82; RESP 20; TEMP 36.9; O2SAT 96
[2022-07-02 04:59] LABS: Basophils % 0.4 %; Eosinophils # 0.1 10^3/uL (0.0-0.8); Eosinophils % 0.8 %; Hematocrit 27.2 % (42.0-52.0); Hemoglobin 8.7 g/dL (11.7-16.6); Lymphocytes # 0.7 10^3/uL (0.8-4.8); Lymphocytes % 8.3 %; Mean Corpuscular Hemoglobin 33.5 pg (28.0-34.0); Mean Corpuscular Volume 104.6 fl (80-94); Mean Platelet Volume 11.2 fL (7.4-10.4); Monocytes # 0.8 10^3/uL (0.2-0.9); Monocytes % 10.2 %; Neutrophils # 6.33 10^3/uL (1.8-7.7); Neutrophils % 79.5 %; Nucleated Red Blood Cells % 0 %; Platelet Count 162 10^3/cmm (130-400); Red Cell Distribution Width 23.7 % (12.1-15.1)
[2022-07-02 05:24] LABS: Alanine Aminotransferase 23 U/L (0-41); Albumin Level 2.1 g/dL (3.5-5.2); Alkaline Phosphatase 255 U/L (40-130); Anion Gap 16.5 (5-19); Aspartate Amino Transferase 70 U/L (0-40); Blood Urea Nitrogen 31 mg/dL (8-23); Calcium 8.1 mg/dL (8.5-10.5); Carbon Dioxide 19 mmol/L (22-29); Chloride 108 mmol/L (98-107); Glucose 96 mg/dL (65-115); Magnesium 1.5 mg/dL (1.7-2.3); Osmolality Calculated 296 mOsm/kg (285-295); Phosphorus 2.6 mg/dL (2.5-4.5); Potassium 3.5 mmol/L (3.5-5.1); Sodium 140 mmol/L (136-145); Total Bilirubin 2.1 mg/dL (0.15-1.2); Total Protein 5.1 g/dL (6.6-8.7)
[2022-07-02] MEDS: pantoprazole 40 mg SDV IVP (06:09)
[2022-07-02] MEDS: sucralfate 1 gm Tablet PO ×2 (06:10→11:37)
[2022-07-02 07:29] VITALS: BP 135/70; PULSE 94; RESP 18; TEMP 36.9; O2SAT 97
--- NOTE | 2022-07-02 08:37 | PC.SOCIAL ---
IMM update IMM updated with patient. Verbalized an understanding. Copy Pg 2 provided. Initialled, dated, timed, and placed in chart.
[2022-07-02] MEDS: thiamine 100 mg Tablet PO (08:52)
[2022-07-02] MEDS: folic acid 1 mg Tablet PO (08:52)
[2022-07-02] MEDS: FUROsemide 40 mg Tablet PO (08:52)
[2022-07-02] MEDS: multivitamin therapeutic Tablet 1 TAB PO (08:52)
[2022-07-02] MEDS: magnesium sulfate premix 4 GM/100 ML PREMIX IV (08:54)
[2022-07-02] MEDS: metoprolol tartrate 25 mg Tablet PO (08:54)
[2022-07-02 09:01] VITALS: PULSE 70; RESP 16; O2SAT 94
[2022-07-02 11:08] VITALS: BP 119/64; PULSE 72; RESP 16; TEMP 36.6; O2SAT 96
--- NOTE | 2022-07-02 11:35 | P.DS_ITS ---
Discharge Providers Date of Admission: 06/25/22 04:08 Date of Discharge: July 02, 2022 Attending Provider at Admission: Lakisha Carty MD Attending Provider at Discharge: Ovidio Kimbrough MD Primary Care Provider: Tri Robles MD Diagnoses at Discharge Discharge Diagnosis (1) Pancreatitis: Status: Acute (2) Cirrhosis: Status: Chronic (3) GI bleeding: Status: Resolved (4) Anemia: Status: Acute (5) Hypomagnesemia: Status: Acute (6) NSTEMI (non-ST elevated myocardial infarction): Status: Acute (7) CAD (coronary artery disease): Status: Chronic Qualifiers: Associated angina: without angina Coronary Disease-Associated Artery/Lesion type: grindstone artery [place] vs. transplanted heart: grindstone heart Qualified Code(s): I25.10 - Atherosclerotic heart disease of grindstone coronary artery without angina pectoris (8) Fluid overload: Status: Acute Reason for Visit Reason for Visit: abdominal distention Hospital Course Hospital Course 76-year-old male with hepatic cirrhosis presenting today with anemia, hemoglobin 5.1, FOBT positive.? Brown stool noted in the ER.? Also reports abdominal distention and pain, consistent with clinical impression of mild pancreatitis.? 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 Patient was admitted to [facility] for concerns for slow GI bleed, status post 3 units PRBC, general surgery was consulted, recommended holding off on EGD due to persistently elevated lipase. Overall patient clinically improved, no recurrent bloody or black stools, hemoglobin remains stable between 8-9. We will discharge him on Protonix, Carafate with a follow-up with computer methods analyst in [place]. If he were to have any recurrent bloody or black stools or hemoglobin drops below 7 please come back to emergency room. Have shelter recheck hemoglobin in 1 week. For history of alcoholism, CIWA protocol Patient was at pancreatitis during his hospitalization, managed with IV fluids n.p.o., overall clinically improved, transition to a GI soft diet, tolerated it well For his anemia, has evidence of iron deficiency anemia, received 1 dose of Venofer here in the hospital Had evidence of fluid overload, received Lasix therapy, discharged to shelter with Lasix therapy Had NSTEMI, EKG showing right bundle branch block no chest pain complaints, echocardiogram no acute findings, cannot discharge him on aspirin as he developed a slow GI bleed on aspirin. Patient was advised to follow-up cardiology, if he were to have any further chest pain to go to emergency room Physical Exam 2 Const: COMMON NORMALS: no acute distress and patient oriented x3 Resp: COMMON NORMALS: normal respiratory effort, No retractions, No use of accessory muscles and clear to auscultation bilaterally AUSCULTATION: clear to auscultation bilaterally Cardio: COMMON NORMALS: regular rate, regular rhythm, S1 normal heart sound present and S2 normal heart sound present RATE: regular rate RHYTHM: regular rhythm HEART SOUNDS: S1 normal heart sound present and S2 normal heart sound present GI: COMMON NORMALS: Normal to inspection, nondistended, normoactive bowel sounds present and non-tender Extremity: COMMON NORMALS: no pedal edema Neuro: COMMON NORMALS: patient oriented x3 Psych: COMMON NORMALS: mental status grossly normal Discharge Data Studies Completed and Pending Completed Studies During Hospitalization Category Date Time Status CT abdomen pelvis wo con [id number] Stat Cat Scan 06/25/22 02:26 Completed XR chest 1V portable [id number] Routine Exams 06/26/22 08:14 Completed XR chest 1V portable [id number] Stat Exams 06/25/22 02:22 Completed CV. echo complete* [id number] Routine Ultrasound 06/26/22 09:13 Completed Pending at discharge Category Date Time Status COVID [SARS Covid-2 Antigen] Routine Lab 07/02/22 11:32 Uncollected Radiology Impressions Abdomen/Pelvis CT 06/25/22 02:26 IMPRESSION: 1. Hepatic cirrhosis and diffuse fatty infiltration of the liver. 2. Cholelithiasis. 3. Subtle peripancreatic fat stranding suggesting possible mild pancreatitis. 4. Colonic diverticulosis without CT evidence of diverticulitis. 5. Mildly thickened urinary bladder which may be secondary to incomplete distention versus cystitis/UTI. 6. Atherosclerotic vascular disease including coronary artery disease. 7. 3.1 cm AP diameter distal abdominal aortic aneurysm. COMMENTS: Consistent with the [employer]'s Incidental Findings Committee white paper (J Am Vaibhav Radiol 2018): Any incidental renal lesion less than 1 cm or classified as too small to characterize, or any incidental cystic renal lesion characterized as simple-appearing, is likely benign. No follow-up imaging is recommended for these lesions per consensus recommendations based on imaging criteria. Chest X-Ray 06/26/22 08:14 IMPRESSION: 1. No acute cardiac pulmonary finding. No change. Laboratory Results WBC 8.0 10^3/uL (4.0-10.0) 07/02/22 04:13 RBC 2.60 10^6/uL (4.1-5.3) L 07/02/22 04:13 Hgb 8.7 g/dL (11.7-16.6) L 07/02/22 04:13 Hct 27.2 % (42.0-52.0) L 07/02/22 04:13 MCV 104.6 fl (80-94) H 07/02/22 04:13 MCH 33.5 pg (28.0-34.0) 07/02/22 04:13 MCHC 32.0 g/dL (30.0-36.0) 07/02/22 04:13 RDW 23.7 % (12.1-15.1) H 07/02/22 04:13 Plt Count 162 10^3/cmm (130-400) 07/02/22 04:13 MPV 11.2 fL (7.4-10.4) H 07/02/22 04:13 Neut % (Auto) 79.5 % 07/02/22 04:13 Lymph % (Auto) 8.3 % 07/02/22 04:13 [place] % (Auto) 10.2 % 07/02/22 04:13 Eos % (Auto) 0.8 % 07/02/22 04:13 Baso % (Auto) 0.4 % 07/02/22 04:13 Neut # (Auto) 6.33 10^3/uL (1.8-7.7) 07/02/22 04:13 Lymph # (Auto) 0.7 10^3/uL (0.8-4.8) L 07/02/22 04:13 [place] # (Auto) 0.8 10^3/uL (0.2-0.9) 07/02/22 04:13 Eos # (Auto) 0.1 10^3/uL (0.0-0.8) 07/02/22 04:13 Baso # (Auto) 0.0 10^3/uL (0.0-0.1) 07/02/22 04:13 Nucleated RBC % (auto) 0 % 07/02/22 04:13 Nucleated RBCs # 0.0 /100WBC 07/02/22 04:13 PT 15.70 SECONDS (12.1-14.9) H 06/28/22 04:24 INR 1.22 (0.8-1.2) H 06/28/22 04:24 Sodium 140 mmol/L (136-145) 07/02/22 04:13 Potassium 3.5 mmol/L (3.5-5.1) 07/02/22 04:13 Chloride 108 mmol/L (98-107) H 07/02/22 04:13 Carbon Dioxide 19 mmol/L (22-29) L 07/02/22 04:13 Anion Gap 16.5 (5-19) 07/02/22 04:13 BUN 31 mg/dL (8-23) H 07/02/22 04:13 Creatinine 1.2 mg/dL (0.7-1.2) 07/02/22 04:13 GFR Calculation Not Reportable 07/02/22 04:13 Glucose 96 mg/dL (65-115) 07/02/22 04:13 Calculated Osmolality 296 mOsm/kg (285-295) H 07/02/22 04:13 Calcium 8.1 mg/dL (8.5-10.5) L 07/02/22 04:13 Phosphorus 2.6 mg/dL (2.5-4.5) 07/02/22 04:13 Magnesium 1.5 mg/dL (1.7-2.3) L 07/02/22 04:13 Iron 29 ug/dL (59-158) L 06/26/22 11:20 TIBC 156 mcg/dl 06/26/22 11:20 % Saturation 18.5 % (20-50) L 06/26/22 11:20 Unsat Iron Binding 127 ug/dL (112-347) 06/26/22 11:20 Ferritin 964 ng/mL (30-400) H 06/26/22 11:20 Total Bilirubin 2.1 mg/dL (0.15-1.2) H 07/02/22 04:13 AST 70 U/L (0-40) H 07/02/22 04:13 ALT 23 U/L (0-41) 07/02/22 04:13 Alkaline Phosphatase 255 U/L (40-130) H 07/02/22 04:13 Ammonia 28 umol/L (16-60) 06/25/22 02:29 Troponin T Baseline 67 ng/L (0-15) H 06/26/22 08:52 Troponin T 120 Minute 68.06 ng/L (0-15) H 06/26/22 11:20 Delta Troponin T 1.06 ABS# (0-10) 06/26/22 11:20 Troponin T Hi Sens 6Hr 74.90 ng/L (0-15) H 06/26/22 15:10 Troponin T Hi Sens 6Hr Delta 7.90 ng/L (0-12) 06/26/22 15:10 C-Reactive Protein 54.2 mg/L (0.0-4.9) H 06/28/22 04:24 NT-Pro-B Natriuret Pep 3693 pg/mL (0-125) H 06/29/22 04:50 Total Protein 5.1 g/dL (6.6-8.7) L 07/02/22 04:13 Albumin 2.1 g/dL (3.5-5.2) L 07/02/22 04:13 Globulin 3.0 g/dL (1.3-4.6) 07/02/22 04:13 Lipase 560 U/L (13-60) H 07/01/22 04:28 Vitamin B12 > 2000 pg/mL (232-1245) H 06/26/22 11:20 Folate > 20.0 ng/mL (4.5-32.2) 06/26/22 11:20 TSH 1.70 uIU/mL (0.27-4.20) 06/26/22 11:20 Urine Color [place] (Yellow) 06/25/22 07:22 Urine Appearance Clear (CLEAR) 06/25/22 07:22 Urine pH 5 (5-7) 06/25/22 07:22 Ur Specific [place] 1.020 (1.005-1.030) 06/25/22 07:22 Urine Protein 2+ (Negative) H 06/25/22 07:22 Urine Glucose (UA) Norm (Normal) 06/25/22 07:22 Urine Ketones 1+ (Negative) H 06/25/22 07:22 Urine Blood Neg (Negative) 06/25/22 07:22 Urine Nitrate Negative (Negative) 06/25/22 07:22 Urine Bilirubin 1+ (Negative) H 06/25/22 07:22 Urine Urobilinogen 4 mg/dL (Negative) H 06/25/22 07:22 Ur Leukocyte Esterase Negative (Negative) 06/25/22 07:22 Urine RBC None /hpf (0-2) 06/25/22 07:22 Urine WBC None /hpf (0-5) 06/25/22 07:22 Ur Squamous Epith Cells None /hpf (0-5) 06/25/22 07:22 Amorphous Sediment Not Reportable 06/25/22 07:22 Urine Bacteria None /hpf (NONE) 06/25/22 07:22 Ethyl Alcohol < 10 mg/dL (0-10) 06/25/22 02:29 Blood Type O Positive 06/25/22 03:00 Rho(D) Type Positive 06/25/22 03:00 Antibody Screen Negative 06/25/22 03:00 Crossmatch See Detail 06/25/22 03:00 Vitals Last Vital Signs Temp 97.8 F 07/02/22 11:08 Pulse 72 07/02/22 11:08 Resp 16 07/02/22 11:08 BP 119/64 07/02/22 11:08 Pulse Ox 96 07/02/22 11:08 O2 Del Method 07/02/22 11:08 Discharge Plan Discharge Patient Disposition: Xfer SNF Condition: Stable Prescriptions: New folic acid 1 mg Tablet 1 mg PO DAILY 30 Days Qty: 30 0RF sucralfate 1 gram Tablet 1 g PO Q12H 30 Days Qty: 60 0RF furosemide 40 mg Tablet 40 mg PO Q24H 30 Days Qty: 30 0RF metoprolol tartrate 25 mg Tablet 25 mg PO BID@0900,2100 30 Days Qty: 30 0RF magnesium L-lactate [Magtab] 84 mg tablet extended release 84 mg PO BID 30 Days Qty: 60 0RF multivitamin with folic acid [Thera] 400 mcg Tablet 1 tab PO DAILY 30 Days Qty: 30 0RF thiamine mononitrate (vit B1) [Vitamin B-1 (mononitrate)] 100 mg Tablet 100 mg PO DAILY 30 Days Qty: 30 0RF Continued atorvastatin [Lipitor] 40 mg Tablet 40 mg PO BEDTIME cyanocobalamin (vitamin B-12) 1,000 mcg capsule 1,000 mcg PO DAILY@08 zinc acetate 50 mg (zinc) Capsule 50 mg PO DAILY ascorbic acid (vitamin C) [Vitamin C] 500 mg Tablet 500 mg PO BID tamsulosin [Flomax] 0.4 mg Capsule 0.4 mg PO BEDTIME nitroglycerin [Nitrostat] 0.4 mg Tablet, Sublingual 0.4 mg SUBLINGUAL Q5M PRN (Reason: Chest Pain) Rx Instructions: do not exceed 3 doses per episode albuterol sulfate 90 mcg/actuation Hfa Aerosol Inhaler 2 puff INHALATION Q4H PRN (Reason: Shortness Of Breath) cholecalciferol (vitamin D3) [Vitamin D3] 25 mcg (1,000 unit) Capsule 25 mcg PO DAILY Changed pantoprazole 40 mg tablet,delayed release (DR/EC) 40 mg PO Q12H 30 Days Qty: 60 0RF Discontinued amlodipine 10 mg tablet 10 mg PO QAM folic acid 1 mg tablet 1 mg PO DAILY@08 furosemide 40 mg tablet 40 mg PO DAILY Hold Instructions: Resume on 01/06/22. magnesium oxide [MagOx] 400 mg (241.3 mg magnesium) Tablet 400 mg PO DAILY Aspir-81 81 mg Tablet,Delayed Release (Dr/Ec) 81 mg PO DAILY thiamine HCl (vitamin B1) [Vitamin B-1] 100 mg Tablet 100 mg PO DAILY spironolactone 25 mg Tablet 25 mg PO DAILY Discharge Orders: Discharge Order (Routine); Ordered 07/02/22 Ordered By: Ovidio Kimbrough Referrals: [facility] [Outside] Tri Robles MD [Primary Care Provider] - Maeve Andre MD [Physician] - 1 month (nstemi) Fady Paredes MD [Referring] - 1 month ([facility]) Discharge Diet: Cardiac and GI Soft Discharge Activity: Resume usual activity Patient Instructions: Opioid Safety Activity Restrictions/Additional Instructions: - If you have recurrent bloody or black stools go to the emergency room -Please have your primary care provider recheck your hemoglobin in 1 week, h emoglobin discharge 8.7 -Please follow-up with [facility] for consideration of EGD -Follow-up for liver cirrhosis Discharge Attestations Time Spent in Discharge Care*: less than 30 min Quality Metrics Clinical Quality Measures [ No reported AMI, CVA or VTE this stay] Coding Level of Care Code Acute Chg FW DC note Diagnoses Pancreatitis K85.90 Cirrhosis K74.60 GI bleeding K92.2 Anemia D64.9 Hypomagnesemia E83.42 NSTEMI (non-ST elevated myocardial infarction) I21.4 CAD (coronary artery disease) I25.10 Associated angina: without angina Coronary Disease-Associated Artery/Lesion type: grindstone artery [place] vs. transplanted heart: grindstone heart Fluid overload E87.70
[2022-07-02 12:03] LABS: SARS Covid-2 Antigen negative (Negative)
--- NOTE | 2022-07-02 13:22 | PC.NURSE ---
Report called to Paola PEREA at [facility].
[2022-07-02 14:30] VITALS: BP 119/64; PULSE 72; RESP 16; TEMP 36.6; O2SAT 96
== END 2022-07-02 14:32 | disposition skilled nursing facility (03) | DRG 438 ==
LOC: ER 03:54 → MEDSURG 04:09
PROVIDERS: Admitting Provider Student in an Organized Health Care Education/Training Program; Emergency Provider Emergency Medicine; PCP Family Medicine; Visit Provider Family Medicine
DX: K85.20 Alcohol induced acute pancreatitis without necrosis or infection (principal); I21.4 Non-ST elevation (NSTEMI) myocardial infarction; I69.954 Hemiplegia and hemiparesis following unspecified cerebrovascular disease affecting left non-dominant side; N17.9 Acute kidney failure, unspecified; K86.0 Alcohol-induced chronic pancreatitis; F10.20 Alcohol dependence, uncomplicated; K70.30 Alcoholic cirrhosis of liver without ascites; I71.40 Abdominal aortic aneurysm, without rupture, unspecified; I25.10 Atherosclerotic heart disease of native coronary artery without angina pectoris; Z95.5 Presence of coronary angioplasty implant and graft; J44.9 Chronic obstructive pulmonary disease, unspecified; I10 Essential (primary) hypertension; E78.5 Hyperlipidemia, unspecified; F17.200 Nicotine dependence, unspecified, uncomplicated; D50.9 Iron deficiency anemia, unspecified; Z88.2 Allergy status to sulfonamides; Z79.51 Long term (current) use of inhaled steroids; E87.70 Fluid overload, unspecified; I45.10 Unspecified right bundle-branch block; R19.5 Other fecal abnormalities; E83.42 Hypomagnesemia; R16.1 Splenomegaly, not elsewhere classified
CPT/HCPCS: 36415; 36430; 71045; 74176; 80053; 80307; 80503; 81001; 82140; 82607; 82728; 82746; 83540; 83550; 83690; 83735; 83880; 84100; 84443; 84484; 85014; 85018; 85025; 85610; 86140; 86850; 86900; 86920; 87086; 87426; 93005; 93306; 94640; 97110; 97161; 97166; 97530; 99284; C9113; J1756; J1940; J3411; J3475; J7030; J7626; P9016

== ENCOUNTER 2022-07-11 07:18 | Outpatient (CLI) | payer MEDICARE, SELFPAY ==
[2022-07-11 08:25] LABS: Influenza A by IFA Positive (Negative); Influenza B by IFA Negative (Negative)
== END 2022-07-11 07:19 | disposition home or self-care (01) ==
PROVIDERS: PCP Family Medicine; Visit Provider Internal Medicine
DX: R05.9 Cough, unspecified (principal)
CPT/HCPCS: 87804

== ENCOUNTER → 2022-08-20 12:37 | Outpatient (BNVA) | payer MEDICARE, SELFPAY | PROVIDERS: PCP Internal Medicine; Visit Provider Otolaryngology | DX: K05.10 Chronic gingivitis, plaque induced (principal); K06.8 Other specified disorders of gingiva and edentulous alveolar ridge; J34.89 Other specified disorders of nose and nasal sinuses | CPT/HCPCS: 99203 ==

== ENCOUNTER 2022-08-29 12:01 | Inpatient (IN) | payer MEDICARE, SELFPAY ==
[2022-08-29] VITALS (69 sets, daily range): BP systolic 96–159; BP diastolic 53–82; PULSE 30–147; RESP 15–35; TEMP 36.4–38.6; O2SAT 90–100; BMI 23.7
--- NOTE | 2022-08-29 12:02 | W.ED.GENADLT ---
HPI - General Adult General: Chief complaint: Nausea/Vomiting/Diarrhea Stated complaint: N/V SHAKING Time Seen by Provider: 08/29/22 12:02 History of Present Illness: Mr. Santiago is a 76-year-old gentleman with history of cirrhosis, CAD, hypertension and apparent recent history of pancreatitis currently in rehab presenting to the emergency department due to sudden onset of illness. Onset of illness with chills, tachycardia, shortness of breath, generalized malaise, nausea, vomiting about 45 minutes prior to EMS activation. On arrival patient is moderately ill in appearance primarily complaining of generalized malaise and chills. He did have diffuse wheezes for EMS and some improvement with albuterol treatment however still requiring oxygen. No other specific changes in health, exacerbating, or alleviating factors identified. Onset (ago): minute(s) Severity: severe Relieving factors: none Exacerbating factors: none Associated symptoms: Reports cough, diaphoresis, dyspnea, fevers/chills, malaise, nausea, short of breath, vomiting and weakness Review of Systems General: Reports: 10 or more systems reviewed and unremarkable except in HPI and below Const: Reports: malaise and diaphoresis Resp: Reports: dyspnea GI: Reports: nausea and vomiting PFSH ED PFSH: Medical History (Updated 09/03/22 @ 00:00 by ANSLEY Quan) CAD (coronary artery disease) COPD (chronic obstructive pulmonary disease) COVID-19 vaccine administered J&J CVA (cerebral vascular accident) Right MCA, left weakness GI bleeding Heart failure EF 65% last echo Hyperlipidemia Hypertension Nicotine dependence Pancreatitis Portal hypertension Surgical History History of coronary artery stent placement History of nasal surgery Family History Other Stroke Social History Additional social history: History of tobacco use, alcohol use, no drugs. Recently DC to [facility] and unclear if continues to drink and smoke regularly. Physical Exam Const: COMMON NORMALS: alert GENERAL APPEARANCE: cooperative, well developed and ill appearing HENMT: COMMON NORMALS: normocephalic and atraumatic HEAD & SCALP: normocephalic and atraumatic Eye: COMMON NORMALS: conjunctivae normal CONJUNCTIVA: Yes conjunctivae normal SCLERA: sclerae normal Neck/C-Spine: COMMON NORMALS: supple GENERAL: Yes trachea midline Resp: EFFORT & INSPECTION: Yes tachypneic AUSCULTATION: rhonchi Cardio: COMMON NORMALS: regular rhythm RATE: tachycardic RHYTHM: regular rhythm GI: COMMON NORMALS: Soft to palpation PALPATION: Yes Soft to palpation and No Tenderness to palpation present (GI) Extremity: GENERAL: Yes normal exam except as noted and No edema Neuro: COMMON NORMALS: moves all extremities SENSORIUM/ORIENTATION: Yes alert and No Orientation impaired Psych: COMMON NORMALS: mental status grossly normal and Normal thought process present THOUGHT PROCESS: Normal thought process present Course Vital Signs: Vital signs: Vital Signs Temperature 98.0 F 09/02/22 13:13 Pulse Rate 88 09/02/22 13:13 Respiratory Rate 18 09/02/22 13:13 Blood Pressure 150/84 09/02/22 13:13 Pulse Oximetry 90 09/02/22 13:13 Oxygen Delivery Me thod 09/02/22 08:00 Oxygen Flow Rate 1 08/30/22 08:00 MDM - General Adult Medical Decision Making 76-year-old gentleman presenting with generalized illness for mcc. Patient in respiratory distress for EMS and still somewhat ill-appearing on clinical exam with exam as noted above. BiPAP and RT. EKG notable for atrial fibrillation with rapid ventricular response. Repeat EKG with improved rate after treatment later in ED course. Labs notable for no leukocytosis, macrocytic anemia, normal platelet count.. Metabolic panel with Elevated anion gap and decreased bicarb, creatinine is also elevated. Lactic acid elevated. 2-hour delta troponin is in the positive range and BNP is elevated. No UTI. Viral panel negative. Chest x-ray with left lower lobe infiltrate concerning for pneumonia. Given severity of illness as well as mental status I believe that CT imaging is appropriate. No acute pathology identified on head CT. CT chest abdomen pelvis is limited. There is ascites which is new and cirrhosis is again noted. Prior laboratory studies and imaging and recent history reviewed. During ED course patient treated with broad-spectrum antibiotics for suspected pneumonia, antipyretic, IV fluids. Upon reassessment patient somewhat improved though still ill and requiring respiratory support. Most likely etiology of patient's symptoms is pneumonia with new onset atrial fibrillation with rapid ventricular response. JIHAN and NSTEMI also present. The results of ED evaluation were discussed with the patient including plan for admission due to requirement for level of care not available if discharged to prevent significant worsening/deterioration. Patient agreeable with plan. Discussed with hospitalist service who was agreeable to admit patient. Medical Records I reviewed the patient's medical records. Lab Data I reviewed the patient's lab results. 09/02/22 04:01 09/02/22 04:01 Radiology Impressions Chest X-Ray 08/29/22 12:08 IMPRESSION: Left lower lobe pneumonic infiltrate. Chest/Abdomen/Pelvis CT 08/29/22 13:05 IMPRESSION: 1. Study is suboptimal due to poor pulmonary artery opacification, artifact from breathing and arm positioning. 2. No central pulmonary embolism. 3. Bilateral lower lobe subsegmental atelectasis. 4. Moderate amount of ascites. Ascites is new since 06/25/2022. 5. Cirrhotic liver. 6. Cholelithiasis seen on prior studies is not as evident today. Head CT 08/29/22 13:05 IMPRESSION: 1. No acute intracranial hemorrhage. 2. Moderate atrophy and mild small vessel ischemic disease. Very similar to the prior study. Abdomen Ultrasound 08/29/22 16:02 IMPRESSION: Moderate to large amount of ascites, most prominent in the left lower quadrant. Abdomen/Pelvis CT 09/01/22 10:54 IMPRESSION: 1. Airspace disease in the left lower lobe has mildly improved. Continued follow-up to ensure complete resolution is recommended. 2. New right pleural effusion with compressive atelectasis in the right lower lobe. 3. Cholelithiasis. 4. Large bilateral hydroceles and swelling of the scrotal soft tissues. 5. Scattered diverticula in the colon. No evidence for diverticulitis. 6. Extensive body wall edema, increased significantly compared with the prior study. 7. Cirrhosis and portal hypertension manifest by large volume ascites/mesenteric edema and small caliber varices. 8. Incidental/nonacute findings are listed in the report. Laboratory Results WBC 8.3 10^3/uL (4.0-10.0) 08/29/22 12:23 RBC 3.07 10^6/uL (4.1-5.3) L 08/29/22 12:23 Hgb 9.5 g/dL (11.7-16.6) L 08/29/22 12:23 Hct 32.2 % (42.0-52.0) L 08/29/22 12:23 MCV 104.9 fl (80-94) H 08/29/22 12:23 MCH 30.9 pg (28.0-34.0) 08/29/22 12: MCHC 29.5 g/dL (30.0-36.0) L 08/29/22 12: RDW 15.4 % (12.1-15.1) H 08/29/22 12:23 Plt Count 159 10^3/cmm (130-400) 08/29/22 12:23 MPV 11.2 fL (7.4-10.4) H 08/29/22 12:23 Neut % (Auto) 88.9 % 08/29/22 12: Lymph % (Auto) 5.8 % 08/29/22 12: [place] % (Auto) 4.3 % 08/29/22 12: Eos % (Auto) 0.4 % 08/29/22 12:23 Baso % (Auto) 0.4 % 08/29/22 12:23 Neut # (Auto) 7.36 10^3/uL (1.8-7.7) 08/29/22 12:23 Lymph # (Auto) 0.5 10^3/uL (0.8-4.8) L 08/29/22 12:23 [place] # (Auto) 0.4 10^3/uL (0.2-0.9) 08/29/22 12:23 Eos # (Auto) 0.0 10^3/uL (0.0-0.8) 08/29/22 12: Baso # (Auto) 0.0 10^3/uL (0.0-0.1) 08/29/22 12: Nucleated RBC % (auto) 0 % 08/29/22: Nucleated RBCs # 0.0 /100WBC 08/29/22 12:23 Specimen Type Arterial 08/29/22 12:10 Sample Site Radial, left 08/29/22 12:10 ABG pH 7.44 (7.35-7.45) 08/29/22 12:10 ABG pCO2 22.1 mmHg (35-45) L 08/29/22 12:10 ABG pO2 68.3 mmHg (80.0-100.0) L 08/29/22 12:10 ABG HCO3 15.1 mmol/L (22-26) L 08/29/22 12:10 ABG Base Excess -7.6 mmol/L (-2.0-2.0) L 08/29/22 12:10 Lance Test Pos 08/29/22 12:10 Hematocrit 29.1 % (42-52) L 08/29/22 12:10 O2 Delivery Device Nc 08/29/22 12:10 O2 Liters/Min 4.5 % 08/29/22 12:10 Real Estate Office Manager ID Cak 08/29/22 12:10 Sodium 143 mmol/L (136-145) 08/29/22 12:23 Potassium 4.5 mmol/L (3.5-5.1) 08/29/22 12:23 Chloride 109 mmol/L (98-107) H 08/29/22 12:23 Carbon Dioxide 17 mmol/L (22-29) L 08/29/22 12:23 Anion Gap 21.5 (5-19) H 08/29/22 12:23 BUN 26 mg/dL (8-23) H 08/29/22 12:23 Creatinine 1.7 mg/dL (0.7-1.2) H 08/29/22 12:23 GFR Calculation Not Reportable 08/29/22 12:23 Glucose 120 mg/dL (65-115) H 08/29/22 12:23 Calculated Osmolality 302 mOsm/kg (285-295) H 08/29/22 12:23 Lactic Acid 5.4 mmol/L (0.5-2.2) H* 08/29/22 12:23 Lactic Acid (Sepsis) 1.5 mmol/L (0.5-2.2) 08/29/22 16:24 Calcium 8.6 mg/dL (8.5-10.5) 08/29/22 12:23 Total Bilirubin 0.8 mg/dL (0.15-1.2) 08/29/22 12:23 AST 40 U/L (0-40) 08/29/22 12:23 ALT 14 U/L (0-41) 08/29/22 12:23 Alkaline Phosphatase 259 U/L (40-130) H 08/29/22 12:23 Ammonia 47 umol/L (16-60) 08/29/22 13:15 Creatine Kinase 28 U/L (39-308) L 08/29/22 12:23 Troponin T Baseline 71 ng/L (0-15) H 08/29/22 12:23 Troponin T 120 Minute 87.49 ng/L (0-15) H 08/29/22 14:33 Delta Troponin T 16.49 ABS# (0-10) H* 08/29/22 14:33 C-Reactive Protein 12.7 mg/L (0.0-4.9) H 08/29/22 12:23 NT-Pro-B Natriuret Pep 5030 pg/mL (0-125) H 08/29/22 12:23 Total Protein 7.1 g/dL (6.6-8.7) 08/29/22 12: Albumin 2.9 g/dL (3.5-5.2) L 08/29/22 12: Globulin 4.2 g/dL (1.3-4.6) 08/29/22 12:23 Lipase 49 U/L (13-60) 08/29/22 12:23 Procalcitonin 0.44 ng/mL (0-0.5) 08/29/22 12:23 TSH 1.60 uIU/mL (0.27-4.20) 08/29/22 12:23 Urine Color Yellow (Yellow) 08/29/22 13:03 Urine Appearance Clear (CLEAR) 08/29/22 13:03 Urine pH 5 (5-7) 08/29/22 13:03 Ur Specific [place] 1.010 (1.005-1.030) 08/29/22 13:03 Urine Protein 1+ (Negative) H 08/29/22 13:03 Urine Glucose (UA) Norm (Normal) 08/29/22 13:03 Urine Ketones Negative (Negative) 08/29/22 13:03 Urine Blood Neg (Negative) 08/29/22 13:03 Urine Nitrate Negative (Negative) 08/29/22 13:03 Urine Bilirubin Neg (Negative) 08/29/22 13:03 Urine Urobilinogen Neg mg/dL (Negative) 08/29/22 13:03 Ur Leukocyte Esterase Negative (Negative) 08/29/22 13:03 Urine RBC None /hpf (0-2) 08/29/22 13:03 Urine WBC None /hpf (0-5) 08/29/22 13:03 Ur Squamous Epith Cells None /hpf (0-5) 08/29/22 13:03 Amorphous Sediment Not Reportable 08/29/22 13:03 Urine Bacteria None /hpf (NONE) 08/29/22 13:03 U Random Total Protein 89 mg/dL 08/29/22 13:03 Ur Random Sodium 87 mmol/L 08/29/22 13:03 Urine Creatinine 115 mg/dL (39-259) 08/29/22 13:03 Coronavirus 229E (PCR) Not detected (NOT DETECT) 08/29/22 12:25 SARS-CoV-2 (PCR) Not detected (NOT DETECT) 08/29/22 12:25 Critical Care Time Critical Care Time: Critical Care Time: Yes Total Critical Care Time: 45 Attestation: Due to a high probability of clinically significant, possibly life threatening deterioration, the patient required my highest level of attention and preparedness to intervene emergently and I personally spent this critical care time directly and personally managing the patient. This critical care time included obtaining a history; examining the patient; pulse oximetry; ordering and review of laboratory and imaging studies; arranging urgent treatment with development of a management plan; evaluation of patient's response to treatment; frequent reassessment; and, discussions with other providers as applicable. It was exclusive of separately billable procedures. Primary system involved is cardiopulmonary and infectious disease Discharge Plan Discharge Patient Disposition: Admitted As Inpatient Admit Provider: Hadley Marroquin Clinical Impression: New onset a-fib, Atrial fibrillation with RVR, Pneumonia, JIHAN (acute kidney injury), Non-ST elevation [place] (NSTEMI) Condition: Stable Discharge Diet: Cardiac Discharge Activity: Resume usual activity and Increase activity as tolerated Coding Level of Care Code ED Business Administration Instructor for Chg Fwd Exam Comprehensive
--- NOTE | 2022-08-29 12:08 | XRR_ITS ---
PROCEDURE INFORMATION: Exam: XR Chest Exam date and time: 08/29/2022 12:33 PM Age: 76 years old Clinical indication: Shortness of breath and wheezing; Patient HX: Onset of illness with chills, tachycardia, shortness of breath, generalized malaise, nausea, vomiting about 45 minutes prior to EMS activation. ; Additional info: Resp distress TECHNIQUE: Imaging protocol: Radiologic exam of the chest. Views: 1 view. COMPARISON: CR XR chest 1V portable [id number] 06/26/2022 8:44 AM FINDINGS: Lungs: There is a ill-defined left lower lobe infiltrate partially obscured by the left heart border likely secondary to pneumonia and in view of patient's history may represent aspiration pneumonitis. Remaining lung avalos aerated and clear. Pleural spaces: Unremarkable. No pleural effusion. No pneumothorax. Heart/Mediastinum: Unremarkable. No cardiomegaly. Bones/joints: Mild-moderate degenerative changes within the lower thoracic spine. XR/XR chest 1V portable [id number] IMPRESSION: Left lower lobe pneumonic infiltrate.
--- NOTE | 2022-08-29 12:14 | PC.PHAR ---
[phone]-nkechi lazo from [facility] states they will fax a mar
[2022-08-29 12:21] LABS: ABG PCO2 22.1 mmHg (35-45); ABG PH Result 7.44 (7.35-7.45); Arterial Blood Gas Hematocrit 29.1 % (42-52); Base Excess ABG -7.6 mmol/L (-2.0-2.0); Blood Gas Allen Test Pos; Blood Gas LPM 4.5 %; Blood Gas Operator Identificat CAK; Blood Gas Sample Site Radial, left; Blood Gas Sample Type Arterial; HCO3 ABG 15.1 mmol/L (22-26); Oxygen Device NC; PO2 ABG 68.3 mmHg (80.0-100.0)
--- NOTE | 2022-08-29 12:27 | ECG_ITS ---
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 Measurements Intervals [place] Rate: 138 P: 0 OK: 0 QRS: 35 QRSD: 118 T: -1 QT: 303 QTc: 460 Interpretive Statements ATRIAL FIBRILLATION WITH RAPID VENTRICULAR RESPONSE LOW QRS VOLTAGE IN PRECORDIAL LEADS [QRS DEFLECTION < 1.0 mV IN CHEST LEADS] INCOMPLETE RIGHT BUNDLE BRANCH BLOCK [90+ ms QRS DURATION, TERMINAL R IN V1/V2, 40+ ms S IN I/aVL/V4/V5/V6] INFERIOR MYOCARDIAL INFARCTION , OF INDETERMINATE AGE [40+ ms Q WAVE AND/OR ST/T ABNORMALITY IN II/aVF] ANTEROSEPTAL MYOCARDIAL INFARCTION , OF INDETERMINATE AGE [40+ ms Q WAVE IN V1-V4] Compared to ECG 06/26/2022 13:51:21 Low QRS voltage now present Incomplete right bundle-branch block now present Sinus tachycardia no longer present Right bundle-branch block no longer present Myocardial infarct finding still present Electronically Signed On 08-29-2022 14:37:43 FACTORY HAND by Chris Marin M.D. [id number]
[2022-08-29] MEDS: sodium chloride 0.9% 2,328 ML 2328 ML IV (12:31)
[2022-08-29 12:32] LABS: Basophils % 0.4 %; Eosinophils % 0.4 %; Hematocrit 32.2 % (42.0-52.0); Hemoglobin 9.5 g/dL (11.7-16.6); Lymphocytes # 0.5 10^3/uL (0.8-4.8); Lymphocytes % 5.8 %; Mean Corpuscular HGB Conc 29.5 g/dL (30.0-36.0); Mean Corpuscular Hemoglobin 30.9 pg (28.0-34.0); Mean Corpuscular Volume 104.9 fl (80-94); Mean Platelet Volume 11.2 fL (7.4-10.4); Monocytes # 0.4 10^3/uL (0.2-0.9); Monocytes % 4.3 %; Neutrophils # 7.36 10^3/uL (1.8-7.7); Neutrophils % 88.9 %; Nucleated Red Blood Cells % 0 %; Platelet Count 159 10^3/cmm (130-400); Red Blood Count 3.07 10^6/uL (4.1-5.3); Red Cell Distribution Width 15.4 % (12.1-15.1); White Blood Count 8.3 10^3/uL (4.0-10.0)
[2022-08-29] MEDS: acetaminophen 1,000 MG/100 ML PIGGYBACK 400 MG IV (12:32)
[2022-08-29] MEDS: piperacillin-tazobactam 4.5 GM in sodium chloride 0.9% (plus) 50 ML IV (12:33)
[2022-08-29 12:57] LABS: Troponin(5th) Baseline 71 ng/L (0-15)
[2022-08-29 13:03] LABS: NT Pro B Type Natriuretic Pept 5030 pg/mL (0-125); Procalcitonin 0.44 ng/mL (0-0.5)
--- NOTE | 2022-08-29 13:05 | CT_ITS ---
WS: [id number] CT HEAD NONCONTRAST HISTORY: ams TECHNIQUE: Contiguous axial imaging performed through the brain in 2.5 mm imaging. Bone and soft tiss ue windows. Sagittal and coronal reformats reviewed. All CT scans at [facility] use at least one of these dose optimization techniques: automated exposure control; mA and/or kV adjustment per pa tient size (includes targeted exams where dose is matched to clinical indication); or iterative recon struction. DLP: 843.97 mGy.cm COMPARISON: 02/23/2017 No acute intracranial hemorrhage, midline shift or mass effect. Moderate atrophy is symmetric. Mild small vessel ischemic changes and a few small bilateral lacunar i nfarcts. No large territory prior infarct or encephalomalacia. Ventricles: Normal size with no hydrocephalus. No inferior displacement of the cerebellar tonsils. Paranasal sinuses: As visualized are clear. Mastoid air cells: Well pneumatized. Calvarium and scalp: Skull is intact with no soft tissue edema or swelling. CT/CT head wo con* [id number] IMPRESSION: 1. No acute intracranial hemorrhage. 2. Moderate atrophy and mild small vessel ischemic disease. Very similar to th e prior study.
--- NOTE | 2022-08-29 13:05 | CT_ITS ---
WS: [id number] CTA CHEST WITH CT ABDOMEN AND PELVIS. HISTORY: Respiratory distress. TECHNIQUE: CT angiogram is performed through the chest. Additional imaging is performed through the a bdomen and pelvis with IV contrast. Sagittal and coronal reformats have been submitted. MIP imaging also reviewed. All CT scans at [facility] use at least one of these dose optimization techniqu es: automated exposure control; mA and/or kV adjustment per patient size (includes targeted exams whe re dose is matched to clinical indication); or iterative reconstruction. Contrast: Omnipaque 350; 95 cc IV. DLP: 1354.58 mGy.cm COMPARISON: 06/25/2022, 03/27/2021 Patient was unable to follow commands for this examination. Chest CTA: Limited opacification of the pulmonary arteries. Adequate the central arteries. Beyond the lobar branches opacification is suboptimal. No central pulmonary embolism. Extensive motion artifact . Mild atelectasis at the lung bases, LEFT greater than RIGHT. Heart is moderately enlarged. No adeno cesar. Mild atherosclerosis aorta. Abdomen CT: Extensive artifact through the abdomen by patient's arms and motion. Lobulated surface of the liver. Gallbladder is slightly contracted. Stones are not as evident today within the gallbladde r. Marked atrophy of pancreas. Negative spleen. No adrenal mass. Negative kidneys. Extensive atherosc lerosis aorta with no aneurysm. Mild ectasia. Moderate amount of ascites throughout the abdomen. There is mild mesenteric edema. No GI tract obstru ction. Nondistended stomach. No small bowel obstruction. No free air or free fluid Pelvic CT: Moderate amount of ascites in the pelvis. Avalos catheter in a nondistended bladder. No maria antonia tructive bone lesions. CT/CT angio chest w abd pel w con IMPRESSION: 1. Study is suboptimal due to poor pulmonary artery opacification, artifact fr om breathing and arm positioning. 2. No central pulmonary embolism. 3. Bilateral lower lobe subsegmental atelectasis. 4. Moderate amount of ascites. Ascites is new since 06/25/2022. 5. Cirrhotic liver. 6. Cholelithiasis seen on prior studies is not as evident today.
[2022-08-29 13:14] LABS: Alanine Aminotransferase 14 U/L (0-41); Albumin Level 2.9 g/dL (3.5-5.2); Alkaline Phosphatase 259 U/L (40-130); Anion Gap 21.5 (5-19); Aspartate Amino Transferase 40 U/L (0-40); Blood Urea Nitrogen 26 mg/dL (8-23); C Reactive Protein 12.7 mg/L (0.0-4.9); Calcium 8.6 mg/dL (8.5-10.5); Carbon Dioxide 17 mmol/L (22-29); Chloride 109 mmol/L (98-107); Creatine Phosphokinase 28 U/L (39-308); Globulin 4.2 g/dL (1.3-4.6); Glucose 120 mg/dL (65-115); Lipase 49 U/L (13-60); Osmolality Calculated 302 mOsm/kg (285-295); Potassium 4.5 mmol/L (3.5-5.1); Sodium 143 mmol/L (136-145); Total Bilirubin 0.8 mg/dL (0.15-1.2); Total Protein 7.1 g/dL (6.6-8.7)
[2022-08-29 13:28] LABS: Add Urine Microscopic? YES; Bilirubin Urine Neg (Negative); Blood Urine Neg (Negative); Glucose Urine UA Norm (Normal); Ketones Urine Negative (Negative); Leukocyte Esterase Urine Negative (Negative); Nitrate Urine Negative (Negative); Protein Urine 1+ (Negative); Urine Appearance Clear (CLEAR); Urine Color Yellow (Yellow); Urobilinogen Urine Neg (Negative); pH Urine 5 (5-7)
[2022-08-29 13:43] LABS: Ammonia 47 umol/L (16-60)
[2022-08-29] MEDS: iohexol 350 mg/mL 500 mL Btl (per mL) IV (13:50)
--- NOTE | 2022-08-29 14:09 | ECG_ITS ---
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 Measurements Intervals [place] Rate: 114 P: 83 TN: 193 QRS: 27 QRSD: 138 T: 17 QT: 369 QTc: 508 Interpretive Statements SINUS TACHYCARDIA WITH FREQUENT SUPRAVENTRICULAR PREMATURE COMPLEXES RIGHT BUNDLE BRANCH BLOCK [120+ ms QRS DURATION, UPRIGHT V1, 40+ ms S IN I/aVL/V4/V5/V6] ANTEROSEPTAL MYOCARDIAL INFARCTION , OF INDETERMINATE AGE [40+ ms Q WAVE IN V1-V4] Compared to ECG 08/29/2022 12:27:37 Right bundle-branch block now present Atrial fibrillation no longer present Incomplete right bundle-branch block no longer present Myocardial infarct finding still present Electronically Signed On 08-29-2022 14:40:37 DOUBLE BASS PLAYER by Chris Marin M.D. [id number]
[2022-08-29 14:50] LABS: Lactic Sepsis W/Reflex 5.4 mmol/L (0.5-2.2)
[2022-08-29 15:09] LABS: Troponin 5 2HR 87.49 ng/L (0-15)
[2022-08-29 15:11] LABS: Troponin 5 2HR Delta 16.49 ABS# (0-10)
[2022-08-29 15:44] LABS: Adenovirus Not Detected (NOT DETECT); Chlamydia Pneumoniae Not Detected (NOT DETECT); Coronavirus 229E,HKU1,NL63,OC4 Not Detected (NOT DETECT); Human Metapneumovirus Not Detected (NOT DETECT); Human Rhinovirus/Enterovirus Not Detected (NOT DETECT); Influenza A Not Detected (NOT DETECT); Influenza A H1 Not Detected (NOT DETECT); Influenza A H1-2009 Not Detected (NOT DETECT); Influenza A H3 Not Detected (NOT DETECT); Influenza B Not Detected (NOT DETECT); Mycoplasma Pneumoniae Not Detected (NOT DETECT); Parainfluenza Virus Type 1 Not Detected (NOT DETECT); Parainfluenza Virus Type 2 Not Detected (NOT DETECT); Parainfluenza Virus Type 3 Not Detected (NOT DETECT); Parainfluenza Virus Type 4 Not Detected (NOT DETECT); Respiratory Syncytial Virus A Not Detected (NOT DETECT); Respiratory Syncytial Virus B Not Detected (NOT DETECT); SARS-COV-2 Not Detected (NOT DETECT)
--- NOTE | 2022-08-29 16:02 | USR_ITS ---
PROCEDURE INFORMATION: Exam: US Abdomen; Limited Exam date and time: 08/29/2022 4:26 PM Age: 76 years old Clinical indication: Bloating; Additional info: Asicites evaluation for paracentesis TECHNIQUE: Imaging protocol: Real time ultrasound of the abdomen with image documentation. Limited exam focused on the region of clinical interest. COMPARISON: US paracentesis abd w [id number] 06/12/2021 10:57 AM FINDINGS: Imaging of the 4 quadrants reveals a moderate to large amount of ascites, sufficient for paracentesis to be performed safely. US/US abdomen limited [id number] IMPRESSION: Moderate to large amount of ascites, most prominent in the left lower quadrant.
--- NOTE | 2022-08-29 16:08 | PM.HP ---
Providers/Chief Complaint Primary Care Provider: Cash Parsons MD Chief Complaint: N/V SHAKING History of Present Illness Kyler Boyce is a 76 year old male with past medical history of hypertension coronary artery disease, alcohol abuse disorder, decompensated liver cirrhosis, GI bleed, was brought in from skilled nursing as he was having fever there. When I interacted with the patient and the family, they were informed that skilled nursing give them a call to send him to the ER as the patient was having fever at skilled nursing, patient currently has denied abdominal pain nausea vomiting, shortness of breath cough chest pain. Upon arrival in the ER he was found to be in A. fib with RVR, patient received fluid bolus, with improvement in heart rate, CT chest abdomen and pelvis: Bilateral lower lobe subsegmental atelectasis,Moderate amount of ascites.Cirrhotic liver. X-ray chest: Showed left lower lobe infiltrates, CT head without contrast: No acute intracranial pathology. Pertinent labs: WBC 8.3, H&H 9.5/32, plt : 159, serum sodium 143, serum potassium 4.5, serum bicarb 17, BUN 26 serum creatinine 1.7 Lactic acid 5.4, albumin 2.9, lipase 49, urinalysis clean , Troponin:71-87 , proBNP 5030. COVID PCR negative. Review of Systems General: Reports: 10 or more systems reviewed and unremarkable except in HPI and below Const: Reports: fever(s); Denies: chills, body aches, change in appetite or diaphoresis Card: Denies: palpitations, edema, swelling of feet/ankles, dyspnea on exertion, orthopnea or leg pain with exertion Resp: Denies: dyspnea, productive cough, wheezing or pain on inspiration GI: Denies: abdominal pain, nausea, vomiting, diarrhea or constipation : Denies: flank pain or difficulty urinating Musc: Denies: back pain, extremity pain or extremity swelling Neuro: Denies: headache(s) Medications/Allergies Home Medications Medication Instructions Recorded Confirmed Last Taken Type atorvastatin 40 mg tablet (Lipitor) 40 mg PO BEDTIME@03/04/21 08/29/22 12/28/21 History albuterol sulfate 90 mcg/actuation 2 puff inhalation Q4H PRN 01/18/22 08/29/22 Unknown History aerosol inhaler Shortness Of Breath nitroglycerin 0.4 mg sublingual 0.4 mg sublingual Q5M PRN Chest 01/18/22 08/29/22 01/18/22 10:30 History tablet (Nitrostat) Pain tamsulosin 0.4 mg capsule (Flomax) 0.4 mg PO BEDTIME@01/18/22 08/29/22 Unknown History furosemide 40 mg tablet 40 mg PO DAILY@08/29/22 08/29/22 Unknown History metoprolol tartrate 25 mg tablet 25 mg PO BID@08/29/22 08/29/22 Unknown History multivitamin with folic acid 400 1 tab PO DAILY@08/29/22 08/29/22 Unknown History mcg tablet (Thera) pantoprazole 40 mg tablet,delayed 40 mg PO BID@08/29/22 08/29/22 Unknown History release white petrolatum (Vaseline jelly, See Rx Instructions .Route .COMPLEX 08/29/22 08/29/22 Unknown History topical) Allergies Allergy/AdvReac Type Severity Reaction Status Date / Time Sulfa (Sulfonamide Allergy Unknown Verified 08/29/22 12:38 Antibiotics) PFSH Acute PFSH: Medical History CAD (coronary artery disease) COPD (chronic obstructive pulmonary disease) COVID-19 vaccine administered J&J CVA (cerebral vascular accident) Right MCA, left weakness GI bleeding Heart failure EF 65% last echo Hyperlipidemia Hypertension Nicotine dependence Pancreatitis Surgical History History of coronary artery stent placement History of nasal surgery Family History Other Stroke Social History Additional social history: History of tobacco use, alcohol use, no drugs. Recently DC to [facility] and unclear if continues to drink and smoke regularly. Vitals/I&O/Wt Last Vital Signs Temp 101.4 F H 08/29/22 12:04 Pulse 102 H 08/29/22 14:00 Resp 18 08/29/22 14:00 BP 159/77 08/29/22 13:30 Pulse Ox 97 08/29/22 14:00 O2 Del Method 08/29/22 12:04 O2 Flow Rate 4 08/29/22 12:04 Weight last 48 hrs Weight 79.379 kg Physical Exam Const: COMMON NORMALS: patient oriented x3 HENMT: COMMON NORMALS: normocephalic and atraumatic HEAD & SCALP: normocephalic and atraumatic Resp: COMMON NORMALS: clear to auscultation bilaterally EFFORT & INSPECTION: Yes symmetric chest movement AUSCULTATION: clear to auscultation bilaterally Cardio: COMMON NORMALS: regular rate, regular rhythm, S1 normal heart sound present, S2 normal heart sound present, No gallops present (Cardio), No murmurs present (Cardio), No rub (Cardio) and Peripheral pulses 2+ throughout RATE: regular rate RHYTHM: regular rhythm HEART SOUNDS: S1 normal heart sound present and S2 normal heart sound present PERIPHERAL PULSES: Peripheral pulses 2+ throughout GI: COMMON NORMALS: Soft to palpation and non-tender INSPECTION: Yes abdominal distension and Yes Fluid wave present AUSCULTATION: Yes normoactive bowel sounds PALPATION: Yes Soft to palpation and Yes No hepatosplenomegaly present RECTAL EXAM: Yes deferred Extremity: COMMON NORMALS: no clubbing, cyanosis or edema and no pedal edema Neuro: COMMON NORMALS: patient oriented x3 Data 08/29/22 12:23 08/29/22 12:23 Micro: Microbiology 08/29/22 12:25 Blood Culture - Preliminary Blood SPECIMEN COLLECTED 08/29/22 12:23 Blood Culture - Preliminary Blood SPECIMEN COLLECTED A&P Assessment and plan (1) New onset a-fib: (2) Atrial fibrillation with RVR: (3) JIHAN (acute kidney injury): (4) Cirrhosis: (5) CAD (coronary artery disease): Qualifiers: Associated angina: without angina Coronary Disease-Associated Artery/Lesion type: [place] artery [place] vs. transplanted heart: [place] heart Qualified Code(s): I25.10 - Atherosclerotic heart disease of [place] coronary artery without angina pectoris (6) Anemia: (7) Hypertension: Qualifiers: Hypertension type: unspecified Qualified Code(s): I10 - Essential (primary) hypertension (8) Decompensated hepatic cirrhosis: (9) Ascites: (10) NSTEMI (non-ST elevated myocardial infarction): (11) Sepsis: Plan 76 year old male with past medical history of hypertension coronary artery disease, alcohol abuse disorder, decompensated liver cirrhosis, GI bleed, was brought in from skilled nursing as he was having fever there. When I interacted with the patient and the family, they were informed that skilled nursing give them a call to send him to the ER as the patient was having fever at skilled nursing, patient currently has denied abdominal pain nausea vomiting, shortness of breath cough chest pain. Upon arrival in the ER he was found to be in A. fib with RVR, patient received fluid bolus, with improvement in heart rate, CT chest abdomen and pelvis: Bilateral lower lobe subsegmental atelectasis,Moderate amount of ascites.Cirrhotic liver. X-ray chest: Showed left lower lobe infiltrates, CT head without contrast: No acute intracranial pathology. Assessment: Sepsis: Possibly secondary to pneumonia/SBP Patient currently meets sepsis criteria as: Has tachycardia, fever, elevated lactic acid, JIHAN, possible source is pneumonia/possible SBP, though patient has denied abdominal pain, has no abdominal tenderness. Follow blood culture Urine culture Repeat lactic acid Procalcitonin: 0.44 Diagnostic/therapeutic ascitic fluid tap Currently on Zosyn JIHAN on CKD: Rule out possible HRS type I: In the setting of decompensated liver cirrhosis, Hold Lasix Random urine sodium Random urine creatinine Fena Renal ultrasound Gentle IV hydration Albumin IV Avalos catheter insertion for adequate intake output charting Decompensated liver cirrhosis: Likely secondary to alcohol abuse Child Silvestre score Meld score: Ascites: Secondary decompensated liver cirrhosis Limited ultrasound for ascitic fluid evaluation Ascitic fluid analysis Newly diagnosed A. fib with RVR: Currently rate is better controlled Continue metoprolol Not a good candidate for anticoagulation given his prior history of GI bleed, and history of decompensated liver cirrhosis NSTEMI: Possibly secondary to A. fib with RVR, denied any chest pain. 2D echo History of coronary artery disease History of CAD History of GI bleed CODE STATUS:AND DVT prophylaxis: Lovenox Attestations Medical Necessity Statement*: Patient is to be in hospital for management decompensated liver cirrhosis.Anticipated length of stay greater than 2 midnightS Coding Level of Care Code Acute Code for Chg Fwd Diagnoses New onset a-fib I48.91 Atrial fibrillation with RVR I48.91 JIHAN (acute kidney injury) N17.9 Cirrhosis K74.60 CAD (coronary artery disease) I25.10 Associated angina: without angina Coronary Disease-Associated Artery/Lesion type: [place] artery [place] vs. transplanted heart: [place] heart Anemia D64.9 Hypertension I10 Hypertension type: unspecified Decompensated hepatic cirrhosis K72.90; K74.60 Ascites R18.8 NSTEMI (non-ST elevated myocardial infarction) I21.4 Sepsis A41.9
[2022-08-29 16:13] LABS: Reflex Lactate Order REFLEX LACTIC ORDERD
--- NOTE | 2022-08-29 16:35 | USCV_ITS ---
Kyler Boyce Age: 76 Gender: M : 1945 Exam Date: 08/29/2022 16:54 Ordering Phys: Hadley Marroquin MD Technologist: ADRIANNA [place] [facility] [place]: Shortness of breath BP: / HR: Rhythm: Sinus Technical Quality: Adequate MEASUREMENTS (Male / Female) Normal Values DOPPLER TR Peak Velocity 216.0 cm/s TR Peak Gradient 18.7 mmHg FINDINGS Left Ventricle Normal left ventricular size, systolic function and wall thickness, with no regional wall motion abnormalities. Left ventricular ejection fraction is estimated at 65 %. Right Ventricle Normal right ventricular size and systolic function. Right ventricular systolic pressure 23 mmHg. Right Atrium Normal right atrial size. Left Atrium Mildly increased left atrial size. Mitral Valve Moderate mitral annular calcification. No mitral valve stenosis. Trace mitral valve regurgitation. Aortic Valve Thickened and calcified aortic valve. Aortic valve sclerosis without stenosis. No aortic valve regurgitation. Tricuspid Valve Structurally normal tricuspid valve. No tricuspid valve stenosis. Trace tricuspid valve regurgitation. Pulmonic Valve Pulmonic valve not well visualized. No pulmonary valve stenosis. Pericardium No pericardial effusion. Aorta Normal size aortic root and proximal ascending aorta. IVC Normal IVC dimension with >50% respiratory change of the inferior vena cava. CONCLUSIONS 1. Normal left ventricular size, systolic function and wall thickness, with no regional wall motion abnormalities. Left ventricular ejection fraction is estimated at 65 %. 2. Aortic valve sclerosis without stenosis. 3. Pulmonary artery pressure estimated at 23 mm Hg. 4. No significant change when compared to study dated 06/26/22. Jasmina Holley MD (Electronically Signed) Final Date: 29 August 2022 21:30 S
[2022-08-29] MEDS: pantoprazole 40 mg SDV IVP (16:49)
[2022-08-29] MEDS: enoxaparin 30 mg/0.3 mL Syringe SUBCUT (16:51)
[2022-08-29] MEDS: vancomycin 1,500 MG/300 ML PIGGYBACK 200 MG IV (16:52)
[2022-08-29 16:54] LABS: Lactic Acid level (Lactate) 1.5 mmol/L (0.5-2.2)
--- NOTE | 2022-08-29 18:09 | ECG_ITS ---
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 Measurements Intervals [place] Rate: 85 P: 60 OK: 230 QRS: -4 QRSD: 134 T: 19 QT: 423 QTc: 505 Interpretive Statements SINUS RHYTHM WITH FIRST DEGREE AV BLOCK WITH FREQUENT SUPRAVENTRICULAR PREMATURE COMPLEXES RIGHT BUNDLE BRANCH BLOCK [120+ ms QRS DURATION, UPRIGHT V1, 40+ ms S IN I/aVL/V4/V5/V6] ANTEROSEPTAL MYOCARDIAL INFARCTION , OF INDETERMINATE AGE [40+ ms Q WAVE IN V1-V4] Compared to ECG 08/29/2022 14:21:50 First degree AV block now present Sinus tachycardia no longer present Myocardial infarct finding still present Electronically Signed On 08-29-2022 18:32:17 AERIAL SPRAYER by Chris Marin M.D. [id number]
[2022-08-29] MEDS: piperacillin-tazobactam 3.375 GM in sodium chloride 0.9% (plus) 50 ML IV (18:44)
[2022-08-29] MEDS: sodium chloride 0.9% 1,000 ML 75 ML IV (18:46)
[2022-08-29 19:33] LABS: Troponin 5 6HR 89.45 ng/L (0-15)
[2022-08-29 19:37] LABS: Troponin 5 6HR Delta 18.45 ng/L (0-12)
[2022-08-29] MEDS: atorvastatin 40 mg Tablet PO (20:06)
[2022-08-29] MEDS: metoprolol tartrate 25 mg Tablet PO (20:06)
[2022-08-29] MEDS: tamsulosin 0.4 mg Capsule PO (20:06)
[2022-08-29 20:36] LABS: Creatinine Urine, Random 115 mg/dL (39-259)
[2022-08-29 20:41] LABS: Urine Random Sodium 87 mmol/L
[2022-08-29 20:54] LABS: Urine Protein Random 89 mg/dL
--- NOTE | 2022-08-29 23:00 | PC.NURSE ---
Addendum entered by Betzaida Hinds RN 08/29/22 23:49: Pauses lasting about 3 seconds. Current HR 67. New order for dopamine. Original Note: Updated Dr. Kimbrough on vital signs. Pt is SR w/ 1st degree block, has had several pauses lasting less than 3 seconds, HR in the 30's during pauses. Strips in paper chart.
[2022-08-29] MEDS: DOPamine drip 400 MG/250 ML PREMIX IV (23:46)
[2022-08-30] VITALS (49 sets, daily range): BP systolic 95–165; BP diastolic 54–91; PULSE 39–117; RESP 13–26; TEMP 36.5–36.9; O2SAT 90–99
[2022-08-30] MEDS: piperacillin-tazobactam 3.375 GM in sodium chloride 0.9% (plus) 50 ML IV ×3 (01:51→17:27)
[2022-08-30] MEDS: ondansetron 2 mg/ML SDV 2 mL 4 MG IVP (03:09)
[2022-08-30 04:28] LABS: Basophils % 0.2 %; Eosinophils % 0.2 %; Hematocrit 26.7 % (42.0-52.0); Hemoglobin 7.9 g/dL (11.7-16.6); Lymphocytes # 1.1 10^3/uL (0.8-4.8); Lymphocytes % 11.5 %; Mean Corpuscular HGB Conc 29.6 g/dL (30.0-36.0); Mean Corpuscular Hemoglobin 31.2 pg (28.0-34.0); Mean Corpuscular Volume 105.5 fl (80-94); Mean Platelet Volume 11.3 fL (7.4-10.4); Monocytes # 0.8 10^3/uL (0.2-0.9); Monocytes % 8.3 %; Neutrophils % 79.5 %; Nucleated Red Blood Cells % 0 %; Platelet Count 148 10^3/cmm (130-400); Red Blood Count 2.53 10^6/uL (4.1-5.3); Red Cell Distribution Width 15.7 % (12.1-15.1); White Blood Count 9.2 10^3/uL (4.0-10.0)
[2022-08-30 04:37] LABS: Ammonia 41 umol/L (16-60)
[2022-08-30 04:40] LABS: Partial Thromboplastin Time 39.6 SECONDS (23.9-36.7)
[2022-08-30 04:46] LABS: Troponin T (5th) Once 85 ng/L (0-15)
[2022-08-30 04:50] LABS: Lactate (Lactic Acid level) 0.8 mmol/L (0.5-2.2)
[2022-08-30 04:53] LABS: Alanine Aminotransferase 10 U/L (0-41); Albumin Level 2.9 g/dL (3.5-5.2); Alkaline Phosphatase 176 U/L (40-130); Anion Gap 14.8 (5-19); Aspartate Amino Transferase 30 U/L (0-40); Blood Urea Nitrogen 23 mg/dL (8-23); Calcium 7.5 mg/dL (8.5-10.5); Carbon Dioxide 18 mmol/L (22-29); Chloride 112 mmol/L (98-107); Globulin 2.9 g/dL (1.3-4.6); Glucose 116 mg/dL (65-115); Magnesium 1.2 mg/dL (1.7-2.3); Osmolality Calculated 297 mOsm/kg (285-295); Potassium 3.8 mmol/L (3.5-5.1); Sodium 141 mmol/L (136-145); Total Bilirubin 0.6 mg/dL (0.15-1.2); Total Protein 5.8 g/dL (6.6-8.7)
[2022-08-30 04:59] LABS: Procalcitonin 37.45 ng/mL (0-0.5)
[2022-08-30] MEDS: sodium chloride 0.9% 1,000 ML 75 ML IV ×2 (05:20→18:29)
[2022-08-30] MEDS: thiamine 100 mg Tablet PO (08:57)
[2022-08-30] MEDS: magnesium sulfate premix 4 GM/100 ML PREMIX IV (08:57)
[2022-08-30] MEDS: multivitamin therapeutic Tablet 1 TAB PO (08:57)
[2022-08-30] MEDS: pantoprazole 40 mg SDV IVP ×2 (08:57→20:21)
--- NOTE | 2022-08-30 12:45 | PC.NURSE ---
Bedside ultrasound guided paracentesis completed this afternoon by Dr. Marroquin, this nurse and architecture technician noted to be present at time of intervention. Dr. Marroquin drained 4.6L of fluid off of patient's abdomen, sample sent to lab per physician's orders. Dr. Marroquin placed dressing over insertion site. Patient noted to be hemodynamically stable and denies any pain at this time.
--- NOTE | 2022-08-30 13:10 | PM.ACPR ---
Acute Procedures Paracentesis: Time out performed: Yes Indication: Ascites Procedure: therapeutic paracentesis Location: LLQ Local anesthetic used: lidocaine 2% Amount of anesthesia used (ml): 10 Bedside ultrasound used: yes, Ascites confirmed and location marked and yes, real-time guidance Preparation: sterile prep and drape and 11 blade used to make zina in skin Amount of fluid obtained (ml): 4,500 Fluid: clear Post procedure exam: awake, alert, normal BP, normal HR and normal SpO2 Patient tolerated procedure: well and no complications Complications: none
--- NOTE | 2022-08-30 13:12 | P.PN_ITS ---
Subjective Subjective: Patient was seen and examined this morning, has been afebrile overnight, dopamine drip to be started overnight for significant pause as well as bradycardia, metoprolol has been discontinued this morning dopamine drip has been discontinued, heart rate is better controlled, currently making decent u rine, Serum creatinine is slightly improved, hypomagnesemia has been corrected, s/p therapeutic paracentesis with removal of 4.5 L ascitic fluid. Pending ascitic fluid analysis. Repeat lactic acid this morning is 0.8, procalcitonin is high at 37.45. Hemoglobin this morning has dropped to 7.9, INR is 1.40, will monitor for any bright red blood per rectum. Melena. Or any other bleeding. Transfuse to maintain hemoglobin greater than 7.Currently is maintaining a decent MAP. Medications: Medication Review Details: 3Generic Name Dose Route Start Last Admin Trade Name Freq PRN Reason Stop Dose Admin Atorvastatin Calci um 40 mg 08/29/22 20:00 08/29/22 20:06 Atorvastatin 40 Mg Tablet PO 40 mg BEDTIME@20 JOSÉ MIGUEL Administration Sodium Chloride 1,000 mls @ 75 ml s/hr 08/29/22 16:00 08/30/22 05:20 Sodium Chloride 0.9% IV 75 mls/hr .[id number] JOSÉ MIGUEL Administration Piperacillin Sod/T azobactam 50 mls @ 12.5 mls /hr 08/29/22 18:30 08/30/22 17:27 Sod 3.375 gm/ So dium Chloride IV 12.5 mls/hr Q8H JOSÉ MIGUEL Administration Protocol Albumin Human 25 gm in 100 mls @ 60 mls/hr 08/29/22 18:00 08/30/22 17:17 Albumin IV 60 mls/hr Q8H JOSÉ MIGUEL Administration Dopamine HCl/Dextr ose 400 mg in 250 mls @ 14.884 mls/hr 08/29/22 23:45 08/30/22 09:10 Intropin Drip IV 0 mcg/kg/min CONT JOSÉ MIGUEL 0 mls/hr Titration Protocol 5 MCG/KG/MIN Multivitamins Ther apeutic 1 tab 08/30/22 08:00 08/30/22 08:57 Multivitamin The rapeutic Tablet PO 1 tab DAILY@08 JOSÉ MIGUEL Administration Ondansetron HCl 4 mg 08/29/22 15:56 08/30/22 03:09 Ondansetron 2 Mg /Ml Sdv 2 Ml IVP 4 mg Q8H PRN Administration vomiting, or N/V if npo Pantoprazole Sodiu m 40 mg 08/30/22 08:45 08/30/22 08:57 Pantoprazole 40 Mg Sdv IVP 40 mg Q12H JOSÉ MIGUEL Administration Tamsulosin HCl 0.4 mg 08/29/22 20:00 08/29/22 20:06 Tamsulosin 0.4 M g Capsule PO 0.4 mg BEDTIME@20 JOSÉ MIGUEL Administration Thiamine Mononitra te 100 mg 08/30/22 09:00 08/30/22 08:57 Thiamine 100 Mg Tablet PO 100 mg DAILY JOSÉ MIGUEL Administration Vitals/I&O/Wt Last Vital Signs Temp 98.2 F 08/30/22 04:30 Pulse 70 08/30/22 11:30 Resp 15 08/30/22 11:30 BP 120/63 08/30/22 11:30 Pulse Ox 96 08/30/22 11:30 O2 Del Method 08/30/22 08:00 O2 Flow Rate 1 08/30/22 08:00 08/29/22 08/30/22 08/30/22 22:59 06:59 14:59 Intake Total 3178 / 3178 1197.924 / 4375.924 398.652 / 398.652 Output Total 800 / 800 Balance 3178 / 3178 397.924 / 3575.924 398.652 / 398.652 Weight last 48 hrs Weight 79.379 kg Physical Exam Const: COMMON NORMALS: patient oriented x3 HENMT: COMMON NORMALS: normocephalic and atraumatic HEAD & SCALP: normocephalic and atraumatic Resp: COMMON NORMALS: clear to auscultation bilaterally EFFORT & I NSPECTION: Yes symmetric chest movement AUSCULTATION: clear to auscultation bilaterally Cardio: COMMON NORMALS: regular rate, regular rhythm, S1 normal heart sound present, S2 normal heart sound present, No gallops present (Cardio), No murmurs present (Cardio), No rub (Cardio) and Peripheral pulses 2+ throughout RATE: regular rate RHYTHM: regular rhythm HEART SOUNDS: S1 normal heart sound present and S2 normal heart sound present PERIPHERAL PULSES: Peripheral pulses 2+ throughout GI: COMMON NORMALS: Soft to palpation, non-tender and No hepatosplenomegaly present INSPECTION: Yes abdominal distension and Yes Fluid wave present AUSCULTATION: Yes normoactive bowel sounds PALPATION: Yes Soft to palpation and Yes No hepatosplenomegaly present PERCUSSION: Fluid wave present RECTAL EXAM: Yes deferred Extremity: COMMON NORMALS: no clubbing, cyanosis or edema and no pedal edema Neuro: COMMON NORMALS: patient oriented x3 Urinary Catheter Management: Avalos: Cath Placed During This Visit: yes Reason for Continuing Indwelling Catheter: Accurate Measurement of Urinary Output in Critically Ill Patients Urinary Catheter Date of Insertion: 08/29/22 Data 08/30/22 04:12 08/30/22 04:12 Micro: Microbiology 08/29/22 12:23 Blood Culture - Preliminary Blood NEGATIVE TO DATE 08/29/22 12:25 Blood Culture - Preliminary Blood A&P Assessment and plan (1) New onset a-fib: (2) Atrial fibrillation with RVR: (3) JIHAN (acute kidney injury): (4) Cirrhosis: (5) CAD (coronary artery disease): Qualifiers: Associated angina: without angina Coronary Disease-Associated Artery/Lesion type: [place] artery [place] vs. transplanted heart: [place] heart Qualified Code(s): I25.10 - Atherosclerotic heart disease of [place] coronary a rtery without angina pectoris (6) Anemia: (7) Hypertension: Qualifiers: Hypertension type: unspecified Qualified Code(s): I10 - Essential (primary) hypertension (8) Decompensated hepatic cirrhosis: (9) Ascites: (10) NSTEMI (non-ST elevated myocardial infarction): (11) Sepsis: Plan 76 year old male with past medical history of hypertension coronary artery disease, alcohol abuse disorder, decompensated liver cirrhosis, GI bleed, was brought in from [facility] term as he was having fever there. When I interacted with the patient and the family, they were informed that long term give them a call to send him to the ER as the patient was having fever at long term, patient currently has denied abdominal pain nausea vomiting, shortness of breath cough chest pain. Upon arrival in the ER he was found to be in A. fib with RVR, patient received fluid bolus, with improvement in heart rate, CT chest abdomen and pelvis: Bilateral lower lobe subsegmental atelectasis,Moderate amount of ascites.Cirrhotic liver. X-ray chest: Showed left lower lobe infiltrates, CT head without contrast: No acute intracranial pathology. Assessment: Sepsis: Possibly secondary to pneumonia/SBP Patient currently meets sepsis criteria as: Has tachycardia, fever, elevated lactic acid, JIHAN, possible source is pneumonia/possible SBP, though patient has denied abdominal pain, has no abdominal tenderness. Follow blood culture Urine culture: Repeat lactic acid: 0.8 Procalcitonin: 0.44 --> 37 Diagnostic/therapeutic ascitic fluid tap Currently on Zosyn JIHAN on CKD: Rule out possible HRS type I: In the setting of decompensated liver cirrhosis, Hold Lasix Random urine sodium: 87 Random urine creatinine: 115 Urine random total protein:89 Fena Renal ultrasound Gentle IV hydration Albumin IV Avalos catheter insertion for adequate intake output charting Decompensated liver cirrhosis: Likely secondary to alcohol abuse Child Silvestre class B: 9 points Meld score: 18 (estimated 3-month mortality 6% ) Ascites: Secondary decompensated liver cirrhosis S/p paracentesis: With removal of 4.5 LS yellow ascitic fluid. Ascitic fluid analysis Newly diagnosed A. fib with RVR: Currently rate is better controlled Continue metoprolol Not a good candidate for anticoagulation given his prior history of GI bleed, and history of decompensated liver cirrhosis NSTEMI: Possibly secondary to A. fib with RVR, denied any chest pain. 2D echo: Normal left ventricular size, systolic function and wall thickness, with no regional wall motion abnormalities. Left ventricular ejection fraction is estimated at 65 %. Aortic valve sclerosis w ithout stenosis.Pulmonary artery pressure estimated at 23 mm Hg. #Anemia: Monitor H&H FOBT Transfuse to maintain hemoglobin greater than 7 History of coronary artery disease History of CAD History of GI bleed CODE STATUS:AND DVT prophylaxis: Was on Lovenox has been discontinued,ON SCDS Plan for today: dopamine drip to be started overnight for significant pause as well as bradycardia, metoprolol has been discontinued this morning dopamine drip has been discontinued, heart rate is better controlled, currently making decent urine, Serum creatinine is slightly improved, hypomagnesemia has been corrected, s/p therapeutic paracentesis with removal of 4.5 L ascitic fluid. Pending ascitic fluid analysis. Repeat lactic acid this morning is 0.8, procalcitonin is high at 37.45. Hemoglobin this morning has dropped to 7.9, INR is 1.40, will monitor for any bright red blood per rectum. Melena. Or any other bleeding. Transfuse to maintain hemoglobin greater than 7.Currently is maintaining a decent MAP. Attestations Medical Necessity Statement*: Needs to be in hospital for management of sepsis. Time Spent in Patient Care: Greater than 35 minutes (>than 50% of time spent in counselling and/or direct pt care on unit) . Critical Care Time: The high probability of a clinically significant, sudden or life threatening deterioration of the patient's [] system(s) required my full and direct attention, intervention and personal management. The critical care time is as shown. This time is in addition to time spent performing any reported procedures but includes the following: [x] Data and vital sign review and interpretation [x] Patient assessment, examination and intervention [x] Documentation [x] Medication orders and management Critical Care Time (min): 90 Coding Level of Care Code Acute Code for Chg Fwd Exam Detailed Diagnoses New onset a-fib I48.91 Atrial fibrillation with RVR I48.91 JIHAN (acute kidney injury) N17.9 Cirrhosis K74.60 CAD (coronary artery disease) I25.10 Associated angina: without angina Coronary Disease-Associated Artery/Lesion type: [place] artery [place] vs. transplanted heart: [place] heart Anemia D64.9 Hypertension I10 Hypertension type: unspecified Decompensated hepatic cirrhosis K72.90; K74.60 Ascites R18.8 NSTEMI (non-ST elevated myocardial infarction) I21.4 Sepsis A41.9
[2022-08-30 14:20] LABS: Cyto Order Verification No Order
[2022-08-30 15:03] LABS: Albumin Body Fluid 0.9 g/dL; LDH Body Fluid 58 U/L
[2022-08-30 15:12] LABS: Appearance, Peritoneal Fluid Clear (Clear); Color, Peritoneal Fluid Pale Yellow (Pale Yellow)
[2022-08-30 15:15] LABS: Pathology Referral Yes
[2022-08-30 15:16] LABS: RBC Pertioneal Fluid 0 10^3/uL; WBC Peritoneal Fluid 80 /uL
[2022-08-30] MEDS: lidocaine 2% INJ 20 mL INJECTION (17:17)
[2022-08-30] MEDS: folic acid 1 mg Tablet PO (18:29)
[2022-08-30] MEDS: tamsulosin 0.4 mg Capsule PO (20:12)
[2022-08-30] MEDS: atorvastatin 40 mg Tablet PO (20:12)
[2022-08-31] VITALS (31 sets, daily range): BP systolic 122–183; BP diastolic 52–88; PULSE 65–97; RESP 14–24; TEMP 36.4–37.1; O2SAT 90–99
[2022-08-31] MEDS: piperacillin-tazobactam 3.375 GM in sodium chloride 0.9% (plus) 50 ML IV ×3 (01:59→17:30)
[2022-08-31 05:53] LABS: Basophils % 0.4 %; Eosinophils # 0.2 10^3/uL (0.0-0.8); Eosinophils % 3.2 %; Hemoglobin 7.2 g/dL (11.7-16.6); Lymphocytes # 0.9 10^3/uL (0.8-4.8); Lymphocytes % 17.1 %; Mean Corpuscular HGB Conc 28.8 g/dL (30.0-36.0); Mean Corpuscular Hemoglobin 30.6 pg (28.0-34.0); Mean Corpuscular Volume 106.4 fl (80-94); Mean Platelet Volume 11.8 fL (7.4-10.4); Monocytes # 0.6 10^3/uL (0.2-0.9); Monocytes % 10.8 %; Neutrophils # 3.59 10^3/uL (1.8-7.7); Neutrophils % 68.1 %; Nucleated Red Blood Cells % 0 %; Platelet Count 131 10^3/cmm (130-400); Red Blood Count 2.35 10^6/uL (4.1-5.3); Red Cell Distribution Width 15.9 % (12.1-15.1); White Blood Count 5.3 10^3/uL (4.0-10.0)
--- NOTE | 2022-08-31 06:06 | PC.NURSE ---
Updated Dr. Kimbrough of Hgb and Hct trending down. No new orders at this time.
[2022-08-31 06:31] LABS: Alanine Aminotransferase 8 U/L (0-41); Albumin Level 3.1 g/dL (3.5-5.2); Alkaline Phosphatase 142 U/L (40-130); Anion Gap 14.8 (5-19); Aspartate Amino Transferase 23 U/L (0-40); Blood Urea Nitrogen 23 mg/dL (8-23); Calcium 7.6 mg/dL (8.5-10.5); Carbon Dioxide 17 mmol/L (22-29); Chloride 115 mmol/L (98-107); Globulin 2.4 g/dL (1.3-4.6); Glucose 100 mg/dL (65-115); Magnesium 1.8 mg/dL (1.7-2.3); Osmolality Calculated 300 mOsm/kg (285-295); Phosphorus 3.4 mg/dL (2.5-4.5); Potassium 3.8 mmol/L (3.5-5.1); Sodium 143 mmol/L (136-145); Total Bilirubin 0.4 mg/dL (0.15-1.2); Total Protein 5.5 g/dL (6.6-8.7)
--- NOTE | 2022-08-31 08:06 | PM.PN ---
Subjective Subjective: Patient was seen and examined this morning, overall he is doing better, serum creatinine is improving Afebrile, urine output is slowly picking up. Hemoglobin dropped to 7.2 this morning. Plan is to transfuse 1 unit. Medications: Medication Review Details: Generic Name Dose Route Start Last Admin Trade Name Freq PRN Reason Stop Dose Admin Atorvastatin Calci um 40 mg 08/29/22 20:00 08/29/22 20:06 Atorvastatin 40 Mg Tablet PO 40 mg BEDTIME@20 JOSÉ MIGUEL Administration Sodium Chloride 1,000 mls @ 75 ml s/hr 08/29/22 16:00 08/30/22 05:20 Sodium Chloride 0.9% IV 75 mls/hr .[id number] JOSÉ MIGUEL Administration Piperacillin Sod/T azobactam 50 mls @ 12.5 mls /hr 08/29/22 18:30 08/30/22 17:27 Sod 3.375 gm/ So dium Chloride IV 12.5 mls/hr Q8H JOSÉ MIGUEL Administration Protocol Albumin Human 25 gm in 100 mls @ 60 mls/hr 08/29/22 18:00 08/30/22 17:17 Albumin IV 60 mls/hr Q8H JOSÉ MIGUEL Administration Dopamine HCl/Dextr ose 400 mg in 250 mls @ 14.884 mls/hr 08/29/22 23:45 08/30/22 09:10 Intropin Drip IV 0 mcg/kg/min CONT JOSÉ MIGUEL 0 mls/hr Titration Protocol 5 MCG/KG/MIN Multivitamins Ther apeutic 1 tab 08/30/22 08:00 08/30/22 08:57 Multivitamin The rapeutic Tablet PO 1 tab DAILY@08 JOSÉ MIGUEL Administration Ondansetron HCl 4 mg 08/29/22 15:56 08/30/22 03:09 Ondansetron 2 Mg /Ml Sdv 2 Ml IVP 4 mg Q8H PRN Administration vomiting, or N/V if npo Pantoprazole Sodiu m 40 mg 08/30/22 08:45 08/30/22 08:57 Pantoprazole 40 Mg Sdv IVP 40 mg Q12H JOSÉ MIGUEL Administration Tamsulosin HCl 0.4 mg 08/29/22 20:00 08/29/22 20:06 Tamsulosin 0.4 M g Capsule PO 0.4 mg BEDTIME@20 JOSÉ MIGUEL Administration Thiamine Mononitra te 100 mg 08/30/22 09:00 08/30/22 08:57 Thiamine 100 Mg Tablet PO 100 mg DAILY JOSÉ MIGUEL Administration Vitals/I&O/Wt Last Vital Signs Temp 98.2 F 08/31/22 04:00 Pulse 79 08/31/22 07:00 Resp 15 08/31/22 07:00 BP 156/72 08/31/22 07:00 Pulse Ox 97 08/31/22 07:00 O2 Del Method 08/30/22 18:20 O2 Flow Rate 1 08/30/22 08:00 08/30/22 08/31/22 08/31/22 22:59 06:59 14:59 Intake Total 1866.25 / 2604.902 400 / 3004.902 Output Total 5100 / 5100 325 / 5425 Balance -3233.75 / -2495.098 75 / -2420.098 Weight last 48 hrs Weight 79.379 kg Physical Exam Const: COMMON NORMALS: patient oriented x3 HENMT: COMMON NORMALS: normocephalic and atraumatic HEAD & SCALP: normocephalic and atraumatic Resp: COMMON NORMALS: clear to auscultation bilaterally EFFORT & INSPECTION: Yes symmetric chest movement AUSCULTATION: clear to auscultation bilaterally Cardio: COMMON NORMALS: regular rate, regular rhythm, S1 normal heart sound present, S2 normal heart sound present, No gallops present (Cardio), No murmurs present (Cardio), No rub (Cardio) and Peripheral pulses 2+ throughout RATE: regular rate RHYTHM: regular rhythm HEART SOUNDS: S1 normal heart sound present and S2 normal heart sound present PERIPHERAL PULSES: Peripheral pulses 2+ throughout GI: COMMON NORMALS: Soft to palpation, non-tender and No hepatosplenomegaly present INSPECTION: Yes abdominal distension and Yes Fluid wave present AUSCULTATION: Yes normoactive bowel sounds PALPATION: Yes Soft to palpation and Yes No hepatosplenomegaly present PERCUSSION: Fluid wave present RECTAL EXAM: Yes deferred Extremity: COMMON NORMALS: no clubbing, cyanosis or edema and no pedal edema Neuro: COMMON NORMALS: patient oriented x3 Urinary Catheter Management: Avalos: Cath Placed During This Visit: yes Reason for Continuing Indwelling Catheter: Accurate Measurement of Urinary Output in Critically Ill Patients Urinary Catheter Date of Insertion: 08/29/22 Data 08/31/22 05:00 08/31/22 05:00 Micro: Microbiology 08/31/22 00:16 C.difficile Toxin B Gene (PCR) - Final Stool Routine Collection 08/31/22 00:16 Occult Blood (FIT) - Final Stool Routine Collection 08/29/22 12:23 Blood Culture - Preliminary Blood NEGATIVE TO DATE 08/29/22 12:25 Blood Culture - Preliminary Blood A&P Assessment and plan (1) New onset a-fib: (2) Atrial fibrillation with RVR: (3) JIHAN (acute kidney injury): (4) Cirrhosis: (5) CAD (coronary artery disease): Qualifiers: Associated angina: without angina Coronary Disease-Associated Artery/Lesion type: [place] artery [place] vs. transplanted heart: [place] heart Qualified Code(s): I25.10 - Atherosclerotic heart disease of [place] coronary artery without angina pectoris (6) Anemia: (7) Hypertension: Qualifiers: Hypertension type: unspecified Qualified Code(s): I10 - Essential (primary) hypertension (8) Decompensated hepatic cirrhosis: (9) Ascites: (10) NSTEMI (non-ST elevated myocardial infarction): (11) Sepsis: Plan 76 year old male with past medical history of hypertension coronary artery disease, alcohol abuse disorder, decompensated liver cirrhosis, GI bleed, was brought in from [facility] as he was having fever there. When I interacted with the patient and the family, they were informed that snf give them a call to send him to the ER as the patient was having fever at snf, patient currently has denied abdominal pain nausea vomiting, shortness of breath cough chest pain. Upon arrival in the ER he was found to be in A. fib with RVR, patient received fluid bolus, with improvement in heart rate, CT chest abdomen and pelvis: Bilateral lower lobe subsegmental atelectasis,Moderate amount of ascites.Cirrhotic liver. X-ray chest: Showed left lower lobe infiltrates, CT head without contrast: No acute intracranial pathology. Assessment: Sepsis: Possibly secondary to pneumonia/C.D.I ( C.diff ) Patient currently meets sepsis criteria as: Has tachycardia, fever, elevated lactic acid, JIHAN, possible source is pneumonia/possible SBP, though patient has denied abdominal pain, has no abdominal tenderness. Follow blood culture Urine culture: Repeat lactic acid: 0.8 Procalcitonin: 0.44 --> 37 Diagnostic/therapeutic ascitic fluid tap Currently on Zosyn On Po vancomycin for 10 days. JIHAN on CKD: Rule out possible HRS type I: In the setting of decompensated liver cirrhosis, Hold Lasix Random urine sodium: 87 Random urine creatinine: 115 Urine random total protein:89 Fena Renal ultrasound Gentle IV hydration Albumin IV Avalos catheter insertion for adequate intake output charting Decompensated liver cirrhosis: Likely secondary to alcohol abuse Child Silvestre class B: 9 points Meld score: 18 (estimated 3-month mortality 6% ) Ascites: Secondary decompensated liver cirrhosis S/p paracentesis: With removal of 4.5 LS yellow ascitic fluid. Ascitic fluid analysis Newly diagnosed A. fib with RVR: Currently rate is better controlled Continue metoprolol Not a good candidate for anticoagulation given his prior history of GI bleed, and history of decompensated liver cirrhosis NSTEMI: Possibly secondary to A. fib with RVR, denied any chest pain. 2D echo: Normal left ventricular size, systolic function and wall thickness, with no regional wall motion abnormalities. Left ventricular ejection fraction is estimated at 65 %. Aortic valve sclerosis without stenosis.Pulmonary artery pressure estimated at 23 mm Hg. #Macrocytic anemia: Likely secondary to alcohol abuse disorder: FOBT: Negative S/p 1 unit PRBC transfusion Monitor H&H Transfuse to maintain hemoglobin greater than 7 #C. difficile diarrhea: Currently on vancomycin p.o. 125 4 times daily Will complete 10 days p.o. vancomycin course. History of coronary artery disease History of CAD History of GI bleed CODE STATUS:AND DVT prophylaxis: Was on Lovenox has been discontinued,ON SCDS Attestations Medical Necessity Statement*: Needs to be in hospital for management of decompensated liver cirrhosis. Time Spent in Patient Care: Greater than 35 minutes (>than 50% of time spent in counselling and/or direct pt care on unit). Critical Care Time: The high probability of a clinically significant, sudden or life threatening deterioration of the patient's [] system(s) required my full and direct attention, intervention and personal management. The critical care time is as shown. This time is in addition to time spent performing any reported procedures but includes the following: [x] Data and vital sign review and interpretation [x] Patient assessment, examination and intervention [x] Documentation [x] Medication orders and management Critical Care Time (min): 40 Coding Level of Care Code Acute Code for Chg Fwd Exam Detailed Diagnoses New onset a-fib I48.91 Atrial fibrillation with RVR I48.91 JIHAN (acute kidney injury) N17.9 Cirrhosis K74.60 CAD (coronary artery disease) I25.10 Associated angina: without angina Coronary Disease-Associated Artery/Lesion type: [place] artery [place] vs. transplanted heart: [place] heart Anemia D64.9 Hypertension I10 Hypertension type: unspecified Decompensated hepatic cirrhosis K72.90; K74.60 Ascites R18.8 NSTEMI (non-ST elevated myocardial infarction) I21.4 Sepsis A41.9
[2022-08-31] MEDS: pantoprazole 40 mg SDV IVP ×2 (09:04→20:30)
[2022-08-31] MEDS: folic acid 1 mg Tablet PO ×2 (09:04→17:30)
[2022-08-31] MEDS: thiamine 100 mg Tablet PO (09:04)
[2022-08-31] MEDS: magnesium sulfate premix 2 GM/50 ML PIGGYBACK IV (09:04)
[2022-08-31] MEDS: multivitamin therapeutic Tablet 1 TAB PO (09:04)
[2022-08-31] MEDS: sodium chloride 0.9% 1,000 ML 75 ML IV (09:05)
[2022-08-31] MEDS: sodium chloride 0.9% (100 ml) 100 ML 25 ML (10:19)
[2022-08-31] MEDS: potassium chloride ER 20 mEq Tablet 40 MEQ PO (14:12)
[2022-08-31] MEDS: magnesium lactate 84 mg Tablet PO (17:30)
[2022-08-31] MEDS: tamsulosin 0.4 mg Capsule PO (20:24)
[2022-08-31] MEDS: atorvastatin 40 mg Tablet PO (20:24)
--- NOTE | 2022-08-31 21:33 | PC.NURSE ---
Addendum entered by Betzaida Hinds RN 08/31/22 21:43: New order to hold fluids and 40 IVP lasix. Original Note: Updated Dr. Kimbrough of crackles in bilateral lungs and increased BP. No new orders at this time.
[2022-08-31] MEDS: FUROsemide 10 mg/mL SDV 4mL 40 MG IVP (22:14)
[2022-09-01] VITALS (50 sets, daily range): BP systolic 122–187; BP diastolic 60–100; PULSE 69–109; RESP 15–27; TEMP 36.4–37.1; O2SAT 73–99
[2022-09-01] MEDS: piperacillin-tazobactam 3.375 GM in sodium chloride 0.9% (plus) 50 ML IV ×2 (02:03→10:05)
[2022-09-01 04:55] LABS: Basophils % 0.8 %; Eosinophils # 0.3 10^3/uL (0.0-0.8); Eosinophils % 5.1 %; Hematocrit 28.3 % (42.0-52.0); Hemoglobin 8.6 g/dL (11.7-16.6); Lymphocytes % 19.5 %; Mean Corpuscular HGB Conc 30.4 g/dL (30.0-36.0); Mean Corpuscular Hemoglobin 31.4 pg (28.0-34.0); Mean Corpuscular Volume 103.3 fl (80-94); Mean Platelet Volume 12.1 fL (7.4-10.4); Monocytes # 0.6 10^3/uL (0.2-0.9); Monocytes % 11.2 %; Neutrophils # 3.35 10^3/uL (1.8-7.7); Neutrophils % 63.2 %; Nucleated Red Blood Cells % 0 %; Platelet Count 134 10^3/cmm (130-400); Red Blood Count 2.74 10^6/uL (4.1-5.3); Red Cell Distribution Width 17.5 % (12.1-15.1); White Blood Count 5.3 10^3/uL (4.0-10.0)
[2022-09-01 05:13] LABS: Magnesium 1.9 mg/dL (1.7-2.3); Phosphorus 2.9 mg/dL (2.5-4.5)
[2022-09-01 05:14] LABS: Alanine Aminotransferase 8 U/L (0-41); Albumin Level 3.1 g/dL (3.5-5.2); Alkaline Phosphatase 129 U/L (40-130); Anion Gap 13.1 (5-19); Aspartate Amino Transferase 23 U/L (0-40); Blood Urea Nitrogen 21 mg/dL (8-23); Calcium 7.6 mg/dL (8.5-10.5); Carbon Dioxide 18 mmol/L (22-29); Chloride 113 mmol/L (98-107); Globulin 2.2 g/dL (1.3-4.6); Glucose 105 mg/dL (65-115); Osmolality Calculated 293 mOsm/kg (285-295); Potassium 4.1 mmol/L (3.5-5.1); Sodium 140 mmol/L (136-145); Total Bilirubin 0.6 mg/dL (0.15-1.2); Total Protein 5.3 g/dL (6.6-8.7)
[2022-09-01 05:16] LABS: Procalcitonin 25.23 ng/mL (0-0.5)
[2022-09-01] MEDS: thiamine 100 mg Tablet PO (08:11)
[2022-09-01] MEDS: folic acid 1 mg Tablet PO ×2 (08:11→17:57)
[2022-09-01] MEDS: magnesium lactate 84 mg Tablet PO ×2 (08:11→18:06)
[2022-09-01] MEDS: multivitamin therapeutic Tablet 1 TAB PO (08:11)
[2022-09-01] MEDS: pantoprazole 40 mg SDV IVP ×2 (08:12→21:08)
--- NOTE | 2022-09-01 10:54 | CTR_ITS ---
PROCEDURE INFORMATION: Exam: CT Abdomen And Pelvis Without Contrast Exam date and time: 09/01/2022 6:24 PM Age: 76 years old Clinical indication: Condition or disease; Other: Swelling in scrotum; Additional info: Roland, possible obstructive uropathy TECHNIQUE: Imaging protocol: Computed tomography of the abdomen and pelvis without contrast. Sagittal and coronal reformatted images were created and reviewed. Radiation optimization: All CT scans at this facility use at least one of these dose optimization techniques: automated exposure control; mA and/or kV adjustment per patient size (includes targeted exams where dose is matched to clinical indication); or iterative reconstruction. COMPARISON: CT angio chest w abd pel w con 08/29/2022 1:41 PM RADIATION DOSE METRICS: Total DLP (mGy-cm): 1123.86 FINDINGS: Limitations: Evaluation of solid organs and vasculature is limited without intravenous contrast. Lungs: Airspace disease in the left lower lobe has mildly improved. Pleural spaces: New right pleural effusion with compressive atelectasis in the right lower lobe. Heart: Stable moderate enlargement of the heart. Stable marked enlargement of the heart. Stable calcification of the aortic valve. Liver: Stable nodular contour of the liver. Gallbladder and bile ducts: Few stones in the gallbladder. The gallbladder is contracted. This may be due to a postprandial state. No pericholecystic fluid. No biliary ductal dilatation. Pancreas: Stable marked atrophy of the pancreatic parenchyma. No pancreatic ductal dilatation. Spleen: Multiple calcified granulomas in the spleen are stable. Adrenal glands: Two small right adrenal adenomas, the larger measures 1.2 cm (series 3, image 31). The left adrenal gland is unremarkable. Kidneys and ureters: The right and left kidneys are unremarkable. The right and left ureters are unremarkable. Stomach and bowel: Ingested contents in the stomach. Scattered diverticula in the colon. No evidence for diverticulitis. No acute abnormality in the small bowel. Appendix: The appendix is visualized and is unremarkable. No findings to suggest acute appendicitis. Intraperitoneal space: Stable large volume ascites and extensive mesenteric edema. No free intraperitoneal air. No loculated fluid collections to suggest an abscess. Vasculature: Stable moderate atherosclerotic calcifications in the visualized arteries. No evidence for aortic aneurysm. Stable small caliber varices in the upper abdomen. Lymph nodes: No lymphadenopathy. Urinary bladder: The bladder is incompletely filled, which can limit evaluation. No focal abnormality in the bladder however. Reproductive: Right and left testes are unremarkable as visualized. Bilateral scrotal calcifications. Large bilateral hydroceles and swelling of the scrotal soft tissues. Bones/joints: Bones are diffusely osteopenic. Degenerative changes in the spine, sacroiliac joints, and hips. Soft tissues: Extensive body wall edema, increased significantly compared with the prior study. CT/CT abdomen pelvis wo con [id number] IMPRESSION: 1. Airspace disease in the left lower lobe has mildly improved. Continued follow-up to ensure complete resolution is recommended. 2. New right pleural effusion with compressive atelectasis in the right lower lobe. 3. Cholelithiasis. 4. Large bilateral hydroceles and swelling of the scrotal soft tissues. 5. Scattered diverticula in the colon. No evidence for diverticulitis. 6. Extensive body wall edema, increased significantly compared with the prior study. 7. Cirrhosis and portal hypertension manifest by large volume ascites/mesenteric edema and small caliber varices. 8. Incidental/nonacute findings are listed in the report.
[2022-09-01] MEDS: amlodipine 5 mg Tablet PO (12:02)
--- NOTE | 2022-09-01 15:55 | PC.SOCIAL ---
IMM update IMM updated with patient's sister. Copy PG 2 provided. Verbalized an understanding. Initialled, dated, timed, and placed in chart.
--- NOTE | 2022-09-01 17:02 | PM.PN ---
Subjective Subjective: Hospital course, labs appreciated. On examination seen sitting up in a chair today. Complaining of pain. Denies any nausea, vomiting, headache. Vitals/I&O/Wt Last Vital Signs Temp 98.7 F 09/01/22 11:52 Pulse 94 09/01/22 15:00 Resp 22 H 09/01/22 15:00 BP 149/81 09/01/22 15:00 Pulse Ox 73 L 09/01/22 14:30 O2 Del Method 09/01/22 10:14 O2 Flow Rate 1 08/30/22 08:00 09/01/22 09/01/22 09/01/22 06:59 14:59 22:59 Intake Total 600 / 4659.583 1590 / 1590 Output Total 1800 / 2200 400 / 400 Balance -1200 / 2459.583 1190 / 1190 Physical Exam Const: COMMON NORMALS: patient oriented x3 HENMT: COMMON NORMALS: normocephalic and atraumatic HEAD & SCALP: normocephalic and atraumatic Resp: COMMON NORMALS: clear to auscultation bilaterally EFFORT & INSPECTION: Yes symmetric chest movement AUSCULTATION: clear to auscultation bilaterally Cardio: COMMON NORMALS: regular rate, regular rhythm, S1 normal heart sound present, S2 normal heart sound present, No gallops present (Cardio), No murmurs present (Cardio), No rub (Cardio) and Peripheral pulses 2+ throughout RATE: regular rate RHYTHM: regular rhythm HEART SOUNDS: S1 normal heart sound present and S2 normal heart sound present PERIPHERAL PULSES: Peripheral pulses 2+ throughout GI: COMMON NORMALS: Soft to palpation, non-tender and No hepatosplenomegaly present INSPECTION: Yes abdominal distension and Yes Fluid wave present AUSCULTATION: Yes normoactive bowel sounds PALPATION: Yes Soft to palpation and Yes No hepatosplenomegaly present PERCUSSION: Fluid wave present RECTAL EXAM: Yes deferred Extremity: COMMON NORMALS: no clubbing, cyanosis or edema and no pedal edema Neuro: COMMON NORMALS: patient oriented x3 Urinary Catheter Management: Avalos: Cath Placed During This Visit: yes, but has since been removed by the nurse Reason for Continuing Indwelling Catheter: Accurate Measurement of Urinary Output in Critically Ill Patients Urinary Catheter Date of Insertion: 08/29/22 Date Urinary Catheter Removed: 09/01/22 Time Urinary Catheter Discontinued: 11:46 Data 09/01/22 02:58 09/01/22 02:58 Micro: Microbiology 08/30/22 12:30 Gram Stain - Final Paracentesis Fluid Body Fluid Culture - Preliminary 08/29/22 12:25 Blood Culture - Preliminary Blood Staphylococcus sp coag neg A&P Assessment and plan (1) Sepsis: (2) C. difficile colitis: (3) New onset a-fib: (4) Atrial fibrillation with RVR: (5) JIHAN (acute kidney injury): (6) Cirrhosis: (7) Decompensated hepatic cirrhosis: (8) Ascites: (9) NSTEMI (non-ST elevated myocardial infarction): (10) CAD (coronary artery disease): Qualifiers: Associated angina: without angina Coronary Disease-Associated Artery/Lesion type: [place] artery [place] vs. transplanted heart: [place] heart Qualified Code(s): I25.10 - Atherosclerotic heart disease of [place] coronary artery without angina pectoris (11) Anemia: (12) Hypertension: Qualifiers: Hypertension type: unspecified Qualified Code(s): I10 - Essential (primary) hypertension Plan Sepsis: In setting of C. difficile colitis. Present on admission. Criteria met through tachycardia, fever, elevated lactic acid, endorgan damage with JIHAN, Follow-up culture results. Maintain mean artery pressure over 65, saturation over 92%. C. difficile colitis: Continue with oral vancomycin at 250 mg 4 times daily. Plan for overall 14-day course. Appreciate paracentesis result. SBP ruled out. Stop Zosyn. Patient has remained afebrile. JIHAN on CKD: Baseline creatinine 1.3-1.6 for last 2 years. Could be secondary to hepatorenal syndrome. Appreciate urine red light results. Appreciate renal ultrasound. Fena: Prerenal. Medical reconciliation done for nephrotoxic drugs. Check CT abdomen pelvis to rule out obstructive nephropathy. Remove Avalos catheter. Continue to monitor urine output and frequent bladder scanning. Decompensated liver cirrhosis: Likely secondary to alcohol abuse Child Silvestre class B: 9 points Meld score: 18 (estimated 3-month mortality 6% ) Ascites: Secondary decompensated liver cirrhosis S/p paracentesis: With removal of 4.5 LS yellow ascitic fluid. Ascitic fluid analysis Newly diagnosed A. fib with RVR with bradycardia and sinus pauses overnight. Back in sinus rhythm. Holding off on metoprolol given bradycardia overnight. Continue to monitor. Elevated troponin: Most likely type II [place]. NS elevation less likely Possibly secondary to A. fib with RVR, denied any chest pain. 2D echo: Normal left ventricular size, systolic function and wall thickness, with no regional wall motion abnormalities. Left ventricular ejection fraction is estimated at 65 %. Aortic valve sclerosis without stenosis. Pulmonary artery pressure estimated at 23 mm Hg. Patient denies any chest pain. #Macrocytic anemia: Likely secondary to alcohol abuse disorder: FOBT: Negative S/p 1 unit PRBC transfusion Monitor H&H Transfuse to maintain hemoglobin greater than 7 History of CAD History of GI bleed CODE STATUS:AND DVT prophylaxis: Was on Lovenox has been discontinued,ON SCDS Discharge planning: Plan to discharge back to SNF once medically stable. Case management alerted. Transfer out of ICU to [facility] with telemetry. Attestations Medical Necessity Statement*: Requires further hospitalization for management of C. difficile colitis, JIHAN on CKD, ascitis post paracentesis Time Spent in Patient Care: Greater than 35 minutes Coding Level of Care Code Acute Code for [facility] Diagnoses Sepsis A41.9 C. difficile colitis A04.72 New onset a-fib I48.91 Atrial fibrillation with RVR I48.91 JIHAN (acute kidney injury) N17.9 Cirrhosis K74.60 Decompensated hepatic cirrhosis K72.90; K74.60 Ascites R18.8 NSTEMI (non-ST elevated myocardial infarction) I21.4 CAD (coronary artery disease) I25.10 Associated angina: without angina Coronary Disease-Associated Artery/Lesion type: [place] artery [place] vs. transplanted heart: [place] heart Anemia D64.9 Hypertension I10 Hypertension type: unspecified
[2022-09-01] MEDS: ferrous gluconate 324 mg Tablet PO (17:57)
[2022-09-01] MEDS: atorvastatin 40 mg Tablet PO (21:00)
[2022-09-01] MEDS: tamsulosin 0.4 mg Capsule PO (21:00)
[2022-09-02 04:00] VITALS: BP 134/64; PULSE 94; RESP 18; TEMP 36.7; O2SAT 96
[2022-09-02 04:30] LABS: Basophils % 0.4 %; Eosinophils # 0.2 10^3/uL (0.0-0.8); Eosinophils % 4.6 %; Hematocrit 29.2 % (42.0-52.0); Hemoglobin 8.7 g/dL (11.7-16.6); Lymphocytes % 20.8 %; Mean Corpuscular HGB Conc 29.8 g/dL (30.0-36.0); Mean Corpuscular Hemoglobin 31.1 pg (28.0-34.0); Mean Corpuscular Volume 104.3 fl (80-94); Mean Platelet Volume 11.8 fL (7.4-10.4); Monocytes # 0.6 10^3/uL (0.2-0.9); Monocytes % 12.5 %; Neutrophils # 2.95 10^3/uL (1.8-7.7); Neutrophils % 61.3 %; Nucleated Red Blood Cells % 0 %; Platelet Count 134 10^3/cmm (130-400); Red Cell Distribution Width 16.8 % (12.1-15.1); White Blood Count 4.8 10^3/uL (4.0-10.0)
[2022-09-02 04:56] LABS: Alanine Aminotransferase 9 U/L (0-41); Albumin Level 3.2 g/dL (3.5-5.2); Alkaline Phosphatase 134 U/L (40-130); Anion Gap 13.2 (5-19); Aspartate Amino Transferase 24 U/L (0-40); Blood Urea Nitrogen 20 mg/dL (8-23); Calcium 8.1 mg/dL (8.5-10.5); Carbon Dioxide 18 mmol/L (22-29); Chloride 111 mmol/L (98-107); Globulin 2.5 g/dL (1.3-4.6); Glucose 92 mg/dL (65-115); Magnesium 1.7 mg/dL (1.7-2.3); Osmolality Calculated 288 mOsm/kg (285-295); Phosphorus 2.9 mg/dL (2.5-4.5); Potassium 4.2 mmol/L (3.5-5.1); Sodium 138 mmol/L (136-145); Total Bilirubin 0.6 mg/dL (0.15-1.2); Total Protein 5.7 g/dL (6.6-8.7)
[2022-09-02 05:14] LABS: Hepatitis A Antibody IgM Non-Reactive (Nonreactive); Hepatitis B Core AB, Total Non-Reactive (Nonreactive); Hepatitis B Surface AB 3.5 (11.5-1000); Hepatitis B Surface Antigen Non-Reactive (Nonreactive); Hepatitis C Virus Antibody Non-Reactive (Nonreactive)
[2022-09-02 06:00] VITALS: PULSE 73
[2022-09-02 08:00] VITALS: BP 150/84; PULSE 105; PULSE 88; RESP 15; RESP 18; TEMP 36.7; O2SAT 90; O2SAT 94
[2022-09-02] MEDS: pantoprazole 40 mg SDV IVP (08:46)
[2022-09-02] MEDS: ferrous gluconate 324 mg Tablet PO (08:48)
[2022-09-02] MEDS: thiamine 100 mg Tablet PO (08:48)
[2022-09-02] MEDS: magnesium lactate 84 mg Tablet PO (08:48)
[2022-09-02] MEDS: folic acid 1 mg Tablet PO (08:48)
[2022-09-02] MEDS: amlodipine 5 mg Tablet PO (08:48)
[2022-09-02] MEDS: multivitamin therapeutic Tablet 1 TAB PO (08:48)
[2022-09-02] MEDS: metoprolol tartrate 25 mg Tablet 12.5 MG PO (09:06)
[2022-09-02] MEDS: FUROsemide 10 mg/mL SDV 4mL 40 MG IVP (09:06)
--- NOTE | 2022-09-02 11:20 | PC.NURSE ---
Patient was instructed to let us know when he needed to go to the bathrrom but he did not and had a bowel movement in the bed. Also, nurse was unable to scan patient before he voided. Bladder scan post void was 59ml. Nurse will try to get a pre void scan again.
[2022-09-02 12:00] VITALS: BP 154/82
--- NOTE | 2022-09-02 12:50 | PM.DCS ---
Discharge Providers Date of Admission: 08/29/22 17:02 Date of Discharge: September 02, 2022 Attending Provider at Admission: Hadley Marroquin MD Attending Provider at Discharge: Deejay Aburto MD Primary Care Provider: Cash Parsons MD Diagnoses at Discharge Discharge Diagnosis (1) Sepsis: Status: Acute (2) C. difficile colitis: Status: Acute (3) New onset a-fib: Status: Acute (4) Atrial fibrillation with RVR: Status: Acute (5) JIHAN (acute kidney injury): Status: Acute (6) Cirrhosis: Status: Chronic (7) Decompensated hepatic cirrhosis: Status: Acute (8) Ascites: Status: Acute (9) NSTEMI (non-ST elevated myocardial infarction): Status: Acute (10) CAD (coronary artery disease): Status: Chronic Qualifiers: Associated angina: without angina Coronary Disease-Associated Artery/Lesion type: [place] artery [place] vs. transplanted heart: [place] heart Qualified Code(s): I25.10 - Atherosclerotic heart disease of [place] coronary artery without angina pectoris (11) Anemia: Status: Acute (12) Hypertension: Status: Chronic Qualifiers: Hypertension type: unspecified Qualified Code(s): I10 - Essential (primary) hypertension Reason for Visit Reason for Visit: N/V SHAKING Brief History: History as per HPI: Kyler Boyce is a 76 year old male with past medical history of hypertension coronary artery disease, alcohol abuse disorder, decompensated liver cirrhosis, GI bleed, was brought in from skilled nursing as he was having fever there.? When I interacted with the patient and the family, they were informed that skilled nursing give them a call to send him to the ER as the patient was having fever at skilled nursing, patient currently has denied abdominal pain nausea vomiting, shortness of breath cough chest pain. Upon arrival in the ER he was found to be in A. fib with RVR, patient received fluid bolus, with improvement in heart rate, CT chest abdomen and pelvis:?Bilateral lower lobe subsegmental atelectasis,Moderate amount of ascites.Cirrhotic liver.? X-ray chest: Showed left lower lobe infiltrates, CT head without contrast: No acute intracranial pathology. Pertinent labs: WBC 8.3, H&H 9.5/32, plt : 159, serum sodium 143, serum potassium 4.5, serum bicarb 17, BUN 26 serum creatinine 1.7 Lactic acid 5.4, albumin 2.9, lipase 49, urinalysis clean , Troponin:71-87? , proBNP 5030. COVID PCR negative. Hospital Course Hospital Course Patient was admitted to the ICU for further evaluation and management of sepsis possible SBP along with acute kidney injury and ascites. Patient was started on gentle IV hydration. Stool studies finally came back positive for C. difficile. He underwent paracentesis and 4.2 L of fluid was evacuated. Studies ruled out SBP. At first patient was started on empiric IV antibiotics which were later discontinued. He was started on oral vancomycin after with his diarrhea resolved. On admission patient did have mild JIHAN on CKD which was thought secondary to be hepatorenal syndrome. His renal function during hospitalization remained stable. His blood cultures remain negative. He did have an abdominal CT imaging done which was consistent with cirrhotic liver with portal hypertension and mild small caliber varices. During hospital patient antihypertensives were adjusted for esophageal varices with portal hypertension. Metoprolol was changed to propranolol. He did have elevated troponins on admission but remained chest pain-free. Echocardiogram was done which ruled out regional motion abnormality. Elevated troponins most likely in setting of acute kidney injury. On admission patient did have episodes of tachycardia which are concerning for atrial fibrillation but later settled down to normal sinus rhythm. After starting low-dose metoprolol he did have few episodes of asymptomatic sinus bradycardia as overnight. Propranolol has been added and metoprolol has been stopped. He has been discharged back to skilled nursing on oral diuretics given edema, recurrent ascites in setting of liver cirrhosis, oral vancomycin. Physical Exam Const: COMMON NORMALS: patient oriented x3 HENMT: COMMON NORMALS: normocephalic and atraumatic HEAD & SCALP: normocephalic and atraumatic Resp: COMMON NORMALS: clear to auscultation bilaterally EFFORT & INSPECTION: Yes symmetric chest movement AUSCULTATION: clear to auscultation bilaterally Cardio: COMMON NORMALS: regular rate, regular rhythm, S1 normal heart sound present, S2 normal heart sound present, No gallops present (Cardio), No murmurs present (Cardio), No rub (Cardio) and Peripheral pulses 2+ throughout RATE: regular rate RHYTHM: regular rhythm HEART SOUNDS: S1 normal heart sound present and S2 normal heart sound present PERIPHERAL PULSES: Peripheral pulses 2+ throughout GI: COMMON NORMALS: Soft to palpation, non-tender and No hepatosplenomegaly present INSPECTION: Yes abdominal distension and Yes Fluid wave present AUSCULTATION: Yes normoactive bowel sounds PALPATION: Yes Soft to palpation and Yes No hepatosplenomegaly present PERCUSSION: Fluid wave present RECTAL EXAM: Yes deferred Extremity: COMMON NORMALS: no clubbing, cyanosis or edema and no pedal edema Neuro: COMMON NORMALS: patient oriented x3 Urinary Catheter Management: Avalos: Cath Placed During This Visit: yes, but has since been removed by the nurse Reason for Continuing Indwelling Catheter: Accurate Measurement of Urinary Output in Critically Ill Patients Urinary Catheter Date of Insertion: 08/29/22 Date Urinary Catheter Removed: 09/01/22 Time Urinary Catheter Discontinued: 11:46 Discharge Data Studies Completed and Pending Completed Studies During Hospitalization Category Date Time Status CT abdomen pelvis wo con [id number] Routine Cat Scan 09/01/22 10:[address] head wo con* [id number] Stat Cat Scan 08/29/22 13:[address] abdomen pelvis [CT angio chest w abd pel w Cat Scan 08/29/22 13:05 Completed con] Stat XR chest 1V portable [id number] Stat Exams 08/29/22 12:08 Completed CV. echo limited [id number] Stat Ultrasound 08/29/22 16:35 Completed US abdomen limited [id number] Stat Ultrasound 08/29/22 16:02 Completed Pending at discharge Category Date Time Status Blood Culture Stat Lab 08/29/22 12:25 Results COVID [SARS Covid-2 Antigen] Routine Lab 09/02/22 12:25 Uncollected Comprehensive Metabolic Panel AM LABS Lab 09/03/22 04:00 Ordered Radiology Impressions Chest X-Ray 08/29/22 12:08 IMPRESSION: Left lower lobe pneumonic infiltrate. Chest/Abdomen/Pelvis CT 08/29/22 13:05 IMPRESSION: 1. Study is suboptimal due to poor pulmonary artery opacification, artifact from breathing and arm positioning. 2. No central pulmonary embolism. 3. Bilateral lower lobe subsegmental atelectasis. 4. Moderate amount of ascites. Ascites is new since 06/25/2022. 5. Cirrhotic liver. 6. Cholelithiasis seen on prior studies is not as evident today. Head CT 08/29/22 13:05 IMPRESSION: 1. No acute intracranial hemorrhage. 2. Moderate atrophy and mild small vessel ischemic disease. Very similar to the prior study. Abdomen Ultrasound 08/29/22 16:02 IMPRESSION: Moderate to large amount of ascites, most prominent in the left lower quadrant. Abdomen/Pelvis CT 09/01/22 10:54 IMPRESSION: 1. Airspace disease in the left lower lobe has mildly improved. Continued follow-up to ensure complete resolution is recommended. 2. New right pleural effusion with compressive atelectasis in the right lower lobe. 3. Cholelithiasis. 4. Large bilateral hydroceles and swelling of the scrotal soft tissues. 5. Scattered diverticula in the colon. No evidence for diverticulitis. 6. Extensive body wall edema, increased significantly compared with the prior study. 7. Cirrhosis and portal hypertension manifest by large volume ascites/mesenteric edema and small caliber varices. 8. Incidental/nonacute findings are listed in the report. Microbiology 08/30/22 12:30 Paracentesis Fluid Gram Stain - Final 08/30/22 12:30 Paracentesis Fluid Body Fluid Culture - Final 08/29/22 12:25 Blood Blood Culture - Preliminary Staphylococcus sp coag neg 08/31/22 00:16 Stool Routine Collection C.difficile Toxin B Gene (PCR) - Final 08/31/22 00:16 Stool Routine Collection Occult Blood (FIT) - Final 08/29/22 12:23 Blood Blood Culture - Preliminary NEGATIVE TO DATE Laboratory Results WBC 4.8 10^3/uL (4.0-10.0) 09/02/22 04:01 RBC 2.80 10^6/uL (4.1-5.3) L 09/02/22 04:01 Hgb 8.7 g/dL (11.7-16.6) L 09/02/22 04:01 Hct 29.2 % (42.0-52.0) L 09/02/22 04:01 MCV 104.3 fl (80-94) H 09/02/22 04:01 MCH 31.1 pg (28.0-34.0) 09/02/22 04:01 MCHC 29.8 g/dL (30.0-36.0) L 09/02/22 04:01 RDW 16.8 % (12.1-15.1) H 09/02/22 04:01 Plt Count 134 10^3/cmm (130-400) 09/02/22 04:01 MPV 11.8 fL (7.4-10.4) H 09/02/22 04:01 Neut % (Auto) 61.3 % 09/02/22 04:01 Lymph % (Auto) 20.8 % 09/02/22 04:01 [place] % (Auto) 12.5 % 09/02/22 04:01 Eos % (Auto) 4.6 % 09/02/22 04:01 Baso % (Auto) 0.4 % 09/02/22 04:01 Neut # (Auto) 2.95 10^3/uL (1.8-7.7) 09/02/22 04:01 Lymph # (Auto) 1.0 10^3/uL (0.8-4.8) 09/02/22 04:01 [place] # (Auto) 0.6 10^3/uL (0.2-0.9) 09/02/22 04:01 Eos # (Auto) 0.2 10^3/uL (0.0-0.8) 09/02/22 04:01 Baso # (Auto) 0.0 10^3/uL (0.0-0.1) 09/02/22 04:01 Nucleated RBC % (auto) 0 % 09/02/22 04:01 Nucleated RBCs # 0.0 /100WBC 09/02/22 04:01 PT 17.50 SECONDS (12.1-14.9) H 08/30/22 04:12 INR 1.40 (0.8-1.2) H 08/30/22 04:12 APTT 39.6 SECONDS (23.9-36.7) H 08/30/22 04:12 Specimen Type Arterial 08/29/22 12:10 Sample Site Radial, left 08/29/22 12:10 ABG pH 7.44 (7.35-7.45) 08/29/22 12:10 ABG pCO2 22.1 mmHg (35-45) L 08/29/22 12:10 ABG pO2 68.3 mmHg (80.0-100.0) L 08/29/22 12:10 ABG HCO3 15.1 mmol/L (22-26) L 08/29/22 12:10 ABG Base Excess -7.6 mmol/L (-2.0-2.0) L 08/29/22 12:10 Lance Test Pos 08/29/22 12:10 Hematocrit 29.1 % (42-52) L 08/29/22 12:10 O2 Delivery Device Nc 08/29/22 12:10 O2 Liters/Min 4.5 % 08/29/22 12:10 Transformation Coach ID Cak 08/29/22 12:10 Sodium 138 mmol/L (136-145) 09/02/22 04:01 Potassium 4.2 mmol/L (3.5-5.1) 09/02/22 04:01 Chloride 111 mmol/L (98-107) H 09/02/22 04:01 Carbon Dioxide 18 mmol/L (22-29) L 09/02/22 04:01 Anion Gap 13.2 (5-19) 09/02/22 04:01 BUN 20 mg/dL (8-23) 09/02/22 04:01 Creatinine 1.7 mg/dL (0.7-1.2) H 09/02/22 04:01 GFR Calculation Not Reportable 09/02/22 04:01 Glucose 92 mg/dL (65-115) 09/02/22 04:01 Calculated Osmolality 288 mOsm/kg (285-295) 09/02/22 04:01 Lactic Acid 5.4 mmol/L (0.5-2.2) H* 08/29/22 12:23 Lactic Acid (Sepsis) 1.5 mmol/L (0.5-2.2) 08/29/22 16:24 Lactate 0.8 mmol/L (0.5-2.2) 08/30/22 04:12 Calcium 8.1 mg/dL (8.5-10.5) L 09/02/22 04:01 Phosphorus 2.9 mg/dL (2.5-4.5) 09/02/22 04:01 Magnesium 1.7 mg/dL (1.7-2.3) 09/02/22 04:01 Total Bilirubin 0.6 mg/dL (0.15-1.2) 09/02/22 04:01 AST 24 U/L (0-40) 09/02/22 04:01 ALT 9 U/L (0-41) 09/02/22 04:01 Alkaline Phosphatase 134 U/L (40-130) H 09/02/22 04:01 Ammonia 41 umol/L (16-60) 08/30/22 04:12 Creatine Kinase 28 U/L (39-308) L 08/29/22 12:23 Troponin T Gen 5 ng/L 85 ng/L (0-15) H 08/30/22 04:12 Troponin T Baseline 71 ng/L (0-15) H 08/29/22 12:23 Troponin T 120 Minute 87.49 ng/L (0-15) H 08/29/22 14:33 Delta Troponin T 16.49 ABS# (0-10) H* 08/29/22 14:33 Troponin T Hi Sens 6Hr 89.45 ng/L (0-15) H 08/29/22 19:00 Troponin T Hi Sens 6Hr Delta 18.45 ng/L (0-12) H* 08/29/22 19:00 C-Reactive Protein 12.7 mg/L (0.0-4.9) H 08/29/22 12:23 NT-Pro-B Natriuret Pep 5030 pg/mL (0-125) H 08/29/22 12:23 Total Protein 5.7 g/dL (6.6-8.7) L 09/02/22 04:01 Albumin 3.2 g/dL (3.5-5.2) L 09/02/22 04:01 Globulin 2.5 g/dL (1.3-4.6) 09/02/22 04:01 Lipase 49 U/L (13-60) 08/29/22 12:23 Procalcitonin 25.23 ng/mL (0-0.5) H 09/01/22 02:58 TSH 1.60 uIU/mL (0.27-4.20) 08/29/22 12:23 Urine Color Yellow (Yellow) 08/29/22 13:03 Urine Appearance Clear (CLEAR) 08/29/22 13:03 Urine pH 5 (5-7) 08/29/22 13:03 Ur Specific [place] 1.010 (1.005-1.030) 08/29/22 13:03 Urine Protein 1+ (Negative) H 08/29/22 13:03 Urine Glucose (UA) Norm (Normal) 08/29/22 13:03 Urine Ketones Negative (Negative) 08/29/22 13:03 Urine Blood Neg (Negative) 08/29/22 13:03 Urine Nitrate Negative (Negative) 08/29/22 13:03 Urine Bilirubin Neg (Negative) 08/29/22 13:03 Urine Urobilinogen Neg mg/dL (Negative) 08/29/22 13:03 Ur Leukocyte Esterase Negative (Negative) 08/29/22 13:03 Urine RBC None /hpf (0-2) 08/29/22 13:03 Urine WBC None /hpf (0-5) 08/29/22 13:03 Ur Squamous Epith Cells None /hpf (0-5) 08/29/22 13:03 Amorphous Sediment Not Reportable 08/29/22 13:03 Urine Bacteria None /hpf (NONE) 08/29/22 13:03 U Random Total Protein 89 mg/dL 08/29/22 13:03 Ur Random Sodium 87 mmol/L 08/29/22 13:03 Urine Creatinine 115 mg/dL (39-259) 08/29/22 13:03 Fluid Glucose 127.0 mg/dL 08/30/22 12:30 Fluid Total Protein 2.0 g/dL 08/30/22 12:30 Fluid Albumin 0.9 g/dL 08/30/22 12:30 Fluid LDH 58 U/L 08/30/22 12:30 Peritoneal Color Pale yellow (Pale Yellow) 08/30/22 12:30 Peritoneal Appearance Clear (Clear) 08/30/22 12:30 Peritoneal WBC 80 /uL 08/30/22 12:30 Peritoneal RBC 0 10^3/uL 08/30/22 12:30 Periton Mononu # Auto 0.060 10^3/uL 08/30/22 12:30 Mononuclear WBCs % 75.100 % 08/30/22 12:30 Polynuclear WBCs % 24.900 % 08/30/22 12:30 Perit Polynuc WBCs # 0.020 10^3/uL 08/30/22 12:30 Peritoneal Diff Commnt Yes 08/30/22 12:30 Coronavirus 229E (PCR) Not detected (NOT DETECT) 08/29/22 12:25 Hepatitis A IgM Ab Non-reactive (Nonreactive) 09/02/22 04:01 Hep Bs Antigen Non-reactive (Nonreactive) 09/02/22 04:01 Hep Bs Antibody 3.5 (11.5-1000) L 09/02/22 04:01 Hep B Core Total Ab Non-reactive (Nonreactive) 09/02/22 04:01 Hepatitis C Antibody Non-reactive (Nonreactive) 09/02/22 04:01 SARS-CoV-2 (PCR) Not detected (NOT DETECT) 08/29/22 12:25 Blood Type O Positive 08/31/22 08:50 Rho(D) Type Positive 08/31/22 08:50 Antibody Screen Negative 08/31/22 08:50 Crossmatch See Detail 08/31/22 08:50 Vitals Last Vital Signs Temp 98.0 F 09/02/22 08:00 Pulse 88 09/02/22 08:00 Resp 18 09/02/22 08:00 BP 150/84 09/02/22 08:00 Pulse Ox 90 09/02/22 08:00 O2 Del Method 09/02/22 08:00 O2 Flow Rate 1 08/30/22 08:00 Discharge Plan Discharge Patient Disposition: Xfer SNF Condition: Stable Prescriptions: New vancomycin 125 mg capsule 125 mg PO QID 14 Days Qty: 56 0RF propranolol 10 mg tablet 10 mg PO BID Qty: 60 0RF Continued atorvastatin [Lipitor] 40 mg Tablet 40 mg PO BEDTIME@20 tamsulosin [Flomax] 0.4 mg Capsule 0.4 mg PO BEDTIME@20 nitroglycerin [Nitrostat] 0.4 mg Tablet, Sublingual 0.4 mg SUBLINGUAL Q5M PRN (Reason: Chest Pain) Rx Instructions: do not exceed 3 doses per episode albuterol sulfate 90 mcg/actuation Hfa Aerosol Inhaler 2 puff INHALATION Q4H PRN (Reason: Shortness Of Breath) Vaseline Gel See Rx Instructions .ROUTE .COMPLEX Rx Instructions: apply small amount topically to finger tid @08:00,16:00,20:00 up to first knuckle for 5 days Thera 400 mcg Tablet 1 tab PO DAILY@08 pantoprazole 40 mg tablet,delayed release (DR/EC) 40 mg PO BID@06,20 Changed furosemide 40 mg tablet 60 mg PO DAILY@08 Qty: 45 0RF Discontinued metoprolol tartrate 25 mg tablet 25 mg PO BID@08,20 Discharge Orders: Discharge Order (Routine); Ordered 09/02/22 Ordered By: Deejay Aburto Referrals: Cash Parsons MD [Primary Care Provider] - 1 week [facility], [Staff Physician] - Steven Palmer DO [Physician] - 2 weeks (Bilateral extensive hydroceles) Discharge Diet: Cardiac Discharge Activity: Resume usual activity and Increase activity as tolerated Patient Instructions: Opioid Safety Activity Restrictions/Additional Instructions: Please continue with regular diet. Please take oral vancomycin 125 mg 4 times a day for next 14 days for C. difficile. Dose of metoprolol has been changed to propranolol 10 mg twice daily. Please check your blood pressures twice daily and maintain a blood pressure diary and follow-up with your primary care provider within next 1 week for further adjustment of antihypertensives. Dose of Lasix has been increased to 60 mg oral daily. Please follow-up with your primary provider within next 1 week and with general surgeon for extensive hydrocele within next 2 weeks. Discharge Attestations Time Spent in Discharge Care*: greater than 30 min Specific Discharge Activities: educating patient, discussing with pcp/other providers, discussing with field case manager/social workers/dc planners, documenting/other paperwork and evaluating patient/reviewing data Status at Discharge: Cognitive status at discharge: mildly impaired cognition, Behavioral status at discharge: cooperative, Functional status at discharge: uses cane/walker, Overall status at discharge: patient is progressing back to baseline Quality Metrics Clinical Quality Measures [ No reported AMI, CVA or VTE this stay] Coding Level of Care Code Acute Chg DC note Diagnoses Sepsis A41.9 C. difficile colitis A04.72 New onset a-fib I48.91 Atrial fibrillation with RVR I48.91 JIHAN (acute kidney injury) N17.9 Cirrhosis K74.60 Decompensated hepatic cirrhosis K72.90; K74.60 Ascites R18.8 NSTEMI (non-ST elevated myocardial infarction) I21.4 CAD (coronary artery disease) I25.10 Associated angina: without angina Coronary Disease-Associated Artery/Lesion type: [place] artery [place] vs. transplanted heart: [place] heart Anemia D64.9 Hypertension I10 Hypertension type: unspecified
[2022-09-02 13:13] VITALS: BP 150/84; PULSE 88; RESP 18; TEMP 36.7; O2SAT 90
[2022-09-02 13:26] LABS: SARS Covid-2 Antigen negative (Negative)
--- NOTE | 2022-09-02 13:56 | PC.NURSE ---
patient was discharged at 1345 to [facility][note 3]. IV removed and intact. Patient was given full instructions and paperwork was sent with him to give to intermediate. Patient verbalized understanding.
== END 2022-09-02 13:56 | disposition skilled nursing facility (03) | DRG 871 ==
LOC: ER 14:23 → ICU 17:02 → CSU 09-01 23:00
PROVIDERS: Family Medicine; Admitting Provider Internal Medicine; Emergency Provider Emergency Medicine; PCP Internal Medicine; Visit Provider Student in an Organized Health Care Education/Training Program
DX: A41.9 Sepsis, unspecified organism (principal); K76.7 Hepatorenal syndrome; A04.72 Enterocolitis due to Clostridium difficile, not specified as recurrent; N17.9 Acute kidney failure, unspecified; J98.11 Atelectasis; K76.6 Portal hypertension; I85.00 Esophageal varices without bleeding; K70.31 Alcoholic cirrhosis of liver with ascites; I48.91 Unspecified atrial fibrillation; I25.10 Atherosclerotic heart disease of native coronary artery without angina pectoris; I12.9 Hypertensive chronic kidney disease with stage 1 through stage 4 chronic kidney disease, or unspecified chronic kidney disease; N18.9 Chronic kidney disease, unspecified; D63.1 Anemia in chronic kidney disease; D53.9 Nutritional anemia, unspecified; J44.9 Chronic obstructive pulmonary disease, unspecified; E78.5 Hyperlipidemia, unspecified; E83.42 Hypomagnesemia; F10.10 Alcohol abuse, uncomplicated; Z95.5 Presence of coronary angioplasty implant and graft
CPT/HCPCS: 36415; 36430; 36600; 51702; 70450; 71045; 71275; 74176; 74177; 76705; 80053; 80503; 81001; 82042; 82140; 82274; 82550; 82575; 82803; 82945; 83605; 83615; 83690; 83735; 83880; 84100; 84145; 84156; 84157; 84300; 84443; 84484; 85025; 85610; 85730; 86140; 86705; 86706; 86709; 86803; 86850; 86900; 86920; 87040; 87070; 87075; 87205; 87340; 87426; 87493; 87635; 89050; 93005; 93308; 96365; 96367; 96372; 96375; 97110; 97161; 97530; 99285; C9113; J0131; J1265; J1650; J1940; J2405; J2543; J3370; J3475; J7030; P9040; P9047; Q9967